=== PATIENT | female | born 1950 | race Caucasian/White ===

== ENCOUNTER 2016-03-22 19:32 | Emergency (ER) | payer OTHER ==
[~2016-03-22] VITALS: Ht 160 cm; Wt 66.0 kg
[~2016-03-22 19:32] MED LIST: ALBUAER INH; MORP15TA PO; PRAV20TA PO; PRLSR20 PO
[2016-03-22 19:43] VITALS: TEMP 36.5; Ht 160 cm; Wt 66.0 kg
[2016-03-22] MEDS ORDERED: PROAIR INH (19:57)
--- NOTE | 2016-03-22 20:05 | EMERGENCY ROOM VISIT NOTE ---
History Report prepared by Yuvalibalec: Jean-Pierre Moreno Under the Supervision of: Dr. Kaushik Angeles M.D. First contact with patient: 19:54 Chief Complaint: ABDOMINAL PAIN Stated Complaint: AB PAIN, CONSTIPATION Nursing Triage Summary: Pt brought in via ambulance BLS. Pt called 911 because she has been unable to urinate or have a bowel movement for two days. Pt states that she had abdominal pain a 9 out of 10. Pt states it feels like she may explode. Pt denies N/V. Pt also states that she has been eating and drinking regularly. Pt took miralax and pepto. History of Present Illness The patient is a 65 year old female who presents to the Emergency Room with complaints of persistent constipation for the past few days. The patient notes that she also cannot pass urine. She complains of abdominal pain that she rates as a 9 out of 10 in severity. The patient had red blood cell transfusions 2 days ago and is currently on chemotherapy treatment. She denies nausea or vomiting. Source of History: patient Onset: the past few days Position: other (GI/) Timing: other (persistent) Associated Symptoms: + abdominal pain (9/10), No nausea, No vomiting Review of Systems See HPI for pertinent positives & negatives. A total of 10 systems reviewed and were otherwise negative. Past Medical & Surgical Medical Problems: (1) Asthma (2) Bipolar disorder (3) Chronic back pain (4) Chronic obstructive lung disease (5) Dehydration (6) Depression (7) Diabetes mellitus (8) Hyperlipidemia (9) Migraine (10) Pneumonia Family History No significant family history Social History Smoking Status: Former Smoker Alcohol Use: none Drug Use: none Marital Status: single Housing Status: lives with roommate Occupation Status: disabled Current/Historical Medications Scheduled Morphine Sulfate (Morphine Sulfate Ir), 15 MG PO DIRECTED [Proair], 2 PUFFS INH QID Scheduled PRN Pravastatin (Pravachol ), 20 MG PO DAILY PRN for Allergies Coded Allergies: Cat Dander (Verified Allergy, Mild, 01/15/16) Codeine (Verified Allergy, Unknown, 01/15/16) Simvastatin (Verified Adverse Reaction, Intermediate, ELEVATED HEPATIC ENZYMES, 01/15/16) Physical Exam Vital Signs Date Time Temp Pulse Resp B/P Pulse Ox O2 Delivery O2 Flow Rate FiO2 03/22/16 21:56 75 20 121/71 98 03/22/16 19:43 36.5 83 20 126/55 100 Nasal Cannula Physical Exam GENERAL: Patient is a healthy-appearing well-nourished HEAD: Normocephalic atraumatic EYES: Ocular movements intact pupils equal and react to light OROPHARYNX mucous membranes are moist no exudates present no erythema or edema present NECK: Supple no nuchal rigidity CHEST: Good equal expansion LUNGS: Clear and equal to auscultation CARDIAC: Normal S1 and S2 ABDOMEN: Soft nontender no guarding BACK: No CVA tenderness EXTREMITIES: No pain upon palpation normal muscle strength in all groups no clubbing cyanosis or edema NEURO: Patient is following commands is answering questions appropriately. Alert and oriented x3 Cranial Nerves 2-12 grossly intact Medical Decision & Procedures ER Provider Diagnostic Interpretation: X-ray results as stated below per interpretation by me and the radiologist: PA CHEST RADIOGRAPH AND LEFT LATERAL DECUBITUS AND SUPINE AP RADIOGRAPHS OF THE ABDOMEN CLINICAL HISTORY: No recent bowel movement. Abdominal pain. COMPARISON STUDY: CT of the abdomen and pelvis October 12, 2015 and chest radiograph October 20, 2015. FINDINGS: A right shoulder arthroplasty is incidentally noted. Lung volumes are normal. Lungs are clear. There is no pneumothorax or pleural effusion. Cardiac size is normal. Mediastinal contours are normal. No free air is identified on the left lateral decubitus image. There is no evidence for a bowel obstruction. Note is made of a large amount stool within the rectum and moderate amount of stool within the colon. There is avascular necrosis of both femoral heads. IMPRESSION: 1. No free air or evidence of bowel obstruction. 2. Large amount of stool within the rectum and moderate amount of stool within the colon. 3. No acute cardiopulmonary findings. 4. Avascular necrosis of the bilateral femoral heads. Electronically signed by: Mo Silvestre M.D. 03/22/2016 9:52 PM Dictated Date/Time: 03/22/2016 9:50 PM Laboratory Results Test 03/22/16 20:20 Urine Color YELLOW Urine Appearance CLEAR (CLEAR) Urine pH 6.5 (4.5-7.5) Urine Specific [place] 1.017 (1.000-1.030) Urine Protein NEG (NEG) Urine Glucose (UA) NEG (NEG) Urine Ketones NEG (NEG) Urine Occult Blood NEG (NEG) Urine Nitrite NEG (NEG) Urine Bilirubin NEG (NEG) Urine Urobilinogen NEG (NEG) Urine Leukocyte Esterase NEG (NEG) Labs reviewed by ED physician. Medications Administered Medications (Trade) Dose Ordered Sig/Jose Route Start Time Stop Time Status Last Admin Dose Admin Magnesium Citrate (Citrate Of Светлана Tucker) 296 ml NOW STAT PO 03/22/16 21:30 03/22/16 21:33 DC 03/22/16 21:52 296 ML ED Course 1955: Past medical records reviewed. The patient was evaluated in room C8. A complete history and physical examination was performed. 2129: Ordered Magnesium Citrate 296 ml PO, Trimethoprim/ Sulfamethoxazole 1 homepack PO, Trimethoprim/ Sulfamethoxazole 1 tab PO. 2199: Upon reexamination the patient is resting comfortably. I discussed results and treatment plan with the patient. She verbalizes agreement and understanding. The patient is ready for discharge. Medical Decision Differential diagnosis: Etiologies such as appendicitis, diverticulitis, PUD, biliary pathology, UTI, pancreatitis, obstruction, mesenteric ischemia, aortic pathology, infections, inflammatory bowel disease, renal colic, as well as others were entertained. This is a 65-year-old female who presents emergency department complaining about constipation as well as urinary retention. The patient is neurologically intact and has good range of motion of her legs has no evidence of saddle anesthesia. A Porter was placed with much agreement of her pain. Serial abdominal examinations were performed on the patient while she was in the emergency department and at no time did she exhibit abdominal tenderness. Based on these findings the patient was sent for x-ray. This showed a moderate amount of stool the colon but no evidence of bowel obstruction. Based on these findings I recommended the patient keep the Porter catheter in place and I was going placed patient on Bactrim however the patient refused the Porter and wishes to go home without. I strongly recommended that she keep the Porter in place however she is refusing. She is going to try magnesium citrate for her constipation. I recommended that the patient follow-up with her primary care physician and a clear liquid diet for the next 48 hours. Patient was in agreement with the treatment plan. The patient has demonstrated no significant defect in the decision-making capacity to make choices. The encounter had a good level of communication with language the patient can easily understand. I feel trust was present and conveyed that our action/intentions were the best interest of the patient. The patient was given all relevant information and reiterated the explained risks and benefits. The patient explained the reasoning for refusing treatment clearly. The patient possesses and expresses a set of values and goals, the ability to communicate and understand, and an ability to reason and deliberate. Despite acting emphatically, attentively and with the utmost patient's the patient declined further treatment. I offered options, negotiated, and explored every reasonable choice. I must respect the patient's autonomy and that they feel that their choices are best for them despite the associated risks of leaving without completing the evaluation. The patient was informed about the findings as listed above. All questions were answered and he was pleased with the treatment. Return instructions were outlined and the patient was discharged in stable condition. Impression Primary Impression: Constipation Additional Impressions: Urinary retention, Abdominal pain Scribe Attestation The scribe's documentation has been prepared under my direction and personally reviewed by me in its entirety. I confirm that the note above accurately reflects all work, treatment, procedures, and medical decision making performed by me. Departure Information Dispostion Home / Self-Care Referrals Ankit Herr M.D. (PCP) Forms HOME CARE DOCUMENTATION FORM, IMPORTANT VISIT INFORMATION, My [facility] Patient Instructions A Signature Page Additional Instructions Take 1/2 bottle of Mag Citrate Repeat second half in six hours You have been examined and treated today on an emergency basis only. This is not a substitute for, or an effort to provide, complete comprehensive medical care. It is impossible to recognize and treat all injuries or illnesses in a single emergency department visit. It is therefore important that you follow up closely with Dr Herr. Call as soon as possible for an appointment. Thank you for your time and consideration. I look forward to speaking with you again soon. Please don't hesitate to call us if you have any questions.
[2016-03-22 20:41] LABS: URINE APPEARANCE CLEAR (CLEAR); URINE BILIRUBIN NEG (NEG); URINE COLOR YELLOW; URINE NITRITE NEG (NEG); URINE PH 6.5 (4.5-7.5); URINE SPECIFIC GRAVITY 1.017 (1.000-1.030); UROBILINOGEN NEG (NEG); ZZURINE CULT IF INDIC CATH NO
[2016-03-22 20:44] LABS: MANUAL MICROSCOPIC REQUIRED? NO; REVIEW REQ? NO
[2016-03-22] MEDS ORDERED: SULFAMETHOXAZOLE/TRIMETHOPRIM DS 800/160MG TAB PO STA (21:30)
[2016-03-22] MEDS ORDERED: MAGNESIUM CITRATE 296 ML/BTL PO STA (21:30)
[2016-03-22] MEDS ORDERED: SEPTRA DS HOME PACK 1 EA VIAL PO ONE (21:30)
--- NOTE | 2016-03-22 21:54 | DIAGNOSTIC IMAGING REPORT ---
PA CHEST RADIOGRAPH AND LEFT LATERAL DECUBITUS AND SUPINE AP RADIOGRAPHS OF THE ABDOMEN CLINICAL HISTORY: No recent bowel movement. Abdominal pain. COMPARISON STUDY: CT of the abdomen and pelvis October 12, 2015 and chest radiograph October 20, 2015. FINDINGS: A right shoulder arthroplasty is incidentally noted. Lung volumes are normal. Lungs are clear. There is no pneumothorax or pleural effusion. Cardiac size is normal. Mediastinal contours are normal. No free air is identified on the left lateral decubitus image. There is no evidence for a bowel obstruction. Note is made of a large amount stool within the rectum and moderate amount of stool within the colon. There is avascular necrosis of both femoral heads. IMPRESSION: 1. No free air or evidence of bowel obstruction. 2. Large amount of stool within the rectum and moderate amount of stool within the colon. 3. No acute cardiopulmonary findings. 4. Avascular necrosis of the bilateral femoral heads. Electronically signed by: Mo Silvestre M.D. 03/22/2016 9:52 PM Dictated Date/Time: 03/22/2016 9:50 PM
[2016-03-22 21:56] VITALS: BP 121/71; PULSE 75; O2SAT 98
[2016-04-11] MEDS ORDERED: SRQ100 PO (15:01)
[2016-04-11] MEDS ORDERED: MORP15TA PO (15:01)
[2016-04-11] MEDS ORDERED: AMB10 PO (15:01)
[2016-04-11] MEDS ORDERED: NVLGIPEN SC (15:01)
[2016-04-11] MEDS ORDERED: [UNRECOGNIZED DRUG - CODE] PO (15:01)
[2016-04-11] MEDS ORDERED: SENN8.6T7 PO (15:01)
[2016-04-11] MEDS ORDERED: DLC5 PO (15:01)
[2016-04-11] MEDS ORDERED: MOMLX PO (15:01)
[2016-04-11] MEDS ORDERED: ZLF50 PO (15:01)
[2016-04-18] MEDS ORDERED: SODI1ENE RE (09:44)
[2016-04-18] MEDS ORDERED: ACET-1311 PO (09:44)
[2016-04-18] MEDS ORDERED: DULCOLAX RE (09:44)
[2016-04-18] MEDS ORDERED: BARRIER CREAM TOP (09:44)
[2016-04-18] MEDS ORDERED: GLGKIT IM (09:44)
[2016-04-18] MEDS ORDERED: DEXT40GE PO (09:44)
[2016-07-18] MEDS ORDERED: SERT-234 PO (12:15)
[2016-07-18] MEDS ORDERED: BISA1TAB15 PO (12:18)
[2016-07-18] MEDS ORDERED: ALBU18002 INH (12:18)
[2016-07-18] MEDS ORDERED: PRLSR20 PO (12:18)
== END 2016-03-22 21:57 | disposition home or self-care (01) ==
LOC: EDBD 19:32 → C.EDC 19:33
DX: K59.00 Constipation, unspecified (principal); R33.9 Retention of urine, unspecified; R10.9 Unspecified abdominal pain; F31.9 Bipolar disorder, unspecified; E11.9 Type 2 diabetes mellitus without complications; E78.5 Hyperlipidemia, unspecified; J44.9 Chronic obstructive pulmonary disease, unspecified; Z88.5 Allergy status to narcotic agent; Z88.8 Allergy status to other drugs, medicaments and biological substances; Z87.891 Personal history of nicotine dependence

== ENCOUNTER 2016-03-28 21:42 | Emergency (ER) | payer OTHER ==
[~2016-03-28] VITALS: Ht 160 cm; Wt 64.7 kg
[~2016-03-28 21:42] MED LIST changes: -ALBUAER INH; -PRLSR20 PO; +PROAIR INH
[2016-03-28 21:51] VITALS: TEMP 37.7; Ht 160 cm; Wt 64.7 kg
[2016-03-28] MEDS ORDERED: ALBUT/IPRATROP 3MG/0.5MG NEB 3 ML VIAL INH STA (22:24)
[2016-03-28 22:45] VITALS: O2SAT 97
[2016-03-28 23:04] LABS: URINE APPEARANCE CLEAR (CLEAR); URINE BILIRUBIN NEG (NEG); URINE COLOR YELLOW; URINE NITRITE NEG (NEG); URINE PH 6.5 (4.5-7.5); URINE SPECIFIC GRAVITY 1.018 (1.000-1.030); UROBILINOGEN NEG (NEG); ZZUR CULT IF INDIC CLEAN CATCH YES
[2016-03-28 23:05] LABS: MANUAL MICROSCOPIC REQUIRED? NO; REVIEW REQ? NO
[2016-03-28 23:43] LABS: BASO % 0.4 %; BASO ABS # 0.02 K/uL (0-0.2); COMPLETE YES; EOS % 7.4 %; HEMATOCRIT 31.3 % (37-47); IG% 0.5 %; LYMPH % 13.7 %; LYMPH ABS # 0.76 K/uL (1.2-3.4); MEAN CELL VOLUME 95.4 fL (80-100); MEAN CORPUSCULAR HEMOGLOBIN 30.8 pg (25-34); MEAN CORPUSCULAR HGB CONC 32.3 g/dl (32-36); MEAN PLATELET VOLUME 10.4 fL (7.4-10.4); MONO % 6.1 %; NEUT % 71.9 %; PLATELET COUNT 315 K/uL (130-400); RED BLOOD COUNT 3.28 M/uL (4.2-5.4); WHITE BLOOD COUNT 5.55 K/uL (4.8-10.8)
[2016-03-28 23:46] LABS: VEN BLD GAS O2 SATURATION < 60.0 %; VEN BLOOD GAS BASE EXCESS 4.8 mmol/L; VENOUS BLOOD GAS PCO2 58 mmHg (38.0-50.0); VENOUS BLOOD GAS PO2 24 mmHg
[2016-03-28] MEDS ORDERED: SULFAMETHOXAZOLE/TRIMETHOPRIM DS 800/160MG TAB PO STA (23:53)
[2016-03-29 00:02] LABS: ALT/SGPT 44 U/L (12-78); AST/SGOT 42 U/L (15-37); BLOOD UREA NITROGEN 16 mg/dl (7-18); BUN/CREATININE RATIO 10.5 (10-20); CALCIUM 8.7 mg/dl (8.5-10.1); CARBON DIOXIDE 30 mmol/L (21-32); CHLORIDE 106 mmol/L (98-107); GLUCOSE 107 mg/dl (70-99); MAGNESIUM 2.4 mg/dl (1.8-2.4); POTASSIUM 4.3 mmol/L (3.5-5.1); SODIUM 144 mmol/L (136-145)
[2016-03-29 00:07] LABS: ALKALINE PHOSPHATASE 140 U/L (45-117); CKMB/CK RATIO 2.3 (0-3.0)
--- NOTE | 2016-03-29 00:16 | EMERGENCY ROOM VISIT NOTE ---
ED Visit Note First contact with patient: 22:03 Staff note: I have reviewed the Patients chart and have discussed this case with my PA. I generally agree with the ED note and findings.
[2016-03-29] MEDS ORDERED: SULF800T23 PO (00:39)
[2016-03-29] MEDS ORDERED: MAGNESIUM CITRATE 296 ML/BTL PO ONE (00:45)
[2016-03-29] MEDS ORDERED: SEPTRA DS HOME PACK 1 EA VIAL PO ONE (00:45)
[2016-03-29 01:04] VITALS: BP 144/75; PULSE 83; O2SAT 91
--- NOTE | 2016-03-29 04:23 | EMERGENCY ROOM VISIT NOTE ---
History First contact with patient: 22:03 Chief Complaint: RESPIRATORY PROBLEMS Stated Complaint: SOB/COUGH Nursing Triage Summary: Pt arrived by EMS. Pt had increasing SOB at home. EMS stated that pt had her home O2 tubing tangled and in a knot. Pt brought to ER. Duoneb given in route. Pt is 97% on 3L. History of Present Illness The patient is a 65 year old female who presents to the Emergency Room with complaints of shortness of breath that is now resolved. Patient also complains of constipation. Patient states she normally wears 3 L of oxygen. She noticed she could not breathe and called 911. EMS realized that her oxygen tubing was knotted up and not working properly. Patient states when she is placed on oxygen she felt much better. Patient denies chest pain, fever, chills, cough, congestion, abdominal pain, vomiting, diarrhea. Patient states she feels much better. Patient is requesting magnesium citrate for her constipation. No bowel movement in last 3 days. No abdominal surgeries. Review of Systems See HPI for pertinent positives & negatives. A total of 10 systems reviewed and were otherwise negative. Past Medical/Surgical History Medical Problems: (1) Asthma (2) Bipolar disorder (3) Chronic back pain (4) Chronic obstructive lung disease (5) Dehydration (6) Depression (7) Diabetes mellitus (8) Hyperlipidemia (9) Migraine (10) Pneumonia Family History No significant family history Social History Smoking Status: Former Smoker Alcohol Use: none Drug Use: none Marital Status: single Housing Status: lives with roommate Occupation Status: disabled Current/Historical Medications Scheduled Morphine Sulfate (Morphine Sulfate Ir), 15 MG PO DIRECTED Sulfa/Trimethoprim (Bactrim Ds 800MG/160MG), 1 TAB PO BID [Proair], 2 PUFFS INH QID Scheduled PRN Pravastatin (Pravachol ), 20 MG PO DAILY PRN for Allergies Coded Allergies: Cat Dander (Verified Allergy, Mild, 03/28/16) Codeine (Verified Allergy, Unknown, 03/28/16) Simvastatin (Verified Adverse Reaction, Intermediate, ELEVATED HEPATIC ENZYMES, 03/28/16) Physical Exam Vital Signs Date Time Temp Pulse Resp B/P Pulse Ox O2 Delivery O2 Flow Rate FiO2 03/29/16 01:04 83 20 144/75 91 03/28/16 23:44 81 18 149/84 95 Nasal Cannula 3.0 03/28/16 23:03 90 03/28/16 22:46 Nasal Cannula 3.0 03/28/16 22:45 97 Nasal Cannula 3.0 03/28/16 21:58 Nasal Cannula 3.0 03/28/16 21:51 37.7 96 126/89 97 Nasal Cannula 3.0 Pain Rating (0-10): 2.0 Physical Exam VITALS: Vitals are noted on the nurse's note and reviewed by myself. Vital signs stable. GENERAL: Pleasant female speaking in full sentences, in no acute distress, nondiaphoretic, well-developed well-nourished. SKIN: The skin was without rashes, erythema, edema, or bruising. There is no tenting of the skin. Capillary reflex less than 2 seconds. HEAD: Normocephalic atraumatic. EARS: External auditory canals clear, tympanic membranes pearly waters without erythema or effusion bilaterally. EYES: Pupils equal round and reactive to light and accommodation. Conjunctivae without injection, sclerae without icterus. Extraocular movements intact. NOSE: Patent, turbinates without inflammation or discharge. MOUTH: Mucous membranes moist. Pharynx without erythema or exudate. Uvula midline. Airway patent. Tongue does not deviate. NECK: Supple without nuchal rigidity. No lymphadenopathy. No thyromegaly. Cervical spine is nontender. No JVD. HEART: Regular rate and rhythm LUNGS: Mild diffuse adnexal and oriented wheezes, without rales or rhonchi. No dullness to percussion. No retractions or accessory muscle use. ABDOMEN: Positive bowel sounds x 4. Normal tympanic percussion. Soft, nontender, without masses or organomegaly. Singh sign negative. No guarding or rebound tenderness. MUSCULOSKELETAL: No muscle atrophy, erythema, or edema noted. NEURO: Patient was alert and oriented to person place and time. Normal sensation to light and sharp touch. No focal neurological deficits. Medical Decision & Procedures Laboratory Results 03/28/16 23:34 Red Blood Count 3.28, Mean Corpuscular Volume 95.4, Mean Corpuscular Hemoglobin 30.8, Mean Corpuscular Hemoglobin Concent 32.3, Mean Platelet Volume 10.4, Neutrophils (%) (Auto) 71.9, Lymphocytes (%) (Auto) 13.7, Monocytes (%) (Auto) 6.1, Eosinophils (%) (Auto) 7.4, Basophils (%) (Auto) 0.4, Neutrophils # (Auto) 3.99, Lymphocytes # (Auto) 0.76, Monocytes # (Auto) 0.34, Eosinophils # (Auto) 0.41, Basophils # (Auto) 0.02 03/28/16 23:34 Test 03/28/16 00:00 03/28/16 23:34 Urine Color YELLOW Urine Appearance CLEAR (CLEAR) Urine pH 6.5 (4.5-7.5) Urine Specific [place] 1.018 (1.000-1.030) Urine Protein NEG (NEG) Urine Glucose (UA) NEG (NEG) Urine Ketones NEG (NEG) Urine Occult Blood NEG (NEG) Urine Nitrite NEG (NEG) Urine Bilirubin NEG (NEG) Urine Urobilinogen NEG (NEG) Urine Leukocyte Esterase SMALL (NEG) Urine WBC (Auto) 10-30 /hpf (0-5) Urine RBC (Auto) 0-4 /hpf (0-4) Urine Hyaline Casts (Auto) 1-5 /lpf (0-5) Urine Epithelial Cells (Auto) 5-10 /lpf (0-5) Urine Bacteria (Auto) 1+ (NEG) White Blood Count 5.55 K/uL (4.8-10.8) Red Blood Count 3.28 M/uL (4.2-5.4) Hemoglobin 10.1 g/dL (12.0-16.0) Hematocrit 31.3 % (37-47) Mean Corpuscular Volume 95.4 fL (80-100) Mean Corpuscular Hemoglobin 30.8 pg (25-34) Mean Corpuscular Hemoglobin Concent 32.3 g/dl (32-36) Platelet Count 315 K/uL (130-400) Mean Platelet Volume 10.4 fL (7.4-10.4) Neutrophils (%) (Auto) 71.9 % Lymphocytes (%) (Auto) 13.7 % Monocytes (%) (Auto) 6.1 % Eosinophils (%) (Auto) 7.4 % Basophils (%) (Auto) 0.4 % Neutrophils # (Auto) 3.99 K/uL (1.4-6.5) Lymphocytes # (Auto) 0.76 K/uL (1.2-3.4) Monocytes # (Auto) 0.34 K/uL (0.11-0.59) Eosinophils # (Auto) 0.41 K/uL (0-0.5) Basophils # (Auto) 0.02 K/uL (0-0.2) RDW Standard Deviation 60.8 fL (36.4-46.3) RDW Coefficient of Variation 17.4 % (11.5-14.5) Immature Granulocyte % (Auto) 0.5 % Immature Granulocyte # (Auto) 0.03 K/uL (0.00-0.02) Nucleated RBC Absolute Count (auto) 0.02 K/uL (0-0) Nucleated Red Blood Cells % 0.3 % Venous Blood pH 7.35 (7.36-7.41) Venous Blood Partial Pressure CO2 58 mmHg (38.0-50.0) Venous Blood Partial Pressure O2 24 mmHg Venous Blood HCO3 31 mmol/L Venous Blood Oxygen Saturation < 60.0 % Venous Blood Base Excess 4.8 mmol/L Anion Gap 8.0 mmol/L (3-11) Est Creatinine Clear Calc Drug Dose 34.7 ml/min Estimated GFR () 42.5 Estimated GFR (Non- 36.7 BUN/Creatinine Ratio 10.5 (10-20) Calcium Level 8.7 mg/dl (8.5-10.1) Magnesium Level 2.4 mg/dl (1.8-2.4) Total Bilirubin 0.4 mg/dl (0.2-1) Direct Bilirubin 0.1 mg/dl (0-0.2) Aspartate Amino Transf (AST/SGOT) 42 U/L (15-37) Alanine Aminotransferase (ALT/SGPT) 44 U/L (12-78) Alkaline Phosphatase 140 U/L (45-117) Total Creatine Kinase 53 U/L (26-192) Creatine Kinase MB 1.2 ng/ml (0.5-3.6) Creatine Kinase MB Ratio 2.3 (0-3.0) Troponin I < 0.015 ng/ml (0-0.045) Total Protein 6.4 gm/dl (6.4-8.2) Albumin 3.6 gm/dl (3.4-5.0) Medications Administered Medications (Trade) Dose Ordered Sig/Jose Route Start Time Stop Time Status Last Admin Dose Admin Albuterol/ Ipratropium (Duoneb) 3 ml NOW STAT INH 03/28/16 22:24 03/28/16 22:25 DC 03/28/16 22:45 3 ML Trimethoprim/ Sulfamethoxazole (Septra Ds 800/ 160MG Tab) 1 tab NOW STAT PO 03/28/16 23:53 03/28/16 23:54 DC 03/29/16 00:57 1 TAB Trimethoprim/ Sulfamethoxazole (Sulfameth/ Trimeth Ds 800/ 160MG Home Pack) 1 homepack UD ONCE PO 03/29/16 00:45 03/29/16 00:46 DC 03/29/16 00:58 1 HOMEPACK Magnesium Citrate (Citrate Of Magnesia Soln) 296 ml NOW ONCE PO 03/29/16 00:45 03/29/16 00:46 DC 03/29/16 00:58 296 ML ED Course Prior records/ancillary studies reviewed. Triage Nursing notes reviewed. Additional history obtained from the EMS The patient's history was concerning for respiratory difficulties. Differential diagnosis: Etiologies such as infections, reactive airway disease, pneumonia, pneumothorax , COPD, CHF, cardiac ischemia, pulmonary embolism, musculoskeletal, gastrointestinal, as well as others were entertained. Physical examination: As above. ER treatment provided: Nebulizer, Bactrim On reassessment the patient felt better. Diagnostic interpretation by me: The electrocardiogram was negative for acute ischemic or pathologic change. The labs revealed moderate anemia. Negative troponin. Urinalysis consistent with infection sent for culture Imaging studies: Acute abdominal series with no obstruction, free air or pneumothorax per my interpretation This appears to be consistent with shortness of breath related to oxygen tube malfunction with UTI and constipation. Patient felt much better and requested to leave. She was started on Bactrim for UTI. She is given magnesium citrate. She is advised to follow-up with family care in a day or 2 or here in the ER sooner for chest pain, difficulty breathing, fevers, worsening signs or symptoms or as needed. By the evaluation outlined above emergent etiologies such as CHF, cardiac ischemia, pulmonary embolism, reactive airway disease, pneumonia, pneumothorax, musculoskeletal, serious bacterial infections, as well as others were deemed relatively unlikely. The pt informed about the findings as listed above. All questions were answered and pleased with the treatment. Return instructions were outlined and the patient was discharged in stable condition. Outpatient prescription management: Bactrim Referral: The patient was referred back to their primary care physician for follow-up in 2 to 3 days for a recheck of the current condition. Case reviewed with my attending Medical Decision As above Impression Primary Impression: Constipation Additional Impression: UTI (urinary tract infection) Departure Information Dispostion Home / Self-Care Condition GOOD Prescriptions Sulfa/Trimethoprim (Bactrim Ds 800MG/160MG) Tab 1 TAB PO BID for 3 Days, #6 TAB Prov: [email or web address] .[email or web address] 03/29/16 Forms WORK / SCHOOL INSTRUCTIONS, HOME CARE DOCUMENTATION FORM, IMPORTANT VISIT INFORMATION Patient Instructions Constipation, UTI, My [facility] Additional Instructions Magnesium citrate: Drink half the bottle wheyouhe get up. If you do not have a bowel movement within 6 hours then drink the rest. Stay near a toilet. Trimethoprim-Sulfamethoxazole(Bactrim DS): Take one pill twice daily for 3 days. Any medication can cause an allergic reaction, stop the pills immediately and return to the ER for rash, hives, breathing difficulties, or swelling. Acetaminophen(Tylenol) may be used for fever or pain. Use 1000mg every six hours as needed. Avoid using more than 3000mg in a 24 hour period. Rest and drink plenty of fluids as tolerated. Slow sips of water or sports drinks are recommended instead of large amounts all at once. Continue current medications. Once your stomach is settled start with a clear liquid diet (jello, soup broth, etc.) and then advance as tolerated. You should avoid full, heavy meals for about 24 hrs from the time your symptoms resolved. Return to the ER immediately for worsening or persistent abdominal/back pain, vomiting, fevers, worsening of your condition, or as needed. Follow up with your primary physician within 2-3 days for a recheck of the current condition. Problem Qualifiers Primary Impression: Constipation Constipation type: unspecified constipation type Qualified Codes: K59.00 - Constipation, unspecified Additional Impression: UTI (urinary tract infection) Urinary tract infection type: acute cystitis Hematuria presence: without hematuria Qualified Codes: N30.00 - Acute cystitis without hematuria
--- NOTE | 2016-03-29 06:53 | DIAGNOSTIC IMAGING REPORT ---
PA CHEST RADIOGRAPH AND UPRIGHT AND SUPINE AP RADIOGRAPHS OF THE ABDOMEN CLINICAL HISTORY: The patient. Shortness of breath. Cough. COMPARISON STUDY: CT of the abdomen and pelvis October 04, 2015 and chest radiograph March 22, 2016 with abdominal series. FINDINGS: Lung volumes are normal. A 1.4 cm nodular density projects over the left mid upper lung and the anterior left third rib. Otherwise, lungs are clear. Cardiac size is stable. A right shoulder arthroplasty is incidentally noted. There is no free air. The bowel gas pattern is normal. There is a [id number] amount of stool within the colon and rectum. Avascular necrosis of both femoral heads is again noted. IMPRESSION: 1. 1.4 cm nodular density which projects of the left upper lung. This could reflect a pulmonary nodule, minimal airspace disease, healing rib fracture or artifact. Follow-up PA and shallow oblique radiographs of the chest in one to 2 weeks are recommended. 2. No free air or evidence of bowel obstruction. 3. Mild to moderate amount stool within the colon and rectum. Electronically signed by: Mo Silvestre M.D. 03/29/2016 6:52 AM Dictated Date/Time: 03/29/2016 6:47 AM
[2016-03-29] MEDS ORDERED: VNTHFA/IN INH (09:42)
[2016-04-11] MEDS ORDERED: AMB10 PO (15:01)
[2016-04-11] MEDS ORDERED: [UNRECOGNIZED DRUG - CODE] PO (15:01)
[2016-04-11] MEDS ORDERED: MOMLX PO (15:01)
[2016-04-11] MEDS ORDERED: DLC5 PO (15:01)
[2016-04-11] MEDS ORDERED: MORP15TA PO (15:01)
[2016-04-11] MEDS ORDERED: SRQ100 PO (15:01)
[2016-04-11] MEDS ORDERED: SENN8.6T7 PO (15:01)
[2016-04-11] MEDS ORDERED: ZLF50 PO (15:01)
[2016-04-11] MEDS ORDERED: NVLGIPEN SC (15:01)
[2016-04-18] MEDS ORDERED: GLGKIT IM (09:44)
[2016-04-18] MEDS ORDERED: ACET-1311 PO (09:44)
[2016-04-18] MEDS ORDERED: SODI1ENE RE (09:44)
[2016-04-18] MEDS ORDERED: DEXT40GE PO (09:44)
[2016-04-18] MEDS ORDERED: BARRIER CREAM TOP (09:44)
[2016-04-18] MEDS ORDERED: DULCOLAX RE (09:44)
[2016-07-18] MEDS ORDERED: SERT-234 PO (12:15)
[2016-07-18] MEDS ORDERED: PRLSR20 PO (12:18)
[2016-07-18] MEDS ORDERED: BISA1TAB15 PO (12:18)
[2016-07-18] MEDS ORDERED: ALBU18002 INH (12:18)
== END 2016-03-29 01:06 | disposition home or self-care (01) ==
LOC: EDBD 21:42 → C.EDC 21:45
DX: K59.00 Constipation, unspecified (principal); N30.00 Acute cystitis without hematuria; D64.9 Anemia, unspecified; E11.9 Type 2 diabetes mellitus without complications; F31.9 Bipolar disorder, unspecified; F32.9 Major depressive disorder, single episode, unspecified; J44.9 Chronic obstructive pulmonary disease, unspecified; E78.5 Hyperlipidemia, unspecified; I50.9 Heart failure, unspecified; Z87.891 Personal history of nicotine dependence

== ENCOUNTER 2016-03-29 09:23 | Inpatient (IN) | payer OTHER ==
[~2016-03-29] VITALS: Ht 167.6 cm; Wt 64.3 kg
[~2016-03-29 09:23] MED LIST changes: +SULF800T23 PO
[2016-03-29] MEDS ORDERED: VNTHFA/IN INH (09:42)
[2016-03-29] MEDS ORDERED: ONDANSETRON INJ 2 MG/ML 2 ML VIAL IV STA (09:49)
[2016-03-29] MEDS ORDERED: CEFTRIAXONE SOD INJ 1 GM ADDVIAL IV STA (09:49)
[2016-03-29] MEDS ORDERED: ALBUT/IPRATROP 3MG/0.5MG NEB 3 ML VIAL INH STA (09:49)
[2016-03-29] MEDS ORDERED: METHYLPREDNISOLONE 125 MG VIAL IV STA (09:49)
--- NOTE | 2016-03-29 10:29 | DIAGNOSTIC IMAGING REPORT ---
CHEST ONE VIEW PORTABLE CLINICAL HISTORY: Shortness of breath. Respiratory distress. COMPARISON STUDY: 03/28/2016 FINDINGS: The heart is borderline enlarged. There is no failure. There is no focal pulmonary consolidation. There are no pleural effusions. There are postsurgical changes involving the right shoulder. The previously queried left upper lung zone nodule is not visualized with certainty. As was previously requested, a follow-up PA and lateral chest x-ray is still recommended[ IMPRESSION: AP portable study. No acute findings. Electronically signed by: Hans Beltrán M.D. 03/29/2016 10:27 AM Dictated Date/Time: 03/29/2016 10:25 AM
[2016-03-29] MEDS ORDERED: ONDANSETRON INJ 2 MG/ML 2 ML VIAL IV PRN (11:15)
[2016-03-29] MEDS ORDERED: ACETAMINOPHEN 325 MG TAB PO PRN (11:15)
[2016-03-29] MEDS ORDERED: DEXTROSE 50% 50 ML SYR IV PRN (11:30)
[2016-03-29] MEDS ORDERED: GLUCOSE 10 TABS/TUBE PO PRN (11:30)
[2016-03-29 12:08] LABS: BLOOD UREA NITROGEN 16 mg/dl (7-18); BUN/CREATININE RATIO 10.5 (10-20); CARBON DIOXIDE 29 mmol/L (21-32); CHLORIDE 108 mmol/L (98-107); GLUCOSE 94 mg/dl (70-99); POTASSIUM 4.9 mmol/L (3.5-5.1); SODIUM 144 mmol/L (136-145)
[2016-03-29 12:20] LABS: BASO % 0.4 %; BASO ABS # 0.02 K/uL (0-0.2); EOS % 4.7 %; HEMATOCRIT 31.2 % (37-47); IG% 0.5 %; LYMPH % 13.8 %; LYMPH ABS # 0.77 K/uL (1.2-3.4); MEAN CELL VOLUME 96.9 fL (80-100); MEAN CORPUSCULAR HEMOGLOBIN 30.7 pg (25-34); MEAN CORPUSCULAR HGB CONC 31.7 g/dl (32-36); MEAN PLATELET VOLUME 11.2 fL (7.4-10.4); MONO % 4.7 %; NEUT % 75.9 %; PLATELET COUNT 248 K/uL (130-400); RED BLOOD COUNT 3.22 M/uL (4.2-5.4); WHITE BLOOD COUNT 5.57 K/uL (4.8-10.8)
[2016-03-29 12:42] VITALS: BP 128/75; PULSE 80; TEMP 36.9; O2SAT 92
[2016-03-29 12:44] LABS: ANISOCYTOSIS PRESENT; COMPLETE YES; GIANT PLATELETS 2+; HYPOCHROMIA PRESENT; POLYCHROMASIA 1+
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
[2016-03-29] MEDS ORDERED: GLUCOSE 40% GEL 15 GM TUBE PO PRN (13:00)
[2016-03-29] MEDS ORDERED: GLUCAGON FOR INJ 1 MG VIAL SQ PRN (13:00)
[2016-03-29 13:06] LABS: INFLUENZA A PCR Neg for Influ A (NEG); INFLUENZA B PCR Neg for Influ B (NEG)
[2016-03-29] MEDS ORDERED: BISACODYL 10 MG SUPP PR SCH (13:30)
[2016-03-29] MEDS: MoRPHine SULFATE IR 15 MG TAB (IMMEDIATE RELEASE) PO SCH ×2 (13:43→20:54)
[2016-03-29 13:54] VITALS: BMI 24.6
[2016-03-29] MEDS ORDERED: IV FLUIDS COMPLETED PRN (14:00)
--- NOTE | 2016-03-29 14:17 | EMERGENCY ROOM VISIT NOTE ---
History Report prepared by [place]: Lisa Mcdonald Under the Supervision of: Dr. Nicola Maciel M.D. First contact with patient: 09:45 Chief Complaint: SHORTNESS OF BREATH Stated Complaint: SHORTNESS OF BREATH Nursing Triage Summary: Triage Note: pt presents to room a03 via als. pt has called 911 3 times in the past 24 hours. pt was seen at [facility] ed last night and sent home. medic reports that pt called her home oxygen company because her oxygen was not working - oxygen company workers found oxygen to be working but pt was acutely short of breath so they called 911. pt wears 3 liters oxygen at home at all times. pt was found to be in the 80's on her 3 liters at home. pt recieved 1 duo neb en route to hospital. pt has productive cough and when asked what color sputum is pt reports "i don't know i swallow it." History of Present Illness The patient is a 65 year old female who presents to the Emergency Room with complaints of intermittent, worsened shortness of breath starting 2 days ago. She has been coughing a lot more than normal in the past few days. She reports mucous production with the cough. She also started having diaphoresis this morning. The patient also complains of nausea. She wears 3 L oxygen at home. The patient does not think her oxygen at home was working. The paper sales representative from the oxygen company came to her house this morning to fix any issues with the oxygen and recommended she come to the Emergency Room. She received 1 DuoNeb en route to the Emergency Room with relief. The patient was evaluated at the Emergency Room last night for similar symptoms. She was discharged home with Bactrim for a UTI. The patient denies any chills, urinary symptoms, or any other complaints. She thinks she may have received a flu shot at her PCP's office. The patient has been receiving chemotherapy for leukemia. Her last chemotherapy session was on March 22. The next time she will receive it will be on April 15. Source of History: patient Onset: 2 days ago Position: other (global) Quality: other (shortness of breath) Timing: intermittent Modifying Factors (Relieving): other (1 DuoNeb with relief) Associated Symptoms: + cough, + diaphoresis, + nausea, No chills, No urinary symptoms Review of Systems See HPI for pertinent positives & negatives. A total of 10 systems reviewed and were otherwise negative. Past Medical & Surgical Medical Problems: (1) Asthma (2) Bipolar disorder (3) Chronic back pain (4) Chronic obstructive lung disease (5) Dehydration (6) Depression (7) Diabetes mellitus (8) Hyperlipidemia (9) Migraine (10) Pneumonia Family History No significant family history Social History Smoking Status: Former Smoker Alcohol Use: none Drug Use: none Marital Status: single Housing Status: lives with roommate Occupation Status: disabled Current/Historical Medications Scheduled Albuterol Hfa (Ventolin Hfa), 2 PUFFS INH QID Morphine Sulfate (Morphine Sulfate Ir), 15 MG PO DIRECTED Scheduled PRN Pravastatin (Pravachol ), 20 MG PO DAILY PRN for Allergies Coded Allergies: Cat Dander (Verified Allergy, Mild, 03/29/16) Codeine (Verified Allergy, Unknown, 03/29/16) Simvastatin (Verified Adverse Reaction, Intermediate, ELEVATED HEPATIC ENZYMES, 03/29/16) Physical Exam Vital Signs Date Time Temp Pulse Resp B/P Pulse Ox O2 Delivery O2 Flow Rate FiO2 03/29/16 10:00 96 Nasal Cannula 3.0 03/29/16 09:30 95 Nasal Cannula 3.0 03/29/16 09:30 95 Nasal Cannula 3.0 03/29/16 09:30 37.2 89 20 132/79 95 Nasal Cannula 3.0 03/29/16 09:29 85 Physical Exam GENERAL: Patient is in no acute distress. HEENT: No acute trauma, normocephalic atraumatic, mucous membranes moist, no nasal congestion, no scleral icterus. NECK: No stridor, no adenopathy, no meningismus, trachea is midline. LUNGS: Diminished breath sounds bilaterally with wheezing and rhonchi bilaterally. Breath sounds are equal. HEART: Without murmurs gallops or rubs, regular rate and rhythm. ABDOMEN: Soft, nontender, bowel sounds positive, no hernias, no peritonitis. EXTREMITIES: No cyanosis or edema, full range of motion of all the joints without pain or difficulty, no signs for acute trauma. NEUROLOGIC: Oriented x 3, no acute motor or sensory deficits, no focal weakness. SKIN: No rash, no jaundice, no diaphoresis. Medical Decision & Procedures ER Provider Diagnostic Interpretation: X-ray results as stated below per interpretation by me and the radiologist: CHEST ONE VIEW PORTABLE CLINICAL HISTORY: Shortness of breath. Respiratory distress. COMPARISON STUDY: 03/28/2016 FINDINGS: The heart is borderline enlarged. There is no failure. There is no focal pulmonary consolidation. There are no pleural effusions. There are postsurgical changes involving the right shoulder. The previously queried left upper lung zone nodule is not visualized with certainty. As was previously requested, a follow-up PA and lateral chest x-ray is still recommended[ IMPRESSION: AP portable study. No acute findings. Electronically signed by: Hans Beltrán M.D. 03/29/2016 10:27 AM Dictated Date/Time: 03/29/2016 10:25 AM Laboratory Results Test 03/29/16 10:00 Influenza Type A (RT-PCR) Neg for Influ A (NEG) Influenza Type B (RT-PCR) Neg for Influ B (NEG) Laboratory results reviewed by me. Medications Administered Medications (Trade) Dose Ordered Sig/Jose Route Start Time Stop Time Status Last Admin Dose Admin Methylprednisolone Sodium Succinate (Solu-Medrol IV) 60 mg NOW STAT IV 03/29/16 09:49 03/29/16 09:55 DC 03/29/16 11:34 60 MG Albuterol/ Ipratropium (Duoneb) 3 ml NOW STAT INH 03/29/16 09:49 03/29/16 09:55 DC 03/29/16 11:02 3 ML Ceftriaxone Sodium (Rocephin Inj) 1 gm NOW STAT IV 03/29/16 09:49 03/29/16 09:55 DC 03/29/16 11:35 1 GM Ondansetron HCl (Zofran Inj) 4 mg NOW STAT IV 03/29/16 09:49 03/29/16 09:55 DC 03/29/16 11:34 4 MG ECG Indication: SOB/dyspnea Rate (beats per minute): 66 Rhythm: normal sinus Findings: no acute ischemic change, no ectopy ED Course 0945: The patient was evaluated in room A03. A complete history and physical exam was performed. 0949: Zofran Inj 4 mg IV, Rocephin Inj 1 gm IV, DuoNeb 3 ml IV, Solu-Medrol IV 60 mg IV 1021: I [facility] the patient's [facility] Upon reexamination the patient is resting comfortably. I discussed results and treatment plan with the patient. She verbalizes agreement and understanding. The patient will be evaluated for further management. Medical Decision Differential diagnosis includes but is not limited to acute bronchitis, pneumonia, exacerbation of COPD, cardiac ischemia, anemia, influenza, electrolyte imbalance. There is no leukocytosis. The patient is anemic but this is baseline looking back at previous testing. No significant electrolyte abnormality, kidney failure. EKG shows a normal sinus rhythm, no acute ischemia. Cardiac enzyme testing does not show evidence for acute cardiac injury. Influenza testing is negative. Chest film shows no pneumonia, pneumothorax or CHF. The patient presents with hypoxia despite her normal O2 amounts at home. She has had a cough and increased congestion. Her lung sounds are diminished with wheezing bilaterally. She appears to have an acute bronchitis with an exacerbation of COPD. At this point, admission/observation is warranted. The patient received IV saline, IV Solu-Medrol, IV ceftriaxone and IV Zofran. I spoke with case management. The on-call hospitalist was consulted. Consults Time Called: 1001 Consulting Physician: Dr. Hunter, from [facility] Hospitalist Service Returned Call: [phone] I discussed the patient's case with [facility] Impression Primary Impression: Hypoxia Additional Impressions: Acute bronchitis COPD exacerbation Scribe Attestation The scribe's documentation has been prepared under my direction and personally reviewed by me in its entirety. I confirm that the note above accurately reflects all work, treatment, procedures, and medical decision making performed by me. Departure Information Dispostion Being Evaluated By Hospitalist Referrals Ankit Herr M.D. (PCP) Patient Instructions My [facility] Problem Qualifiers
--- NOTE | 2016-03-29 14:54 | DIAGNOSTIC IMAGING REPORT ---
CHEST 2 VIEWS ROUTINE CLINICAL HISTORY: Shortness of breath. COMPARISON STUDY: Chest radiograph March 29, 2016 at 10:00 AM and chest radiograph March 28, 2016. FINDINGS: Right shoulder arthroplasty is noted. There is no pneumothorax or pleural effusion. There is no evidence of pulmonary edema. No consolidation is identified. The nodular density within the left upper lung on exam of March 28, 2016 is less conspicuous on this exam and likely represents summation artifact. IMPRESSION: 1. No acute cardiopulmonary findings. 2. The nodular density within the left upper lung on exam of March 28, 2016 is less conspicuous on this exam and likely reflects summation artifact with overlying rib. Electronically signed by: Mo Silvestre M.D. 03/29/2016 2:53 PM Dictated Date/Time: 03/29/2016 2:51 PM
[2016-03-29 14:55] VITALS: BP 120/74; PULSE 82; TEMP 37.1; O2SAT 93
[2016-03-29] MEDS: ALBUT/IPRATROP 3MG/0.5MG NEB 3 ML VIAL INH SCH ×2 (16:00→19:49)
[2016-03-29] MEDS: INSULIN ASPART 100 UNITS/ML 3 ML PEN SC SCH ×2 (16:30→20:54)
[2016-03-29 19:25] VITALS: PULSE 94; O2SAT 97
[2016-03-29 19:40] VITALS: BP 119/73; PULSE 58; TEMP 36.7; O2SAT 97
[2016-03-29] MEDS: METHYLPREDNISOLONE IV 40 MG in SYRINGE 0 ML IV SCH (20:53)
[2016-03-29 23:32] VITALS: BP 132/81; PULSE 63; TEMP 36.6; O2SAT 96
[2016-03-30] VITALS (10 sets, daily range): BP systolic 107–152; BP diastolic 68–86; PULSE 55–109; TEMP 36.6–36.8; O2SAT 94–99; BMI 24.2
[2016-03-30] MEDS: METHYLPREDNISOLONE IV 40 MG in SYRINGE 0 ML IV SCH ×3 (03:51→20:17)
[2016-03-30] MEDS: MoRPHine SULFATE IR 15 MG TAB (IMMEDIATE RELEASE) PO SCH ×3 (06:34→21:48)
[2016-03-30] MEDS: ALBUT/IPRATROP 3MG/0.5MG NEB 3 ML VIAL INH SCH ×4 (07:42→19:33)
[2016-03-30 07:50] LABS: COMPLETE YES; HEMATOCRIT 31.5 % (37-47); IG% 0.5 %; LYMPH ABS # 0.35 K/uL (1.2-3.4); MEAN CELL VOLUME 97.2 fL (80-100); MEAN CORPUSCULAR HEMOGLOBIN 30.9 pg (25-34); MEAN CORPUSCULAR HGB CONC 31.7 g/dl (32-36); MEAN PLATELET VOLUME 10.8 fL (7.4-10.4); MONO % 2.8 %; NEUT % 88.7 %; PLATELET COUNT 291 K/uL (130-400); RED BLOOD COUNT 3.24 M/uL (4.2-5.4); WHITE BLOOD COUNT 4.35 K/uL (4.8-10.8)
[2016-03-30 08:15] LABS: BUN/CREATININE RATIO 14.4 (10-20); CALCIUM 9.1 mg/dl (8.5-10.1); CREATININE 1.7 mg/dl (0.60-1.20); POTASSIUM 5.3 mmol/L (3.5-5.1)
[2016-03-30] MEDS: PRAVASTATIN SOD 20 MG TAB PO SCH (08:39)
[2016-03-30] MEDS: POLYETHYLENE (MIRALAX) 17 GM PACK PO SCH (08:39)
[2016-03-30] MEDS: SENNA 8.6 MG TAB PO SCH (08:39)
[2016-03-30] MEDS: BISACODYL 5 MG TABEC PO SCH (08:43)
[2016-03-30] MEDS: INSULIN ASPART 100 UNITS/ML 3 ML PEN SC SCH ×4 (08:45→20:19)
[2016-03-30 09:17] LABS: ESTIMATED AVERAGE GLUCOSE 103 mg/dl; HA1C FLAG Normal (Normal)
[2016-03-30] MEDS ORDERED: SODIUM POLYST. SULF SUSP 15G/60ML PO STA (09:57)
[2016-03-30] MEDS: SODIUM CHLORIDE 0.9% 1000ML 1,000 ML IV SCH ×2 (10:16→21:49)
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
[2016-03-30 15:56] LABS: BUN/CREATININE RATIO 16.3 (10-20); CALCIUM 8.4 mg/dl (8.5-10.1); POTASSIUM 5.2 mmol/L (3.5-5.1)
[2016-03-31] VITALS (10 sets, daily range): BP systolic 135–165; BP diastolic 67–82; PULSE 52–83; TEMP 36.6–36.9; O2SAT 92–100; BMI 24.9
[2016-03-31] MEDS: METHYLPREDNISOLONE IV 40 MG in SYRINGE 0 ML IV SCH ×3 (04:13→22:17)
[2016-03-31] MEDS: MoRPHine SULFATE IR 15 MG TAB (IMMEDIATE RELEASE) PO SCH ×3 (06:14→22:17)
[2016-03-31] MEDS: ALBUT/IPRATROP 3MG/0.5MG NEB 3 ML VIAL INH SCH ×4 (07:58→20:48)
[2016-03-31] MEDS: PRAVASTATIN SOD 20 MG TAB PO SCH (09:15)
[2016-03-31] MEDS: SENNA 8.6 MG TAB PO SCH (09:15)
[2016-03-31] MEDS: INSULIN ASPART 100 UNITS/ML 3 ML PEN SC SCH ×4 (09:16→20:33)
[2016-03-31] MEDS: POLYETHYLENE (MIRALAX) 17 GM PACK PO SCH (09:16)
[2016-03-31] MEDS: BISACODYL 5 MG TABEC PO SCH (09:19)
[2016-03-31 09:59] LABS: BUN/CREATININE RATIO 20.9 (10-20); CALCIUM 7.9 mg/dl (8.5-10.1); CREATININE 1.6 mg/dl (0.60-1.20); MAGNESIUM 2.4 mg/dl (1.8-2.4); PHOSPHORUS 3.5 mg/dl (2.5-4.9); POTASSIUM 4.8 mmol/L (3.5-5.1)
[2016-03-31] MEDS: SODIUM CHLORIDE 0.9% 1000ML 1,000 ML IV SCH (11:34)
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
[2016-04-01] VITALS (9 sets, daily range): BP systolic 131–181; BP diastolic 67–90; PULSE 53–64; TEMP 36.6–36.8; O2SAT 94–100; BMI 25.7
[2016-04-01] MEDS: SODIUM CHLORIDE 0.9% 1000ML 1,000 ML IV SCH ×2 (00:54→15:20)
[2016-04-01] MEDS: METHYLPREDNISOLONE IV 40 MG in SYRINGE 0 ML IV SCH ×3 (04:24→22:29)
[2016-04-01] MEDS: MoRPHine SULFATE IR 15 MG TAB (IMMEDIATE RELEASE) PO SCH ×3 (06:07→22:30)
[2016-04-01] MEDS: ALBUT/IPRATROP 3MG/0.5MG NEB 3 ML VIAL INH SCH ×4 (07:37→19:22)
[2016-04-01] MEDS: POLYETHYLENE (MIRALAX) 17 GM PACK PO SCH (07:49)
[2016-04-01] MEDS: PRAVASTATIN SOD 20 MG TAB PO SCH (07:49)
[2016-04-01] MEDS: SENNA 8.6 MG TAB PO SCH (07:50)
[2016-04-01] MEDS: INSULIN ASPART 100 UNITS/ML 3 ML PEN SC SCH ×4 (07:51→21:00)
[2016-04-01] MEDS: MAGNESIUM HYDROXIDE SUSP 30 ML UDC PO PRN ×3 (07:51→22:31)
[2016-04-01] MEDS: BISACODYL 5 MG TABEC PO SCH (07:51)
[2016-04-01 08:43] LABS: BUN/CREATININE RATIO 23.6 (10-20); CALCIUM 8.1 mg/dl (8.5-10.1); CREATININE 1.4 mg/dl (0.60-1.20)
--- NOTE | 2016-04-01 09:10 | Clinical Documentation Query ---
Dr. MARLON JEROME, [facility]. : CLINICAL DOCUMENTATION QUERY Patient is a 65 year old female admitted for acute COPD exacerbation. ER provider notes that patient utilizes 3 L/min of oxygen at home at all times. As appropriate, consider documentation as suggested below as this directly affects DRG assignment. Thank you. In your clinical opinion is this patient being managed for: ( x ) Chronic hypoxic respiratory failure ( ) Other explanation of clinical findings (Please Explain) ( ) Unable to determine (Please Define) ( ) Need to Discuss ( ) Not Agree The medical record reflects the following clinical findings, treatment, and risk factors. Clinical Indicators: Continuous supplemental use of O2. Treatment: Supplementation of oxygen Risk Factors: Smoking history, severe COPD Please clarify and document your clinical opinion in the progress notes and discharge summary. Terms such as "probable", "suspected", "likely", "questionable", "possible", or "still to be ruled out" are acceptable. IF IN AGREEMENT, YOU MUST DOCUMENT ABOVE DIAGNOSTIC STATEMENT IN DAILY PROGRESS NOTES AND DISCHARGE SUMMARY. This document is not part of the patient's record. Thank You, George Viveros, RN [phone]
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
[2016-04-01] MEDS ORDERED: NURSING VERBAL MED ORDER ONE (18:00)
[2016-04-02] VITALS (12 sets, daily range): BP systolic 133–157; BP diastolic 79–89; PULSE 55–75; TEMP 36.5–36.7; O2SAT 95–100; BMI 26.8
[2016-04-02] MEDS: MoRPHine SULFATE IR 15 MG TAB (IMMEDIATE RELEASE) PO SCH ×3 (06:15→22:18)
[2016-04-02] MEDS: METHYLPREDNISOLONE IV 40 MG in SYRINGE 0 ML IV SCH ×2 (06:15→12:44)
[2016-04-02 06:25] LABS: HEMATOCRIT 26.8 % (37-47); IG% 0.2 %; LYMPH % 7.4 %; LYMPH ABS # 0.34 K/uL (1.2-3.4); MEAN CELL VOLUME 96.1 fL (80-100); MEAN CORPUSCULAR HEMOGLOBIN 30.8 pg (25-34); MEAN CORPUSCULAR HGB CONC 32.1 g/dl (32-36); MEAN PLATELET VOLUME 10.4 fL (7.4-10.4); MONO % 8.3 %; NEUT % 84.1 %; PLATELET COUNT 194 K/uL (130-400); RED BLOOD COUNT 2.79 M/uL (4.2-5.4); WHITE BLOOD COUNT 4.58 K/uL (4.8-10.8)
[2016-04-02 06:47] LABS: ANISOCYTOSIS PRESENT; COMPLETE YES
[2016-04-02 07:05] LABS: ALB/GLOB RATIO 1.3 (0.9-2); BUN/CREATININE RATIO 26.4 (10-20); CALCIUM 8.5 mg/dl (8.5-10.1); CREATININE 1.4 mg/dl (0.60-1.20); MAGNESIUM 2.7 mg/dl (1.8-2.4); PHOSPHORUS 2.4 mg/dl (2.5-4.9); POTASSIUM 5.8 mmol/L (3.5-5.1)
[2016-04-02] MEDS: ALBUT/IPRATROP 3MG/0.5MG NEB 3 ML VIAL INH SCH ×4 (07:47→20:00)
[2016-04-02] MEDS: SENNA 8.6 MG TAB PO SCH (07:53)
[2016-04-02] MEDS: PRAVASTATIN SOD 20 MG TAB PO SCH (07:53)
[2016-04-02] MEDS: POLYETHYLENE (MIRALAX) 17 GM PACK PO SCH (07:54)
[2016-04-02] MEDS: BISACODYL 5 MG TABEC PO SCH (07:59)
[2016-04-02] MEDS: MAGNESIUM HYDROXIDE SUSP 30 ML UDC PO PRN (07:59)
[2016-04-02] MEDS: INSULIN ASPART 100 UNITS/ML 3 ML PEN SC SCH ×4 (08:00→21:00)
[2016-04-02] MEDS ORDERED: BISACODYL 10 MG SUPP PR STA (11:00)
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
[2016-04-02] MEDS ORDERED: NURSING VERBAL MED ORDER ONE (17:45)
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
[2016-04-02 20:34] LABS: BUN/CREATININE RATIO 23.5 (10-20); CALCIUM 8.4 mg/dl (8.5-10.1); CREATININE 1.7 mg/dl (0.60-1.20); POTASSIUM 5.5 mmol/L (3.5-5.1)
[2016-04-02] MEDS ORDERED: SODIUM POLYST. SULF SUSP 15G/60ML PO ONE (21:30)
[2016-04-02] MEDS: ZOLPIDEM TARTRATE 10 MG TAB PO PRN (22:18)
[2016-04-02] MEDS: METHYLPREDNISOLONE IV 20 MG in SYRINGE 0 ML IV SCH (22:21)
[2016-04-03] VITALS (12 sets, daily range): BP systolic 106–153; BP diastolic 59–83; PULSE 50–72; TEMP 36.3–37; O2SAT 95–99; BMI 23.5
[2016-04-03] MEDS: MoRPHine SULFATE IR 15 MG TAB (IMMEDIATE RELEASE) PO SCH ×3 (05:51→21:23)
[2016-04-03 06:59] LABS: HEMATOCRIT 27.2 % (37-47); IG% 0.5 %; LYMPH % 12.3 %; MEAN CELL VOLUME 95.8 fL (80-100); MEAN CORPUSCULAR HGB CONC 32.4 g/dl (32-36); MEAN PLATELET VOLUME 11.2 fL (7.4-10.4); MONO % 7.4 %; NEUT % 79.8 %; PLATELET COUNT 198 K/uL (130-400); RED BLOOD COUNT 2.84 M/uL (4.2-5.4); WHITE BLOOD COUNT 5.68 K/uL (4.8-10.8)
[2016-04-03] MEDS: ALBUT/IPRATROP 3MG/0.5MG NEB 3 ML VIAL INH SCH ×4 (07:07→19:35)
[2016-04-03 07:27] LABS: BUN/CREATININE RATIO 27.6 (10-20); CALCIUM 8.3 mg/dl (8.5-10.1); CREATININE 1.5 mg/dl (0.60-1.20); MAGNESIUM 2.8 mg/dl (1.8-2.4); POTASSIUM 5.2 mmol/L (3.5-5.1)
[2016-04-03 07:28] LABS: ANISOCYTOSIS PRESENT; COMPLETE YES; PHOSPHORUS 2.4 mg/dl (2.5-4.9)
[2016-04-03] MEDS: METHYLPREDNISOLONE IV 20 MG in SYRINGE 0 ML IV SCH (08:47)
[2016-04-03] MEDS: PRAVASTATIN SOD 20 MG TAB PO SCH (08:48)
[2016-04-03] MEDS: SENNA 8.6 MG TAB PO SCH (08:48)
[2016-04-03] MEDS: SODIUM POLYST. SULF SUSP 15G/60ML PO SCH (08:48)
[2016-04-03] MEDS: INSULIN ASPART 100 UNITS/ML 3 ML PEN SC SCH ×4 (08:49→21:00)
[2016-04-03] MEDS: POLYETHYLENE (MIRALAX) 17 GM PACK PO SCH (08:57)
[2016-04-03] MEDS: BISACODYL 5 MG TABEC PO SCH (08:57)
[2016-04-03] MEDS: MAGNESIUM HYDROXIDE SUSP 30 ML UDC PO PRN (08:57)
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
[2016-04-03] MEDS: ZOLPIDEM TARTRATE 10 MG TAB PO PRN (21:23)
[2016-04-04] VITALS (10 sets, daily range): BP systolic 97–146; BP diastolic 63–82; PULSE 59–79; TEMP 36.5–36.7; O2SAT 97–100; BMI 23.7
[2016-04-04 05:36] LABS: EOS % 1.3 %; HEMATOCRIT 26.4 % (37-47); IG% 0.5 %; LYMPH % 25.7 %; LYMPH ABS # 1.63 K/uL (1.2-3.4); MEAN CELL VOLUME 95.3 fL (80-100); MEAN CORPUSCULAR HGB CONC 32.6 g/dl (32-36); MEAN PLATELET VOLUME 10.4 fL (7.4-10.4); NEUT % 63.5 %; PLATELET COUNT 184 K/uL (130-400); RED BLOOD COUNT 2.77 M/uL (4.2-5.4); WHITE BLOOD COUNT 6.35 K/uL (4.8-10.8)
[2016-04-04 05:57] LABS: COMPLETE YES; OVALOCYTES 1+; TEAR DROP CELLS OCCASIONAL
[2016-04-04 06:12] LABS: CALCIUM 7.7 mg/dl (8.5-10.1); CREATININE 1.4 mg/dl (0.60-1.20); MAGNESIUM 2.7 mg/dl (1.8-2.4); POTASSIUM 4.8 mmol/L (3.5-5.1)
[2016-04-04 06:15] LABS: ALB/GLOB RATIO 1.4 (0.9-2); PHOSPHORUS 2.5 mg/dl (2.5-4.9)
[2016-04-04] MEDS: MoRPHine SULFATE IR 15 MG TAB (IMMEDIATE RELEASE) PO SCH ×3 (06:17→22:12)
[2016-04-04] MEDS: ALBUT/IPRATROP 3MG/0.5MG NEB 3 ML VIAL INH SCH ×4 (07:22→19:21)
[2016-04-04] MEDS: SODIUM POLYST. SULF SUSP 15G/60ML PO SCH (08:48)
[2016-04-04] MEDS: SENNA 8.6 MG TAB PO SCH (08:48)
[2016-04-04] MEDS: PRAVASTATIN SOD 20 MG TAB PO SCH (08:48)
[2016-04-04] MEDS: INSULIN ASPART 100 UNITS/ML 3 ML PEN SC SCH ×4 (08:53→20:34)
[2016-04-04] MEDS: BISACODYL 5 MG TABEC PO SCH (08:58)
[2016-04-04 13:19] LABS: INR 1.1 (0.9-1.1); PROTHROMBIN TIME (PATIENT) 11.5 SECONDS (9.0-12.0)
[2016-04-04] MEDS: ENOXAPARIN 30 MG/0.3 ML SYR SQ SCH (14:35)
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
[2016-04-04] MEDS: DOCUSATE SODIUM/SENNA 50/8.6MG TAB PO SCH (22:12)
[2016-04-04] MEDS: ZOLPIDEM TARTRATE 10 MG TAB PO PRN (22:12)
[2016-04-05] VITALS (9 sets, daily range): BP systolic 105–125; BP diastolic 62–74; PULSE 58–73; TEMP 36.5–36.6; O2SAT 96–99; BMI 23.8
[2016-04-05] MEDS: MoRPHine SULFATE IR 15 MG TAB (IMMEDIATE RELEASE) PO SCH ×3 (06:28→21:17)
[2016-04-05] MEDS: INSULIN ASPART 100 UNITS/ML 3 ML PEN SC SCH ×4 (06:30→21:00)
[2016-04-05] MEDS: ALBUT/IPRATROP 3MG/0.5MG NEB 3 ML VIAL INH SCH ×4 (07:27→19:02)
[2016-04-05] MEDS: PRAVASTATIN SOD 20 MG TAB PO SCH (07:33)
[2016-04-05] MEDS: DOCUSATE SODIUM/SENNA 50/8.6MG TAB PO SCH ×2 (07:34→18:52)
[2016-04-05] MEDS: ENOXAPARIN 30 MG/0.3 ML SYR SQ SCH (07:34)
[2016-04-05] MEDS: SODIUM POLYST. SULF SUSP 15G/60ML PO SCH (07:53)
[2016-04-05 08:00] LABS: EOS % 5.8 %; HEMATOCRIT 26.5 % (37-47); IG% 0.2 %; LYMPH % 31.4 %; MEAN CELL VOLUME 95.7 fL (80-100); MEAN CORPUSCULAR HEMOGLOBIN 30.7 pg (25-34); MEAN CORPUSCULAR HGB CONC 32.1 g/dl (32-36); MONO % 6.3 %; NEUT % 56.3 %; PLATELET COUNT 175 K/uL (130-400); RED BLOOD COUNT 2.77 M/uL (4.2-5.4); WHITE BLOOD COUNT 4.46 K/uL (4.8-10.8)
[2016-04-05 08:39] LABS: BUN/CREATININE RATIO 22.5 (10-20); CALCIUM 8.1 mg/dl (8.5-10.1); CREATININE 1.5 mg/dl (0.60-1.20); POTASSIUM 5.1 mmol/L (3.5-5.1)
[2016-04-05 08:45] LABS: COMPLETE YES; GIANT PLATELETS 1+; TEAR DROP CELLS 1+
[2016-04-05] MEDS: BISACODYL 5 MG TABEC PO SCH (09:01)
--- NOTE | 2016-04-05 12:35 | Psychiatric Progress Notes ---
Psychiatric Progress Note Date of Service Apr 05, 2016. Notes ID: Patient reviewed with liaison nurse and Georgette BRAR who completed initial consult on 04/02/15. Patient with a history of major depressive disorder , anxiety and substance dependence. was started on trazodone to assist sleep pending availability of records from [facility]. CC: "stopping my meds was not a great idea" HPI: patient states that she has been depressed and anxious at home related to her medical condition, particularly fearful about her O2 tubing getting stuck and not being able to breathe. She is awaiting SNF placement and would like to resume her previously helpful mood medications as believes will help her maintain during chemo, etc. She also notes sleep difficulties. ROS: "just want to know what's happening", denies SI/HI/snell MSE: alert, cooperative, speech normal, mood and affect euthymic, thoughts organized, no psychosis Imp: as per initial consult, agree psychiatrically stable for discharge to appropriate level of medical care Plan: previously prescribed 200 mg Zoloft, Seroquel 100 mg BID and doxepin, meds tapered in summer, last appt Nov and d/c from [facility] patient desires resume Zoloft and lower dose of Seroquel for recurrent depressive symptoms and insomnia restart Zoloft 50 mg starting today Seroquel 50 mg po qhs and monitor sugars additional titration depending on need/tolerability by accepting facility
[2016-04-05] MEDS: SERTRALINE HCL 50 MG TAB PO SCH (13:15)
[2016-04-05] MEDS ORDERED: NURSING VERBAL MED ORDER ONE (17:15)
[2016-04-05] MEDS ORDERED: ALPRAZOLAM 0.5 MG TAB PO STA (17:20)
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
[2016-04-05] MEDS: QUETIAPINE FUMARATE 25 MG TAB PO SCH (21:17)
[2016-04-06] VITALS (11 sets, daily range): BP systolic 95–139; BP diastolic 58–81; PULSE 56–95; TEMP 36.4–37; O2SAT 95–99; BMI 23.4
[2016-04-06] MEDS: MoRPHine SULFATE IR 15 MG TAB (IMMEDIATE RELEASE) PO SCH ×3 (06:10→21:40)
[2016-04-06 06:24] LABS: BUN/CREATININE RATIO 20.5 (10-20); CALCIUM 8.1 mg/dl (8.5-10.1); CREATININE 1.3 mg/dl (0.60-1.20); POTASSIUM 4.8 mmol/L (3.5-5.1)
[2016-04-06] MEDS: INSULIN ASPART 100 UNITS/ML 3 ML PEN SC SCH ×4 (06:30→21:00)
[2016-04-06] MEDS: DOCUSATE SODIUM/SENNA 50/8.6MG TAB PO SCH ×2 (07:42→21:38)
[2016-04-06] MEDS: PRAVASTATIN SOD 20 MG TAB PO SCH (07:42)
[2016-04-06] MEDS: SODIUM POLYST. SULF SUSP 15G/60ML PO SCH (07:42)
[2016-04-06] MEDS: SERTRALINE HCL 50 MG TAB PO SCH (07:42)
[2016-04-06] MEDS: ENOXAPARIN 30 MG/0.3 ML SYR SQ SCH (07:43)
[2016-04-06] MEDS: ALBUT/IPRATROP 3MG/0.5MG NEB 3 ML VIAL INH SCH ×4 (08:00→20:19)
[2016-04-06] MEDS: BISACODYL 5 MG TABEC PO SCH (08:35)
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
[2016-04-06] MEDS: QUETIAPINE FUMARATE 25 MG TAB PO SCH (21:39)
[2016-04-07] VITALS (9 sets, daily range): BP systolic 95–105; BP diastolic 49–68; PULSE 57–68; TEMP 36.6–36.8; O2SAT 92–98; BMI 23.4
[2016-04-07] MEDS: INSULIN ASPART 100 UNITS/ML 3 ML PEN SC SCH ×4 (06:30→21:00)
[2016-04-07] MEDS: MoRPHine SULFATE IR 15 MG TAB (IMMEDIATE RELEASE) PO SCH ×3 (06:42→22:12)
[2016-04-07] MEDS: ALBUT/IPRATROP 3MG/0.5MG NEB 3 ML VIAL INH SCH ×4 (07:10→19:33)
[2016-04-07] MEDS: BISACODYL 5 MG TABEC PO SCH (07:34)
[2016-04-07] MEDS: SODIUM POLYST. SULF SUSP 15G/60ML PO SCH (07:34)
[2016-04-07] MEDS: ENOXAPARIN 30 MG/0.3 ML SYR SQ SCH (07:35)
[2016-04-07] MEDS: PRAVASTATIN SOD 20 MG TAB PO SCH (07:35)
[2016-04-07] MEDS: SERTRALINE HCL 50 MG TAB PO SCH (07:35)
[2016-04-07] MEDS: DOCUSATE SODIUM/SENNA 50/8.6MG TAB PO SCH ×2 (07:35→19:50)
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
[2016-04-07] MEDS: QUETIAPINE FUMARATE 25 MG TAB PO SCH (19:50)
[2016-04-08 06:09] VITALS: BP 112/65; PULSE 65; TEMP 36.5; O2SAT 98
[2016-04-08] MEDS: MoRPHine SULFATE IR 15 MG TAB (IMMEDIATE RELEASE) PO SCH ×3 (06:09→22:00)
[2016-04-08 06:43] VITALS: BMI 22.8
[2016-04-08 06:45] LABS: BUN/CREATININE RATIO 16.8 (10-20); CALCIUM 8.2 mg/dl (8.5-10.1); CREATININE 1.4 mg/dl (0.60-1.20); POTASSIUM 5.2 mmol/L (3.5-5.1)
[2016-04-08 07:36] VITALS: PULSE 70; O2SAT 98
[2016-04-08] MEDS: ALBUT/IPRATROP 3MG/0.5MG NEB 3 ML VIAL INH SCH ×2 (07:36→12:00)
[2016-04-08] MEDS: PRAVASTATIN SOD 20 MG TAB PO SCH (07:46)
[2016-04-08] MEDS: DOCUSATE SODIUM/SENNA 50/8.6MG TAB PO SCH (07:46)
[2016-04-08] MEDS: SERTRALINE HCL 50 MG TAB PO SCH (07:46)
[2016-04-08] MEDS: ENOXAPARIN 30 MG/0.3 ML SYR SQ SCH (07:47)
[2016-04-08] MEDS: INSULIN ASPART 100 UNITS/ML 3 ML PEN SC SCH ×4 (07:49→20:22)
[2016-04-08] MEDS: BISACODYL 5 MG TABEC PO SCH (07:49)
[2016-04-08] MEDS: SODIUM POLYST. SULF SUSP 15G/60ML PO SCH (08:20)
--- NOTE | 2016-04-08 10:35 | Psychiatric Progress Notes ---
Psychiatric Progress Note Date of Service Apr 08, 2016. Notes ID: Patient reviewed with liaison nurse. Georgette BRAR who completed initial consult on 04/02/15. Patient with a history of major depressive disorder , anxiety and substance dependence. CC: "I'm at the same place" HPI: patient feels fine restarting meds, no improvement as mainly focussed on next step, anxious about her CBC. ROS: denies SOB, ongoing sleep difficulties. denies SI/HI/snell MSE: alert, cooperative, speech normal, mood and affect euthymic, thoughts organized, no psychosis Imp: as per initial consult, agree psychiatrically stable for discharge to appropriate level of medical care Plan: previously prescribed 200 mg Zoloft, Seroquel 100 mg BID and doxepin, meds tapered in summer, last appt Nov and d/c from [facility] titrate Zoloft and Seroquel 100 mg daily
[2016-04-08 11:21] VITALS: PULSE 88; O2SAT 98
[2016-04-08 12:04] VITALS: BP 101/67; PULSE 64; TEMP 36.7; O2SAT 97
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
[2016-04-08 15:18] VITALS: BP 132/75; PULSE 58; TEMP 36.8; O2SAT 96
[2016-04-08] MEDS: IPRATROPIUM BROMIDE/ALBUTEROL respimat INH INH SCH ×2 (18:12→20:00)
[2016-04-08] MEDS ORDERED: DOCUSATE SODIUM/SENNA 50/8.6MG TAB PO PRN (20:00)
[2016-04-08] MEDS: QUETIAPINE FUMARATE 100 MG TAB PO SCH (20:21)
[2016-04-08 20:43] VITALS: BP 106/64; PULSE 58; TEMP 36.8; O2SAT 99
[2016-04-09 05:37] VITALS: BMI 22.7
[2016-04-09 06:12] VITALS: BP 107/68; PULSE 61; TEMP 36.5; O2SAT 97
[2016-04-09] MEDS: MoRPHine SULFATE IR 15 MG TAB (IMMEDIATE RELEASE) PO SCH ×3 (06:15→21:59)
[2016-04-09 07:50] LABS: BUN/CREATININE RATIO 15.8 (10-20); CALCIUM 8.1 mg/dl (8.5-10.1); CREATININE 1.4 mg/dl (0.60-1.20); POTASSIUM 4.8 mmol/L (3.5-5.1)
[2016-04-09] MEDS ORDERED: SODIUM POLYST. SULF SUSP 15G/60ML PO PRN (08:00)
[2016-04-09] MEDS ORDERED: BISACODYL 5 MG TABEC PO PRN (08:00)
[2016-04-09] MEDS: IPRATROPIUM BROMIDE/ALBUTEROL respimat INH INH SCH ×4 (08:23→20:18)
[2016-04-09] MEDS: PRAVASTATIN SOD 20 MG TAB PO SCH (08:24)
[2016-04-09] MEDS: SERTRALINE HCL 50 MG TAB PO SCH (08:25)
[2016-04-09] MEDS: ENOXAPARIN 30 MG/0.3 ML SYR SQ SCH (08:26)
[2016-04-09] MEDS: INSULIN ASPART 100 UNITS/ML 3 ML PEN SC SCH ×4 (10:23→20:21)
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
[2016-04-09 15:37] VITALS: BP 113/76; PULSE 56; TEMP 36.6; O2SAT 96
[2016-04-09] MEDS: QUETIAPINE FUMARATE 100 MG TAB PO SCH (20:17)
[2016-04-09 23:14] VITALS: BP 104/65; PULSE 51; TEMP 36.6; O2SAT 98
[2016-04-10] MEDS: MoRPHine SULFATE IR 15 MG TAB (IMMEDIATE RELEASE) PO SCH ×3 (06:06→20:06)
[2016-04-10 06:31] VITALS: Ht 167.6 cm; Wt 64.3 kg
[2016-04-10 07:38] VITALS: BP 115/70; PULSE 55; TEMP 36.5; O2SAT 100
[2016-04-10] MEDS: INSULIN ASPART 100 UNITS/ML 3 ML PEN SC SCH ×4 (07:38→20:03)
[2016-04-10] MEDS: IPRATROPIUM BROMIDE/ALBUTEROL respimat INH INH SCH ×4 (07:39→20:06)
[2016-04-10] MEDS: SERTRALINE HCL 50 MG TAB PO SCH (07:40)
[2016-04-10] MEDS: PRAVASTATIN SOD 20 MG TAB PO SCH (07:40)
[2016-04-10] MEDS: ENOXAPARIN 30 MG/0.3 ML SYR SQ SCH (07:41)
[2016-04-10] MEDS: MAGNESIUM HYDROXIDE SUSP 30 ML UDC PO PRN ×2 (07:43→17:19)
[2016-04-10 11:27] VITALS: BP 96/59; PULSE 57; TEMP 37.2; O2SAT 96
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
[2016-04-10 16:04] VITALS: BP 96/57; PULSE 57; TEMP 36.6; O2SAT 99
[2016-04-10] MEDS: QUETIAPINE FUMARATE 100 MG TAB PO SCH (20:04)
[2016-04-10 20:14] VITALS: BP 98/65; PULSE 54; TEMP 36.6; O2SAT 97
[2016-04-10 23:25] VITALS: BP 113/68; PULSE 58; TEMP 36.8; O2SAT 99
[2016-04-11] VITALS: O2SAT 99
[2016-04-11] MEDS: MoRPHine SULFATE IR 15 MG TAB (IMMEDIATE RELEASE) PO SCH ×2 (06:15→13:56)
[2016-04-11 07:31] VITALS: BP 98/61; PULSE 63; TEMP 36.7; O2SAT 96
[2016-04-11] MEDS: ENOXAPARIN 30 MG/0.3 ML SYR SQ SCH (08:12)
[2016-04-11] MEDS: SERTRALINE HCL 50 MG TAB PO SCH (08:12)
[2016-04-11] MEDS: IPRATROPIUM BROMIDE/ALBUTEROL respimat INH INH SCH ×2 (08:12→11:34)
[2016-04-11] MEDS: PRAVASTATIN SOD 20 MG TAB PO SCH (08:12)
[2016-04-11] MEDS: INSULIN ASPART 100 UNITS/ML 3 ML PEN SC SCH ×2 (08:13→11:34)
[2016-04-11 11:29] VITALS: BP 102/61; PULSE 58; TEMP 36.9; O2SAT 97
[2016-04-11] MEDS: MAGNESIUM HYDROXIDE SUSP 30 ML UDC PO PRN (11:37)
[2016-04-11] MEDS ORDERED: MOMLX PO (15:01)
[2016-04-11] MEDS ORDERED: [UNRECOGNIZED DRUG - CODE] PO (15:01)
[2016-04-11] MEDS ORDERED: SENN8.6T7 PO (15:01)
[2016-04-11] MEDS ORDERED: NVLGIPEN SC (15:01)
[2016-04-11] MEDS ORDERED: ZLF50 PO (15:01)
[2016-04-11] MEDS ORDERED: AMB10 PO (15:01)
[2016-04-11] MEDS ORDERED: SRQ100 PO (15:01)
[2016-04-11] MEDS ORDERED: MORP15TA PO (15:01)
[2016-04-11] MEDS ORDERED: DLC5 PO (15:01)
--- NOTE | 2016-04-11 15:06 | Discharge Instructions ---
Discharge Instructions Admission Reason for Admission: Copd Exacerbation Discharge Discharge Diagnosis / Problem: COPD exacerbation Discharge Goals Goal(s): Decrease discomfort, Improve function, Increase independence Activity Recommendations Activity Level: Up Ad Missy Therapies: Physical Therapy, Occupational Therapy . Additional Information Patient informed of condition: Yes Advance Directives: Yes DNR: No Level of Care: Skilled Communicable Disease: No Prognosis: Improving Porter Catheter: No Instructions / Follow-Up Instructions / Follow-Up PCP in 3-5 days Current Hospital Diet Patient's current hospital diet: Regular Diet Discharge Diet Recommended Diet: AHA Diet (Heart Healthy), Diabetes Type 2 Diet Pending Studies Studies pending at discharge: no Laboratory Results Hemoglobin A1c Test 03/30/16 06:58 Range/Units Estimated Average Glucose 103 mg/dl Hemoglobin A1c 5.2 4.5-5.6 % Medical Emergencies . Who to Call and When: Medical Emergencies: If at any time you feel your situation is an emergency, please call 911 immediately. . Non-Emergent Contact Non-Emergency issues call your: Primary Care Provider . . "Provider Documentation" section prepared by Marlys Case. Core Measure Problem Core Measures: None
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
[2016-04-11 15:15] VITALS: BP 102/61; PULSE 58; TEMP 36.9; O2SAT 97
[2016-04-18] MEDS ORDERED: ACET-1311 PO (09:44)
[2016-04-18] MEDS ORDERED: GLGKIT IM (09:44)
[2016-04-18] MEDS ORDERED: SODI1ENE RE (09:44)
[2016-04-18] MEDS ORDERED: DULCOLAX RE (09:44)
[2016-04-18] MEDS ORDERED: DEXT40GE PO (09:44)
[2016-04-18] MEDS ORDERED: BARRIER CREAM TOP (09:44)
[2016-07-18] MEDS ORDERED: SERT-234 PO (12:15)
[2016-07-18] MEDS ORDERED: PRLSR20 PO (12:18)
[2016-07-18] MEDS ORDERED: ALBU18002 INH (12:18)
[2016-07-18] MEDS ORDERED: BISA1TAB15 PO (12:18)
== END 2016-04-11 15:30 | DRG 191 ==
LOC: ENRESERVTM → CANRESERV → ENRESERVDT → EDBD 09:23 → C.EDA 09:26 → C.4E 11:09 → OBSVTOIN 03-30 12:14
PROVIDERS: ADMIT Hospitalist; ATTEND Family Medicine
DX: J44.1 Chronic obstructive pulmonary disease with (acute) exacerbation (principal); J96.10 Chronic respiratory failure, unspecified whether with hypoxia or hypercapnia; N17.9 Acute kidney failure, unspecified; D46.9 Myelodysplastic syndrome, unspecified; F41.0 Panic disorder [episodic paroxysmal anxiety]; F31.9 Bipolar disorder, unspecified; F41.1 Generalized anxiety disorder; K59.00 Constipation, unspecified; R91.1 Solitary pulmonary nodule; E87.5 Hyperkalemia; E86.0 Dehydration; J45.909 Unspecified asthma, uncomplicated; E78.5 Hyperlipidemia, unspecified; E09.9 Drug or chemical induced diabetes mellitus without complications; T38.0X5A Adverse effect of glucocorticoids and synthetic analogues, initial encounter; D64.3 Other sideroblastic anemias; N18.3 Chronic kidney disease, stage 3 (moderate); K21.9 Gastro-esophageal reflux disease without esophagitis; M54.9 Dorsalgia, unspecified; G89.29 Other chronic pain; F11.21 Opioid dependence, in remission; F13.21 Sedative, hypnotic or anxiolytic dependence, in remission; Z51.81 Encounter for therapeutic drug level monitoring; Z79.899 Other long term (current) drug therapy; Z99.81 Dependence on supplemental oxygen; Z86.73 Personal history of transient ischemic attack (TIA), and cerebral infarction without residual deficits; Z87.891 Personal history of nicotine dependence; Z80.1 Family history of malignant neoplasm of trachea, bronchus and lung; Z80.8 Family history of malignant neoplasm of other organs or systems; N30.00 Acute cystitis without hematuria; D64.9 Anemia, unspecified; F32.9 Major depressive disorder, single episode, unspecified; I50.9 Heart failure, unspecified

== ENCOUNTER → 2016-06-14 | Outpatient (CLI) | payer OTHER ==
[~2016-06-14] MED LIST changes: +ACET-1311 PO; +ALBU18002 INH; +AMB10 PO; +BARRIER CREAM TOP; +BISA1TAB15 PO; +DEXT40GE PO; +DULCOLAX RE; +GLGKIT IM; +MOMLX PO; +NVLGIPEN SC; +PRLSR20 PO; -PROAIR INH; +QUET-115 PO; +SENN8.6T7 PO; +SERT-234 PO; +SODI1ENE RE; -SULF800T23 PO; +VNTHFA/IN INH; +ZLF50 PO; +[UNRECOGNIZED DRUG - CODE] PO
[2016-06-14 09:41] LABS: HEMATOCRIT 26.1 % (37-47); MEAN CELL VOLUME 93.5 fL (80-100); MEAN CORPUSCULAR HEMOGLOBIN 29.7 pg (25-34); MEAN CORPUSCULAR HGB CONC 31.8 g/dl (32-36); MEAN PLATELET VOLUME 11.2 fL (7.4-10.4); PLATELET COUNT 163 K/uL (130-400); RED BLOOD COUNT 2.79 M/uL (4.2-5.4); WHITE BLOOD COUNT 3.45 K/uL (4.8-10.8)
== END | disposition home or self-care (01) ==
LOC: C.LABUPNIT 09:17 → EDSTATUS 06-20 11:35
PROVIDERS: ATTEND Family Medicine
DX: J44.9 Chronic obstructive pulmonary disease, unspecified (principal)

== ENCOUNTER → 2016-06-21 | Outpatient (CLI) | payer OTHER ==
[2016-06-21 08:22] LABS: BASO % 0.4 %; BASO ABS # 0.02 K/uL (0-0.2); EOS % 20.2 %; HEMATOCRIT 24.3 % (37-47); LYMPH ABS # 0.96 K/uL (1.2-3.4); MEAN CELL VOLUME 94.2 fL (80-100); MEAN CORPUSCULAR HEMOGLOBIN 29.8 pg (25-34); MEAN CORPUSCULAR HGB CONC 31.7 g/dl (32-36); MEAN PLATELET VOLUME 10.2 fL (7.4-10.4); MONO % 8.3 %; NEUT % 50.1 %; PLATELET COUNT 350 K/uL (130-400); RED BLOOD COUNT 2.58 M/uL (4.2-5.4); WHITE BLOOD COUNT 4.81 K/uL (4.8-10.8)
[2016-06-21 08:49] LABS: COMPLETE YES; LARGE PLATELETS 1+; POIKILOCYTOSIS PRESENT
== END ==
LOC: C.LABUPNIT 07:53
PROVIDERS: ATTEND Family Medicine
DX: J44.9 Chronic obstructive pulmonary disease, unspecified (principal)

== ENCOUNTER → 2016-06-24 | Outpatient (CLI) | payer OTHER | LOC: EDSTATUS 12:50 → C.LABUPNIT 20:14 | PROVIDERS: ATTEND Family Medicine | DX: J10.1 Influenza due to other identified influenza virus with other respiratory manifestations (principal) ==

== ENCOUNTER → 2016-06-28 | Outpatient (CLI) | payer OTHER ==
[2016-06-28 09:49] LABS: MEAN CORPUSCULAR HGB CONC 32.3 g/dl (32-36)
[2016-06-28 10:03] LABS: HEMATOCRIT 32.5 % (37-47); MEAN CELL VOLUME 94.8 fL (80-100); MEAN CORPUSCULAR HEMOGLOBIN 30.6 pg (25-34); RED BLOOD COUNT 3.43 M/uL (4.2-5.4); WHITE BLOOD COUNT 2.84 K/uL (4.8-10.8)
[2016-06-28 10:26] LABS: PLATELET COUNT 78 K/uL (130-400)
[2016-06-28 10:29] LABS: PLT ESTIMATE DECREASED
[2016-06-28 13:02] LABS: ALT/SGPT 51 U/L (12-78); BLOOD UREA NITROGEN 23 mg/dl (7-18); BUN/CREATININE RATIO 16.4 (10-20); CARBON DIOXIDE 25 mmol/L (21-32); CHLORIDE 107 mmol/L (98-107); GLUCOSE 87 mg/dl (70-99); POTASSIUM 5.2 mmol/L (3.5-5.1); SODIUM 139 mmol/L (136-145)
[2016-06-28 13:36] LABS: ALB/GLOB RATIO 1.1 (0.9-2); ALKALINE PHOSPHATASE 102 U/L (45-117); AST/SGOT 63 U/L (15-37)
[2016-06-28 13:54] LABS: CALCIUM 7.9 mg/dl (8.5-10.1)
--- NOTE | 2016-07-05 11:40 | CODING QUERY MEDICAL NECESSITY ---
CQSUPPORTING DIAGNOSIS NEEDED A supporting diagnosis is required for the test/procedure performed on this patient in order for us to be reimbursed by the patient's insurance. Please provide a supporting diagnosis for the following test/procedure listed below next to the test name along with your signature. *If there is no additional diagnosis for this patient that would support the following test/procedure please document that below next to the test/procedure. Test(s)/Procedure(s) that require a supporting diagnosis: DOS 06/28/16 VITAMIN D TEST Provider Signature: Date: Thank you Felicia Greenberg Health Information Management Once completed, please kindly fax back to [phone] For questions please call [phone]
== END ==
LOC: C.LABUPNIT 09:18
PROVIDERS: ATTEND Family Medicine
DX: E13.9 Other specified diabetes mellitus without complications (principal); E55.9 Vitamin D deficiency, unspecified

== ENCOUNTER → 2016-07-05 | Outpatient (CLI) | payer OTHER ==
[2016-07-05 08:59] LABS: BASO % 0.2 %; BASO ABS # 0.01 K/uL (0-0.2); COMPLETE YES; EOS % 5.1 %; HEMATOCRIT 31.8 % (37-47); IG% 0.5 %; LYMPH % 16.3 %; LYMPH ABS # 0.71 K/uL (1.2-3.4); MEAN CELL VOLUME 94.9 fL (80-100); MEAN CORPUSCULAR HEMOGLOBIN 29.9 pg (25-34); MEAN CORPUSCULAR HGB CONC 31.4 g/dl (32-36); MONO % 6.4 %; NEUT % 71.5 %; PLATELET COUNT 134 K/uL (130-400); RED BLOOD COUNT 3.35 M/uL (4.2-5.4); WHITE BLOOD COUNT 4.35 K/uL (4.8-10.8)
== END ==
LOC: C.LABUPNIT 08:42
PROVIDERS: ATTEND Family Medicine
DX: J44.9 Chronic obstructive pulmonary disease, unspecified (principal)

== ENCOUNTER → 2016-07-12 | Outpatient (CLI) | payer OTHER ==
[2016-07-12 09:12] LABS: HEMATOCRIT 27.1 % (37-47); MEAN CELL VOLUME 96.4 fL (80-100); MEAN CORPUSCULAR HEMOGLOBIN 30.6 pg (25-34); MEAN CORPUSCULAR HGB CONC 31.7 g/dl (32-36); MEAN PLATELET VOLUME 10.9 fL (7.4-10.4); PLATELET COUNT 248 K/uL (130-400); RED BLOOD COUNT 2.81 M/uL (4.2-5.4); WHITE BLOOD COUNT 2.76 K/uL (4.8-10.8)
== END ==
LOC: C.LABUPNIT 08:57
PROVIDERS: ATTEND Family Medicine
DX: N18.3 Chronic kidney disease, stage 3 (moderate) (principal)

== ENCOUNTER → 2016-07-15 | Outpatient (CLI) | payer OTHER ==
[2016-07-15 09:59] LABS: BASO % 3.9 %; BASO ABS # 0.13 K/uL (0-0.2); EOS % 7.8 %; HEMATOCRIT 26.5 % (37-47); LYMPH % 33.3 %; LYMPH ABS # 1.11 K/uL (1.2-3.4); MEAN CELL VOLUME 98.1 fL (80-100); MEAN CORPUSCULAR HEMOGLOBIN 30.7 pg (25-34); MEAN CORPUSCULAR HGB CONC 31.3 g/dl (32-36); MEAN PLATELET VOLUME 10.9 fL (7.4-10.4); MONO % 10.5 %; NEUT % 44.5 %; PLATELET COUNT 291 K/uL (130-400); WHITE BLOOD COUNT 3.33 K/uL (4.8-10.8)
[2016-07-15 10:09] LABS: CALCIUM 8.8 mg/dl (8.5-10.1)
[2016-07-15 10:15] LABS: ALT/SGPT 21 U/L (12-78); BLOOD UREA NITROGEN 37 mg/dl (7-18); BUN/CREATININE RATIO 23.1 (10-20); CARBON DIOXIDE 32 mmol/L (21-32); CHLORIDE 104 mmol/L (98-107); GLUCOSE 83 mg/dl (70-99); POTASSIUM 4.8 mmol/L (3.5-5.1); SODIUM 140 mmol/L (136-145)
[2016-07-15 10:18] LABS: ALB/GLOB RATIO 1.1 (0.9-2); ALKALINE PHOSPHATASE 100 U/L (45-117); AST/SGOT 21 U/L (15-37)
[2016-07-15 10:20] LABS: ESTIMATED AVERAGE GLUCOSE 137 mg/dl; HA1C FLAG Normal (Normal)
[2016-07-15 10:37] LABS: COMPLETE YES; LARGE PLATELETS 2+
--- NOTE | 2016-07-17 17:46 | CODING QUERY NO DIAGNOSIS ---
TREATMENT RENDERED WITHOUT A DIAGNOSIS To promote full compliance with coding requirements relating to patient care, physician participation is requested in all cases of embossing press operator uncertainty. Please assist us with providing a diagnosis/symptom for the test(s) below: A diagnosis/symptom was not documented on your Order. A valid diagnosis/symptom is required to bill all insurances. Please remember that we are unable to code a diagnosis of rule out, probable, possible, questionable, or suspected. Tests that require a diagnosis: * CBC W/ AUTO DIFF DIAGNOSIS: * CMP DIAGNOSIS: * LDH DIAGNOSIS: * HEMOGLOBIN A1C DIAGNOSIS: Provider Signature: Date: Thank you Marlys Mayberry [employer] Information Management Once completed, please kindly fax back to [phone] For questions please call [phone]
== END ==
LOC: C.LABUPNIT 09:36
PROVIDERS: ATTEND Nurse Practitioner Family
DX: D64.9 Anemia, unspecified (principal); E11.9 Type 2 diabetes mellitus without complications

== ENCOUNTER → 2016-07-24 | Outpatient (CLI) | payer OTHER ==
[~2016-07-24] MED LIST changes: -ACET-1311 PO; -BARRIER CREAM TOP; -DEXT40GE PO; -DULCOLAX RE; -GLGKIT IM; -NVLGIPEN SC; -SODI1ENE RE; -ZLF50 PO
[2016-07-24 09:30] LABS: BASO % 0.2 %; BASO ABS # 0.01 K/uL (0-0.2); COMPLETE YES; EOS % 22.3 %; HEMATOCRIT 29.8 % (37-47); IG% 0.8 %; LYMPH % 20.6 %; LYMPH ABS # 1.24 K/uL (1.2-3.4); MEAN CELL VOLUME 96.1 fL (80-100); MEAN CORPUSCULAR HEMOGLOBIN 30.3 pg (25-34); MEAN CORPUSCULAR HGB CONC 31.5 g/dl (32-36); MEAN PLATELET VOLUME 11.6 fL (7.4-10.4); MONO % 3.5 %; NEUT % 52.6 %; PLATELET COUNT 203 K/uL (130-400); WHITE BLOOD COUNT 6.01 K/uL (4.8-10.8)
== END ==
LOC: C.LABUPNIT 09:23
PROVIDERS: ATTEND Family Medicine
DX: D64.3 Other sideroblastic anemias (principal)

== ENCOUNTER 2016-07-25 08:05 | Day surgery (SDC) | payer OTHER ==
[2016-07-18 12:01] VITALS: BMI 24.0
--- NOTE | 2016-07-18 16:39 | PAT Medication Instructions ---
Service Date July 18, 2016. Current Home Medication List Albuterol Hfa (Ventolin Hfa), 2 PUFFS INH QID Albuterol Sulfate (Proair Respiclick), 2 PUFF INH QID PRN for Shortness of Breath Bisacodyl (Bisacodyl), 1 TAB PO DAILY PRN for Constipation Magnesium Hydroxide (Milk of Magnesia), 30 ML PO Q6H PRN for Constipation Morphine Sulfate (Morphine Sulfate Ir), 15 MG PO DIRECTED Omeprazole (Prilosec), 20 MG PO QAM Quetiapine Fumarate (Quetiapine Fumarate), 100 MG PO HS Sennosides-Docusate Sodium (Senokot S), 1 TAB PO BID PRN for constipation Sertraline (Zoloft), 100 MG PO QAM Sodium Polystyrene Sulfonate (Sps), 15 GM PO DAILY PRN for constipation Zolpidem Tartrate (Zolpidem Tartrate), 10 MG PO HSZ PRN for Sleep Medication Instructions For Your Scheduled Surgery - Hold the following medications the morning of surgery: Bisacodyl (Bisacodyl), 1 TAB PO DAILY PRN for Constipation Magnesium Hydroxide (Milk of Magnesia), 30 ML PO Q6H PRN for Constipation Sennosides-Docusate Sodium (Senokot S), 1 TAB PO BID PRN for constipation Sodium Polystyrene Sulfonate (Sps), 15 GM PO DAILY PRN for constipation - Take the following medications the morning of surgery with a sip of water: Albuterol Hfa (Ventolin Hfa), 2 PUFFS INH QID Albuterol Sulfate (Proair Respiclick), 2 PUFF INH QID PRN for Shortness of Breath (if needed) Morphine Sulfate (Morphine Sulfate Ir), 15 MG PO DIRECTED Omeprazole (Prilosec), 20 MG PO QAM Sertraline (Zoloft), 100 MG PO QAM - Take the following medications as scheduled the night before surgery: Albuterol Hfa (Ventolin Hfa), 2 PUFFS INH QID Albuterol Sulfate (Proair Respiclick), 2 PUFF INH QID PRN for Shortness of Breath (if needed) Bisacodyl (Bisacodyl), 1 TAB PO DAILY PRN for Constipation (if needed) Magnesium Hydroxide (Milk of Magnesia), 30 ML PO Q6H PRN for Constipation (if needed) Morphine Sulfate (Morphine Sulfate Ir), 15 MG PO DIRECTED (if needed) Quetiapine Fumarate (Quetiapine Fumarate), 100 MG PO HS Sennosides-Docusate Sodium (Senokot S), 1 TAB PO BID PRN for constipation (if needed) Sodium Polystyrene Sulfonate (Sps), 15 GM PO DAILY PRN for constipation (if needed) Zolpidem Tartrate (Zolpidem Tartrate), 10 MG PO HSZ PRN for Sleep (if needed) If you have any questions please call us at [phone] or [phone] or [phone]
[~2016-07-25] VITALS: Ht 160 cm; Wt 62.7 kg
[~2016-07-25 08:05] MED LIST changes: +LACTATED RINGER'S 1000ML 1,000 ML IV SCH; -PRAV20TA PO
[2016-07-25 08:55] VITALS: BP 93/58; PULSE 60; TEMP 37.1; O2SAT 94; Ht 160 cm; Wt 62.7 kg
[2016-07-25] MEDS ORDERED: PRAV20TA PO (09:07)
[2016-07-25] MEDS ORDERED: EpHEDrine SULFATE INJ 50 MG/ML AMP IV PRN (10:00)
[2016-07-25] MEDS ORDERED: ONDANSETRON INJ 2 MG/ML 2 ML VIAL IV PRN ×2 (10:00→11:45)
[2016-07-25] MEDS ORDERED: ATROPINE SULFATE 0.1 MG/ML 5ML SYR IV PRN (10:00)
[2016-07-25] MEDS ORDERED: FENTANYL CITRATE INJ 50 MCG/1 ML 2 ML VIAL IV PRN (10:00)
--- NOTE | 2016-07-25 10:18 | History & Physical Bridge Note ---
H&P Re-Evaluation Bridge Note: I have examined the patient, reviewed the History & Physical and in the interval since the performance of the History & Physical I have noted the following changes of clinical significance: No changes noted so at bedside
[2016-07-25] MEDS ORDERED: MIDAZOLAM HCL 1 MG/ML 2ML VIAL ONE ×3 (10:28→11:08)
[2016-07-25] MEDS ORDERED: FENTANYL CITRATE INJ 50 MCG/1 ML 2 ML VIAL ONE (10:28)
--- NOTE | 2016-07-25 10:31 | Discharge Instructions ---
Discharge Instructions Date of Service July 25, 2016. Visit Reason for Visit: Lack Of Intravenous Access, Anemia Discharge Discharge Diagnosis / Problem: A-port Discharge Goals Goal(s): Improve disease control Activity Recommendations Activity Limitations: as noted below Shower/Bathe: tomorrow Anesthesia . Post Anesthesia Instructions: If you have had General Anesthesia or IV Sedation: * Do not drive today. * Resume driving when surgeon permits. * Do not make important decisions or sign legal documents today. * Call surgeon for: 1. Temperature elevations greater than 101 degrees F. 2. Uncontrollable pain. 3. Excessive bleeding. 4. Persistent nausea and vomiting. 5. Medication intolerance (nausea, vomiting or rash). * For nausea and vomiting use only clear liquids such as: tea, soda, bouillon until nausea subsides, then gradually increase diet as tolerated. * If you have any concerns or questions, call your surgeon's office. If physician is unavailable and it is an emergency, call 911 or go to the nearest emergency room. . Instructions / Follow-Up Instructions / Follow-Up Dr. Crowder's office as needed for any questions or concerns Ok to take Tylenol or morphine for pain Diet Recommendations Recommended Home Diet: no limitations Pending Studies Studies pending at discharge: no Medical Emergencies . Who to Call and When: Medical Emergencies: If at any time you feel your situation is an emergency, please call 911 immediately. . Non-Emergent Contact Non-Emergency issues call your: Surgeon Call Non-Emergent contact if: you have a fever, temperature is above 101.5, your pain is not controlled, wound has increased redness . . "Provider Documentation" section prepared by Jagdish Ramesh. .
[2016-07-25] MEDS ORDERED: LIDOCAINE HCL 1% 20 ML VIAL ONE (10:35)
[2016-07-25] MEDS ORDERED: BACITRACIN 50000 UNIT VIAL ONE (10:36)
[2016-07-25] MEDS ORDERED: CEFAZOLIN IV 2,000 MG/60 ML D5W IV ONE (10:42)
[2016-07-25] MEDS ORDERED: ONDANSETRON INJ 2 MG/ML 2 ML VIAL ONE (11:05)
[2016-07-25] MEDS ORDERED: PROPOFOL IV EMULSION 10 MG/ML 20 ML VIAL IV ONE (11:05)
[2016-07-25] MEDS ORDERED: LIDOCAINE HCL 2% 2 ML VIAL (20MG/ML) ONE (11:05)
[2016-07-25] MEDS ORDERED: DEXAMETHASONE SOD INJ 4 MG/ML VIAL ONE (11:05)
[2016-07-25] MEDS ORDERED: LACTATED RINGER'S 1000ML 1,000 ML IV SCH (11:32)
[2016-07-25] MEDS ORDERED: MoRPHine SULFATE 2 MG/ML CARP IV PRN (11:45)
[2016-07-25] MEDS ORDERED: HYDROCODONE/ACETAMOPHEN 5/325MG TAB PO PRN (11:45)
--- NOTE | 2016-07-25 11:46 | [facility] Post Operative Brief Note ---
Immediate Operative Summary Operative Date July 25, 2016. Pre-Operative Diagnosis Need for Intravenous Access Post-Operative Diagnosis Need for Intravenous Access Procedure(s) Performed Insertion Of A-Port (MRI compatible) Cephalic Vein Surgeon Dr. Crowder Pet House Sitter Surgeon(s) none Estimated Blood Loss 3 ml Findings as preop Specimens none Anesthesia >5 % marcaine katja 4 ccc and iv sedation
--- NOTE | 2016-07-25 12:42 | DIAGNOSTIC IMAGING REPORT ---
CHEST ONE VIEW PORTABLE CLINICAL HISTORY: Checks x-ray status post A-Port catheter placement COMPARISON STUDY: 03/29/2016 FINDINGS: There has been interval placement of a left-sided A-Port catheter. The tip projects over the right atrium. There is no pneumothorax. Minimal left basal airspace opacities are likely atelectatic. The right lung is clear. There are postsurgical changes right humeral arthroplasty[ there is no failure. IMPRESSION: No evidence of pneumothorax status post placement of a left subclavian A-Port catheter. Electronically signed by: Hans Beltrán M.D. 07/25/2016 12:41 PM Dictated Date/Time: 07/25/2016 12:40 PM
--- NOTE | 2016-07-25 12:46 | Anesthesiology Progress Note ---
Anesthesia Post Op Note Date & Time July 25, 2016 at 12:46 Vital Signs Pain Intensity: 3 Vital Signs Past 12 Hours Date Time Temp Pulse Resp B/P Pulse Ox O2 Delivery O2 Flow Rate FiO2 07/25/16 12:30 36.9 56 14 108/62 98 Nasal Cannula 4 07/25/16 12:20 56 11 109/50 98 Nasal Cannula 4 07/25/16 12:10 48 14 111/59 99 Mask 10 07/25/16 12:00 47 12 94/56 99 Mask 10 07/25/16 11:50 47 11 97/65 99 Mask 10 07/25/16 11:40 36.3 52 16 117/71 100 Mask 10 07/25/16 08:55 37.1 60 18 93/58 94 Nasal Cannula 4 Notes Mental Status: alert / awake / arousable, participated in evaluation Pt Amnestic to Procedure: Yes Nausea / Vomiting: adequately controlled Pain: adequately controlled Airway Patency, RR, SpO2: stable & adequate BP & HR: stable & adequate Hydration State: stable & adequate Anesthetic Complications: no major complications apparent
[2016-07-25 12:54] VITALS: BP 107/56; PULSE 60; TEMP 37.2; O2SAT 99
[2016-07-25 13:25] VITALS: BP 122/66; PULSE 65; TEMP 37.2; O2SAT 100
--- NOTE | 2016-07-25 14:57 | OPERATIVE REPORT ---
DATE OF OPERATION: 07/25/2016 PREOPERATIVE DIAGNOSIS: Lack of venous access. POSTOPERATIVE DIAGNOSIS: Same. PROCEDURE: MRI compatible port through the left cephalic vein. SURGEON: Dr. Crowder. OPERATION AND FINDINGS: SUMMARY: The patient was brought into the operating room theater. She could hardly lay flat, she actually sat up a little bit during the procedure. We could not put a roll underneath her shoulders, placed a donut to rotate her head as much as we could to the right and the neck and chest was prepped with Betadine solution and properly draped. He was a very frail lady with significant COPD, therefore I wanted to avoid any aggressive attempts a subclavian. We basically used local anesthetic to infiltrate at the end of the clavicle. I used a 19 needle just to see if I could access the subclavian vein, it was not really feasible. At this point, I decided to make an opening in the deltopectoral groove by first using 0.5% Marcaine along that area. We made about an inch and a half incision at most, deepened through subcutaneous tissue into the deltopectoral groove, identified the vein which I controlled proximally with a 2-0 silk and distally Carrie tied with 2-0 silk. We at this point placed the patient in Trendelenburg, just as much as we could. A small opening in the vein was made . The vein appeared to be about 3 mm at most. We then placed the guidewire, fluoroscopically went in the right atrium area without any difficulty. We at this point had brought the catheter in. I beveled just the tip of it so it would be easier to access the vein which we did and placed the guidewire and cut the catheter about 30 cm. We then fluoroscopically positioned into the superior vena cava right atrial area. We had controlled some of the very little bleeding with the Carrie tie on the cephalic vein. Once this has been performed, we then connected it to black bolster and the reservoir, secured it in place, aspirated and flushed easily. I then created a pocket just inferior to the incision where we thought we had enough subcutaneous tissue to cover it and then sutured the reservoir in the apical 3 openings with 2-0 nylon suture. Prior to completing this, I flushed it through the skin and aspirated without any difficulty. The cephalic vein that we had entered the Carrie tie I loosely tied it down onto the vein on the catheter and the proximal tie I tied it completely the vein became very mobile, did not kink. The wound was then closed 2-0 Vicryl interrupted suture, 4-0 Monocryl subcuticular. Steri-Strips applied. We aspirated and flushed percutaneously and there was no difficulty. We reimaged the system and appeared satisfactory in the right atrial area. Estimated blood loss approximately 3 mL. The patient was taken to recovery room in good condition. I attest to the content of the Intraoperative Record and any orders documented therein. Any exceptio ns are noted below.
== END 2016-07-25 13:40 | disposition home health service (06) ==
LOC: C.ACU 08:05
PROVIDERS: ATTEND Surgery
DX: I99.8 Other disorder of circulatory system (principal); D64.9 Anemia, unspecified; E11.22 Type 2 diabetes mellitus with diabetic chronic kidney disease; N18.3 Chronic kidney disease, stage 3 (moderate); J44.9 Chronic obstructive pulmonary disease, unspecified; D46.9 Myelodysplastic syndrome, unspecified; F30.9 Manic episode, unspecified; E78.5 Hyperlipidemia, unspecified; K21.9 Gastro-esophageal reflux disease without esophagitis; E55.9 Vitamin D deficiency, unspecified; M85.80 Other specified disorders of bone density and structure, unspecified site; Z87.891 Personal history of nicotine dependence; Z79.4 Long term (current) use of insulin; Z79.899 Other long term (current) drug therapy

== ENCOUNTER → 2017-06-27 | Outpatient (CLI) | payer OTHER ==
[~2017-06-27] MED LIST changes: -LACTATED RINGER'S 1000ML 1,000 ML IV SCH; +PRAV20TA PO
[2017-07-01 09:01] LABS: ANA SCREEN TC 249X NEGATIVE (NEGATIVE)
== END ==
LOC: C.LABUPNIT 14:19
PROVIDERS: ATTEND Nurse Practitioner Family
DX: D46.9 Myelodysplastic syndrome, unspecified (principal)

== ENCOUNTER → 2017-08-05 | Outpatient (CLI) | payer OTHER ==
[2017-08-05 11:15] LABS: BASO % 0.2 %; BASO ABS # 0.01 K/uL (0-0.2); EOS % 7.7 %; EOS ABS # 0.31 K/uL (0-0.5); HEMATOCRIT 31.7 % (37-47); HEMOGLOBIN 9.8 g/dL (12.0-16.0); IG# 0.02 K/uL (0.00-0.02); LYMPH % 21.2 %; LYMPH ABS # 0.85 K/uL (1.2-3.4); MEAN CORPUSCULAR HEMOGLOBIN 32.5 pg (25-34); MEAN PLATELET VOLUME 12.4 fL (7.4-10.4); MONO % 5.5 %; MONO ABS # 0.22 K/uL (0.11-0.59); NEUT % 64.9 %; NUCLEATED RED BLOOD CELL ABS 0.02 K/uL (0-0); PLATELET COUNT 163 K/uL (130-400); RED CELL DISTRIBUTION WIDTH CV 18.9 % (11.5-14.5); RED CELL DISTRIBUTION WIDTH SD 72.1 fL (36.4-46.3); WHITE BLOOD COUNT 4.01 K/uL (4.8-10.8)
[2017-08-05 11:25] LABS: MEAN CORPUSCULAR HGB CONC 30.9 g/dl (32-36)
== END | disposition home or self-care (01) ==
LOC: C.LABSPEC 10:57
PROVIDERS: ATTEND Nurse Practitioner Family
DX: D46.1 Refractory anemia with ring sideroblasts (principal)

== ENCOUNTER → 2017-10-01 | Outpatient (CLI) | payer OTHER ==
[~2017-10-01] MED LIST changes: +ACET-1311 PO; +ALBU0.633 NEB; +ALBU18002; +BISA10SU3 PR; +CLR10 PO; +FLEET MINERAL OIL RE; +FLUT1INH; +IBUP-1050 PO; +LORA-741 PO; +ONDA4TAB46 PO; +POLY335019 PO; +QUET150T PO
[2017-10-01 11:43] LABS: BASO % 0.3 %; BASO ABS # 0.02 K/uL (0-0.2); EOS % 9.6 %; EOS ABS # 0.75 K/uL (0-0.5); HEMATOCRIT 24.4 % (37-47); HEMOGLOBIN 7.7 g/dL (12.0-16.0); IG# 0.03 K/uL (0.00-0.02); LYMPH % 14.3 %; LYMPH ABS # 1.11 K/uL (1.2-3.4); MEAN CELL VOLUME 104.7 fL (80-100); MEAN CORPUSCULAR HGB CONC 31.6 g/dl (32-36); MEAN PLATELET VOLUME 11.2 fL (7.4-10.4); MONO ABS # 0.23 K/uL (0.11-0.59); NEUT % 72.4 %; NEUT ABS # 5.64 K/uL (1.4-6.5); NUCLEATED RED BLOOD CELL ABS 0.02 K/uL (0-0); PLATELET COUNT 244 K/uL (130-400); RED CELL DISTRIBUTION WIDTH CV 20.4 % (11.5-14.5); RED CELL DISTRIBUTION WIDTH SD 76.6 fL (36.4-46.3); WHITE BLOOD COUNT 7.78 K/uL (4.8-10.8)
== END | disposition home or self-care (01) ==
LOC: C.LABSPEC 11:30
PROVIDERS: ATTEND Internal Medicine Hematology & Oncology
DX: D46.1 Refractory anemia with ring sideroblasts (principal)

== ENCOUNTER → 2017-10-08 | Outpatient (CLI) | payer OTHER ==
[~2017-10-08] MED LIST changes: -ALBU18002 INH; -AMB10 PO; -BISA1TAB15 PO; -PRLSR20 PO; -QUET-115 PO; -SENN8.6T7 PO; -VNTHFA/IN INH; -[UNRECOGNIZED DRUG - CODE] PO
[2017-10-08 14:24] LABS: BASO % 0.2 %; BASO ABS # 0.01 K/uL (0-0.2); EOS % 8.7 %; EOS ABS # 0.52 K/uL (0-0.5); HEMATOCRIT 33.7 % (37-47); HEMOGLOBIN 10.4 g/dL (12.0-16.0); IG# 0.01 K/uL (0.00-0.02); LYMPH % 19.1 %; LYMPH ABS # 1.14 K/uL (1.2-3.4); MEAN CELL VOLUME 99.7 fL (80-100); MEAN CORPUSCULAR HEMOGLOBIN 30.8 pg (25-34); MEAN CORPUSCULAR HGB CONC 30.9 g/dl (32-36); MEAN PLATELET VOLUME 12.4 fL (7.4-10.4); MONO % 5.2 %; MONO ABS # 0.31 K/uL (0.11-0.59); NEUT % 66.6 %; NEUT ABS # 3.98 K/uL (1.4-6.5); PLATELET COUNT 142 K/uL (130-400); RED CELL DISTRIBUTION WIDTH CV 21.5 % (11.5-14.5); RED CELL DISTRIBUTION WIDTH SD 76.5 fL (36.4-46.3); WHITE BLOOD COUNT 5.97 K/uL (4.8-10.8)
== END | disposition home or self-care (01) ==
LOC: C.LABSPEC 13:56
PROVIDERS: ATTEND Internal Medicine Hematology & Oncology
DX: D46.1 Refractory anemia with ring sideroblasts (principal)

== ENCOUNTER → 2017-10-15 | Outpatient (CLI) | payer OTHER ==
[2017-10-15 13:14] LABS: BASO % 1.1 %; BASO ABS # 0.04 K/uL (0-0.2); EOS % 5.8 %; EOS ABS # 0.21 K/uL (0-0.5); HEMATOCRIT 32.2 % (37-47); IG# 0.02 K/uL (0.00-0.02); LYMPH % 23.3 %; LYMPH ABS # 0.84 K/uL (1.2-3.4); MEAN CELL VOLUME 100.3 fL (80-100); MEAN CORPUSCULAR HEMOGLOBIN 31.2 pg (25-34); MEAN CORPUSCULAR HGB CONC 31.1 g/dl (32-36); MONO % 6.9 %; MONO ABS # 0.25 K/uL (0.11-0.59); NEUT % 62.3 %; NEUT ABS # 2.24 K/uL (1.4-6.5); PLATELET COUNT 235 K/uL (130-400); RED CELL DISTRIBUTION WIDTH CV 20.9 % (11.5-14.5); RED CELL DISTRIBUTION WIDTH SD 76.6 fL (36.4-46.3)
== END ==
LOC: C.LABSPEC 13:01
PROVIDERS: ATTEND Internal Medicine Hematology & Oncology
DX: D46.9 Myelodysplastic syndrome, unspecified (principal)

== ENCOUNTER → 2017-10-20 | Outpatient (CLI) | payer OTHER ==
[2017-10-20 14:23] LABS: BASO % 1.9 %; EOS % 3.7 %; EOS ABS # 0.19 K/uL (0-0.5); HEMATOCRIT 29.4 % (37-47); IG# 0.01 K/uL (0.00-0.02); LYMPH ABS # 0.78 K/uL (1.2-3.4); MEAN CELL VOLUME 100.3 fL (80-100); MEAN CORPUSCULAR HEMOGLOBIN 30.7 pg (25-34); MEAN CORPUSCULAR HGB CONC 30.6 g/dl (32-36); MEAN PLATELET VOLUME 10.5 fL (7.4-10.4); MONO ABS # 0.31 K/uL (0.11-0.59); NEUT % 73.2 %; NEUT ABS # 3.81 K/uL (1.4-6.5); PLATELET COUNT 256 K/uL (130-400); RED CELL DISTRIBUTION WIDTH CV 20.4 % (11.5-14.5); RED CELL DISTRIBUTION WIDTH SD 75.4 fL (36.4-46.3)
[2017-10-20 14:46] LABS: ALBUMIN 3.6 gm/dl (3.4-5.0); ALT/SGPT 33 U/L (12-78); AST/SGOT 29 U/L (15-37); BLOOD UREA NITROGEN 30 mg/dl (7-18); CALCIUM 8.6 mg/dl (8.5-10.1); CARBON DIOXIDE 30 mmol/L (21-32); CREATININE 1.41 mg/dl (0.60-1.20); GLUCOSE 112 mg/dl (70-99); SODIUM 138 mmol/L (136-145)
[2017-10-20 14:49] LABS: ALKALINE PHOSPHATASE 104 U/L (45-117); TOTAL PROTEIN 6.6 gm/dl (6.4-8.2)
== END | disposition home or self-care (01) ==
LOC: C.LABSPEC 14:15
PROVIDERS: ATTEND Internal Medicine Hematology & Oncology
DX: D46.1 Refractory anemia with ring sideroblasts (principal)

== ENCOUNTER → 2017-10-29 | Outpatient (CLI) | payer OTHER ==
[2017-10-29 11:19] LABS: BASO % 0.6 %; BASO ABS # 0.04 K/uL (0-0.2); EOS % 15.3 %; EOS ABS # 1.09 K/uL (0-0.5); HEMATOCRIT 27.2 % (37-47); HEMOGLOBIN 8.4 g/dL (12.0-16.0); IG# 0.07 K/uL (0.00-0.02); LYMPH % 15.6 %; LYMPH ABS # 1.11 K/uL (1.2-3.4); MEAN CELL VOLUME 101.1 fL (80-100); MEAN CORPUSCULAR HEMOGLOBIN 31.2 pg (25-34); MEAN CORPUSCULAR HGB CONC 30.9 g/dl (32-36); MEAN PLATELET VOLUME 11.7 fL (7.4-10.4); MONO % 4.4 %; MONO ABS # 0.31 K/uL (0.11-0.59); NEUT % 63.1 %; NEUT ABS # 4.49 K/uL (1.4-6.5); PLATELET COUNT 243 K/uL (130-400); RED CELL DISTRIBUTION WIDTH CV 20.4 % (11.5-14.5); RED CELL DISTRIBUTION WIDTH SD 75.2 fL (36.4-46.3); WHITE BLOOD COUNT 7.11 K/uL (4.8-10.8)
== END | disposition home or self-care (01) ==
LOC: C.LABSPEC 10:58
PROVIDERS: ATTEND Internal Medicine Hematology & Oncology
DX: D46.1 Refractory anemia with ring sideroblasts (principal)

== ENCOUNTER → 2017-11-05 | Outpatient (CLI) | payer OTHER ==
[2017-11-05 10:59] LABS: BASO % 0.4 %; BASO ABS # 0.02 K/uL (0-0.2); EOS % 6.7 %; EOS ABS # 0.34 K/uL (0-0.5); HEMATOCRIT 27.2 % (37-47); HEMOGLOBIN 8.6 g/dL (12.0-16.0); IG# 0.02 K/uL (0.00-0.02); LYMPH % 14.3 %; LYMPH ABS # 0.73 K/uL (1.2-3.4); MEAN CELL VOLUME 98.9 fL (80-100); MEAN CORPUSCULAR HEMOGLOBIN 31.3 pg (25-34); MEAN CORPUSCULAR HGB CONC 31.6 g/dl (32-36); MEAN PLATELET VOLUME 12.6 fL (7.4-10.4); MONO % 6.5 %; MONO ABS # 0.33 K/uL (0.11-0.59); NEUT % 71.7 %; NEUT ABS # 3.65 K/uL (1.4-6.5); PLATELET COUNT 141 K/uL (130-400); RED CELL DISTRIBUTION WIDTH CV 20.7 % (11.5-14.5); RED CELL DISTRIBUTION WIDTH SD 74.9 fL (36.4-46.3); WHITE BLOOD COUNT 5.09 K/uL (4.8-10.8)
== END | disposition home or self-care (01) ==
LOC: C.LABSPEC 10:46
PROVIDERS: ATTEND Internal Medicine Hematology & Oncology
DX: D46.1 Refractory anemia with ring sideroblasts (principal)

== ENCOUNTER 2018-05-07 07:53 | Inpatient (IN) ==
[2018-05-07] MEDS ORDERED: ACETAMINOPHEN 500 MG TAB PO STA (08:13)
[2018-05-07] MEDS ORDERED: MoRPHine SULFATE CR 15 MG TABCR PO STA (08:13)
[2018-05-07] MEDS ORDERED: SODIUM CHLORIDE 0.9% 1000ML 1,000 ML IV ONE (08:22)
[2018-05-07 08:25] LABS: Basophils # (auto) 0.03 K/uL (0-0.2); Basophils % (auto) 0.6 %; Hematocrit (blood only) 29.8 % (37-47); Hemoglobin 9.2 g/dL (12.0-16.0); Immature Granulocytes # (auto) 0.05 K/uL (0.00-0.02); Lymphocytes # (auto) 1.09 K/uL (1.2-3.4); Lymphocytes % (auto) 21.7 %; Mean Corpuscular Hgb Conc 30.9 g/dL (32-36); Mean Corpuscular Volume 105.7 fL (80-100); Mean Platelet Volume 11.2 fL (7.4-10.4); Monocytes # (auto) 0.27 K/uL (0.11-0.59); Monocytes % (auto) 5.4 %; Neutrophils # (auto) 3.19 K/uL (1.4-6.5); Neutrophils % (auto) 63.3 %; Nucleated RBC # (auto) 0.06 K/uL (0-0); Nucleated RBC % (auto) 1.2 %; Platelet Count 305 K/uL (130-400); RDW Coefficient of Variation 25.2 % (11.5-14.5); RDW Standard Deviation 95.3 fL (36.4-46.3); Red Blood Count 2.82 M/uL (4.2-5.4); White Blood Count 5.03 K/uL (4.8-10.8)
[2018-05-07 08:37] LABS: INR 1.1 (0.9-1.1); Partial Thromboplastin Ratio 1.1; Prothrombin Time 11.1 Seconds (9.0-12.0)
[2018-05-07 08:47] LABS: Alanine Aminotransferase 16 U/L (12-78); Albumin Level 3.1 gm/dl (3.4-5.0); Aspartate Aminotransferase 16 U/L (15-37); BUN Creatinine Ratio 19.5 (10-20); Blood Urea Nitrogen 35 mg/dl (7-18); Carbon Dioxide 22 mmol/L (21-32); Chloride 111 mmol/L (98-107); Creatinine Clr Calc Pharmacy 30.6 ml/min; Est GFR (African American) 33.9; Est GFR (Non-African American) 29.2; Glucose 89 mg/dl (70-99); Potassium 5.1 mmol/L (3.5-5.1); Sodium 139 mmol/L (136-145)
[2018-05-07 08:52] LABS: Alkaline Phosphatase 72 U/L (45-117); Bilirubin,Total 0.4 mg/dl (0.2-1); Creatine Kinase 28 U/L (26-192); Creatine Kinase MB < 1.0 ng/ml (0.5-3.6); Globulin 3.1 gm/dl (2.5-4.0); Total Protein 6.2 gm/dl (6.4-8.2); Troponin I < 0.015 ng/ml (0-0.045)
--- NOTE | 2018-05-07 08:53 | XRay Report ---
XR chest 1V portable CLINICAL HISTORY: 67 years-old Female presenting with Sepsis. TECHNIQUE: Portable upright AP view of the chest was obtained. COMPARISON: 07/25/2016. FINDINGS: Left subclavian Mediport terminates at the superior cavoatrial junction. Cardiac silhouette moderatel y enlarged. Heterogeneity of lung parenchyma with pulmonary vascular prominence. Moderate left pleura l effusion new from prior. Mid to basilar left opacity with poor aeration of the left lung base. No p neumothorax. Right lung and pleural space clear. Right shoulder arthroplasty. IMPRESSION: 1. Interval development of a moderate left pleural effusion with underlying left mid to basilar infi ltrates and poor aeration of the left lower lung. Pneumonia and parapneumonic effusion or empyema not excluded. Consider chest CT for further evaluation. Electronically signed by: Garo Aldrich M.D. 05/07/2018 8:52 AM
[2018-05-07 08:54] LABS: Macrocytosis Present; Poikilocytosis Present
[2018-05-07] MEDS ORDERED: OPTIRAY 320 125ml IV PRN (09:02)
[2018-05-07] MEDS ORDERED: VANCOMYCIN CONSULT ACTIVE PRN (09:10)
[2018-05-07] MEDS ORDERED: VANCOMYCIN HCL 1,500 MG in SODIUM CHLORIDE 0.9% 500 ML IV ONE (09:10)
[2018-05-07] MEDS ORDERED: PIPERACILL/TAZOBAC CONSULT ACTIVE PRN (09:10)
[2018-05-07] MEDS ORDERED: LEVOFLOXACIN/D5W 750 MG/150 ML BAG IV STA (09:10)
[2018-05-07] MEDS ORDERED: PIPERACILLIN/TAZOBACTAM 4.5 GM/120 ML BAG IV ONE (09:10)
[2018-05-07 09:17] LABS: Influenza A virus by PCR Neg for Influ A (Neg); Influenza B virus by PCR Neg for Influ B (Neg)
--- NOTE | 2018-05-07 09:22 | CT Scan Report ---
CT ANGIOGRAM OF THE CHEST CLINICAL HISTORY: Sepsis. COMPARISON STUDY: Chest x-ray dated 05/07/2018. Chest CT dated 03/22/2010. TECHNIQUE: Following the IV administration of 120 cc of Optiray 320, CT angiogram of the chest was pe rformed from the upper abdomen to the thoracic inlet utilizing the pulmonary embolus protocol. Images are reviewed in the axial, sagittal, and coronal planes. 3-D MIPS images are created and assessed. I V contrast was administered without complication. A dose lowering technique was utilized adhering to the principles of ALARA. The examination is significantly degraded by motion artifact, as well as by streak artifact from the arms which could not be related above the chest. CT DOSE: 665.80 mGy.cm FINDINGS: Thyroid: Imaged portions of the thyroid gland are normal in size and attenuation. Thoracic aorta: There is mild atherosclerotic calcification of the thoracic aorta, which is normal in caliber and demonstrates standard 3-vessel arch anatomy. No dissection is seen. Pulmonary vasculature: The pulmonary trunk is dilated, measuring 3.4 cm diameter. This suggests pulmo nary artery hypertension. There are no filling defects identified in main or lobar pulmonary branches to suggest pulmonary embolus. Evaluation of the peripheral branches is significantly degraded by mot ion artifact. Heart: The heart is enlarged and without pericardial effusion. A left subclavian central venous infus ion port is in place. Lungs and pleural spaces: Evaluation of the lung parenchyma is significantly degraded by streak and m otion artifact. The trachea and central airways are clear. There is a small to moderate and at least partially loculated pleural effusion at the left lung base. There is associated pleural thickening an d left lower lobe consolidation. There is also peripheral consolidation identified within the lingula and left upper lobe. Minimal patchy consolidation is seen at the right apex on image #201. Mediastinum: There is no mediastinal lymphadenopathy. Nubia: Clear. Axillae: There is no axillary lymphadenopathy. Upper abdomen: There is a small hiatal hernia. A 3 cm cyst is noted in the upper pole of the left kid anna. Skeletal structures: The skeletal structures are osteopenic. Degenerative change and hyperkyphosis ar e noted in the thoracic spine. No lytic or blastic bony lesions are seen. A right shoulder arthroplas ty is in place. IMPRESSION: 1. Streak and motion compromised examination. 2. There is no evidence of central pulmonary embolus in the main or lobar pulmonary arteries. Evaluat ion of the peripheral branches is significantly compromised by streak and motion artifact. 3. There is a small to moderate and at least partially loculated pleural effusion at the left lung ba se. 4. There is associated pleural thickening and dense airspace consolidation in the left lower lobe. Th is could represent atelectasis versus pneumonia and clinical correlation will be required. 5. Peripheral consolidation is also seen in the left upper lobe and lingula, and there is minimal pat cande consolidation in the right upper lobe. Again, correlate clinically for evidence of an infectious/ inflammatory pneumonitis. 6. Cardiomegaly. 7. Additional findings as above. Electronically signed by: Nicola Koehler M.D. 05/07/2018 9:21 AM
[2018-05-07 09:46] LABS: Appearance Urine Clear (Clear); Bilirubin Urine Negative (Negative); Blood Urine Negative (Negative); Color Urine Yellow; Glucose Urine UA Negative (Negative); Ketones Urine Negative (Negative); Leukocyte Esterase Urine Negative (Negative); Nitrite Urine Negative (Negative); Protein Urine Negative (Negative); Specific Gravity Urine 1.024 (1.000-1.030); Urobilinogen Urine Negative (Negative); pH Urine 5.5 (4.5-7.5)
--- NOTE | 2018-05-07 13:55 | Emergency Department Note ---
Entered by Rima Gurrola acting as a scribe for Kaushik Angeles MD History of Present Illness General Chief complaint: Chest Pain Stated complaint: chest pain/ [place] Time Seen by Provider: 05/07/18 08:08 Source: patient History of Present Illness Provider complaint: chest pain Onset (ago): day(s) (this morning) Location: chest Quality: + other (chest pain) Exacerbated By: + other (deep breaths) Associated symptoms: + other (left arm numbness) Treatments prior to arrival: aspirin The patient is a 67 year old female who presents to the Emergency Room with complaints of intermittent chest pain beginning this morning. She states she noted this chest pain upon waking up. The patient reports deep breaths exacerbate her symptoms. She notes the pain radiates into her left arm, and she has left arm numbness. The patient denies abdominal pain. She states she receives chemo treatments 5 days a month. The patient denies any cardiac history or history of stress test. EMS gave the patient 4 baby aspirin en route to the ED. Home Medications Home Medications Medication Instructions Recorded Confirmed Type Magnesium Hydroxide (Milk of 30 ml PO Q6H PRN 30 Days #0 04/11/16 05/07/18 Rx Magnesia) sertraline [Zoloft] 75 mg PO QAM #0 tab 07/18/16 05/07/18 History pravastatin [Pravachol] 20 mg PO HS #0 tab 07/25/16 05/07/18 History acetaminophen [Tylenol] 650 mg PO Q6 PRN #0 tab 10/02/17 05/07/18 History albuterol sulfate 1 vial NEB Q6 PRN 12 Days #150 ml 10/02/17 05/07/18 History bisacodyl [Dulcolax (bisacodyl)] 1 supp VT UD PRN #0 sup 10/02/17 05/07/18 History ibuprofen [Advil] 400 mg PO Q6 PRN #0 tab 10/02/17 05/07/18 History mineral oil [Fleet Mineral Oil] 1 unit RE UD PRN #0 10/02/17 05/07/18 History ondansetron HCl [Zofran] 4 mg PO Q8 PRN #0 tab 10/02/17 05/07/18 History polyethylene glycol 3350 [Miralax] 17 g PO QAM #527 g 10/02/17 05/07/18 History quetiapine [Seroquel] 150 mg PO HS #0 tab 10/02/17 05/07/18 History calcium carbonate [Tums] 2 tabs PO Q8 PRN #0 11/13/17 05/07/18 History fluticasone-vilanterol [Breo 1 puff INHALATION QAM 05/07/18 05/07/18 History Ellipta] megestrol 400 mg PO QAM 05/07/18 05/07/18 History morphine 15 mg PO Q8H 05/07/18 05/07/18 History ranitidine HCl 75 mg PO QAM 05/07/18 05/07/18 History Allergies Allergy/AdvReac Type Severity Reaction Status Date / Time cat dander Allergy Mild Verified 05/07/18 08:22 codeine Allergy Unknown Verified 05/07/18 08:22 simvastatin AdvReac Intermediate ELEVATED Verified 05/07/18 08:22 HEPATIC ENZYMES Past Med/Surg History Medical History Anemia (Chronic) COPD exacerbation (Resolved) UTI (urinary tract infection) (Resolved) Urinary retention (Resolved) Social History Feels Safe at Home: Yes Smoking Status: Former smoker Review of Systems See HPI for pertinent positives & negatives. and A total of 10 systems reviewed and were otherwise negative Physical Exam Vital Signs Vital Signs - 24 hr 05/07/18 08:13 05/07/18 08:17 05/07/18 08:53 Temperature 38.6 C H Temperature Source Oral Sepsis Recent Fever Within 48 Hours Yes Sepsis New/Unexplained Change in Mental Status No Sepsis Action Taken by Nursing No Action Required Pulse Rate [Left Finger] 75 69 Respiratory Rate 18 18 Respiratory Effort / Characteristics Non-Labored Spontaneous Non-Labored Spontaneous Respiratory Depth Normal Normal Respiratory Pattern Regular Regular Blood Pressure [Left Arm] 117/58 L 133/64 Blood Pressure Mean [Left Arm] 77 87 Blood Pressure Position [Left Arm] Lying Lying Pulse Oximetry 100 100 Oxygen Delivery Method Nasal Cannula Nasal Cannula Oxygen Flow Rate 3 3 05/07/18 09:40 05/07/18 11:00 05/07/18 12:19 Temperature Temperature Source Sepsis Recent Fever Within 48 Hours Sepsis New/Unexplained Change in Mental Status Sepsis Action Taken by Nursing Pulse Rate [Left Finger] 67 58 L 84 Respiratory Rate 18 17 19 Respiratory Effort / Characteristics Non-Labored Spontaneous Respiratory Depth Normal Respiratory Pattern Regular Blood Pressure [Left Arm] 126/66 116/63 125/74 Blood Pressure Mean [Left Arm] 86 80 91 Blood Pressure Position [Left Arm] Lying Pulse Oximetry 100 100 97 Oxygen Delivery Method Nasal Cannula Nasal Cannula Nasal Cannula Oxygen Flow Rate 3 3 3 05/07/18 13:30 Temperature Temperature Source Sepsis Recent Fever Within 48 Hours Sepsis New/Unexplained Change in Mental Status Sepsis Action Taken by Nursing Pulse Rate [Left Finger] 65 Respiratory Rate 20 Respiratory Effort / Characteristics Respiratory Depth Respiratory Pattern Blood Pressure [Left Arm] 118/73 Blood Pressure Mean [Left Arm] 88 Blood Pressure Position [Left Arm] Pulse Oximetry 95 Oxygen Delivery Method Nasal Cannula Oxygen Flow Rate 2 GENERAL: Awake, alert, well-appearing, in no distress HENT: Normocephalic, atraumatic. Oropharynx unremarkable. EYES: Normal conjunctiva. Sclera non-icteric. NECK: Supple. No nuchal rigidity. FROM. No masses. RESPIRATORY: Clear to auscultation. No wheezes. No rales. Normal respiratory effort. CARDIAC: Normal rate. Normal rhythm. No murmurs. No rubs. Extremities warm and well perfused. Pulses equal. No JVD. GI: Soft, non-distended. No tenderness to palpation. No rebound or guarding. No masses. RECTAL: Deferred. MUSCULOSKELETAL: Atraumatic. Port in place. Chest examination reveals no tenderness. The back is symmetrical on inspection without obvious abnormality. There is no CVA tenderness to palpation. No joint edema. LOWER EXTREMITIES: Calves are equal size bilaterally and non-tender. No edema. No discoloration. NEURO: Normal sensorium. No sensory or motor deficits noted. Course 0814: Past medical records reviewed. The patient was evaluated in room A2, and a complete history and physical examination were performed. 0925: Upon reevaluation, the patient is resting. I discussed test results. They verbalized agreement with the treatment plan. 0932: I reviewed the patient's case with Dr. Kelly, [facility] hospitalist. He will evaluate the patient for further management. Consultations Consultation #1: Dr. Kelly [facility] hospitalist Time: 09:32 Administered Medications Ioversol (Optiray 320 125ml) 120 ml IV ONCE PRN PRN Reason: Interaction Checking Stop: 05/11/18 09:01 Last Admin: 05/07/18 09:02 Dose: 120 ml Discontinued Medications Acetaminophen (Tylenol) 1,000 mg PO NOW STA Stop: 05/07/18 08:14 Last Admin: 05/07/18 08:51 Dose: 1,000 mg Sodium Chloride (Nss 1000ml) 1,000 mls @ 999 mls/hr IV .Q1H1M ONE Stop: 05/07/18 09:22 Last Infusion: 05/07/18 09:46 Dose: 0 mls/hr Admin: 05/07/18 08:52 Dose: 999 mls/hr Piperacillin Sod/Tazobactam Sod (Zosyn) 4.5 gm in 120 mls @ 240 mls/hr IV NOW ONE Stop: 05/07/18 09:39 Last Infusion: 05/07/18 10:10 Dose: 0 mls/hr Admin: 05/07/18 09:40 Dose: 240 mls/hr Levofloxacin/Dextrose (Levaquin/D5w) 750 mg in 150 mls @ 100 mls/hr IV NOW STA Stop: 05/07/18 10:39 Last Infusion: 05/07/18 11:46 Dose: 0 mls/hr Admin: 05/07/18 10:16 Dose: 100 mls/hr Vancomycin HCl 1,500 mg/ (Sodium Chloride) 530 mls @ 200 mls/hr IV NOW ONE Stop: 05/07/18 11:48 Last Infusion: 05/07/18 13:18 Dose: 0 mls/hr Admin: 05/07/18 10:16 Dose: 200 mls/hr Morphine Sulfate (Ms Contin) 15 mg PO NOW STA Stop: 05/07/18 08:14 Last Admin: 05/07/18 08:52 Dose: 15 mg Medical Decision Making Differential Diagnosis Etiologies such as shingles, musculoskeletal pain, pericarditis, myocarditis, cardiac ischemia, pericardial tamponade, pneumonia, pneumothorax, pleural effusion, hemothorax, pleurisy, aortic pathology, pulmonary embolism, intra- abdominal process, as well as others were considered. Medical Records Attestation: I reviewed the patient's medical records. Home Medications Current Medication List: was personally reviewed by me Laboratory Data Attestation: I reviewed the patient's lab results. Result diagrams: 05/07/18 08:10 05/07/18 08:10 Lab Results 05/07/18 05/07/18 05/07/18 Range/Units 08:10 08:10 08:10 WBC 5.03 (4.8-10.8) K/uL RBC 2.82 L (4.2-5.4) M/uL Hgb 9.2 L (12.0-16.0) g/dL Hct 29.8 L (37-47) % MCV 105.7 H (80-100) fL MCH 32.6 (25-34) pg MCHC 30.9 L (32-36) g/dL RDW Std Deviation 95.3 H (36.4-46.3) fL RDW Coeff of Rochelle 25.2 H (11.5-14.5) % Plt Count 305 (130-400) K/uL MPV 11.2 H (7.4-10.4) fL Immature Gran % (Auto) 1.0 % Neut % (Auto) 63.3 % Lymph % (Auto) 21.7 % Mason % (Auto) 5.4 % Eos % (Auto) 8.0 % Baso % (Auto) 0.6 % Immature Gran # (Auto) 0.05 H (0.00-0.02) K/uL Neut # (Auto) 3.19 (1.4-6.5) K/uL Lymph # (Auto) 1.09 L (1.2-3.4) K/uL Mason # (Auto) 0.27 (0.11-0.59) K/uL Eos # (Auto) 0.40 (0-0.5) K/uL Baso # (Auto) 0.03 (0-0.2) K/uL Absolute Nucleated RBC 0.06 H (0-0) K/uL Nucleated RBC % (auto) 1.2 % Poikilocytosis Present Macrocytosis Present PT 11.1 (9.0-12.0) Seconds INR 1.1 (0.9-1.1) APTT 30.0 (21.0-31.0) Seconds PTT Ratio 1.1 Sodium (136-145) mmol/L Potassium (3.5-5.1) mmol/L Chloride (98-107) mmol/L Carbon Dioxide (21-32) mmol/L Anion Gap (3-11) BUN (7-18) mg/dl Creatinine (0.6-1.2) mg/dl Est Cr Clr Drug Dosing ml/min Est GFR ( Amer) Est GFR (Non-Af Amer) BUN/Creatinine Ratio (10-20) Glucose (70-99) mg/dl Lactate (0.4-2.0) mmol/L Calcium (8.5-10.1) mg/dl Total Bilirubin (0.2-1) mg/dl AST (15-37) U/L ALT (12-78) U/L Alkaline Phosphatase (45-117) U/L Total Creatine Kinase Cancelled CK-MB (CK-2) Cancelled CK/CKMB % Calc Cancelled Troponin I Cancelled Total Protein (6.4-8.2) gm/dl Albumin (3.4-5.0) gm/dl Globulin (2.5-4.0) gm/dl Albumin/Globulin Ratio (0.9-2) Urine Color Urine Appearance (Clear) Urine pH (4.5-7.5) Ur Specific [place] (1.000-1.030) Urine Protein (Negative) Urine Glucose (UA) (Negative) Urine Ketones (Negative) Urine Blood (Negative) Urine Nitrite (Negative) Urine Bilirubin (Negative) Urine Urobilinogen (Negative) Ur Leukocyte Esterase (Negative) Influenza Type A (PCR) (Neg) Influenza Type B (PCR) (Neg) 05/07/18 05/07/18 05/07/18 Range/Units 08:10 08:10 08:35 WBC (4.8-10.8) K/uL RBC (4.2-5.4) M/uL Hgb (12.0-16.0) g/dL Hct (37-47) % MCV (80-100) fL MCH (25-34) pg MCHC (32-36) g/dL RDW Std Deviation (36.4-46.3) fL RDW Coeff of Rochelle (11.5-14.5) % Plt Count (130-400) K/uL MPV (7.4-10.4) fL Immature Gran % (Auto) % Neut % (Auto) % Lymph % (Auto) % Mason % (Auto) % Eos % (Auto) % Baso % (Auto) % Immature Gran # (Auto) (0.00-0.02) K/uL Neut # (Auto) (1.4-6.5) K/uL Lymph # (Auto) (1.2-3.4) K/uL Mason # (Auto) (0.11-0.59) K/uL Eos # (Auto) (0-0.5) K/uL Baso # (Auto) (0-0.2) K/uL Absolute Nucleated RBC (0-0) K/uL Nucleated RBC % (auto) % Poikilocytosis Macrocytosis PT (9.0-12.0) Seconds INR (0.9-1.1) APTT (21.0-31.0) Seconds PTT Ratio Sodium 139 (136-145) mmol/L Potassium 5.1 (3.5-5.1) mmol/L Chloride 111 H (98-107) mmol/L Carbon Dioxide 22 (21-32) mmol/L Anion Gap 6.0 (3-11) BUN 35 H (7-18) mg/dl Creatinine 1.79 H (0.6-1.2) mg/dl Est Cr Clr Drug Dosing 30.6 ml/min Est GFR ( Amer) 33.9 Est GFR (Non-Af Amer) 29.2 BUN/Creatinine Ratio 19.5 (10-20) Glucose 89 (70-99) mg/dl Lactate 1.0 (0.4-2.0) mmol/L Calcium 8.0 L (8.5-10.1) mg/dl Total Bilirubin 0.4 (0.2-1) mg/dl AST 16 (15-37) U/L ALT 16 (12-78) U/L Alkaline Phosphatase 72 (45-117) U/L Total Creatine Kinase 28 CK-MB (CK-2) < 1.0 CK/CKMB % Calc TNP Troponin I < 0.015 Total Protein 6.2 L (6.4-8.2) gm/dl Albumin 3.1 L (3.4-5.0) gm/dl Globulin 3.1 (2.5-4.0) gm/dl Albumin/Globulin Ratio 1.0 (0.9-2) Urine Color Urine Appearance (Clear) Urine pH (4.5-7.5) Ur Specific [place] (1.000-1.030) Urine Protein (Negative) Urine Glucose (UA) (Negative) Urine Ketones (Negative) Urine Blood (Negative) Urine Nitrite (Negative) Urine Bilirubin (Negative) Urine Urobilinogen (Negative) Ur Leukocyte Esterase (Negative) Influenza Type A (PCR) Neg for Influ A (Neg) Influenza Type B (PCR) Neg for Influ B (Neg) 05/07/18 Range/Units 09:30 WBC (4.8-10.8) K/uL RBC (4.2-5.4) M/uL Hgb (12.0-16.0) g/dL Hct (37-47) % MCV (80-100) fL MCH (25-34) pg MCHC (32-36) g/dL RDW Std Deviation (36.4-46.3) fL RDW Coeff of Rochelle (11.5-14.5) % Plt Count (130-400) K/uL MPV (7.4-10.4) fL Immature Gran % (Auto) % Neut % (Auto) % Lymph % (Auto) % Mason % (Auto) % Eos % (Auto) % Baso % (Auto) % Immature Gran # (Auto) (0.00-0.02) K/uL Neut # (Auto) (1.4-6.5) K/uL Lymph # (Auto) (1.2-3.4) K/uL Mason # (Auto) (0.11-0.59) K/uL Eos # (Auto) (0-0.5) K/uL Baso # (Auto) (0-0.2) K/uL Absolute Nucleated RBC (0-0) K/uL Nucleated RBC % (auto) % Poikilocytosis Macrocytosis PT (9.0-12.0) Seconds INR (0.9-1.1) APTT (21.0-31.0) Seconds PTT Ratio Sodium (136-145) mmol/L Potassium (3.5-5.1) mmol/L Chloride (98-107) mmol/L Carbon Dioxide (21-32) mmol/L Anion Gap (3-11) BUN (7-18) mg/dl Creatinine (0.6-1.2) mg/dl Est Cr Clr Drug Dosing ml/min Est GFR ( Amer) Est GFR (Non-Af Amer) BUN/Creatinine Ratio (10-20) Glucose (70-99) mg/dl Lactate (0.4-2.0) mmol/L Calcium (8.5-10.1) mg/dl Total Bilirubin (0.2-1) mg/dl AST (15-37) U/L ALT (12-78) U/L Alkaline Phosphatase (45-117) U/L Total Creatine Kinase CK-MB (CK-2) CK/CKMB % Calc Troponin I Total Protein (6.4-8.2) gm/dl Albumin (3.4-5.0) gm/dl Globulin (2.5-4.0) gm/dl Albumin/Globulin Ratio (0.9-2) Urine Color Yellow Urine Appearance Clear (Clear) Urine pH 5.5 (4.5-7.5) Ur Specific [place] 1.024 (1.000-1.030) Urine Protein Negative (Negative) Urine Glucose (UA) Negative (Negative) Urine Ketones Negative (Negative) Urine Blood Negative (Negative) Urine Nitrite Negative (Negative) Urine Bilirubin Negative (Negative) Urine Urobilinogen Negative (Negative) Ur Leukocyte Esterase Negative (Negative) Influenza Type A (PCR) (Neg) Influenza Type B (PCR) (Neg) Imaging Data Radiologist's Impression: Radiology results as stated below per my review and the radiologist's interpretation: CT ANGIOGRAM OF THE CHEST CLINICAL HISTORY: Sepsis. COMPARISON STUDY: Chest x-ray dated 05/07/2018. Chest CT dated 03/22/2010. TECHNIQUE: Following the IV administration of 120 cc of Optiray 320, CT angiogram of the chest was performed from the upper abdomen to the thoracic inlet utilizing the pulmonary embolus protocol. Images are reviewed in the axial , sagittal, and coronal planes. 3-D MIPS images are created and assessed. IV contrast was administered without complication. A dose lowering technique was utilized adhering to the principles of ALARA. The examination is significantly degraded by motion artifact, as well as by streak artifact from the arms which could not be related above the chest. CT DOSE: 665.80 mGy.cm FINDINGS: Thyroid: Imaged portions of the thyroid gland are normal in size and attenuation. Thoracic aorta: There is mild atherosclerotic calcification of the thoracic aorta, which is normal in caliber and demonstrates standard 3-vessel arch anatomy. No dissection is seen. Pulmonary vasculature: The pulmonary trunk is dilated, measuring 3.4 cm diameter. This suggests pulmonary artery hypertension. There are no filling defects identified in main or lobar pulmonary branches to suggest pulmonary embolus. Evaluation of the peripheral branches is significantly degraded by motion artifact. Heart: The heart is enlarged and without pericardial effusion. A left subclavian central venous infusion port is in place. Lungs and pleural spaces: Evaluation of the lung parenchyma is significantly degraded by streak and motion artifact. The trachea and central airways are clear. There is a small to moderate and at least partially loculated pleural effusion at the left lung base. There is associated pleural thickening and left lower lobe consolidation. There is also peripheral consolidation identified within the lingula and left upper lobe. Minimal patchy consolidation is seen at the right apex on image #201. Mediastinum: There is no mediastinal lymphadenopathy. Nubia: Clear. Axillae: There is no axillary lymphadenopathy. Upper abdomen: There is a small hiatal hernia. A 3 cm cyst is noted in the upper pole of the left kidney. Skeletal structures: The skeletal structures are osteopenic. Degenerative change and hyperkyphosis are noted in the thoracic spine. No lytic or blastic bony lesions are seen. A right shoulder arthroplasty is in place. IMPRESSION: 1. Streak and motion compromised examination. 2. There is no evidence of central pulmonary embolus in the main or lobar pulmonary arteries. Evaluation of the peripheral branches is significantly compromised by streak and motion artifact. 3. There is a small to moderate and at least partially loculated pleural effusion at the left lung base. 4. There is associated pleural thickening and dense airspace consolidation in the left lower lobe. This could represent atelectasis versus pneumonia and clinical correlation will be required. 5. Peripheral consolidation is also seen in the left upper lobe and lingula, and there is minimal patchy consolidation in the right upper lobe. Again, correlate clinically for evidence of an infectious/inflammatory pneumonitis. 6. Cardiomegaly. 7. Additional findings as above. Electronically signed by: Nicola Koehler M.D. 05/07/2018 9:21 AM XR chest 1V portable CLINICAL HISTORY: 67 years-old Female presenting with Sepsis. TECHNIQUE: Portable upright AP view of the chest was obtained. COMPARISON: 07/25/2016. FINDINGS: Left subclavian Mediport terminates at the superior cavoatrial junction. Cardiac silhouette moderately enlarged. Heterogeneity of lung parenchyma with pulmonary vascular prominence. Moderate left pleural effusion new from prior. Mid to basilar left opacity with poor aeration of the left lung base. No pneumothorax. Right lung and pleural space clear. Right shoulder arthroplasty. IMPRESSION: 1. Interval development of a moderate left pleural effusion with underlying left mid to basilar infiltrates and poor aeration of the left lower lung. Pneumonia and parapneumonic effusion or empyema not excluded. Consider chest CT for further evaluation. Electronically signed by: Garo Aldrich M.D. 05/07/2018 8:52 AM ECG Data Attestation: I personally reviewed and interpreted this ECG as follows: Indication: chest pain Rate (beats per minute): 73 Rhythm: normal sinus Findings: no ST depression and no ST elevation Blood Pressure Blood Pressure Findings: Normal blood pressure Blood Pressure Disposition: did not require urgent referral MDM Narrative This is a 67-year-old female who presents emergency department complaining of left-sided chest pain. Patient's chest x-ray is concerning for new onset pleural effusion. The radiologist did request a CAT scan of the chest. The patient was given 15 mg of her morphine here in the emergency department. CAT scan of the chest shows a pleural effusion in addition to what appears to be pneumonia multiple places. Blood cultures were obtained and the patient was started on broad-spectrum antibiotics including Zosyn Levaquin and vancomycin. I did discuss the case with the hospitalist service who agreed to admit the patient. Patient was in agreement with the treatment plan. Impression & Plan Fever, Pleural effusion Discharge Plan Visit Data Chief Complaint: Chest Pain Stated Complaint: chest pain/ [place] ED Provider: Kaushik Angeles Discharge Problem: Fever, Pleural effusion Patient Disposition: Being Evaluated by Hospitalist Forms Stand Alone Forms: Call Back Authorization, [facility] Prescriptions Prescriptions: No Action Magnesium Hydroxide (Milk of Magnesia) 30 ML suspension 30 ml PO Q6H PRN (Reason: Constipation) 30 Days Qty: 0 RF: 0 sertraline [Zoloft] 100 mg Tablet 75 mg PO QAM Qty: 0 RF: 0 pravastatin [Pravachol] 20 mg Tablet 20 mg PO HS Qty: 0 RF: 0 polyethylene glycol 3350 [Miralax] 17 gram Powder In Packet 17 g PO QAM Qty: 527 RF: 0 albuterol sulfate 0.63 mg/3 mL Solution For Nebulization 1 vial NEB Q6 PRN (Reason: Adequate Ventilation) 12 Days Qty: 150 RF: 1 ondansetron HCl [Zofran] 4 mg Tablet 4 mg PO Q8 PRN (Reason: Nausea) Qty: 0 RF: 0 quetiapine [Seroquel] 100 mg Tablet 150 mg PO HS Qty: 0 RF: 0 mineral oil [Fleet Mineral Oil] Enema 1 unit RE UD PRN (Reason: Constipation) Qty: 0 RF: 0 bisacodyl [Dulcolax (bisacodyl)] 10 mg Suppository 1 supp VT UD PRN (Reason: Constipation) Qty: 0 RF: 0 ibuprofen [Advil] 200 mg Tablet 400 mg PO Q6 PRN (Reason: Pain) Qty: 0 RF: 0 acetaminophen [Tylenol] 325 mg Capsule 650 mg PO Q6 PRN (Reason: PAIN) Qty: 0 RF: 0 calcium carbonate [Tums] 200 mg calcium (500 mg) Tablet,Chewable 2 tabs PO Q8 PRN (Reason: Acid Reflux) Qty: 0 RF: 0 megestrol 400 mg/10 mL (40 mg/mL) suspension 400 mg PO QAM RF: 0 ranitidine HCl 75 mg Tablet 75 mg PO QAM RF: 0 morphine 15 mg tablet 15 mg PO Q8H RF: 0 fluticasone-vilanterol [Breo Ellipta] 100-25 mcg/dose blister with device 1 puff Inhalation QAM RF: 0 Referrals Referrals: Finn Jacobs [Primary Care Provider] - The scribe's documentation has been prepared under my direction and personally reviewed by me in its entirety. I confirm that the note above accurately reflects all work, treatment, procedures, and medical decision making performed by me.
[2018-05-07] MEDS ORDERED: IBUPROFEN 200 MG TAB PO PRN (15:09)
[2018-05-07] MEDS ORDERED: ONDANSETRON INJ 2 MG/ML 2 ML VIAL IV PRN (15:09)
[2018-05-07] MEDS ORDERED: ALBUTEROL HFA 8 GM INHALER INH PRN (15:09)
[2018-05-07] MEDS ORDERED: ACETAMINOPHEN 325 MG TAB PO PRN (15:09)
[2018-05-07] MEDS: PIPERACILLIN/TAZOBACTAM 3.375 GM in DEXTROSE 5% 100 ML IV SCH (16:09)
--- NOTE | 2018-05-07 16:21 | Pharmacy Report ---
Pharmacy Abx Initial Consult - Date of Service May 07, 2018 - Pharmacy Dosing Scope Date of Consult: 05/07 Consultation requested by: Dr. Kelly Pharmacy is consulted to initiate vancomycin and Zosyn IV dosing therapy, order appropriate labs and adjust drug dose/frequency. - Subjective The patient is a 67 year old F admitted on 05/07/18 10:44. - Objective Height: 5 ft 3 in Weight: 74.75 kg Vital Signs (Past 12hrs): Vital Signs Temp Pulse Pulse Resp BP BP Pulse Ox 05/07/18 15:00 36.8 C 65 18 134/82 100 05/07/18 14:38 65 19 110/61 100 05/07/18 13:30 65 20 118/73 95 05/07/18 12:19 84 19 125/74 97 05/07/18 11:00 58 L 17 116/63 100 05/07/18 09:40 67 18 126/66 100 05/07/18 08:53 69 18 133/64 100 05/07/18 08:17 38.6 C H 75 18 117/58 L 100 Lab Results (24hrs): Laboratory Tests (24 Hours) 05/07/18 05/07/18 05/07/18 08:10 08:10 08:10 WBC 5.03 Neut # (Auto) 3.19 Creatinine 1.79 H Est Cr Clr Drug Dosing 30.6 Total Creatine Kinase 28 Cancelled Micro Results: 05/07/18 08:49 Blood Culture - Pending Blood 05/07/18 08:10 Blood Culture - Pending Blood - Risk Factors for Resistance unknown as H&P not yet available - she does receive chemo - Assessment & Plan Assessment 67 year old F admitted today for chest pain. CT of chest indicating possible pneumonia so broad-spectrum antibiotics in the form of vancomycin, Zosyn and Zithromax have been initiated. SCr increased from baseline of ~1.5 Initial weight in computer was increased quite a bit from last admission so I had the nurse recheck weight. Confirmed 74.9 kg. Plan Vancomycin IV * Estimated PK Parameters: Vd 0.7 L/kg, Woody 0.033 hr-1, t1/2 21 hr (based on baseline SCr of ~1.5) * Loading dose: 1500 mg (20 mg/kg) was given in the ER * Maintenance dose: 1000 mg IV (13.4 mg/kg) every 24 hours * Goal trough level : 15 to 20 mcg/mL * No trough level ordered until MRSA swab resulted, in case vancomycin is able to be d/c'd Piperacillin/tazobactam * 3.375 g IV extended infusion every 8 hours for CrCl greater than 20 mL/min Pharmacy will continue to follow and will adjust dose/frequency as necessary. Thank you.
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
[2018-05-07] MEDS: MoRPHine SULFATE 4 MG/ML 1 ML CARP\\VIAL IV PRN (19:46)
--- NOTE | 2018-05-07 20:12 | XRay Report ---
XR chest 1V portable HISTORY: 67 years-old Female left thoracentesis status post left thoracentesis with left pleural eff usion COMPARISON: CTA chest and chest radiograph of same day TECHNIQUE: Portable AP view of the chest FINDINGS: Cardiomediastinal and hilar silhouettes are unchanged. Stable positioning of left subclavian Infuse-a -Port catheter. Decreased size of the left pleural effusion status post thoracentesis. No postprocedu ral pneumothorax. The lateral left midlung and left basilar opacities redemonstrated. Right shoulder arthroplasty. Degenerative changes of the spine and left shoulder. IMPRESSION: 1. Decreased size of left pleural effusion status post thoracentesis. No postprocedural pneumothorax. 2. Persistent lateral left midlung and left basilar opacities. 3. Cardiomegaly. The above report was generated using voice recognition software. It may contain grammatical, syntax o r spelling errors. Electronically signed by: Fortunato Hernández M.D. 05/07/2018 8:10 PM
[2018-05-07] MEDS: QUETIAPINE FUMARATE 100 MG TABLET PO SCH (21:08)
[2018-05-07 21:09] LABS: Albumin Pleural Fluid 1.9 g/dl
[2018-05-07] MEDS: PRAVASTATIN SOD 20 MG TAB PO SCH (21:09)
[2018-05-07 21:17] LABS: Total Protein Pleural Fluid 3.1 g/dl
[2018-05-07 21:18] LABS: Appearance Pleural Fluid CLOUDY; Color Pleural Fluid RED; Mononuclear WBC Pleural 9.4 %; Polynuclear WBC Pleural 90.6 %; RBC Pleural Fluid (A) 10000 /uL; Source Pleural Fluid LEFT LUNG; WBC Pleural Fluid (A) 1113 /uL
--- NOTE | 2018-05-07 21:38 | Pulmonary Consultation ---
Date of Consultation May 07, 2018 Assessment & Plan (1) Pleural effusion: Impression: 1. Exudative pleural effusion. Although it can be a remnant from previous pneumonia and complex parapneumonic effusion, the fluid does not represent empyema. I am concerned about underlying malignancy. 2. Left lower lobe round atelectasis, is concerning also for possible superimposed malignancy. 3. Small atelectasis in the lingula. 4. Right upper lobe nodule measuring 6 mm. 5. COPD changes. Plan: 1. Discontinue broad-spectrum antibiotics and start Augmentin only for a total of 7 days. 2. Follow cytology of pleural fluid. 3. May need bronchoscopy if the pleural fluid are not revealing. 4. If no malignancy is noted, this fluid could represent chronic parapneumonic effusion. Thank you, will follow. History of Present Illness Reason for Consultation: Pleural effusion Requesting Physician: Dr. Kelly Attending Physician: Nael Kelly MD History of Present Illness Dear Dr. Kelly: Thank you for the kind referral Mrs. Mirza to pulmonary service. Mrs. Mirza is a 67-year-old female who is active smoker, history of COPD, on home O2, chronic kidney disease due to single kidney, presented to the hospital with increasing shortness of breath accompanied with left-sided pleuritic chest pain. She thought she might have had a cardiac event however the patient was admitted to the hospital after the workup revealing left lower lobe consolidation with pleural effusion and adjacent to it. The patient denies any nausea or vomiting , no recent choking sensation, she does have occasional cough but unable to produce any sputum. She denies any abdominal pain and no epigastric pain. No back pain. No increased swelling in her lower extremities. Her level of ambulation with assistance is less than 100 feet. She does have extreme shortness of breath with movement. Although she continued to smoke. Her body weight has been the same and she denies any rash no increased swelling in her joints. She is in good mood. Her family history does not contribute to her current illness. She is active smoker more than [id number] history of smoking. She did not have any history of industrial exposure in the past. Allergies Allergy/AdvReac Type Severity Reaction Status Date / Time cat dander Allergy Mild Verified 05/07/18 08:22 codeine Allergy Unknown Verified 05/07/18 08:22 simvastatin AdvReac Intermediate ELEVATED Verified 05/07/18 08:22 HEPATIC ENZYMES Home Medications Home Medications Medication Instructions Recorded Confirmed Type Magnesium Hydroxide (Milk of 30 ml PO Q6H PRN 30 Days #0 04/11/16 05/07/18 Rx Magnesia) sertraline [Zoloft] 75 mg PO QAM #0 tab 07/18/16 05/07/18 History pravastatin [Pravachol] 20 mg PO HS #0 tab 07/25/16 05/07/18 History acetaminophen [Tylenol] 650 mg PO Q6 PRN #0 tab 10/02/17 05/07/18 History albuterol sulfate 1 vial NEB Q6 PRN 12 Days #150 ml 10/02/17 05/07/18 History bisacodyl [Dulcolax (bisacodyl)] 1 supp OR UD PRN #0 sup 10/02/17 05/07/18 History ibuprofen [Advil] 400 mg PO Q6 PRN #0 tab 10/02/17 05/07/18 History mineral oil [Fleet Mineral Oil] 1 unit RE UD PRN #0 10/02/17 05/07/18 History ondansetron HCl [Zofran] 4 mg PO Q8 PRN #0 tab 10/02/17 05/07/18 History polyethylene glycol 3350 [Miralax] 17 g PO QAM #527 g 10/02/17 05/07/18 History quetiapine [Seroquel] 150 mg PO HS #0 tab 10/02/17 05/07/18 History calcium carbonate [Tums] 2 tabs PO Q8 PRN #0 11/13/17 05/07/18 History fluticasone-vilanterol [Breo 1 puff INHALATION QAM 05/07/18 05/07/18 History Ellipta] megestrol 400 mg PO QAM 05/07/18 05/07/18 History morphine 15 mg PO Q8H 05/07/18 05/07/18 History ranitidine HCl 75 mg PO QAM 05/07/18 05/07/18 History Patient History Medical History Anemia (Chronic) COPD exacerbation (Resolved) UTI (urinary tract infection) (Resolved) Urinary retention (Resolved) Bipolar 2 disorder CKD (chronic kidney disease) stage 3, GFR 30-59 ml/min COPD (chronic obstructive pulmonary disease) GERD (gastroesophageal reflux disease) Hyperlipidemia Myelodysplasia (myelodysplastic syndrome) Surgical History H/O shoulder surgery Family History Mother Lung cancer Social History Current Living Situation: [facility] Current Living Situation Comment: [facility] Other Information That Helps Us Care for You: No Feels Safe at Home: Yes Smoking Status: Former smoker Tobacco Type: cigarettes Do You Dip or Chew Tobacco: No Second Hand Exposure: No Tobacco Cessation Education Requested by Patient: No Hx Alcohol Use: No Hx Substance Use: No Beliefs That Will Affect Care: None Communication Ability: Effective Brine Tank Operator Required: Yes Review of Systems Review of system including 14 systems has been unremarkable except for the above. Physical Exam 2 Vital Signs (Past 24 Hours): Last Vital Signs Temp 36.8 C 05/07/18 15:00 Pulse 65 05/07/18 15:00 Resp 18 05/07/18 15:00 BP 134/82 05/07/18 15:00 Pulse Ox 100 05/07/18 15:00 Physical Exam: Vital signs remained stable, she has no fever, O2 saturations 100% on 3 L, she has significant kyphosis, diminished breath sounds at left base , wheezing at the bases as well S1-S2 regular rate and rhythm, abdomen is benign , no edema, she does have digit deformity, neurologically she is intact, no oral lesions. No rash. Results & Data Laboratory Results Her labs showed no leukocytosis, hematocrit is stable, and her BMP is acceptable. She does have chronic kidney disease. Her pleural fluid are strongly exudative. Diagnostic Findings CAT scan of the chest which I reviewed personally revealed pleural effusion that appeared to be loculated on the left side and transecting to the major fissure. There is a consolidation next to it.
--- NOTE | 2018-05-07 21:48 | Procedure Note ---
Procedure Note Date of Service May 07, 2018 Note Thoracentesis was done at the bedside, consent obtained verbally from the patient, risk and benefit explained details, with the presence of my colleague Luis Resendez, agreed to the procedure. The patient was placed in upright position, under ultrasound guidance, noted the pleural fluid on the left side, under strict sterile field, the skin was prepped with chlorhexidine, at the level of the ninth intercostal space posteriorly, the skin was injected with 10 mL of 1% lidocaine, the pleura also was injected during applying the anesthetic , using Seldinger technique, a scalpel, a catheter was introduced into the left pleural space, total amount 450 mL of dark yellow fluid was removed, the catheter was removed and pressure was applied at the insertion site, chest x- ray showed reduction in the pleural fluid, patient tolerated the procedure very well, no immediate complication, fluid are exudative.
[2018-05-08] MEDS: PIPERACILLIN/TAZOBACTAM 3.375 GM in DEXTROSE 5% 100 ML IV SCH ×2 (00:01→10:32)
[2018-05-08 07:52] LABS: Hematocrit (blood only) 24.5 % (37-47); Hemoglobin 7.6 g/dL (12.0-16.0); Mean Corpuscular Volume 105.2 fL (80-100); Mean Platelet Volume 10.1 fL (7.4-10.4); Nucleated RBC # (auto) 0.05 K/uL (0-0); Platelet Count 276 K/uL (130-400); RDW Coefficient of Variation 25.2 % (11.5-14.5); RDW Standard Deviation 93.6 fL (36.4-46.3); Red Blood Count 2.33 M/uL (4.2-5.4); White Blood Count 4.59 K/uL (4.8-10.8)
[2018-05-08] MEDS ORDERED: ENOXAPARIN INJ 40 MG/0.4 ML SYR SQ SCH (08:00)
[2018-05-08] MEDS ORDERED: VANCOMYCIN HCL 1,000 MG in SODIUM CHLORIDE 0.9% 250 ML IV SCH (08:00)
[2018-05-08] MEDS: SERTRALINE HCL 50 MG TABLET PO SCH (08:16)
[2018-05-08] MEDS: MoRPHine SULFATE 4 MG/ML 1 ML CARP\\VIAL IV PRN ×2 (08:26→18:13)
[2018-05-08 08:30] LABS: BUN Creatinine Ratio 17.5 (10-20); Calcium 7.9 mg/dl (8.5-10.1); Creatinine Clr Calc Pharmacy 28.1 ml/min; Est GFR (African American) 30.9; Est GFR (Non-African American) 26.7; Magnesium 2.3 mg/dl (1.8-2.4); Potassium 5.1 mmol/L (3.5-5.1)
[2018-05-08] MEDS ORDERED: HEPARIN 100 UNIT/ML 5ML FLUSH FLUSH SCH (08:45)
[2018-05-08] MEDS ORDERED: HEPARIN 100 UNIT/ML 5ML FLUSH ONE (08:45)
[2018-05-08] MEDS ORDERED: AZITHROMYCIN 250 MG in DEXTROSE 5% 250 ML IV SCH (09:00)
[2018-05-08] MEDS ORDERED: HEPARIN 100 UNIT/ML 5ML FLUSH FLUSH PRN (09:15)
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
[2018-05-08] MEDS ORDERED: LACTATED RINGER'S 500 ML IV ONE (16:32)
--- NOTE | 2018-05-08 16:49 | Oncology Consultation ---
Date of Consultation May 08, 2018 Assessment & Plan (1) Pleural effusion: Her pleural fluid was negative for malignant cells. That does not necessarily exclude a malignancy, but we would need to do more investigating to document one. The fluid did reveal abundant inflammatory cells, which would support more of an infectious etiology. She does not have a lot of typical pneumonia symptoms, like cough, purulent sputum, or fevers. However, her MDS makes her immunosuppressed and so she may not be mounting the same kind of inflammatory response we might see otherwise. The next step in clarifying this issue may be a bronchoscopy. I will defer to pulmonology regarding the urgency of this evaluation. We can also await the results of pleural fluid cultures. Present on Admission?: Yes (2) Anemia: Ms. Mirza has MDS and is on therapy with Vidaza. Her counts are slightly lower than her baseline range, which may reflect the fact that she is mid- cycle. I would try to avoid transfusion if possible, but would consider it for a hemoglobin below 7.5 or for symptoms. History of Present Illness Reason for Consultation: MDS Pleural effusion Attending Physician: Nael Kelly MD History of Present Illness Ms. Mirza is a 67 year old woman who is well known to our clinic. She is managed by Dr. Bro for myelodysplasia and is currently receiving Vidaza. Her counts are largely in the range that they've been in for most of the last year. She has been receiving her most recent cycle, starting Friday. She came to the ER yesterday with worsening pleuritic chest pain. She denies any fevers, cough, purulent sputum, shortness of breath, weight loss, fatigue, or bone pain. A CTA in the ER revealed a small to moderate, partially loculated pleural effusion at the left lung base. Also seen were associated pleural thickening and dense airspace consolidation in the left lower lobe, peripheral consolidation in the left upper lobe and lingula, and minimal patchy consolidation in the right upper lobe. These findings were thought to represent atelectasis versus pneumonia. Dr. Joseph saw the patient yesterday and performed a thoracentesis, which yielded an exudative fluid with some blood. It was sent for cytology, which was reported later in the day as showing abundant acute inflammatory cells but no malignant-appearing cells. She is a former heavy smoker but denies any other symptoms suggestive of a lung cancer. Allergies Allergy/AdvReac Type Severity Reaction Status Date / Time cat dander Allergy Mild Verified 05/07/18 08:22 codeine Allergy Unknown Verified 05/07/18 08:22 simvastatin AdvReac Intermediate ELEVATED Verified 05/07/18 08:22 HEPATIC ENZYMES Home Medications Home Medications Medication Instructions Recorded Confirmed Type Magnesium Hydroxide (Milk of 30 ml PO Q6H PRN 30 Days #0 04/11/16 05/07/18 Rx Magnesia) sertraline [Zoloft] 75 mg PO QAM #0 tab 07/18/16 05/07/18 History pravastatin [Pravachol] 20 mg PO HS #0 tab 07/25/16 05/07/18 History acetaminophen [Tylenol] 650 mg PO Q6 PRN #0 tab 10/02/17 05/07/18 History albuterol sulfate 1 vial NEB Q6 PRN 12 Days #150 ml 10/02/17 05/07/18 History bisacodyl [Dulcolax (bisacodyl)] 1 supp IL UD PRN #0 sup 10/02/17 05/07/18 History ibuprofen [Advil] 400 mg PO Q6 PRN #0 tab 10/02/17 05/07/18 History mineral oil [Fleet Mineral Oil] 1 unit RE UD PRN #0 10/02/17 05/07/18 History ondansetron HCl [Zofran] 4 mg PO Q8 PRN #0 tab 10/02/17 05/07/18 History polyethylene glycol 3350 [Miralax] 17 g PO QAM #527 g 10/02/17 05/07/18 History quetiapine [Seroquel] 150 mg PO HS #0 tab 10/02/17 05/07/18 History calcium carbonate [Tums] 2 tabs PO Q8 PRN #0 11/13/17 05/07/18 History fluticasone-vilanterol [Breo 1 puff INHALATION QAM 05/07/18 05/07/18 History Ellipta] megestrol 400 mg PO QAM 05/07/18 05/07/18 History morphine 15 mg PO Q8H 05/07/18 05/07/18 History ranitidine HCl 75 mg PO QAM 05/07/18 05/07/18 History Patient History Medical History Anemia (Chronic) COPD exacerbation (Resolved) UTI (urinary tract infection) (Resolved) Urinary retention (Resolved) Bipolar 2 disorder CKD (chronic kidney disease) stage 3, GFR 30-59 ml/min COPD (chronic obstructive pulmonary disease) GERD (gastroesophageal reflux disease) Hyperlipidemia Myelodysplasia (myelodysplastic syndrome) Surgical History H/O shoulder surgery Family History Mother Lung cancer Social History Current Living Situation: [facility] Current Living Situation Comment: [facility] Other Information That Helps Us Care for You: No Feels Safe at Home: Yes Smoking Status: Former smoker Tobacco Type: cigarettes Do You Dip or Chew Tobacco: No Second Hand Exposure: No Tobacco Cessation Education Requested by Patient: No Hx Alcohol Use: No Hx Substance Use: No Beliefs That Will Affect Care: None Communication Ability: Effective Review of Systems Constitutional: + fatigue; no fever, no chills, no anorexia and no weight loss Eyes: no worsening vision Ear, Nose, Mouth, Throat: no nasal congestion and no epistaxis Respiratory: as per Subjective / HPI Cardiovascular: as per Subjective / HPI Gastrointestinal: no abdominal pain, no nausea and no vomiting Genitourinary (Female): no dysuria, no urinary frequency and no hematuria Musculoskeletal: no back pain and no joint pain Integumentary: no rash and no new lesions Neurologic: no dizziness and no headache(s) Hematologic / Lymphatic: no easy bleeding and no lymphadenopathy Physical Exam 2 Vital Signs (Past 24 Hours): Last Vital Signs Temp 36.9 C 05/08/18 14:32 Pulse 65 05/08/18 14:32 Resp 18 05/08/18 14:32 BP 115/65 05/08/18 14:32 Pulse Ox 100 05/08/18 14:32 Constitutional: comfortable; no acute distress and not ill appearing Eyes: + anicteric sclerae and EOM intact bilaterally ENMT: external ear and nose normal, oropharynx normal Respiratory: normal respiratory effort Auscultation: lungs clear to auscultation bilaterally (outside of the left base) and + diminished lung sounds (At the left base) Cardiovascular: RRR, no murmur, no edema Gastrointestinal (Abdomen): normal bowel sounds, soft, nontender, no hepatosplenomegaly Musculoskeletal: Extremities: extremities normal to inspection; no cyanosis and no clubbing Skin: no rashes, warm and dry Results & Data Laboratory Results Laboratory Results - last 24 hr 05/07/18 05/07/18 05/07/18 19:35 19:35 20:20 WBC RBC Hgb Hct MCV MCH MCHC RDW Std Deviation RDW Coeff of Rochelle Plt Count MPV Absolute Nucleated RBC Nucleated RBC % (auto) Sodium Potassium Chloride Carbon Dioxide Anion Gap BUN Creatinine Est Cr Clr Drug Dosing Est GFR ( Amer) Est GFR (Non-Af Amer) BUN/Creatinine Ratio Glucose Calcium Magnesium Pleural Fluid Source LEFT LUNG Pleural Color RED Pleural Appearance CLOUDY Pleural WBC 1113 Pleural RBC 74565 Pleural Polynuclear % 90.6 Pleural Mononuclear % 9.4 Pleural Total Protein 3.1 Pleural Albumin 1.9 Pleural LDH 310 Pleural Glucose 100 Nasal Screen MRSA (PCR) Negative 05/08/18 05/08/18 07:40 07:40 WBC 4.59 L RBC 2.33 L Hgb 7.6 L Hct 24.5 L MCV 105.2 H MCH 32.6 MCHC 31.0 L RDW Std Deviation 93.6 H RDW Coeff of Rochelle 25.2 H Plt Count 276 MPV 10.1 Absolute Nucleated RBC 0.05 H Nucleated RBC % (auto) 1.0 Sodium 138 Potassium 5.1 Chloride 110 H Carbon Dioxide 21 Anion Gap 7.0 BUN 34 H Creatinine 1.93 H Est Cr Clr Drug Dosing 28.1 Est GFR ( Amer) 30.9 Est GFR (Non-Af Amer) 26.7 BUN/Creatinine Ratio 17.5 Glucose 80 Calcium 7.9 L Magnesium 2.3 Pleural Fluid Source Pleural Color Pleural Appearance Pleural WBC Pleural RBC Pleural Polynuclear % Pleural Mononuclear % Pleural Total Protein Pleural Albumin Pleural LDH Pleural Glucose Nasal Screen MRSA (PCR) Diagnostic Findings CTA, 05/07/18: IMPRESSION: 1. Streak and motion compromised examination. 2. There is no evidence of central pulmonary embolus in the main or lobar pulmonary arteries. Evaluation of the peripheral branches is significantly compromised by streak and motion artifact. 3. There is a small to moderate and at least partially loculated pleural effusion at the left lung base. 4. There is associated pleural thickening and dense airspace consolidation in the left lower lobe. This could represent atelectasis versus pneumonia and clinical correlation will be required. 5. Peripheral consolidation is also seen in the left upper lobe and lingula, and there is minimal patchy consolidation in the right upper lobe. Again, correlate clinically for evidence of an infectious/inflammatory pneumonitis. 6. Cardiomegaly. 7. Additional findings as above. _ (1) Anemia 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
--- NOTE | 2018-05-08 17:37 | Pulmonology Progress Note ---
Date of Service May 08, 2018 Assessment & Plan (1) Pleural effusion: Impression: 1. Exudative pleural effusion. Although it can be a remnant from previous pneumonia and complex parapneumonic effusion, the fluid does not represent empyema. I am concerned about underlying malignancy. 2. Left lower lobe round atelectasis, is concerning also for possible superimposed malignancy. 3. Small atelectasis in the lingula. 4. Right upper lobe nodule measuring 6 mm. 5. COPD changes. Plan: 1. Discontinue broad-spectrum antibiotics and start Augmentin only for a total of 7 days. 2. Follow cytology of pleural fluid. 3. Keep the patient n.p.o. after midnight. 4. Bronchoscopy in a.m. 5. IV fluids starting after midnight. 6. We will perform the procedure in the ICU. 7. After the procedure, if none complicated, she can be discharged home. Thank you, will follow. Subjective The patient has no events overnight, no chest pain at the thoracentesis site, denies any cough or nausea, no vomiting, less short of breath, continue to use oxygen, agreed to bronchoscopy. Physical Exam 2 Vital Signs (Past 24 Hours): Last Vital Signs Temp 36.9 C 05/08/18 14:32 Pulse 65 05/08/18 14:32 Resp 18 05/08/18 14:32 BP 115/65 05/08/18 14:32 Pulse Ox 100 05/08/18 14:32 Physical Exam: Vital signs are stable, S1-S2 regular rate and rhythm, distant breath sounds bilaterally, abdomen is benign, no edema. Neurologically she is intact. Competent to make a decision. No rash and no oral thrush. Results & Data Laboratory Results Pleural fluid were exudative, cultures are pending, cytology did not show malignant cells. Diagnostic Findings Chest x-ray postthoracentesis showed left lower lobe atelectasis. CAT scan of the chest showed round atelectasis in the left lower lobe.
[2018-05-08] MEDS: AMOXICILLIN/CLAVULANATE 500 MG TAB PO SCH (18:02)
[2018-05-08] MEDS: QUETIAPINE FUMARATE 100 MG TABLET PO SCH (20:35)
[2018-05-08] MEDS: PRAVASTATIN SOD 20 MG TAB PO SCH (20:36)
[2018-05-08] MEDS: HEPARIN SOD 5,000 UNIT/0.5 ML VIAL SQ SCH (20:36)
[2018-05-09] MEDS: D5W AND NSS 1,000 ML IV SCH ×2 (00:26→13:09)
[2018-05-09 06:13] LABS: Hematocrit (blood only) 23.1 % (37-47); Hemoglobin 7.2 g/dL (12.0-16.0); Mean Corpuscular Hgb Conc 31.2 g/dL (32-36); Mean Corpuscular Volume 104.1 fL (80-100); Nucleated RBC # (auto) 0.04 K/uL (0-0); Platelet Count 284 K/uL (130-400); RDW Coefficient of Variation 25.3 % (11.5-14.5); RDW Standard Deviation 92.3 fL (36.4-46.3); Red Blood Count 2.22 M/uL (4.2-5.4); White Blood Count 3.86 K/uL (4.8-10.8)
[2018-05-09 06:51] LABS: BUN Creatinine Ratio 18.1 (10-20); Calcium 7.9 mg/dl (8.5-10.1); Creatinine Clr Calc Pharmacy 30.7 ml/min; Est GFR (African American) 34.3; Est GFR (Non-African American) 29.6; Potassium 4.9 mmol/L (3.5-5.1)
[2018-05-09] MEDS: HEPARIN SOD 5,000 UNIT/0.5 ML VIAL SQ SCH ×2 (07:17→20:24)
[2018-05-09] MEDS ORDERED: ENOXAPARIN INJ 30 MG/0.3 ML SYR SQ SCH (08:00)
[2018-05-09] MEDS ORDERED: MIDAZOLAM HCL 5 MG/ML 1 ML VIAL ONE (08:55)
[2018-05-09] MEDS ORDERED: fentaNYL citrate 100 MCG/2 ML VIAL ONE (08:55)
[2018-05-09] MEDS ORDERED: fentaNYL citrate 100 MCG/2 ML VIAL IV STA ×2 (10:08→10:26)
[2018-05-09] MEDS ORDERED: MIDAZOLAM HCL 1 MG/ML 2ML VIAL IV ONE (10:09)
--- NOTE | 2018-05-09 10:14 | Pre Anesthesia Assessment ---
Date of Service May 09, 2018 Pre Sedation Assessment Vital Signs Temp Pulse Pulse Resp BP BP Pulse Ox 05/09/18 10:10 85 16 104/45 L 94 05/09/18 10:05 81 16 95/45 L 94 05/09/18 10:00 85 16 87/46 L 97 05/09/18 09:57 105 H 20 113/64 99 05/09/18 09:54 97 H 12 123/74 100 05/09/18 09:52 75 20 92/57 L 100 05/09/18 09:47 68 16 113/60 100 05/09/18 09:42 64 20 122/66 100 05/09/18 09:40 73 20 116/64 100 05/09/18 09:37 69 20 111/71 05/09/18 09:33 70 63 20 129/78 100 05/09/18 07:08 36.9 C 54 L 18 143/75 H 92 05/08/18 23:25 36.7 C 59 L 20 123/74 100 05/08/18 14:32 36.9 C 65 18 115/65 100 Cardiovascular RRR, no murmur, no edema + regular rhythm Respiratory normal respiratory effort, lungs clear to auscultation + rhonchi Pre-Sedation Airway Assessment Smoking Status: Former smoker Hx Sleep Apnea: No Hx Difficult Intubation: No Mallampati Class: II ASA: ASA2 NPO Status Date of Last Intake of Fluids: 05/08/18 Time of Last Intake of Fluids: 23:00 Date of Last Intake of Solid Food: 05/08/18 Time of Last Intake of Solid Foods: 17:00 Notes The planned sedation has been discussed with the patient. Informed Consent was obtained. I have identified the patient, determined the appropriateness of sedation and have assessed the patient immediately prior to the procedure. All medicine(s) and interventions are by my order.
--- NOTE | 2018-05-09 10:15 | Post Anesthesia Assessment ---
Date of Service May 09, 2018 Post Sedation Assessment Vital Signs Temp Pulse Pulse Resp BP BP Pulse Ox 05/09/18 10:10 85 16 104/45 L 94 05/09/18 10:05 81 16 95/45 L 94 05/09/18 10:00 85 16 87/46 L 97 05/09/18 09:57 105 H 20 113/64 99 05/09/18 09:54 97 H 12 123/74 100 05/09/18 09:52 75 20 92/57 L 100 05/09/18 09:47 68 16 113/60 100 05/09/18 09:42 64 20 122/66 100 05/09/18 09:40 73 20 116/64 100 05/09/18 09:37 69 20 111/71 05/09/18 09:33 70 63 20 129/78 100 05/09/18 07:08 36.9 C 54 L 18 143/75 H 92 05/08/18 23:25 36.7 C 59 L 20 123/74 100 05/08/18 14:32 36.9 C 65 18 115/65 100 Recovery Score Activity: Moves 4 extremities Respiration: Deep Breath/Cough Circulation: +/-20% PreAnes Value Consciousness: Arouseable (by name) Oxygen Saturation: O2 needed for >90% Post Anesthesia Score: 8 Post Sedation Plan On clinical assessment, the patient appears to have tolerated the sedation without complications. Patient is recovering as anticipated. Patient will continue to be monitored by nursing and may be discharged when sedation discharge criteria are met per below protocol. Upon Completions of procedure and additional 15 minutes continue every 5 minute vital signs and the P.A.R. score; then discharge to a Phase I or Fast Track to Phase II per the following guidelines: * Discharge Patient to appropriate Phase II area if PAR is 8 or greater or return to pre- procedure baseline. The post - procedure orders will be as directed. * If PAR score is less than 8 or not return to pre-procedure baseline then patient will follow Phase I monitoring till PAR is reached for Phase II. The Phase I may be done in procedure room or may call to secure a Phase I area. * �If naloxone or flumazenil are used for reversal, hold in Phase I for continued monitoring from when last reversal dose was given for a minimum of 60 minutes or longer pending the nurse and/or physician discretion of patient condition before discharge to Phase II.� Please call the Sedation Physician to re-evaluate and complete post-note for discharge to Phase II area. Do NOT discharge from procedure sedation or Phase 1 until post- sedation evaluation note is complete by procedure /sedation MD Sedation Discharge Instructions to be given to the patient at discharge to home.
[2018-05-09] MEDS ORDERED: MIDAZOLAM HCL 1 MG/ML 2ML VIAL IV STA (10:27)
--- NOTE | 2018-05-09 10:30 | XRay Report ---
XR chest 1V portable HISTORY: 67 years-old Female post bronch left lower lobe sampling status post bronchoscopy of the le ft lung COMPARISON: CTA chest and chest radiograph 05/07/2018 TECHNIQUE: Portable AP view of the chest FINDINGS: Cardiac silhouette is enlarged, unchanged. Stable positioning of the left subclavian [id number] ca theter. No postprocedural pneumothorax identified. Unchanged left pleural effusion with left basilar consolidation. Right lung is clear. Right shoulder arthroplasty. Degenerative changes of the left carlos ulder and spine. IMPRESSION: 1. No postprocedural pneumothorax. 2. Left pleural effusion with left basilar consolidation appears unchanged. 3. Cardiomegaly. The above report was generated using voice recognition software. It may contain grammatical, syntax o r spelling errors. Electronically signed by: Fortunato Hernández M.D. 05/09/2018 10:29 AM
[2018-05-09] MEDS: SERTRALINE HCL 50 MG TABLET PO SCH (11:08)
[2018-05-09] MEDS: AMOXICILLIN/CLAVULANATE 500 MG TAB PO SCH ×2 (11:09→16:30)
--- NOTE | 2018-05-09 13:44 | Pulmonology Progress Note ---
Date of Service May 09, 2018 Assessment & Plan (1) Pleural effusion: Impression: 1. Exudative pleural effusion. Although it can be a remnant from previous pneumonia and complex parapneumonic effusion, the fluid does not represent empyema. I am concerned about underlying malignancy. 2. Left lower lobe round atelectasis, is concerning also for possible superimposed malignancy. 3. Small atelectasis in the lingula. 4. Right upper lobe nodule measuring 6 mm. 5. COPD changes. Plan: 1. Discontinue broad-spectrum antibiotics and start Augmentin only for a total of 7 days. 2. Bronchoscopy was done today, dictated separately, showing atelectasis of the left lower lobe and its subsegmental branches, minimal thickening of the mucosa, brushing and cytology was obtained. 3. Follow the results of the bronchoscopy in the pulmonary clinic once discharged. 4. The patient is planned for blood transfusion as she does periodically by her data architect manager Dr. Echeverria. 5. After blood transfusion, the patient can be discharged home. 6. Arrange for pulmonary appointment upon discharge. 7. Restart oral intake. 8. If the results of the bronchoscopy are not revealing, the findings in the left lower lobe representing chronic atelectasis due to lack of surfactant from previous pneumonia, the parapneumonic effusion is not infectious but complex, surgical intervention can be done if it become recurrent. Otherwise watchful waiting can be adequate. 9. Discharge the patient home from pulmonary standpoint. Thank you, will follow as needed. Subjective The patient clinically is stable, she continued to have shortness of breath and occasional cough, no events overnight, she has been n.p.o. for bronchoscopy today. Denies any new symptoms. Physical Exam 2 Vital Signs (Past 24 Hours): Last Vital Signs Temp 36.9 C 05/09/18 07:08 Pulse 85 05/09/18 10:15 Resp 20 05/09/18 10:15 BP 94/59 L 05/09/18 10:15 Pulse Ox 94 05/09/18 10:15 Physical Exam: Her vital signs are stable, 94% on 4 L which is her baseline, decreased breath sounds at the left base, S1-S2 regular rate and rhythm, abdomen is benign, no edema. Neurologically she is intact. No oral thrush. Mild pallor. Results & Data Laboratory Results Labs were reviewed which showed neutropenia but ANC above than thousand, hematocrit of 23, platelets of 284. BUN and creatinine has been stable at 32 and 1.7. Diagnostic Findings Chest x-ray was reviewed personally which showed small pleural effusion and atelectasis of the left lower lobe which has been chronic.
--- NOTE | 2018-05-09 13:47 | Procedure Note ---
Procedure Note Date of Service May 09, 2018 Note Bronchoscopy was done due to persistent atelectasis of the left lower lobe. Risk and benefit explained to the patient in details, agreed to the procedure. The patient was n.p.o. since midnight 9 hours ago. The patient had the procedure done in room 2 in the ICU, monitored with an OR style of monitoring, the patient received a total of 150 mics of fentanyl and 25 mics increments, 6 mg of Versed and 1 mg increments, 20 mL of 1% lidocaine throughout the entire procedure. Timeout was performed by the nursing staff. After the patient was sedated, a bite block was placed, the bronchoscope passed through the oral cavity, and the findings as follows: 1. The vocal cords are mobile. No supraglottic lesion. 2. The trachea, bronchial tree examined to the sub-�subsegmental level. 3. Findings with mucosal thickening and atelectasis noted in the branches of the left lower lobe. 4. Cytology brush x3 passes was obtained from the lateral segment of the left lower lobe. Sent for cytology in cell preserved. 5. Microbiology brush was obtained also from the medial segment of the left lower lobe. Sent for quantitative culture. 6. BAL was obtained up to 80 mL and retrieved 35 mL from the left lower lobe and sent for microbiology and cytology. 7. 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 The patient tolerated the procedure very well, no immediate complication. Patient may start oral intake once she is awake and appropriate for swallowing, and she may return to her bed on the regular floor.
--- NOTE | 2018-05-09 13:50 | Hematology/Oncology Prog Note ---
Date of Service May 09, 2018 Assessment & Plan (1) Pleural effusion: The official report of her bronchoscopy is not available, but based on Dr. Joseph's note, he did not see any intraluminal evidence of malignancy. Cytology from brushings and washings is pending. She will follow up with pulmonology as an outpatient to discuss the results. (2) Anemia: Ms. Mirza has MDS and is on therapy with Vidaza. Her counts are slightly lower than her baseline range, which may reflect the fact that she is mid- cycle. Her hemoglobin is 7.2 and she is symptomatic, so I would transfuse her 1 unit of PRBCs today. She is scheduled to return to our office on Friday for another dose of Procrit. She has an office visit scheduled in May as well. Subjective Ms. Mirza feels well today. She had a bronchoscopy earlier, but has not yet heard the results. She has no pain and is breathing comfortably. She would very much like to go home. Constitutional: + fatigue; no fever and no chills Respiratory: no cough and no dyspnea Cardiovascular: no chest pain and no palpitations Gastrointestinal: no abdominal pain and no nausea Musculoskeletal: no back pain and no joint pain Neurologic: no dizziness and no headache(s) Hematologic / Lymphatic: no easy bleeding Physical Exam 2 Vital Signs (Past 24 Hours): Last Vital Signs Temp 36.9 C 05/09/18 07:08 Pulse 85 05/09/18 10:15 Resp 20 05/09/18 10:15 BP 94/59 L 05/09/18 10:15 Pulse Ox 94 05/09/18 10:15 Constitutional: comfortable; no acute distress and not ill appearing Eyes: + anicteric sclerae and EOM intact bilaterally ENMT: external ear and nose normal, oropharynx normal Respiratory: normal respiratory effort Auscultation: lungs clear to auscultation bilaterally (outside of the left base) and + diminished lung sounds (At the left base) Cardiovascular: RRR, no murmur, no edema Gastrointestinal (Abdomen): normal bowel sounds, soft, nontender, no hepatosplenomegaly Musculoskeletal: Extremities: extremities normal to inspection; no cyanosis and no clubbing Skin: no rashes, warm and dry Results & Data Laboratory Results Short CBC 05/09/18 Range/Units 05:21 WBC 3.86 L (4.8-10.8) K/uL Hgb 7.2 L (12.0-16.0) g/dL Hct 23.1 L (37-47) % Plt Count 284 (130-400) K/uL [facility] 05/09/18 05:21 Sodium 140 Potassium 4.9 Chloride 112 H Carbon Dioxide 23 BUN 32 H Creatinine 1.77 H Glucose 97 Calcium 7.9 L _ (1) Anemia Anemia type: Iron deficiency anemia type: Vitamin B12 deficiency anemia type: Folate deficiency anemia type: 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 Hemolytic anemia type: Other causes of anemia: Chronic kidney disease stage:
[2018-05-09] MEDS ORDERED: SODIUM CHLORIDE 0.9% 250 ML IV PRN ×2 (14:09→15:44)
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
[2018-05-09] MEDS: MoRPHine SULFATE 4 MG/ML 1 ML CARP\\VIAL IV PRN ×2 (16:30→20:22)
[2018-05-09] MEDS: QUETIAPINE FUMARATE 100 MG TABLET PO SCH (20:24)
[2018-05-09] MEDS: PRAVASTATIN SOD 20 MG TAB PO SCH (20:25)
[2018-05-10] MEDS: D5W AND NSS 1,000 ML IV SCH (00:07)
--- NOTE | 2018-05-10 00:13 | Progress Note ---
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 This is a rare antibody. I was unfamiliar with this antibody and then called Dr. Vanegas, infertility medical assistant of the [facility]. It was his opinion that if the patient was stable that we should not transfuse at this time and wait until the [facility] had performed a complete work-up. I spoke with Dr. Willard who agreed with this plan.
[2018-05-10] MEDS: MoRPHine SULFATE 4 MG/ML 1 ML CARP\\VIAL IV PRN ×2 (05:53→10:02)
[2018-05-10 05:56] LABS: Hematocrit (blood only) 22.6 % (37-47); Hemoglobin 7.1 g/dL (12.0-16.0); Mean Corpuscular Hgb Conc 31.4 g/dL (32-36); Mean Corpuscular Volume 106.1 fL (80-100); Mean Platelet Volume 10.7 fL (7.4-10.4); Nucleated RBC # (auto) 0.02 K/uL (0-0); Nucleated RBC % (auto) 0.7 %; Platelet Count 252 K/uL (130-400); RDW Coefficient of Variation 24.9 % (11.5-14.5); RDW Standard Deviation 93.3 fL (36.4-46.3); Red Blood Count 2.13 M/uL (4.2-5.4); White Blood Count 3.48 K/uL (4.8-10.8)
[2018-05-10 06:32] LABS: BUN Creatinine Ratio 16.6 (10-20); Calcium 7.9 mg/dl (8.5-10.1); Creatinine Clr Calc Pharmacy 33.9 ml/min; Est GFR (African American) 38.8; Est GFR (Non-African American) 33.5; Potassium 5.1 mmol/L (3.5-5.1)
[2018-05-10] MEDS: AMOXICILLIN/CLAVULANATE 500 MG TAB PO SCH (08:18)
[2018-05-10] MEDS: SERTRALINE HCL 50 MG TABLET PO SCH (08:21)
[2018-05-10] MEDS: HEPARIN SOD 5,000 UNIT/0.5 ML VIAL SQ SCH (08:21)
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
== END 2018-05-10 12:51 | DRG 194 ==
LOC: ED 07:53 → 4E 10:44

== ENCOUNTER 2018-07-03 07:55 | Inpatient (IN) ==
--- NOTE | 2018-06-22 15:48 | PAT Medication Instructions ---
Medication Instructions Date of Service June 22, 2018 Home Medications Medication Instructions Recorded Magnesium Hydroxide (Milk of 30 ml PO Q6H PRN 30 Days #0 04/11/16 Magnesia) Magnesium Hydroxide (Milk of 30 ml PO Q6H PRN sertraline [Zoloft] 75 mg PO QAM pravastatin [Pravachol] 20 mg PO HS acetaminophen [Tylenol] 650 mg PO Q8 PRN albuterol sulfate 1 vial NEB Q6 PRN bisacodyl [Dulcolax (bisacodyl)] 1 supp ID UD PRN ibuprofen [Advil] 400 mg PO Q6 PRN mineral oil [Fleet Mineral Oil] 1 unit RE UD PRN ondansetron HCl [Zofran] 4 mg PO Q8 PRN polyethylene glycol 3350 [Miralax] 17 g PO QAM quetiapine [Seroquel] 150 mg PO HS calcium carbonate [Tums] 2 tabs PO Q8 PRN morphine 15 mg PO Q8H ranitidine HCl 75 mg PO QAM fluticasone furoate-vilanterol 1 inh INHALATION DAILY lorazepam 0.5 mg PO BID PRN ASK your surgeon for instructions ibuprofen [Advil] 400 mg PO Q6 PRN DO NOT take the morning of surgery Magnesium Hydroxide (Milk of 30 ml PO Q6H PRN bisacodyl [Dulcolax (bisacodyl)] 1 supp ID UD PRN mineral oil [Fleet Mineral Oil] 1 unit RE UD PRN polyethylene glycol 3350 [Miralax] 17 g PO QAM calcium carbonate [Tums] 2 tabs PO Q8 PRN ranitidine HCl 75 mg PO QAM Take morning of surgery With a small sip of water, OTHERWISE NOTHING TO EAT OR DRINK AFTER MIDNIGHT: sertraline [Zoloft] 75 mg PO QAM acetaminophen [Tylenol] 650 mg PO Q8 PRN (okay to take up to 4 hours prior to surgery if needed) albuterol sulfate 1 vial NEB Q6 PRN (use if needed; please bring with you to hospital day of surgery if possible) ondansetron HCl [Zofran] 4 mg PO Q8 PRN (if needed) morphine 15 mg PO Q8H (okay to take up to 4 hours prior to surgery if needed) fluticasone furoate-vilanterol 1 inh INHALATION DAILY lorazepam 0.5 mg PO BID PRN (if needed) Take evening before surgery Magnesium Hydroxide (Milk of 30 ml PO Q6H PRN (if needed) pravastatin [Pravachol] 20 mg PO HS acetaminophen [Tylenol] 650 mg PO Q8 PRN (if needed) albuterol sulfate 1 vial NEB Q6 PRN (if needed) bisacodyl [Dulcolax (bisacodyl)] 1 supp ID UD PRN (if needed) mineral oil [Fleet Mineral Oil] 1 unit RE UD PRN (if needed) ondansetron HCl [Zofran] 4 mg PO Q8 PRN (if needed) quetiapine [Seroquel] 150 mg PO HS calcium carbonate [Tums] 2 tabs PO Q8 PRN (if needed) morphine 15 mg PO Q8H lorazepam 0.5 mg PO BID PRN (if needed) Other Notes If you have any questions please call us at [phone] or [phone] or [phone] or [phone]
--- NOTE | 2018-06-29 09:15 | Anesthesiology Consultation ---
Date of Service June 29, 2018 Assessment & Plan (1) Encounter for pre-operative examination: Chart Review Chart Review: Acceptable Risk for Surgery and Patient NOT seen in Pre Admission Testing Consults Requested none Additional Notes Most recent labs notable for HgB of 8.1 and Potassium of 5.0. Type and cross of 2 units on hold to OR ordered STAT for DOS. In addition, PRP stat for DOS ordered to assess for hyperkalemia (history of stage 3 CKD). History Surgery Operation Date: 07/03/18 09:15 Proposed Procedures p Left Video Assisted Thoracoscopy with Decortication, - Zander Rich MD, FACS s Flexible Bronchoscopy - Zander Rich MD, FACS Height/Weight Height: 5 ft 2 in Weight: 68.402 kg Allergies Allergy/AdvReac Type Severity Reaction Status Date / Time cat dander Allergy Mild Unknown Verified 06/22/18 11:25 codeine Allergy Unknown Unknown Verified 06/22/18 11:25 simvastatin AdvReac Intermediate ELEVATED Verified 06/22/18 11:25 HEPATIC ENZYMES Medications Home Medications Medication Instructions Recorded Confirmed Last Taken Magnesium Hydroxide (Milk of 30 ml PO Q6H PRN 30 Days #0 04/11/16 06/22/18 04/25/18 Magnesia) sertraline [Zoloft] 75 mg PO QAM #0 tab 07/18/16 06/22/18 05/06/18 09:00 pravastatin [Pravachol] 20 mg PO HS #0 tab 07/25/16 06/22/18 05/06/18 21:00 acetaminophen [Tylenol] 650 mg PO Q8 PRN #0 tab 10/02/17 06/22/18 Unknown albuterol sulfate 1 vial NEB Q6 PRN 12 Days #150 ml 10/02/17 06/22/18 Unknown bisacodyl [Dulcolax (bisacodyl)] 1 supp MD UD PRN #0 sup 10/02/17 06/22/18 Unknown ibuprofen [Advil] 400 mg PO Q6 PRN #0 tab 10/02/17 06/22/18 Unknown mineral oil [Fleet Mineral Oil] 1 unit RE UD PRN #0 10/02/17 06/22/18 05/03/18 ondansetron HCl [Zofran] 4 mg PO Q8 PRN #0 tab 10/02/17 06/22/18 Unknown polyethylene glycol 3350 [Miralax] 17 g PO QAM #527 g 10/02/17 06/22/18 05/06/18 09:00 quetiapine [Seroquel] 150 mg PO HS #0 tab 10/02/17 06/22/18 05/06/18 21:00 calcium carbonate [Tums] 2 tabs PO Q8 PRN #0 11/13/17 06/22/18 Unknown morphine 15 mg PO Q8H 05/07/18 06/22/18 05/07/18 00:00 ranitidine HCl 75 mg PO QAM 05/07/18 06/22/18 05/06/18 09:00 fluticasone furoate-vilanterol 1 inh INHALATION DAILY 05/13/18 06/22/18 Unknown [Breo Ellipta] lorazepam 0.5 mg PO BID PRN 06/22/18 06/22/18 Unknown Past Medical History Medical History Anemia (Chronic) Asthma Bipolar 2 disorder CKD (chronic kidney disease) stage 3, GFR 30-59 ml/min COPD (chronic obstructive pulmonary disease) Depression Diabetes mellitus GERD (gastroesophageal reflux disease) History of cerebral infarction Hyperlipidemia Insomnia Migraine Myelodysplasia (myelodysplastic syndrome) Panic disorder Peripheral vascular disease Pleural effusion Port-A-Cath in place Past Family History Family History Mother Lung cancer Past Surgical History Surgical History H/O shoulder surgery Social History Smoking Status: Unknown if ever smoked tobacco type: cigarettes Testing Electrocardiogram Date: 05/09/18 Findings: + NSR @ (80) Sinus rhythm with Premature atrial complexes Otherwise normal ECG When compared with ECG of 08-MAY-2018 07:10, Premature atrial complexes are now Present Confirmed by Ankit Turner ([id number]) on 05/09/2018 4:50:34 PM Other Testing Chest CT 06/04/18 IMPRESSION: 1. Cardiomegaly and emphysema. 2. A loculated pleural fusion/collection at the left lung base with associated left lower lobe consolidation/atelectasis is similar in appearance to the 04/18 examination. 3. Additional foci of subpleural scarring/fibrosis are noted in the left lower lung. 4. Only trace pleural effusion is seen at the right lung base. 5. There is a 1.3 cm subpleural nodule in the posterior right lower lung at the level of T9. This has not significant change from 05/07/2018 but appears new from 2010. 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 6. There is asymmetric dermal thickening of the left breast as compared the right. This is not well assessed by CT and clinical correlation will be required. If not recently performed consider mammographic follow-up.
[~2018-07-03 07:55] MED LIST changes: -ACET-1311 PO; -ALBU0.633 NEB; -ALBU18002; -BISA10SU3 PR; -CLR10 PO; -FLEET MINERAL OIL RE; -FLUT1INH; -IBUP-1050 PO; -LORA-741 PO; -MOMLX PO; -MORP15TA PO; -ONDA4TAB46 PO; -POLY335019 PO; -PRAV20TA PO; -QUET150T PO; -SERT-234 PO; +SODIUM CHLORIDE 0.9% 1000ML IV SCH; +SODIUM CHLORIDE 0.9% 250 ML IV PRN
[2018-07-03 08:41] LABS: Hematocrit (blood only) 36.1 % (37-47); Hemoglobin 11.8 g/dL (12.0-16.0); Mean Corpuscular Hgb Conc 32.7 g/dL (32-36); Mean Corpuscular Volume 93.5 fL (80-100); Mean Platelet Volume 10.9 fL (7.4-10.4); Nucleated RBC # (auto) 0.04 K/uL (0-0); Platelet Count 326 K/uL (130-400); RDW Coefficient of Variation 21.5 % (11.5-14.5); RDW Standard Deviation 72.4 fL (36.4-46.3); Red Blood Count 3.86 M/uL (4.2-5.4); White Blood Count 4.31 K/uL (4.8-10.8)
[2018-07-03 08:58] LABS: BUN Creatinine Ratio 19.9 (10-20); Calcium 9.2 mg/dl (8.5-10.1); Creatinine Clr Calc Pharmacy 33.3 ml/min; Est GFR (African American) 39.7; Est GFR (Non-African American) 34.2; Potassium 4.6 mmol/L (3.5-5.1)
[2018-07-03] MEDS ORDERED: ALBUT/IPRATROP 3MG/0.5MG NEB 3 ML VIAL NEB STA (09:10)
--- NOTE | 2018-07-03 09:12 | History & Physical Bridge Note ---
Date of Service July 03, 2018 History & Physical Bridge Note I have examined the patient, reviewed the History & Physical and in the interval since the performance of the History & Physical I have noted the following changes of clinical significance: no changes noted
[2018-07-03] MEDS ORDERED: BUPIVACAINE 0.5 % 5 MG/1 ML MPF 30ML VIAL ONE (09:14)
[2018-07-03] MEDS ORDERED: BUPIVACAINE LIPOSOME 1.3% 266 MG/20 ML VIAL ONE (09:15)
[2018-07-03] MEDS ORDERED: SODIUM CHLORIDE 0.9% PF 50 ML VIAL ONE (09:15)
[2018-07-03] MEDS ORDERED: DEXAMETHASONE SOD INJ 4 MG/ML VIAL ONE (09:22)
[2018-07-03] MEDS ORDERED: ONDANSETRON INJ 2 MG/ML 2 ML VIAL ONE (09:22)
[2018-07-03] MEDS ORDERED: LIDOCAINE HCL 2% 2 ML VIAL/AMP(20MG/ML) INFIL ONE (09:22)
[2018-07-03] MEDS ORDERED: PROPOFOL IV EMULSION 10 MG/ML 20 ML VIAL IV ONE (09:22)
[2018-07-03] MEDS ORDERED: ROCURONIUM BROMIDE 10 MG/ML 5 ML VIAL ONE (09:22)
[2018-07-03] MEDS ORDERED: fentaNYL citrate 100 MCG/2 ML VIAL ONE (09:23)
[2018-07-03] MEDS ORDERED: CLINDAMYCIN 600 MG in DEXTROSE 5% 50 ML IV SCH (11:30)
[2018-07-03 13:04] LABS: Hematocrit (blood only) 33.4 % (37-47); Hemoglobin 10.7 g/dL (12.0-16.0)
[2018-07-03] MEDS ORDERED: CISATRACURIUM BESYLATE IV SOLN 2 MG/ML 10 ML VIAL IV ONE (13:05)
[2018-07-03] MEDS ORDERED: PANTOprazole 40 MG in DEXTROSE 5% 100 ML IV SCH (13:15)
[2018-07-03] MEDS ORDERED: MoRPHine SULFATE 2 MG/ML CARP IV PRN (13:37)
[2018-07-03] MEDS ORDERED: OXYCODONE/ACETAMINOPHEN 5mg/325mg TAB PO PRN (13:37)
--- NOTE | 2018-07-03 13:37 | Post Operative Brief Note ---
Immediate Post Op Note v1 Date of Surgery July 03, 2018 Pre & Post Diagnosis Operation Date: 07/03/18 09:15 Pre-Op Diagnosis: Left Pleural Effusion Post-Op Diagnosis: Left Pleural Effusion Procedure Operation Date: 07/03/18 09:15 Actual Procedures p Left Video Assisted Thoracoscopy with Decortication(Left) - Zander sanabria MD, FACS s Flexible Bronchoscopy(Not Applicable) - Zander Rich MD, FACS Surgeon Zander Rich MD, FACS Community Arts Officer Garo Cantrell Estimated Blood Loss 100 Findings Consistent with Post-Op Diagnosis Drains Chest Tube and Porter Catheter
--- NOTE | 2018-07-03 14:30 | XRay Report ---
XR chest 1V not portable CLINICAL HISTORY: decortication postoperative COMPARISON STUDY: 05/09/2017 FINDINGS: Postoperative changes left hemithorax. Left-sided chest tube is in position. Very small lef t apical pneumothorax with a maximum pleural separation of 3 mm. Unchanging increased density left base. Right lung remains clear. IMPRESSION: 1. Postoperative changes left hemithorax with good position of a left sided chest tube. 2. Very small left apical pneumothorax with a maximum pleural separation of 3 mm. The above report was generated using voice recognition software. It may contain grammatical, syntax or spelling errors. Electronically signed by: Augie Mares M.D. 07/03/2018 2:29 PM
[2018-07-03] MEDS ORDERED: ONDANSETRON INJ 2 MG/ML 2 ML VIAL IV PRN (14:45)
[2018-07-03] MEDS ORDERED: ePHEDrine sulfate 50 MG/ML AMP IV PRN (14:45)
[2018-07-03] MEDS ORDERED: fentaNYL citrate 100 MCG/2 ML VIAL IV PRN (14:45)
[2018-07-03] MEDS ORDERED: ATROPINE SULFATE 0.1 MG/ML 10ML SYR IV PRN (14:45)
--- NOTE | 2018-07-03 15:05 | Anesthesiology Progress Note ---
Date of Service July 03, 2018 Anesthesia Post Procedure Vital Signs Vital Signs: Temp Pulse Resp BP Pulse Ox 07/03/18 15:01 36.6 C 68 19 103/64 100 07/03/18 14:52 36.6 C 82 16 89/55 L 100 07/03/18 14:40 68 20 95/64 L 100 07/03/18 14:30 64 15 98/56 L 100 07/03/18 14:20 71 22 118/67 100 07/03/18 14:10 64 23 104/57 L 100 07/03/18 14:03 36.2 C L 68 20 74/33 L 100 07/03/18 09:17 60 16 99 07/03/18 08:19 37 C 64 17 109/78 99 Notes Mental Status: alert / awake / arousable and participated in evaluation Patient Amnestic to Procedure: Yes Nausea / Vomiting: adequately controlled Pain: adequately controlled Airway Patency, RR, SpO2: stable & adequate BP & HR: stable & adequate Hydration State: stable & adequate Anesthetic Complications: no major complications apparent and Pt Satisfied with anesthetic care
[2018-07-03] MEDS ORDERED: NEOSTIGMINE METHYLSULFATE 5 MG/5 ML SYR ONE (15:18)
[2018-07-03] MEDS ORDERED: CLINDAMYCIN PHOS 300 MG/2 ML VIAL ONE (15:19)
[2018-07-03] MEDS ORDERED: ONDANSETRON 4 MG TAB PO PRN (15:59)
[2018-07-03] MEDS ORDERED: ACETAMINOPHEN 325 MG TAB PO PRN (15:59)
[2018-07-03] MEDS ORDERED: CALCIUM CARBONATE 500 MG CHEWABLE TAB PO PRN (15:59)
[2018-07-03] MEDS ORDERED: BISACODYL 10 MG SUPP PR PRN (15:59)
[2018-07-03] MEDS ORDERED: ALBUTEROL 0.083% NEBU SOLN 3 ML VIAL NEB PRN (15:59)
[2018-07-03] MEDS ORDERED: MAGNESIUM HYDROXIDE SUSP 30 ML UDC PO PRN (15:59)
[2018-07-03] MEDS ORDERED: KETOROLAC TROMETHAMINE 15 MG/ML VIAL IV SCH (16:00)
[2018-07-03] MEDS: POLYETHYLENE (MIRALAX) 17 GM PACK PO SCH (17:49)
[2018-07-03] MEDS: LORazepam 0.5 MG TAB PO PRN (18:08)
[2018-07-03] MEDS: SERTRALINE HCL 50 MG TABLET PO SCH (18:09)
[2018-07-03] MEDS: MoRPHine SULFATE IR 15 MG TAB (IMMEDIATE RELEASE) PO SCH (18:49)
[2018-07-03] MEDS: PRAVASTATIN SOD 20 MG TAB PO SCH (18:56)
[2018-07-03] MEDS: DOCUSATE SODIUM 100 MG CAP PO SCH (18:56)
[2018-07-03] MEDS ORDERED: IBUPROFEN 200 MG TAB PO PRN (21:11)
[2018-07-03] MEDS: HYDROmorphone INJ 0.5 MG/0.5 ML SYR IV PRN (21:29)
[2018-07-04] MEDS: MoRPHine SULFATE IR 15 MG TAB (IMMEDIATE RELEASE) PO SCH ×3 (00:10→15:57)
[2018-07-04] MEDS: BREO ~ ORDER AWAITING ACTION SCH ×3 (00:42→15:47)
--- NOTE | 2018-07-04 01:49 | Operative Report ---
DATE OF OPERATION: 07/03/2018 PREOPERATIVE DIAGNOSIS: Complicated left pleural effusion. POSTOPERATIVE DIAGNOSIS: Complicated left pleural effusion. PROCEDURE: 1. Left thoracoscopy with evacuation of complicated pleural effusion. 2. Extensive decortication of left upper lobe and left lower lobe. 3. Flexible bronchoscopy preoperatively to assess left lower lobe bronchus. SURGEON: Zander Rich MD HOSPITALITY SERVICES MANAGER: Garo Cantrell MD ANESTHESIA: General anesthesia with endotracheal intubation with a double lumen tube. INDICATIONS FOR PROCEDURE AND FINDINGS: A 67-year-old who was in an extended care facility and has a long history of apparent myeloproliferative disorder and was found to have complicated left pleural effusion. She is also on oxygen. I was asked to evaluate her as an outpatient and I felt that a decortication would be helpful. After much discussion and multiple consultants, we elected to proceed. On 07/03/2018, the patient underwent a left thoracoscopy. I was a bit surprised at how thick the pleural peel was on the lower lobe and we performed an extensive decortication of the lower lobe and the upper lobe; however, I was quite pleased at the end. The patient had thickened pleura tube. It did a very limited pleurectomy. We drained this very complicated effusion and I believe this is either the result of an old hemothorax or probably a parapneumonic effusion. She tolerated the procedure quite well. We had negligible blood loss and she was extubated in the room. DESCRIPTION OF PROCEDURE: The patient was brought to the operating room and laid in supine position. General anesthesia induced and endotracheal intubation was performed. A single lumen tube was placed and quit. I performed a bronchoscopy with a fiberoptic bronchoscope through an adapter. I saw very little in the way of mucus in either lung tree. My particular concern was the left lower lobe. She had collapse of the left lower lobe. I did not know if this was from fluid around it or if this was due to an endobronchial lesion. She had been scoped a couple months ago, but I was still concerned, so I performed a fiberoptic bronchoscope. I did not see any endoluminal lesions. We then removed this and got her ready for her decortication. After double lumen tube, an arterial line had been placed. The patient was placed in right lateral decubitus position. The left chest prepped and draped in usual sterile fashion. A 5 mm scope was placed posterior to the scapula. Upon entering, it could be seen there were marked adhesions; however, they were fairly flimsy. I was able to break these up with the camera until I could put a 5 mm port anteriorly and then this helped by using a long Kitner cotton-tipped applicator to essentially take down the adhesions between the chest wall and the lung. We then got enough results, we can put a 12 mm port, a bit posterior to the mid axillary line above the diaphragm. We were then able to put a larger instruments in this and able to get this complicated material out. After taking down all adhesions completely freeing up the lung, it could be seen that the upper lobe and the lower lobe were both trapped. I was a bit surprised the lobes were completely encased. This was a meticulous operation and we performed this carefully to avoid injury to the lung and got a very thick peel off of the lingula and the lower lobe. We freed this all the way up to the apex. I did have to put another 5 mm port in between our 12 mm port and our anterior 5 mm port in order for me to grasp the peel and to get proper orientation to decorticate it. This worked quite nicely and is able to get the peel all the way off we had this off the field. Also removed a portion of the thickened parietal pleura, but I did not feel she needed a pleurectomy. A total of 266 mg of Exparel were mixed with 30 mL of 0.5% bupivacaine and 250 mL normal saline used to inject each of the port sites. We also performed an intercostal nerve block the 2nd-11th rib with Exparel. At conclusion of the case, I was happy with how well the lung expanded, 24-Lithuanian chest tube was placed in the anterior thoracoscopy port and directed towards the apex. It was sutured in place with heavy silk suture. It should be noted that we did use insufflation with carbon dioxide. The 12 mm port was closed with a 0 Polysorb to close the muscle layers and 4-0 Monocryl was used in running subcuticular fashion to approximate the wound edges of all the wounds including the chest tube site. This was a bit larger than the tube. A heavy silk was used to anchor the tube into place. We had negligible air leak and blood loss. She tolerated it well, was extubated in the room. She was transferred to the postanesthesia care unit in stable condition. I attest to the content of the Intraoperative Record and any orders documented therein. Any exceptions are noted below. MONICA
[2018-07-04] MEDS: HYDROmorphone INJ 0.5 MG/0.5 ML SYR IV PRN ×3 (04:12→14:02)
--- NOTE | 2018-07-04 07:11 | XRay Report ---
XR chest 1V portable CLINICAL HISTORY: DECORTICATION COMPARISON STUDY: 07/03/2018 FINDINGS: The left-sided chest tube remains unchanged in position. No pneumothorax is visualized. The re is further left-sided volume loss. There is a left-sided A-Port catheter unchanged in position. Un usual air locules projected through the left heart border, likely representing locules portal gas or residual aerated left lower lobe. Radiographic follow-up is recommended. The right lung is clear.[ IMPRESSION: 1. Postsurgical changes in the left 2. No change the position of left-sided chest tube 3. Developing moderate left lung volume loss 4. Unusual air locules projected through the left heart border, likely representing locules of pleura l gas or residual aerated left lower lobe. Radiographic follow-up is recommended. Electronically signed by: Hans Beltrán M.D. 07/04/2018 7:09 AM
[2018-07-04] MEDS: DOCUSATE SODIUM 100 MG CAP PO SCH ×2 (08:28→21:29)
[2018-07-04] MEDS: POLYETHYLENE (MIRALAX) 17 GM PACK PO SCH (08:29)
[2018-07-04] MEDS: SERTRALINE HCL 50 MG TABLET PO SCH (08:30)
[2018-07-04 08:55] LABS: Basophils # (auto) 0.04 K/uL (0-0.2); Basophils % (auto) 0.7 %; Eosinophils # (auto) 0.01 K/uL (0-0.5); Eosinophils % (auto) 0.2 %; Hematocrit (blood only) 35.5 % (37-47); Hemoglobin 11.2 g/dL (12.0-16.0); Immature Granulocytes # (auto) 0.02 K/uL (0.00-0.02); Immature Granulocytes % (auto) 0.3 %; Lymphocytes # (auto) 0.57 K/uL (1.2-3.4); Lymphocytes % (auto) 9.3 %; Mean Corpuscular Hgb Conc 31.5 g/dL (32-36); Mean Corpuscular Volume 96.2 fL (80-100); Mean Platelet Volume 11.4 fL (7.4-10.4); Monocytes # (auto) 0.38 K/uL (0.11-0.59); Monocytes % (auto) 6.2 %; Neutrophils # (auto) 5.12 K/uL (1.4-6.5); Neutrophils % (auto) 83.3 %; Nucleated RBC # (auto) 0.06 K/uL (0-0); Platelet Count 350 K/uL (130-400); RDW Standard Deviation 73.8 fL (36.4-46.3); Red Blood Count 3.69 M/uL (4.2-5.4); White Blood Count 6.14 K/uL (4.8-10.8)
[2018-07-04 09:15] LABS: BUN Creatinine Ratio 18.7 (10-20); Calcium 8.6 mg/dl (8.5-10.1); Creatinine Clr Calc Pharmacy 33.3 ml/min; Est GFR (African American) 39.7; Est GFR (Non-African American) 34.2; Potassium 4.8 mmol/L (3.5-5.1)
[2018-07-04 09:24] LABS: Anisocytosis Present; Echinocytes 1+; Schistocytes Occasional; Tear Drop Cells Occasional
[2018-07-04] MEDS: guaiFENesin 600 MG TABCR PO SCH ×2 (09:28→21:29)
[2018-07-04] MEDS: ACETAMINOPHEN 1,000 MG/100 ML VIAL IV SCH ×2 (09:29→15:47)
--- NOTE | 2018-07-04 10:13 | Anesthesiology Progress Note ---
Date of Service July 04, 2018 Anesthesia Post Procedure Vital Signs Vital Signs: Temp Pulse Pulse Resp BP BP Pulse Ox 07/04/18 07:50 37.0 C 71 16 126/82 95 07/04/18 03:51 36.8 C 62 17 103/67 96 07/03/18 23:15 36.4 C L 80 17 90/57 L 95 07/03/18 21:13 37.0 C 80 18 107/75 95 07/03/18 19:53 36.7 C 75 20 92/58 L 93 07/03/18 16:53 65 16 124/80 98 07/03/18 16:00 36.5 C 71 18 108/70 96 07/03/18 15:10 36.6 C 65 19 106/67 100 07/03/18 15:00 36.6 C 68 19 103/64 100 07/03/18 14:50 36.6 C 82 16 89/55 L 100 07/03/18 14:40 68 20 95/64 L 92 07/03/18 14:30 64 15 98/56 L 100 07/03/18 14:20 71 22 118/67 100 07/03/18 14:10 64 23 104/57 L 100 07/03/18 14:03 36.2 C L 68 20 74/33 L 100 Pain Intensity Left Chest: Pain Intensity: 10 Notes Mental Status: alert / awake / arousable and participated in evaluation Nausea / Vomiting: adequately controlled Pain: adequately controlled Airway Patency, RR, SpO2: stable & adequate BP & HR: stable & adequate Hydration State: stable & adequate
--- NOTE | 2018-07-04 10:14 | Surgery Progress Note ---
Date of Service July 04, 2018 Assessment & Plan (1) Pleural effusion: POD #1 LVATS with decortication -CT has drained about 50 cc last shift; if drainage remains low and CXR tomorrow looks acceptable will consider removing tube -cultures of pleural fluid noted: -no organisms on gram stain, culture is pending -AFB pending -fungal is pending but thus far (-) -I discussed with the patient the importance of mobilization, coughing, dep breathing in her recovery -will add mucinex to help clear secretions -change tylenol to IV in hopes to achieve better pain control -add lovenox for DVT prevention Subjective Pt. notes she has pain on left side from her surgery. She does not complain of SOB, but states the pain makes it difficult to take deep breaths and cough. She notes she has been OOB in hallway. Discussed with RN--no other issue noted other than what the patient has already verbalized. Physical Exam Constitutional: well developed and well nourished; no acute distress Respiratory: no labored breathing BS are decreased at bases with occasional rhonchi Chest tube examined and no air leak noted CXR noted--basilar atelectasis noted L>R; no pneumothorax Cardiovascular: Rate/Rhythm: regular rate and regular rhythm Musculoskeletal: no calf tenderness Results & Data Vital Signs (Past 12 Hours) Vital Signs Temp Pulse Pulse Resp BP BP Pulse Ox 07/04/18 07:50 37.0 C 71 16 126/82 95 07/04/18 03:51 36.8 C 62 17 103/67 96 07/03/18 23:15 36.4 C L 80 17 90/57 L 95
[2018-07-04] MEDS: LORazepam 0.5 MG TAB PO PRN ×2 (11:50→21:33)
[2018-07-04] MEDS: ENOXAPARIN INJ 40 MG/0.4 ML SYR SQ SCH (12:11)
[2018-07-04] MEDS ORDERED: PNEUMOCOCCAL ADMINISTRATION CHARGE ONE (14:30)
[2018-07-04] MEDS ORDERED: PNEUMOCOCCAL POLYSACCHARIDES 25 MCG/0.5 ML VIAL/SYR IM ONE (14:30)
[2018-07-04] MEDS: ONDANSETRON INJ 2 MG/ML 2 ML VIAL IV PRN (15:42)
[2018-07-04] MEDS: QUETIAPINE FUMARATE 100 MG TABLET PO SCH (21:29)
[2018-07-04] MEDS: PRAVASTATIN SOD 20 MG TAB PO SCH (21:29)
[2018-07-05] MEDS: ACETAMINOPHEN 1,000 MG/100 ML VIAL IV SCH ×4 (00:06→23:37)
[2018-07-05] MEDS: MoRPHine SULFATE IR 15 MG TAB (IMMEDIATE RELEASE) PO SCH ×4 (00:06→23:36)
[2018-07-05] MEDS: BREO ~ ORDER AWAITING ACTION SCH ×4 (00:12→23:42)
[2018-07-05] MEDS: HYDROmorphone INJ 0.5 MG/0.5 ML SYR IV PRN (04:53)
--- NOTE | 2018-07-05 07:45 | XRay Report ---
XR chest 1V portable HISTORY: s/p decortication COMPARISON: Chest 07/04/2018. FINDINGS: Progressive complete opacification of the left hemithorax. Left-sided chest tube remains un changed in position. The right lung is clear. There is left mediastinal shift, unchanged. Left subcla vian Port-A-Cath terminates at the distal SVC. There is a right shoulder prosthesis. IMPRESSION: Complete opacification left hemithorax which has progressed. The left-sided chest tube is unchanged i n position. Electronically signed by: Richard Anderson M.D. 07/05/2018 7:44 AM
[2018-07-05] MEDS: ENOXAPARIN INJ 40 MG/0.4 ML SYR SQ SCH (08:02)
[2018-07-05] MEDS: guaiFENesin 600 MG TABCR PO SCH ×2 (08:05→20:53)
[2018-07-05] MEDS: SERTRALINE HCL 50 MG TABLET PO SCH (08:06)
--- NOTE | 2018-07-05 08:07 | Surgery Progress Note ---
Date of Service July 05, 2018 Assessment & Plan (1) Pleural effusion: POD #2 LVATS with decortication -operative cultures of pleural fluid and bronchial washing noted: -no organisms on gram stains, culture are (-) to date -AFB pending -fungal is pending but thus far (-) -I again discussed with the patient the importance of mobilization, coughing, dep breathing in her recovery -mucinex added yeserday to help clear secretions -tylenol is being given in IV form to achieve better pain control (pt. notes pain but her exam and appearance are not consistent with her subjective reports) -due to CXR findings I have discussed case with respiratory therapy and asked them to instruct pt. on flutter valve use as well as add some type of chest physiotherapy (chest percussion, vibration vest) -I have informed the pt. we will attempt to improve her CXR with the measures noted above, but if her CXR in the am is not improved she will require a FOB: -she is npo after midnight and FOB ordered -lovenox for DVT prevention Subjective Pt. again notes she has pain on left side from her surgery. She state she has been trying to cough and breath deeply. No SOB reported SOB. SHe state she tried to eat dinner last night but had N/V. She notes generlaized abdominal pain. Discussed with RN--she notes that pt. has not been very cooperative, arguing about getting OOB and refusing blood work to be drawn. Physical Exam Constitutional: well developed and well nourished; no acute distress Respiratory: no labored breathing BS are markedly decreased on left side chest tube examined and noted to have no air leak CXR today shows complete opacification of left (operative side) Cardiovascular: Rate/Rhythm: regular rate and regular rhythm Gastrointestinal (Abdomen): abdomen is soft and not-distended; BS are present; pt. notes pain with palpation in generalized fashion and no point tenderness Results & Data Vital Signs (Past 12 Hours) Vital Signs Temp Pulse Resp BP Pulse Ox 07/05/18 06:58 36.7 C 61 18 109/69 96 07/04/18 23:52 36.4 C L 70 17 109/67 96
[2018-07-05] MEDS: POLYETHYLENE (MIRALAX) 17 GM PACK PO SCH (08:56)
[2018-07-05] MEDS: DOCUSATE SODIUM 100 MG CAP PO SCH ×2 (08:56→20:53)
[2018-07-05 11:38] LABS: Basophils # (auto) 0.01 K/uL (0-0.2); Basophils % (auto) 0.2 %; Eosinophils # (auto) 0.32 K/uL (0-0.5); Eosinophils % (auto) 6.9 %; Hematocrit (blood only) 31.5 % (37-47); Immature Granulocytes # (auto) 0.01 K/uL (0.00-0.02); Immature Granulocytes % (auto) 0.2 %; Mean Corpuscular Hgb Conc 31.7 g/dL (32-36); Mean Corpuscular Volume 95.2 fL (80-100); Monocytes # (auto) 0.47 K/uL (0.11-0.59); Monocytes % (auto) 10.2 %; Neutrophils # (auto) 3.22 K/uL (1.4-6.5); Neutrophils % (auto) 69.5 %; Nucleated RBC # (auto) 0.03 K/uL (0-0); Nucleated RBC % (auto) 0.7 %; Platelet Count 284 K/uL (130-400); RDW Coefficient of Variation 20.8 % (11.5-14.5); RDW Standard Deviation 72.3 fL (36.4-46.3); Red Blood Count 3.31 M/uL (4.2-5.4); White Blood Count 4.63 K/uL (4.8-10.8)
[2018-07-05] MEDS: LORazepam 0.5 MG TAB PO PRN ×2 (11:59→23:36)
[2018-07-05 12:02] LABS: Anisocytosis Present; Poikilocytosis Present
[2018-07-05 12:03] LABS: BUN Creatinine Ratio 17.9 (10-20); Calcium 8.4 mg/dl (8.5-10.1); Creatinine Clr Calc Pharmacy 29.2 ml/min; Est GFR (African American) 33.9; Est GFR (Non-African American) 29.2; Potassium 4.5 mmol/L (3.5-5.1)
[2018-07-05] MEDS: QUETIAPINE FUMARATE 100 MG TABLET PO SCH (20:53)
[2018-07-05] MEDS: PRAVASTATIN SOD 20 MG TAB PO SCH (20:53)
[2018-07-06] MEDS: HYDROmorphone INJ 0.5 MG/0.5 ML SYR IV PRN ×2 (05:16→08:23)
[2018-07-06 07:17] LABS: Basophils # (auto) 0.03 K/uL (0-0.2); Basophils % (auto) 0.8 %; Eosinophils # (auto) 0.49 K/uL (0-0.5); Eosinophils % (auto) 12.5 %; Hematocrit (blood only) 28.6 % (37-47); Hemoglobin 8.8 g/dL (12.0-16.0); Immature Granulocytes # (auto) 0.01 K/uL (0.00-0.02); Immature Granulocytes % (auto) 0.3 %; Lymphocytes # (auto) 0.73 K/uL (1.2-3.4); Lymphocytes % (auto) 18.7 %; Mean Corpuscular Hgb Conc 30.8 g/dL (32-36); Mean Corpuscular Volume 97.6 fL (80-100); Mean Platelet Volume 10.7 fL (7.4-10.4); Monocytes # (auto) 0.36 K/uL (0.11-0.59); Monocytes % (auto) 9.2 %; Neutrophils # (auto) 2.29 K/uL (1.4-6.5); Neutrophils % (auto) 58.5 %; Platelet Count 266 K/uL (130-400); RDW Coefficient of Variation 20.5 % (11.5-14.5); RDW Standard Deviation 72.8 fL (36.4-46.3); Red Blood Count 2.93 M/uL (4.2-5.4); White Blood Count 3.91 K/uL (4.8-10.8)
[2018-07-06] MEDS: MoRPHine SULFATE IR 15 MG TAB (IMMEDIATE RELEASE) PO SCH ×3 (07:30→23:56)
[2018-07-06] MEDS: ACETAMINOPHEN 1,000 MG/100 ML VIAL IV SCH ×3 (07:30→23:56)
[2018-07-06] MEDS: BREO ~ ORDER AWAITING ACTION SCH ×3 (07:30→23:57)
[2018-07-06 07:40] LABS: Anisocytosis Present; Ovalocytes 1+; Tear Drop Cells 1+
[2018-07-06 07:45] LABS: BUN Creatinine Ratio 16.5 (10-20); Calcium 8.5 mg/dl (8.5-10.1); Est GFR (Non-African American) 30.2; Potassium 4.3 mmol/L (3.5-5.1)
--- NOTE | 2018-07-06 07:46 | XRay Report ---
XR chest 1V portable CLINICAL HISTORY: atelectasis dyspnea COMPARISON STUDY: 07/05/2018 FINDINGS: Unchanged complete opacification left hemithorax. Left-sided chest tube unchanged in locati on. Right lung is clear. Compensatory cardiomediastinal silhouette shift to the left. PermCath remains in the right atrium. IMPRESSION: 1. Unchanged complete opacification left hemithorax. 2. No change from the prior study. The above report was generated using voice recognition software. It may contain grammatical, syntax or spelling errors. Electronically signed by: Augie Mares M.D. 07/06/2018 7:45 AM
[2018-07-06] MEDS: guaiFENesin 600 MG TABCR PO SCH ×2 (08:24→21:03)
[2018-07-06] MEDS: DOCUSATE SODIUM 100 MG CAP PO SCH ×2 (08:24→21:03)
[2018-07-06] MEDS: ENOXAPARIN INJ 30 MG/0.3 ML SYR SQ SCH (08:25)
[2018-07-06] MEDS: POLYETHYLENE (MIRALAX) 17 GM PACK PO SCH (08:25)
[2018-07-06] MEDS: SERTRALINE HCL 50 MG TABLET PO SCH (08:25)
--- NOTE | 2018-07-06 14:13 | History & Physical Bridge Note ---
Date of Service July 06, 2018 History & Physical Bridge Note I have examined the patient, reviewed the History & Physical and in the interval since the performance of the History & Physical I have noted the following changes of clinical significance: no changes noted
--- NOTE | 2018-07-06 14:13 | Pre Anesthesia Assessment ---
Date of Service July 06, 2018 Pre Sedation Assessment Vital Signs Temp Pulse Pulse Pulse Resp BP BP 07/06/18 14:07 62 20 146/65 H 07/06/18 11:49 36.7 C 56 L 20 106/80 07/06/18 08:16 36.7 C 72 22 108/60 07/06/18 08:08 07/05/18 23:40 37.1 C 78 22 128/76 07/05/18 15:34 36.6 C 62 18 114/73 Pulse Ox Pulse Ox 07/06/18 14:07 100 07/06/18 11:49 99 07/06/18 08:16 93 07/06/18 08:08 96 07/05/18 23:40 96 07/05/18 15:34 92 Pre-Sedation Airway Assessment Smoking Status: Former smoker Hx Sleep Apnea: No Hx Difficult Intubation: No Short, Thick Neck: No Thyromental Distance: < 3.5 Finger Breadths Oral Cavity: + Dentures Mallampati Class: II ASA: ASA2 NPO Status Date of Last Intake of Fluids: 07/05/18 Time of Last Intake of Fluids: 17:30 Date of Last Intake of Solid Food: 07/05/18 Time of Last Intake of Solid Foods: 17:30 Notes The planned sedation has been discussed with the patient. Informed Consent was obtained. I have identified the patient, determined the appropriateness of sedation and have assessed the patient immediately prior to the procedure. All medicine(s) and interventions are by my order.
[2018-07-06] MEDS ORDERED: MIDAZOLAM HCL 1 MG/ML 2ML VIAL IV STA (14:40)
[2018-07-06] MEDS ORDERED: fentaNYL citrate 100 MCG/2 ML VIAL IV ONE (14:40)
[2018-07-06] MEDS ORDERED: LIDOCAINE HCL VISCOUS SOLN 2% 15 ML UDC MT ONE (14:40)
[2018-07-06] MEDS ORDERED: LIDOCAINE 4% INH SOLN 4 ML BTL INH STA (14:40)
[2018-07-06] MEDS ORDERED: LIDOCAINE HCL 2% (LOCAL) INJ 50 ML VIAL INFIL STA (14:40)
--- NOTE | 2018-07-06 14:47 | Post Anesthesia Assessment ---
Date of Service July 06, 2018 Post Sedation Assessment Vital Signs Temp Pulse Pulse Pulse Resp BP BP 07/06/18 14:35 97 H 22 146/80 H 07/06/18 14:30 94 H 20 138/73 07/06/18 14:25 81 20 121/95 07/06/18 14:20 83 20 147/97 H 07/06/18 14:15 71 18 119/66 07/06/18 14:10 70 18 150/82 H 07/06/18 14:07 62 20 146/65 H 07/06/18 11:49 36.7 C 56 L 20 106/80 07/06/18 08:16 36.7 C 72 22 108/60 07/06/18 08:08 07/05/18 23:40 37.1 C 78 22 128/76 07/05/18 15:34 36.6 C 62 18 114/73 Pulse Ox Pulse Ox 07/06/18 14:35 91 07/06/18 14:30 95 07/06/18 14:25 97 07/06/18 14:20 96 07/06/18 14:15 100 07/06/18 14:10 100 07/06/18 14:07 100 07/06/18 11:49 99 07/06/18 08:16 93 07/06/18 08:08 96 07/05/18 23:40 96 07/05/18 15:34 92 Recovery Score Activity: Moves 4 extremities Respiration: Deep Breath/Cough Circulation: +/-20-49% PreAnes Value Consciousness: Arouseable (by name) Oxygen Saturation: O2 needed for >90% Post Anesthesia Score: 7 Post Sedation Plan On clinical assessment, the patient appears to have tolerated the sedation without complications. Patient is recovering as anticipated. Patient will continue to be monitored by nursing and may be discharged when sedation discharge criteria are met per below protocol. Upon Completions of procedure and additional 15 minutes continue every 5 minute vital signs and the P.A.R. score; then discharge to a Phase I or Fast Track to Phase II per the following guidelines: * Discharge Patient to appropriate Phase II area if PAR is 8 or greater or return to pre- procedure baseline. The post - procedure orders will be as directed. * If PAR score is less than 8 or not return to pre-procedure baseline then patient will follow Phase I monitoring till PAR is reached for Phase II. The Phase I may be done in procedure room or may call to secure a Phase I area. * If naloxone or flumazenil are used for reversal, hold in Phase I for continued monitoring from when last reversal dose was given for a minimum of 60 minutes or longer pending the nurse and/or physician discretion of patient condition before discharge to Phase II. Please call the Sedation Physician to re-evaluate and complete post-note for discharge to Phase II area. Do NOT discharge from procedure sedation or Phase 1 until post- sedation evaluat ion note is complete by procedure /sedation MD Sedation Discharge Instructions to be given to the patient at discharge to home.
--- NOTE | 2018-07-06 14:55 | XRay Report ---
XR chest 1V not portable CLINICAL HISTORY: s/p FOB postoperative COMPARISON STUDY: 07/06/2018 7:38 AM FINDINGS: Improved aeration left hemithorax. Persistent consolidative/fusion-type change left base. Right lung remains clear. Central catheter remains in superior vena cava. No evidence for pneumothorax. IMPRESSION: Improved aeration left hemithorax with persistent consolidative/effusion-type change lef t base. No evidence for pneumothorax. The above report was generated using voice recognition software. It may contain grammatical, syntax or spelling errors. Electronically signed by: Augie Mares M.D. 07/06/2018 2:53 PM
[2018-07-06] MEDS ORDERED: ACETYLCYSTEINE 20% INHAL SOLN ***DISPENSED BY RESP. INH SCH (15:00)
--- NOTE | 2018-07-06 15:00 | Post Operative Brief Note ---
Immediate Post Op Note v1 Date of Surgery July 06, 2018 Pre & Post Diagnosis post-op atelectesis Procedure therapeutic fiber optic bronchoscopy Surgeon Zander Rich MD, FACS [employer] Sallie Estimated Blood Loss 0 Findings Consistent with Post-Op Diagnosis Drains Chest Tube and Porter Catheter
--- NOTE | 2018-07-06 15:30 | XRay Report ---
XR chest 1V portable CLINICAL HISTORY: tube removal POSTOPERATIVE STUDY COMPARISON STUDY: 07/06/2018 FINDINGS: The left-sided chest tube has been removed. There is no pneumothorax. The left-sided A-Port catheter remains unchanged in position. There is left lung volume loss. Moderately extensive left etelvina ng air space opacities persist.[ IMPRESSION: 1. Interval removal of the left-sided chest tube 2. No evidence of pneumothorax Electronically signed by: Hans Beltrán M.D. 07/06/2018 3:29 PM
[2018-07-06] MEDS: HEPARIN 100 UNIT/ML 5ML FLUSH FLUSH PRN ×2 (16:41→19:05)
--- NOTE | 2018-07-06 17:53 | Progress Note ---
DATE: 07/06/2018 Maki Mirza was seen today on 07/06/2018. The patient is now postop day #3 status post a decortication for a probable parapneumonic effusion. I have to say I am quite disappointed that she has not coughed as we have asked. She is not done her pulmonary toilet as we have asked. She is on 4 liters of O2 with excellent saturations; however, I am very concerned about her. I had a long talk with her and she did not respond to increasing pulmonary toilet with percussion and ambulation and incentive spirometry and coughing. We are going to proceed with a bronchoscopy therapeutically, later this afternoon.
[2018-07-06] MEDS: ONDANSETRON INJ 2 MG/ML 2 ML VIAL IV PRN (19:05)
[2018-07-06] MEDS: PRAVASTATIN SOD 20 MG TAB PO SCH (21:04)
[2018-07-06] MEDS: QUETIAPINE FUMARATE 100 MG TABLET PO SCH (21:04)
[2018-07-06] MEDS: LORazepam 0.5 MG TAB PO PRN (23:56)
--- NOTE | 2018-07-07 01:36 | Operative Report ---
DATE OF OPERATION: 07/06/2018 PREOPERATIVE DIAGNOSIS: Left lower lobe atelectasis secondary to mucus plugging. POSTOPERATIVE DIAGNOSIS: Left lower lobe atelectasis secondary to mucus plugging. PROCEDURE: Therapeutic bronchoscopy. ANESTHESIA: Sedation with local. SPECIFICS OF PROCEDURE AND FINDINGS: This is a 67-year-old underwent a decortication for probable parapneumonic effusion 3 days ago. The patient simply has not coughed as we hoped. She has been ambulating some. She states that she is working on her incentive spirometer, but complains of pain. I am quite concerned about Ms. Mirza and so I scheduled her for a bronchoscopy. She came down to the bronchoscopy suite and after anesthetizing her nasal passages with not only a lidocaine nebulizer with then some lidocaine jelly, we performed a bronchoscopy through the left nares. She actually tolerated this quite well. Her vocal cords were symmetrical and moved well. She really did not have much in the proximal trachea, but she had a very tenacious mucus in her distal trachea and especially her left mainstem bronchus. This was so thick, I could not suction it through the scope and I had to keep the scope on suction and simply pull it out and then irrigate the scope to remove it. I did this about 3 times. Finally got her cleaned out completely. We irrigated out both bronchial trees and this cleared quite nicely. We saw no further mucus. She tolerated it well. DESCRIPTION OF PROCEDURE: The patient was brought to the bronchoscopy suite. After appropriate timeout had been called and a lidocaine nebulizer given, the fiberoptic bronchoscope was placed through the left nares without difficulty. We then sprayed lidocaine over the cords which were easily seen and were symmetrical. Going down through the cords, the trachea appeared fairly clean. She had some mucous at the very distal aspect, but really did not have much in the way of irritation or inflammation. We saw very little in the right; however, going into the left was very thick mucus. Attempting to suction this out for a specimen it simply filled the suction catheter and suctioned a large amount into the scope and I simply removed it out. I removed a long thick specimen of mucus by keeping it on suction and pulling it out of her nares. We would irrigate the bronchoscope out and go down again. I did this about 3 times before we finally cleared this very thick mucus. I was then able to get down to the left mainstem bronchus. I went all the way out to the tertiary bronchi and saw no evidence of any obstruction or lesion. I irrigated out both until clear which was rather simple after the main portions have been suctioned out. We sedated her with fentanyl and Versed. The sedation started at 4:14 and she left the room at 4:35. She tolerated it well. She did get 5 mg of Versed and 150 of fentanyl. However, it is not surprising given the fact that she is on Dilaudid for pain. She is chronically on opioids. Her x-ray was improved. We will send her back up to the floor. I attest to the content of the Intraoperative Record and any orders documented therein. Any exceptions are noted below. MONICA
[2018-07-07] MEDS: HYDROmorphone INJ 0.5 MG/0.5 ML SYR IV PRN ×2 (04:59→08:13)
[2018-07-07] MEDS: HEPARIN 100 UNIT/ML 5ML FLUSH FLUSH PRN ×2 (05:00→06:26)
[2018-07-07 06:44] LABS: Hematocrit (blood only) 26.5 % (37-47); Hemoglobin 8.1 g/dL (12.0-16.0); Mean Corpuscular Hgb Conc 30.6 g/dL (32-36); Mean Corpuscular Volume 97.8 fL (80-100); Mean Platelet Volume 11.2 fL (7.4-10.4); Platelet Count 282 K/uL (130-400); RDW Standard Deviation 71.3 fL (36.4-46.3); Red Blood Count 2.71 M/uL (4.2-5.4); White Blood Count 3.62 K/uL (4.8-10.8)
--- NOTE | 2018-07-07 07:09 | XRay Report ---
XR chest 1V portable HISTORY: 67 years-old Female atlectasis COMPARISON: Chest radiograph 07/06/2018 TECHNIQUE: Portable AP view of the chest FINDINGS: Cardiomediastinal and hilar silhouettes are stable. Left-sided Aagxuw-s-Lfds catheter is unchanged. L eft lung volume loss with diffuse left lung opacities redemonstrated. Right lung is clear with hyperi nflation. No pneumothorax, large pleural effusion or overt pulmonary edema. Right shoulder total join t arthroplasty. IMPRESSION: 1. Stable exam with left lung volume loss and left lung opacities. 2. Compensatory hyperinflation of the right lung. 3. Cardiomegaly. The above report was generated using voice recognition software. It may contain grammatical, syntax o r spelling errors. Electronically signed by: Fortunato Hernández M.D. 07/07/2018 7:07 AM
[2018-07-07 07:19] LABS: Creatinine Clr Calc Pharmacy 32.5 ml/min; Est GFR (African American) 38.5; Est GFR (Non-African American) 33.2
[2018-07-07] MEDS: MoRPHine SULFATE IR 15 MG TAB (IMMEDIATE RELEASE) PO SCH (07:31)
[2018-07-07] MEDS: ACETAMINOPHEN 1,000 MG/100 ML VIAL IV SCH (07:31)
[2018-07-07] MEDS: BREO ~ ORDER AWAITING ACTION SCH (07:36)
[2018-07-07] MEDS: SERTRALINE HCL 50 MG TABLET PO SCH (08:11)
[2018-07-07] MEDS: POLYETHYLENE (MIRALAX) 17 GM PACK PO SCH (08:13)
[2018-07-07] MEDS: ENOXAPARIN INJ 30 MG/0.3 ML SYR SQ SCH (08:13)
[2018-07-07] MEDS: DOCUSATE SODIUM 100 MG CAP PO SCH (08:13)
[2018-07-07] MEDS: guaiFENesin 600 MG TABCR PO SCH (08:13)
--- NOTE | 2018-07-07 11:19 | Discharge Summary ---
DISCHARGE DIAGNOSES: 1. Parapneumonic effusion with trapped left lung. 2. Chronic obstructive pulmonary disease. 3. History of cigarette smoking. 4. Atelectasis postoperatively. HOSPITAL COURSE: Maki Mirza is a 67-year-old female who is a resident of [facility]. She is on chronic oxygen. She developed pneumonia a couple months ago and had a left pleural effusion. She did not have signs and symptoms of an acute infection, but had a complicated left pleural effusion. I saw her in the office and we arranged for a left thoracoscopy. This was done on 07/03/2018 and the patient had a trapped left lower lobe and a left upper lobe. I was quite pleased with our thoracoscopy; however, she really did not cough or breathe well postoperatively. I ended up having to do a fiberoptic bronchoscopy on 07/06/2018 and she had a large amount of sputum. After suctioning this out her left lung expanded. It expanded the following morning and she was down to 2 liters of O2. We are going to send her back to [facility] today and I will see her back in the office next week with an x-ray. I was quite pleased with her incisions, quite pleased with how she sounded this morning. She still has pain but is on chronic narcotics at [facility]. We will see her in the office next week with a chest x-ray. Discharge instructions have been given. ADDENDUM: Ms. Mirza still has cultures pending from her bronchoscopy; however, we are going to put her on 1 week worth of Augmentin. In addition, the pathology showed no evidence of cancer and we saw no evidence of active infection.
== END 2018-07-07 11:25 | DRG 164 ==
LOC: ASU 07:55 → 2S 13:37 → 3W 19:53

== ENCOUNTER 2021-02-07 15:56 | Inpatient (IN) ==
[2021-02-07] MEDS ORDERED: ONDANSETRON INJ 2 MG/ML 2 ML VIAL IV STA (16:24)
--- NOTE | 2021-02-07 16:29 | Emergency Department Note ---
History of Present Illness General Chief complaint: Hypotension Stated complaint: Hypotension Time Seen by Provider: 02/07/21 16:16 Source: patient History of Present Illness Provider complaint: Abdominal pain Onset (ago): day(s) 5 Location: abdomen and left Pain Consistency: + intermittent Quality: + other (Cramping) Relieved By: + none Associated symptoms: + fever/chills ([place] warm no fever), + nausea/vomiting and + weakness; no chest pain, no cough or no shortness of breath This is a 70-year-old female who was at the cancer center getting [place]rit when she was found to have a systolic blood pressure in the 80s and was sent here for further evaluation. She complains of fatigue and weakness. She states that she has also had vomiting for the past 5 days. She complains of abdominal pain as well. She describes as a cramping pain in the lower abdomen. No modifying factors. She did try to eat a cheeseburger today but later vomited that up. She denies diarrhea. She states she does not remember when the last bowel movement she had was. She has been urinating but less than usual. She denies any recorded fever but states that she felt warm today and feels cold right now. She has had no cough, chest pain, shortness of breath or cold symptoms. Home Medications Medication Instructions Recorded Confirmed Type polyethylene glycol 3350 17 gram 17 g PO Q OTHER DAY #527 g 10/02/17 02/07/21 History oral powder packet (Miralax) morphine 15 mg immediate release 15 mg PO Q8H #30 tab 07/07/18 02/07/21 Rx tablet lorazepam 0.5 mg tablet See Rx Instructions .ROUTE .COMPLEX 10/04/19 02/07/21 History magnesium hydroxide 400 mg/5 mL 30 ml PO DAILY PRN 10/04/19 02/07/21 History oral suspension (Milk of Magnesia) acetaminophen 325 mg capsule 650 mg PO Q6H PRN cap 11/15/19 02/07/21 History bisacodyl 10 mg rectal suppository 10 mg WI DAILY PRN 11/15/19 02/07/21 History famotidine 20 mg tablet 20 mg PO HS 11/15/19 02/07/21 History Saccharomyces boulardii 250 mg 250 mg PO QAM 02/07/21 02/07/21 History capsule albuterol sulfate 0.63 mg/3 mL 0.63 mg INHALATION Q4H PRN 02/07/21 02/07/21 History solution for nebulization hydroxyzine pamoate 50 mg capsule 50 mg PO HS 02/07/21 02/07/21 History ipratropium 20 mcg-albuterol 100 1 puff INHALATION Q6H PRN 02/07/21 02/07/21 History mcg/actuation mist for inhalation (Combivent Respimat) melatonin 3 mg tablet 6 mg PO HS 02/07/21 02/07/21 History pravastatin 20 mg tablet 20 mg PO HS 02/07/21 02/07/21 History sertraline 100 mg tablet 100 mg PO DAILY 02/07/21 02/07/21 History Allergies Allergy/AdvReac Type Severity Reaction Status Date / Time cat dander Allergy Mild ON EMBASSY Verified 02/07/21 17:20 [facility] MED LIST codeine Allergy Unknown SEE COMMENT Verified 02/07/21 17:20 simvastatin AdvReac Intermediate ELEVATED Verified 02/07/21 17:20 HEPATIC ENZYMES Past Med/Surg History Medical History Anemia Anxiety disorder Asthma Atelectasis Bipolar 2 disorder Bipolar disorder 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 CKD (chronic kidney disease) stage 3, GFR 30-59 ml/min Constipation COPD (chronic obstructive pulmonary disease) Depression Diabetes Diabetes mellitus GERD (gastroesophageal reflux disease) History of cerebral infarction Hx: recurrent pneumonia not specified as recurrent Hyperlipidemia Hyperlipidemia Insomnia Migraine Myelodysplasia (myelodysplastic syndrome) Panic disorder Panic disorder Peripheral vascular disease Pleural effusion Pleural effusion Port-A-Cath in place Recurrent depressive disorder Sideroblastic anemia Vitamin D deficiency Surgical History H/O shoulder surgery History of vascular access device Family History Mother Lung cancer Breast cancer Father Skin cancer Social History Smoking Status: Unknown if ever smoked Second Hand Exposure: No; Hx Alcohol Use: No Hx Substance Use: No Preferred Language: Albanian Communication Ability: Effective 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 and A total of 10 systems reviewed and were otherwise negative Physical Exam Vital Signs Vital Signs - 24 hr 02/07/21 16:07 02/07/21 16:08 02/07/21 16:15 Temperature 36.8 C Temperature Source Oral Pulse Rate 57 L 56 L Pulse Rate from SpO2 Sensor 58 L Respiratory Rate 12 16 Respiratory Effort / Characteristics Non-Labored Spontaneous Respiratory Depth Normal Blood Pressure 94/40 L Blood Pressure Mean 58 Blood Pressure Position Sitting Pulse Oximetry 92 94 Oxygen Delivery Method Room Air Room Air Oxygen Flow Rate Sepsis Recent Fever Within 48 Hours No Sepsis New/Unexplained Change in Mental Status No Sepsis Action Taken by Nursing No Action Required 02/07/21 16:30 02/07/21 16:55 02/07/21 17:11 Temperature Temperature Source Pulse Rate 56 L 56 L Pulse Rate from SpO2 Sensor Respiratory Rate 20 18 Respiratory Effort / Characteristics Respiratory Depth Blood Pressure Blood Pressure Mean Blood Pressure Position Pulse Oximetry 93 Oxygen Delivery Method Nasal Cannula Oxygen Flow Rate 3 Sepsis Recent Fever Within 48 Hours Sepsis New/Unexplained Change in Mental Status Sepsis Action Taken by Nursing 02/07/21 17:30 02/07/21 18:00 Temperature Temperature Source Pulse Rate 55 L 58 L Pulse Rate from SpO2 Sensor 56 L 58 L Respiratory Rate 14 16 Respiratory Effort / Characteristics Respiratory Depth Blood Pressure 92/56 L 111/54 L Blood Pressure Mean 68 73 Blood Pressure Position Pulse Oximetry 100 100 Oxygen Delivery Method Nasal Cannula Nasal Cannula Oxygen Flow Rate 3 3 Sepsis Recent Fever Within 48 Hours Sepsis New/Unexplained Change in Mental Status Sepsis Action Taken by Nursing Constitutional: Vital signs reviewed. Eyes: Pupils are equal round reactive to light. Conjunctiva are noninjected. ENT: Pharynx is clear without erythema or exudate. Mucous membranes are slightly dry. Neck supple without meningeal signs. Respiratory: Clear to auscultation bilaterally. Breath sounds are equal bilaterally. Cardiovascular: Regular rate and rhythm. No rubs or gallops. GI: Soft, nondistended with tenderness in the left lower quadrant and right abdomen. No Singh sign. No guarding. Bowel sounds are present. Musculoskeletal: No peripheral edema. No lower extremity tenderness. Port in the left upper chest. Integumentary: No cyanosis. or jaundice. Neurological: The patient is awake and alert. No focal deficits. Psychiatric: Normal affect. Not anxious appearing. Course Administered Medications Sodium Chloride (Nss) 500 mls @ 125 mls/hr IV .Q4H MERON Stop: 03/09/21 16:29 Last Admin: 02/07/21 21:41 Dose: 125 mls/hr Documented by: [id number] Infusion: 02/07/21 21:37 Dose: 0 mls/hr Documented by: [id number] Admin: 02/07/21 17:27 Dose: 125 mls/hr Documented by: [id number] Discontinued Medications Piperacillin Sod/Tazobactam Sod (Zosyn) 4.5 gm in 120 mls @ 240 mls/hr IV NOW ONE Stop: 02/07/21 18:28 Last Infusion: 02/07/21 21:37 Dose: 0 mls/hr Documented by: [id number] Admin: 02/07/21 18:14 Dose: 240 mls/hr Documented by: [id number] Ondansetron HCl (Ondansetron Inj 2 Mg/Ml 2 Ml Vial) 4 mg IV NOW STA Stop: 02/07/21 16:25 Last Admin: 02/07/21 17:27 Dose: 4 mg Documented by: [id number] Critical Care Time Critical Care Time: Yes Total Critical Care Time: 35 I have personally spent approximately 35 minutes of critical care time in the direct management of this patient. This includes bedside care, interpretation of diagnostic studies, and testing, discussion with consultants, patient, and family members, and other required patient management activities. These minutes are in excess of all separately billable procedures. Medical Decision Making Differential Diagnosis Diverticulitis, abscess, perforation, bowel obstruction, constipation, fecal retention, dehydration, anemia Medical Records Attestation: I reviewed the patient's medical records. I did perform a limited focused review of portions of the patient's old chart on the electronic medical record. The patient was last admitted in January 2020 for transfusion dependent anemia. Home Medications Current Medication List: was personally reviewed by me Laboratory Data Attestation: I reviewed the patient's lab results. Result diagrams: 02/07/21 16:50 02/07/21 16:50 Lab Results 02/07/21 02/07/21 02/07/21 Range/Units 16:50 16:50 16:50 WBC 6.99 (4.8-10.8) K/uL RBC 2.35 L (4.2-5.4) M/uL Hgb 7.2 L (12.0-16.0) g/dL Hct 22.5 L (37-47) % MCV 95.7 (80-100) fL MCH 30.6 (25-34) pg MCHC 32.0 (32-36) g/dL RDW Std Deviation 58.0 H (36.4-46.3) fL RDW Coeff of Rochelle 17.0 H (11.5-14.5) % Plt Count 214 (130-400) K/uL MPV 10.2 (7.4-10.4) fL Immature Gran % (Auto) 0.3 % Neut % (Auto) 88.9 % Lymph % (Auto) 4.6 % [place] % (Auto) 4.4 % Eos % (Auto) 1.7 % Baso % (Auto) 0.1 % Neut # (Auto) 6.21 (1.4-6.5) K/uL Lymph # (Auto) 0.32 L (1.2-3.4) K/uL [place] # (Auto) 0.31 (0.11-0.59) K/uL Eos # (Auto) 0.12 (0-0.5) K/uL Baso # (Auto) 0.01 (0-0.2) K/uL Immature Gran # (Auto) 0.02 (0.00-0.02) K/uL Basophilic Stippling 1+ Anisocytosis Present Tear Drop Cells 1+ Sodium 139 (136-145) mmol/L Potassium 4.6 (3.5-5.1) mmol/L Chloride 106 (98-107) mmol/L Carbon Dioxide 27 (21-32) mmol/L Anion Gap 6.0 (3-11) BUN 23 H (7-18) mg/dl Creatinine 1.48 H (0.6-1.2) mg/dl Est Cr Clr Drug Dosing 26.2 ml/min Est GFR ( Amer) 41.7 ml/min Est GFR (Non-Af Amer) 36.0 ml/min BUN/Creatinine Ratio 15.7 (10-20) Glucose 125 H (70-99) mg/dl Calcium 8.3 L (8.5-10.1) mg/dl Total Bilirubin 1.8 H (0.2-1) mg/dl AST 44 H (15-37) U/L ALT 38 (12-78) U/L Alkaline Phosphatase 126 H (45-117) U/L Troponin I < 0.015 (0-0.045) ng/ml Total Protein 7.3 (6.4-8.2) gm/dl Albumin 3.0 L (3.4-5.0) gm/dl Globulin 4.3 H (2.5-4.0) gm/dl Albumin/Globulin Ratio 0.7 L (0.9-2) Lipase 66 L (73-393) U/L SARS-CoV-2, RNA, NAAT (NEGATIVE) Blood Type Antibody Screen 02/07/21 02/07/21 Range/Units 17:25 18:08 WBC (4.8-10.8) K/uL RBC (4.2-5.4) M/uL Hgb (12.0-16.0) g/dL Hct (37-47) % MCV (80-100) fL MCH (25-34) pg MCHC (32-36) g/dL RDW Std Deviation (36.4-46.3) fL RDW Coeff of Rochelle (11.5-14.5) % Plt Count (130-400) K/uL MPV (7.4-10.4) fL Immature Gran % (Auto) % Neut % (Auto) % Lymph % (Auto) % [place] % (Auto) % Eos % (Auto) % Baso % (Auto) % Neut # (Auto) (1.4-6.5) K/uL Lymph # (Auto) (1.2-3.4) K/uL [place] # (Auto) (0.11-0.59) K/uL Eos # (Auto) (0-0.5) K/uL Baso # (Auto) (0-0.2) K/uL Immature Gran # (Auto) (0.00-0.02) K/uL Basophilic Stippling Anisocytosis Tear Drop Cells Sodium (136-145) mmol/L Potassium (3.5-5.1) mmol/L Chloride (98-107) mmol/L Carbon Dioxide (21-32) mmol/L Anion Gap (3-11) BUN (7-18) mg/dl Creatinine (0.6-1.2) mg/dl Est Cr Clr Drug Dosing ml/min Est GFR ( Amer) ml/min Est GFR (Non-Af Amer) ml/min BUN/Creatinine Ratio (10-20) Glucose (70-99) mg/dl Calcium (8.5-10.1) mg/dl Total Bilirubin (0.2-1) mg/dl AST (15-37) U/L ALT (12-78) U/L Alkaline Phosphatase (45-117) U/L Troponin I (0-0.045) ng/ml Total Protein (6.4-8.2) gm/dl Albumin (3.4-5.0) gm/dl Globulin (2.5-4.0) gm/dl Albumin/Globulin Ratio (0.9-2) Lipase (73-393) U/L SARS-CoV-2, RNA, NAAT NEGATIVE (NEGATIVE) Blood Type O Negative Antibody Screen NEGATIVE Imaging Data Radiologist's Impression: Abdomen/Pelvis CT 02/07/21 16:[address] WITHOUT CONTRAST CT DOSE: 630.76 mGycm HISTORY: LLQ andrew eval for obstruction TECHNIQUE: Multiaxial CT images of the abdomen and pelvis were performed without contrast. A dose lowering technique was utilized adhering to the principles of ALARA. COMPARISON STUDY: Abdomen and pelvis CT 10/04/2019. FINDINGS: Scarlike densities again noted at the left lung base. No p neumoperitoneum. No pneumatosis. 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 The tip of a central venous catheter terminates in the right atrium. Spleen is top normal in size. The unenhanced adrenal glands and pancreas appear unremarkable. No renal or ureteral stones. No hydronephrosis. Stable 3.6 cm left renal hypodense lesions likely representing a cyst. Moderate to severe intra and extra hepatic bile duct dilatation to the level of the ampulla which has progressed. There is also significantly distended gallbladder with mild gallbladder wall thickening and adjacent inflammatory change. No CT evidence for choledocholithiasis. The bladder, uterus, bilateral adnexa are within normal limits. Large amount well-formed stool within the rectum. The rectum is distended up to 7.8 cm. Suboptimal evaluation for bowel pathology due to the lack of intravenous and oral contrast. However, there is no definite bowel wall thickening or obstruction. Normal appendix. Moderate well- formed stool seen throughout the majority of the colon. IMPRESSION: 1. Moderate to severe intra and extrahepatic bile duct dilatation to the level of the ampulla which has progressed. There is also significant distention of the gallbladder with mild gallbladder wall thickening and adjacent inflammatory change. This is concerning for acute cholecystitis. Surgical consultation recommended. There appears to be an obstruction at the level of the ampulla without definite stone or mass. Therefore, consider ERCP for further evaluation. 2. No definite bowel wall thickening or obstruction. 3. Moderate to large amount of stool seen within the colon and rectum.. 4. Additional findings as described above. ACT 112: Negative or not required by law. Electronically signed by: Richard Anderson M.D. 02/07/2021 5:50 PM ECG Data Attestation: I personally reviewed and interpreted this ECG as follows: Indication: + abdominal pain and + weakness Rate (beats per minute): 61 Rhythm: + normal sinus ECG [place]: + Normal ECG ST segments: no ST elevation ECG Findings: no PVCs MDM Narrative I did evaluate the patient as noted above. The patient has a history of chronic anemia and frequent transfusions. She was found to be hypotensive at the cancer center and so was sent here for evaluation. She complains of abdominal pain with vomiting for the past 5 days. IV access was established. I did treat her with normal saline IV as well as Zofran IV.I did place an order for continuous cardiac monitoring. The monitor showed normal sinus rhythm at a rate of 60 bpm.I did order and personally review the patient's 12-lead EKG as described ab anthony. She has no evidence of acute ischemia. I did order and personally reviewed the images of the patient's chest x-ray as described above. Chest x-ray shows no acute process. I did order a urine analysis. I did order and review the patient's blood work as noted in the electronic medical record. CBC demonstrates a hemoglobin of 7.2. White blood cell count of 6.99 and platelet count is 214. I did order a transfusion of 1 unit packed RBCs with one to hold. I did obtain of for consent. Unfortunately the patient has specific antibodies requiring blood to be obtained from the [facility] in [place]. I did talked to the blood bank and they will get that blood here emergently within a few hours to transfuse her. Her electrolytes are unremarkable. BUN and creatinine are 23 and 1.48. Total bilirubin is 1.8 with a AST of 44 and an ALT of 38. Alk phos is 126. Troponin is negative. Lipase is 66. I did order a CT of the abdomen and pelvis. I did review the images myself as well as the radiology report as described above. She has what appears to be acute cholecystitis with biliary obstruction. I did discuss the test results with the patient. Her blood pressure did improve to 111/54. I did discuss case with Dr. Audie RODRIGUEZ of surgery who assessed the patient in the emergency department. He recommended hospitalization by the medical service and antibiotics. I did treat the patient with Zosyn IV. I did discuss the case with the hospitalist and case finishing machine adjuster. She will have MRCP or ERCP during her hospitalization. Her blood pressure remained stable in the ED. Last reading was 119/64. Impression & Plan Acute hypotension, Anemia, Cholecystitis without calculus, Biliary obstruction Discharge Plan Visit Data Chief Complaint: Hypotension Stated Complaint: Hypotension ED Provider: Kun Allen Discharge Problem: Acute hypotension, Anemia, Cholecystitis without calculus, Biliary obstruction Patient Disposition: Being Evaluated by Hospitalist
[2021-02-07 16:58] LABS: Basophils # (auto) 0.01 K/uL (0-0.2); Basophils % (auto) 0.1 %; Eosinophils # (auto) 0.12 K/uL (0-0.5); Eosinophils % (auto) 1.7 %; Hematocrit (blood only) 22.5 % (37-47); Hemoglobin 7.2 g/dL (12.0-16.0); Immature Granulocytes # (auto) 0.02 K/uL (0.00-0.02); Immature Granulocytes % (auto) 0.3 %; Lymphocytes # (auto) 0.32 K/uL (1.2-3.4); Lymphocytes % (auto) 4.6 %; Mean Corpuscular Hemoglobin 30.6 pg (25-34); Mean Corpuscular Volume 95.7 fL (80-100); Mean Platelet Volume 10.2 fL (7.4-10.4); Monocytes # (auto) 0.31 K/uL (0.11-0.59); Monocytes % (auto) 4.4 %; Neutrophils # (auto) 6.21 K/uL (1.4-6.5); Neutrophils % (auto) 88.9 %; Platelet Count 214 K/uL (130-400); Red Blood Count 2.35 M/uL (4.2-5.4); White Blood Count 6.99 K/uL (4.8-10.8)
[2021-02-07 17:15] LABS: BUN Creatinine Ratio 15.7 (10-20); Calcium 8.3 mg/dl (8.5-10.1); Creatinine Clr Calc Pharmacy 26.2 ml/min; Est GFR (African American) 41.7 ml/min; Potassium 4.6 mmol/L (3.5-5.1)
[2021-02-07 17:18] LABS: Albumin Globulin Ratio 0.7 (0.9-2); Bilirubin,Total 1.8 mg/dl (0.2-1); Globulin 4.3 gm/dl (2.5-4.0); Total Protein 7.3 gm/dl (6.4-8.2)
[2021-02-07 17:20] LABS: Lipase 66 U/L (73-393); Troponin I < 0.015 ng/ml (0-0.045)
[2021-02-07] MEDS: SODIUM CHLORIDE 0.9% 500 ML IV SCH ×2 (17:27→21:41)
[2021-02-07 17:44] LABS: Anisocytosis Present; Basophilic Stippling 1+; Tear Drop Cells 1+
--- NOTE | 2021-02-07 17:51 | CT Scan Report ---
ABDOMEN AND PELVIS CT WITHOUT CONTRAST CT DOSE: 630.76 mGycm HISTORY: LLQ andrew eval for obstruction TECHNIQUE: Multiaxial CT images of the abdomen and pelvis were performed without contrast. A dose lo wering technique was utilized adhering to the principles of ALARA. COMPARISON STUDY: Abdomen and pelvis CT 10/04/2019. FINDINGS: Scarlike densities again noted at the left lung base. No pneumoperitoneum. No pneumatosis. 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 The tip of a central venous c atheter terminates in the right atrium. Spleen is top normal in size. The unenhanced adrenal glands a nd pancreas appear unremarkable. No renal or ureteral stones. No hydronephrosis. Stable 3.6 cm left r enal hypodense lesions likely representing a cyst. Moderate to severe intra and extra hepatic bile du ct dilatation to the level of the ampulla which has progressed. There is also significantly distended gallbladder with mild gallbladder wall thickening and adjacent inflammatory change. No CT evidence f or choledocholithiasis. The bladder, uterus, bilateral adnexa are within normal limits. Large amount well-formed stool within the rectum. The rectum is distended up to 7.8 cm. Suboptimal evaluation for bowel pathology due to the lack of intravenous and oral contrast. However, there is no definite bowel wall thickening or obstruction. Normal appendix. Moderate well-formed stool seen throughout the ashly rity of the colon. IMPRESSION: 1. Moderate to severe intra and extrahepatic bile duct dilatation to the level of the ampulla which h as progressed. There is also significant distention of the gallbladder with mild gallbladder wall thi ckening and adjacent inflammatory change. This is concerning for acute cholecystitis. Surgical consul tation recommended. There appears to be an obstruction at the level of the ampulla without definite s tone or mass. Therefore, consider ERCP for further evaluation. 2. No definite bowel wall thickening or obstruction. 3. Moderate to large amount of stool seen within the colon and rectum.. 4. Additional findings as described above. ACT 112: Negative or not required by law. Electronically signed by: Richard Anderson M.D. 02/07/2021 5:50 PM
[2021-02-07] MEDS ORDERED: PIPERACILL/TAZOBAC CONSULT ACTIVE PRN (17:59)
[2021-02-07] MEDS ORDERED: PIPERACILLIN/TAZOBACTAM 4.5 GM/120 ML BAG IV ONE (17:59)
--- NOTE | 2021-02-07 19:08 | History & Physical Report ---
Date of Service February 07, 2021 Assessment & Plan (1) Right upper quadrant pain: Plan: Associated nausea and vomiting concerning for cholecystitis with choledocholithiasis on CT imaging with common bile duct dilatation however this is dilation is somewhat chronic and her pain she tells me is going on for 2 months although history is unreliable. Discussed with Dr Garcia - recommending MRCP, discussed with Dr Arriola for possible ERCP in AM Discussed with Dr Crowder Continue IV Zosyn Given lack of fever and WBC cholangitis and cholecystitis not confirmed and possible pain with vomiting secondary to constipation with large stool burden seen on CT - start MiraLAX 17g BID (2) Constipation: Plan: MiraLAX as above. (3) CKD (chronic kidney disease) stage 3, GFR 30-59 ml/min: Plan: At baseline (4) COPD (chronic obstructive pulmonary disease): Plan: On no maintenance inhalers for this. No acute exacerbation suspected. (5) Anemia: Plan: Not far off her baseline. Transfuse 1 units as ordered by the ER and repeat CBC. FOB pending (6) Myelodysplasia (myelodysplastic syndrome): Plan: Cause of anemia as above. Plan: VTE Prophylaxis - deferred pending surgery and ERCP decisions Diet - NPO except meds and ice chips given vomiting Disposition - admit to med/tele Admission and Anticipated Discharge Date Admission Date: February 07, 2021 History of Present Illness Chief Complaint: Abdominal pain, nausea, vomiting Primary Care Provider: [facility] Maki Mirza is a 70 year old female from [facility] and vomiting. She was at the [facility] earlier today for recurrent transfusion related myelodysplastic syndrome. She was found to have a systolic blood pressure in the 80s therefore was sent to the ER for evaluation. In the ER systolic BP 92/45. She also reports ongoing vomiting for the last 5 days with associated RUQ abdominal pain for the last 2 months. She reports it is both intermittent but also she has not been pain free for the last 2 months. However her history appears to be somewhat unreliable and changes multiple times on how I rephrase my questioning. She tells me both she wants medications to help with the pain and also she wants nothing done. She is unable to give me a severity of the pain. She denies any melena, diarrhea, constipation or bright red blood in stool. In the ER CT was concerning for moderate to severe intra and extrahepatic bile duct dilatation to the level of the ampulla which has progressed since prior scans with concern for cholecystitis. She was started on IV Zosyn and referred to medicine for admission and ongoing management of cholecystis, anemia and hypotension. Allergies Allergy/AdvReac Type Severity Reaction Status Date / Time cat dander Allergy Mild ON EMBASSY Verified 02/07/21 17:[address] [facility] MED LIST codeine Allergy Unknown SEE COMMENT Verified 02/07/21 17:20 simvastatin AdvReac Intermediate ELEVATED Verified 02/07/21 17:20 HEPATIC ENZYMES Home Medications Medication Instructions Recorded Confirmed Type polyethylene glycol 3350 17 gram 17 g PO Q OTHER DAY #527 g 10/02/17 02/07/21 History oral powder packet (Miralax) morphine 15 mg immediate release 15 mg PO Q8H #30 tab 07/07/18 02/07/21 Rx tablet lorazepam 0.5 mg tablet See Rx Instructions .ROUTE .COMPLEX 10/04/19 02/07/21 History magnesium hydroxide 400 mg/5 mL 30 ml PO DAILY PRN 10/04/19 02/07/21 History oral suspension (Milk of Magnesia) acetaminophen 325 mg capsule 650 mg PO Q6H PRN cap 11/15/19 02/07/21 History bisacodyl 10 mg rectal suppository 10 mg [place] DAILY PRN 11/15/19 02/07/21 History famotidine 20 mg tablet 20 mg PO HS 11/15/19 02/07/21 History Saccharomyces boulardii 250 mg 250 mg PO QAM 02/07/21 02/07/21 History capsule albuterol sulfate 0.63 mg/3 mL 0.63 mg INHALATION Q4H PRN 02/07/21 02/07/21 History solution for nebulization hydroxyzine pamoate 50 mg capsule 50 mg PO HS 02/07/21 02/07/21 History ipratropium 20 mcg-albuterol 100 1 puff INHALATION Q6H PRN 02/07/21 02/07/21 History mcg/actuation mist for inhalation (Combivent Respimat) melatonin 3 mg tablet 6 mg PO HS 02/07/21 02/07/21 History pravastatin 20 mg tablet 20 mg PO HS 02/07/21 02/07/21 History sertraline 100 mg tablet 100 mg PO DAILY 02/07/21 02/07/21 History Past Med/Surg History Medical History (Updated 02/08/21 @ 06:59 by Sebastien Medina MD) Anemia Anxiety disorder Asthma Atelectasis Bipolar 2 disorder Bipolar disorder 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 CKD (chronic kidney disease) stage 3, GFR 30-59 ml/min Constipation COPD (chronic obstructive pulmonary disease) Depression Diabetes Diabetes mellitus GERD (gastroesophageal reflux disease) History of cerebral infarction Hx: recurrent pneumonia not specified as recurrent Hyperlipidemia Hyperlipidemia Insomnia Migraine Myelodysplasia (myelodysplastic syndrome) Panic disorder Panic disorder Peripheral vascular disease Pleural effusion Pleural effusion Port-A-Cath in place Recurrent depressive disorder Sideroblastic anemia Vitamin D deficiency Surgical History H/O shoulder surgery History of vascular access device Family History Mother Lung cancer Breast cancer Father Skin cancer Social History Smoking Status: Unknown if ever smoked Second Hand Exposure: No; Hx Alcohol Use: No Hx Substance Use: No Preferred Language: Israeli Communication Ability: Impaired Crabber Required: No Beliefs That Will Affect Care: None marital status: Single Current Living Situation: Group Home Current Living Situation Comment: [place] Feels Safe at Home: Declines to Answer Assistive Devices: None Review of Systems Review of Systems: All systems reviewed & are unremarkable except as noted in HPI & below Physical Exam Constitutional: + thin and + frail appearing; + not well nourished and no acute distress Eyes: + anicteric sclerae; normal pupil size ENMT: Mouth: + dry oral mucous membranes Neck: trachea midline, no thyromegaly Respiratory: normal respiratory effort, lungs clear to auscultation Cardiovascular: RRR, no murmur, no edema Gastrointestinal (Abdomen): Inspection/Auscultation: normal bowel sounds Percussion/Palpation: + abdomen tender (RUQ) and abdomen soft; no guarding and abdomen not rigid Musculoskeletal: no cyanosis or clubbing, extremities motor strength 5/5 Skin: no rashes, warm and dry + pallor (generalized) Neurologic: moves all extremities, awake and + confused Psychiatric: Orientation: alert, oriented to person and oriented to place (aware she is in hospital); + not oriented to time Genitourinary: no CVA tenderness Results & Data Results & Data ([facility]) Vital Signs (Past 12 Hours) Vital Signs Temp Pulse Resp BP Pulse Ox 02/07/21 18:00 58 L 16 111/54 L 100 02/07/21 17:30 55 L 14 92/56 L 100 02/07/21 17:11 56 L 18 02/07/21 16:55 93 02/07/21 16:30 56 L 20 02/07/21 16:08 36.8 C 56 L 16 94/40 L 94 02/07/21 16:07 57 L 12 92 Laboratory Results Abnormal lab results 02/07/21 02/07/21 02/07/21 Range/Units 16:50 16:50 16:50 RBC 2.35 L (4.2-5.4) M/uL Hgb 7.2 L (12.0-16.0) g/dL Hct 22.5 L (37-47) % RDW Std Deviation 58.0 H (36.4-46.3) fL RDW Coeff of Rochelle 17.0 H (11.5-14.5) % Lymph # (Auto) 0.32 L (1.2-3.4) K/uL BUN 23 H (7-18) mg/dl Creatinine 1.48 H (0.6-1.2) mg/dl Glucose 125 H (70-99) mg/dl Calcium 8.3 L (8.5-10.1) mg/dl Total Bilirubin 1.8 H (0.2-1) mg/dl AST 44 H (15-37) U/L Alkaline Phosphatase 126 H (45-117) U/L Albumin 3.0 L (3.4-5.0) gm/dl Globulin 4.3 H (2.5-4.0) gm/dl Albumin/Globulin Ratio 0.7 L (0.9-2) Lipase 66 L (73-393) U/L Diagnostic Findings ABDOMEN AND PELVIS CT WITHOUT CONTRAST CT DOSE: 630.76 mGycm HISTORY: LLQ andrew eval for obstruction TECHNIQUE: Multiaxial CT images of the abdomen and pelvis were performed without contrast. A dose lowering technique was utilized adhering to the principles of ALARA. COMPARISON STUDY: Abdomen and pelvis CT 10/04/2019. FINDINGS: Scarlike densities again noted at the left lung base. No pneumo peritoneum. No pneumatosis. 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 The tip of a central venous catheter terminates in the right atrium. Spleen is top normal in size. The unenhanced adrenal glands and pancreas appear unremarkable. No renal or ureteral stones. No hydronephrosis. Stable 3.6 cm left renal hypodense lesions likely representing a cyst. Moderate to severe intra and extra hepatic bile duct dilatation to the level of the ampulla which has progressed. There is also significantly distended gallbladder with mild gallbladder wall thickening and adjacent inflammatory change. No CT evidence for choledocholithiasis. The bladder, uterus, bilateral adnexa are within normal limits. Large amount well-formed stool within the rectum. The rectum is distended up to 7.8 cm. Suboptimal evaluation for bowel pathology due to the lack of intravenous and oral contrast. However, there is no definite bowel wall thickening or obstruction. Normal appendix. Moderate well-formed stool seen throughout the majority of the colon. IMPRESSION: 1. Moderate to severe intra and extrahepatic bile duct dilatation to the level of the ampulla which has progressed. There is also significant distention of the gallbladder with mild gallbladder wall thickening and adjacent inflammatory change. This is concerning for acute cholecystitis. Surgical consultation recommended. There appears to be an obstruction at the level of the ampulla without definite stone or mass. Therefore, consider ERCP for further evaluation. 2. No definite bowel wall thickening or obstruction. 3. Moderate to large amount of stool seen within the colon and rectum.. 4. Additional findings as described above. Medications Administered ER Medications Given: Zosyn 4.5g IV Ondansetron 4mg IV ECG Rate (beats per minute): 61 Rhythm: normal sinus Findings: no acute ischemic change Comparison ECG Date: from (October 04, 2019) Code Status & VTE Plan Code Status DNR/DNI per [facility] documentation, patient does not have capacity to make this decision at present time. Discussed with her NOK sister Chelsea. 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
--- NOTE | 2021-02-07 19:39 | Surgery Consultation ---
Date of Consultation February 07, 2021 Assessment & Plan (1) Right upper quadrant pain: Acute cholecystitis Patient has been admitted by the hospitalist There is concern for biliary ductal dilatation or GI consultation has been requested MRCP has been requested with results pending We will await GI recommendations and decision of ERCP is needed with further discussion about the possibility of cholecystectomy to follow thereafter Continue to provide analgesics and antiemetics Patient has received Zosyn in the emergency department Additional recommendations will be forthcoming Supervising Physician Co-Signing Physician Notes Suspect primary problem is: Bile duct obstruction distally with secondary distention of the gallbladder. [employer] to see the patient and possibly do an ERCP History of Present Illness Reason for Consultation: Cholecystitis History of Present Illness This is is a 62-year-old female with a history of myeloproliferative disorder. Patient was at the cancer treatment center today getting a Procrit infusion when she was found to be hypotensive with a systolic blood pressure in the 80s. Because of this she was sent to the emergency department for further evaluation. Patient says that she has had intermittent nausea vomiting for approximately 4 to 5 days. She also complains of generalized abdominal pain described as a cramping pain mostly in her lower abdomen. She denies any palliative or provocative factors and she says that the pain does not radiate. In addition the patient complains of generalized fatigue and weakness. She denies any fevers, shakes, chills. She said that she did try to eat lunch earlier today but shortly after eating nausea vomiting ensued. She does not have any diarrhea. Patient is unsure when her most recent bowel movement was. She denies any chest pain or shortness of breath. Because of her symptomatology she was evaluated in the emergency department where she had labs and imaging which I independently reviewed. CBC revealed white blood cell count was within normal range. Her hemoglobin was noted to be 7.2. Review of her labs reveal her baseline hemoglobin runs anywhere from approximately 7.8-9.4. Her platelet count was noted to be within the normal range. A chemistry profile showed sodium and potassium were both within normal range. BUN and creatinine were both slightly elevated at 23 and 1.48 respectively. This level of creatinine was near her baseline. Patient was noted to have elevated bilirubin at a level of 1.8 total bilirubin. Review of records show that this is higher than what her baseline bilirubin is. Patient had a slight elevation of her AST at 44 however the ALT was within normal range. Her alkaline phosphatase was only slightly elevated at 126. There is no elevation of her lipase. She did have a Covid test that was performed and was noted to be negative. Imaging included a CT scan of her abdomen and pelvis. This showed intra and extrahepatic biliary ductal dilatation to the level of the ampulla. Patient was also noted to have a distended gallbladder with mild gallbladder wall thickening and some inflammatory changes concerning for acute cholecystitis. It is noteworthy mention the patient has had previous abdominal imaging. She had an abdominal ultrasound in October of this year that did show some edema of her gallbladder wall with thickening of the gallbladder wall and trace gallbladder sludge. No pericholecystic fluid was noted on the study and patient was noted to have a dilated common bile duct. At the time of my interview with the patient she was in no distress. Allergies Allergy/AdvReac Type Severity Reaction Status Date / Time cat dander Allergy Mild ON EMBASSY Verified 02/07/21 17:20 OF [facility] MED LIST codeine Allergy Unknown SEE COMMENT Verified 02/07/21 17:20 simvastatin AdvReac Intermediate ELEVATED Verified 02/07/21 17:20 HEPATIC ENZYMES Home Medications Medication Instructions Recorded Confirmed Type polyethylene glycol 3350 17 gram 17 g PO Q OTHER DAY #527 g 10/02/17 02/07/21 History oral powder packet (Miralax) morphine 15 mg immediate release 15 mg PO Q8H #30 tab 07/07/18 02/07/21 Rx tablet lorazepam 0.5 mg tablet See Rx Instructions .ROUTE .COMPLEX 10/04/19 02/07/21 History magnesium hydroxide 400 mg/5 mL 30 ml PO DAILY PRN 10/04/19 02/07/21 History oral suspension (Milk of Magnesia) acetaminophen 325 mg capsule 650 mg PO Q6H PRN cap 11/15/19 02/07/21 History bisacodyl 10 mg rectal suppository 10 mg RI DAILY PRN 11/15/19 02/07/21 History famotidine 20 mg tablet 20 mg PO HS 11/15/19 02/07/21 History Saccharomyces boulardii 250 mg 250 mg PO QAM 02/07/21 02/07/21 History capsule albuterol sulfate 0.63 mg/3 mL 0.63 mg INHALATION Q4H PRN 02/07/21 02/07/21 History solution for nebulization hydroxyzine pamoate 50 mg capsule 50 mg PO HS 02/07/21 02/07/21 History ipratropium 20 mcg-albuterol 100 1 puff INHALATION Q6H PRN 02/07/21 02/07/21 History mcg/actuation mist for inhalation (Combivent Respimat) melatonin 3 mg tablet 6 mg PO HS 02/07/21 02/07/21 History pravastatin 20 mg tablet 20 mg PO HS 02/07/21 02/07/21 History sertraline 100 mg tablet 100 mg PO DAILY 02/07/21 02/07/21 History Patient History Medical History (Updated 02/08/21 @ 06:59 by Sebastien Medina MD) Anemia Anxiety disorder Asthma Atelectasis Bipolar 2 disorder Bipolar disorder 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 CKD (chronic kidney disease) stage 3, GFR 30-59 ml/min Constipation COPD (chronic obstructive pulmonary disease) Depression Diabetes Diabetes mellitus GERD (gastroesophageal reflux disease) History of cerebral infarction Hx: recurrent pneumonia not specified as recurrent Hyperlipidemia Hyperlipidemia Insomnia Migraine Myelodysplasia (myelodysplastic syndrome) Panic disorder Panic disorder Peripheral vascular disease Pleural effusion Pleural effusion Port-A-Cath in place Recurrent depressive disorder Sideroblastic anemia Vitamin D deficiency Surgical History H/O shoulder surgery History of vascular access device Family History Mother Lung cancer Breast cancer Father Skin cancer Social History Smoking Status: Unknown if ever smoked Second Hand Exposure: No; Hx Alcohol Use: No Hx Substance Use: No Preferred Language: Kazakh Communication Ability: Impaired Investor Relations Specialist Required: No Beliefs That Will Affect Care: None marital status: Single Current Living Situation: Alf Current Living Situation Comment: [place] Feels Safe at Home: Declines to Answer Assistive Devices: None Review of Systems Constitutional: + fatigue and + weakness; no fever and no chills Eyes: no diplopia Ear, Nose, Mouth, Throat: no ear pain Respiratory: no cough and no dyspnea Cardiovascular: no chest pain Gastrointestinal: + abdominal pain, + nausea and + vomiting; no diarrhea/loose stools Genitourinary: no dysuria Musculoskeletal: no back pain Integumentary: no rash Neurologic: no localized weakness Physical Exam Constitutional: + thin and + cachectic; no acute distress Eyes: no conjunctival abnormality ENMT: Ears: no hearing impairment Mouth: no oropharynx abnormality Neck: trachea midline Respiratory: normal respiratory effort; no respiratory distress and no labored breathing Cardiovascular: Rate/Rhythm: regular rate and regular rhythm Gastrointestinal (Abdomen): Abdomen is soft and nondistended. The patient did have some minor pain with palpation in a generalized fashion in her abdomen. Musculoskeletal: No calf tenderness Skin: no rashes Neurologic: moves all extremities Results & Data ([facility]) Vital Signs (Past 12 Hours) Vital Signs Temp Pulse Resp BP Pulse Ox 02/07/21 18:00 58 L 16 111/54 L 100 02/07/21 17:30 55 L 14 92/56 L 100 02/07/21 17:11 56 L 18 02/07/21 16:55 93 02/07/21 16:30 56 L 20 02/07/21 16:08 36.8 C 56 L 16 94/40 L 94 02/07/21 16:07 57 L 12 92 PG Care Time/CCT Total # of Minutes Spent Total Time Spent with Patient: Total time spent is greater than 50% in coordination of care (as documented) at patient's floor/unit and/or counseling patient: Coding Level of Care Code 26195 Inpt Consult Level 5 Diagnoses Right upper quadrant pain R10.11
[2021-02-07 19:55] LABS: INR 1.2 (0.9-1.1); Partial Thromboplastin Time 25.1 Seconds (21.0-31.0); Prothrombin Time 12.4 Seconds (9.0-12.0)
[2021-02-07] MEDS ORDERED: POLYETHYLENE (MIRALAX) 17 GM PACK PO PRN (20:18)
--- NOTE | 2021-02-07 20:26 | XRay Report ---
XR chest 1V portable HISTORY: hypoxia COMPARISON: Chest 10/04/2019. FINDINGS: No pneumothorax. No pleural fusions. Chronic scarlike densities the left lung base remain u nchanged. Stable volume loss within the left hemithorax with left mediastinal shift. The heart remain s mildly enlarged. No evidence for pulmonary edema. There is a left subclavian Port-A-Cath which term inates in the right atrium. There is a right humeral prosthesis which demonstrates chronic superior s ubluxation/dislocation. IMPRESSION: 1. No significant change compared to the prior study. No acute process. 2. Chronic left basilar scarlike densities persist. 3. Chronic superior subluxation/dislocation of the right humeral prosthesis in relation to the glenoi d. ACT 112: Negative or not required by law. Electronically signed by: Richard Anderson M.D. 02/07/2021 8:25 PM
[2021-02-07] MEDS ORDERED: SODIUM CHLORIDE 0.9% 250 ML IV PRN (20:56)
[2021-02-07] MEDS ORDERED: LORazepam 0.5 MG TAB PO SCH (21:00)
[2021-02-07] MEDS ORDERED: hydrOXYzine HCl 25 MG TAB PO SCH (21:00)
[2021-02-07] MEDS: FAMOTIDINE 20 MG TAB PO SCH (23:34)
[2021-02-07] MEDS: PRAVASTATIN SOD 20 MG TAB PO SCH (23:35)
[2021-02-07] MEDS: POLYETHYLENE (MIRALAX) 17 GM PACK PO SCH (23:35)
[2021-02-07] MEDS: MELATONIN 3 MG TAB PO SCH (23:35)
[2021-02-07] MEDS ORDERED: ACETAMINOPHEN 1,000 MG/100 ML VIAL IV PRN (23:37)
[2021-02-08] MEDS ORDERED: SODIUM CHLORIDE 0.9% 250 ML IV PRN (01:11)
[2021-02-08] MEDS: NORMOSOL-R 1,000 ML IV SCH ×3 (01:28→13:28)
--- NOTE | 2021-02-08 06:35 | Surgery Progress Note ---
Date of Service February 08, 2021 Assessment & Plan (1) Right upper quadrant pain: Plan: Patient has been admitted by the hospitalists: There is concern for biliary obstruction therefore GI has been consulted. They are tentatively planning on endoscopy later today We will await GI recommendations and findings at time of endoscopy with further surgical recommendations. Admission and Anticipated Discharge Date Admission Date: February 07, 2021 Subjective Patient is resting in bed. She denies any nausea vomiting. She denies any fevers, shakes, chills. She notes at the present time her abdominal pain has improved. Physical Exam Gastrointestinal (Abdomen): Abdomen is soft, nondistended, with minimal pain with palpation. Bowel sounds are present. Results & Data ([facility]) Vital Signs (Past 12 Hours) Vital Signs Temp Pulse Pulse Resp BP BP Pulse Ox 02/08/21 04:43 37.4 C 62 14 126/67 98 02/08/21 04:32 37.6 C H 63 14 131/60 97 02/08/21 04:00 37.4 C 72 14 100/56 L 99 02/08/21 03:30 37.6 C H 61 14 101/47 L 99 02/08/21 03:00 36.7 C 68 14 95/51 L 97 02/08/21 02:26 37.4 C 76 14 87/50 L 100 02/08/21 02:25 37.4 C 74 14 90/45 L 100 02/08/21 02:20 37.4 C 76 14 84/46 L 100 02/08/21 02:15 37.8 C H 77 14 97/45 L 99 02/08/21 02:08 37.2 C 78 14 92/45 L 100 02/08/21 00:08 37.7 C H 02/07/21 23:01 39.6 C H 106 H 20 125/64 93 02/07/21 21:05 119/64 PG Care Time/CCT Total # of Minutes Spent Total Time Spent with Patient: Total time spent is greater than 50% in coordination of care (as documented) at patient's floor/unit and/or counseling patient: Coding Level of Care Code 41008 Subseq Hosp Care Lvl 1 Diagnoses Right upper quadrant pain R10.11
[2021-02-08] MEDS ORDERED: CONSULT PHARMACY STA (06:56)
[2021-02-08] MEDS ORDERED: PIPERACILLIN/TAZOBACTAM 4.5 GM in DEXTROSE 5% 100 ML IV ONE (07:15)
[2021-02-08] MEDS ORDERED: PIPERACILLIN/TAZOBACTAM 3.375 GM in DEXTROSE 5% 100 ML IV ONE (07:15)
[2021-02-08] MEDS: POLYETHYLENE (MIRALAX) 17 GM PACK PO SCH ×2 (08:21→21:22)
[2021-02-08] MEDS: SERTRALINE HCL 100 MG TABLET PO SCH (08:21)
[2021-02-08] MEDS: SACCHAROMYCES BOULARDII 250 MG CAP PO SCH (08:21)
[2021-02-08] MEDS ORDERED: LORazepam 0.5 MG TAB PO SCH (09:00)
--- NOTE | 2021-02-08 10:26 | Gastrointestinal Consultation ---
Date of Consultation February 08, 2021 Assessment & Plan (1) Right upper quadrant pain: (2) Intrahepatic bile duct dilation: (3) Common bile duct dilation: (4) Elevated liver enzymes: Discussed case with Dr. Arriola, and as patient has no evidence clinically of Acute Cholangitis, and bile duct changes though worsening have been noted previously, would recommend outpatient EUS/ERCP Recommend checking her Liver panel again today Continue supportive care Will follow her clinical course and make further recommendations as needed. History of Present Illness Reason for Consultation: Choledocholithiasis Attending Physician: Nael Kelly MD History of Present Illness Maki Mirza is a 70 yo CF with an extensive PMHx who presented to the ER yesterday after an evaluation at [facility], as which time she was noted to be hypotensive and experienced nausea and vomiting. She presented to the ER, and did complain of some RUQ abdominal pain. She was noted to have slight elevations in her Total Bilirubin, AST and Alk Phos, and a CT abd/pelvis showed evidence of intra and extrahepatic biliary ductal dilation. Her WBC count was normal and she was afebrile, however, her H/H was noted to be extremely low. I was contacted by Dr. Medina of the Hospitalist service at that time, regarding the possible need for ERCP. I discussed the case in detail with Dr. Arriola of [facility], as he performs EUS/ERCP, and decision was made to order an MRCP, as biliary ductal dilation was noted on prior imaging earlier this year. The patient subsequently refused the MRCP overnight. At the time I saw the patient, she was resting comfortably in bed. She denies any further nausea, vomiting, or RUQ abdominal pain. She is unsure if she has ever undergone an EGD or colonoscopy in the past. She denies any fevers, chills, hematemesis, melena, or hematochezia. She states that she has not had any BM's since her arrival. She is on chronic narcotic analgesia at home, and note was made of a moderate amount of stool in the rectum on CT imaging. She has no further complaints. Allergies Allergy/AdvReac Type Severity Reaction Status Date / Time cat dander Allergy Mild ON EMBASSY Verified 02/07/21 17:20 [facility] codeine Allergy Unknown SEE COMMENT Verified 02/07/21 17:20 simvastatin AdvReac Intermediate ELEVATED Verified 02/07/21 17:20 HEPATIC ENZYMES Home Medications Medication Instructions Recorded Confirmed Type polyethylene glycol 3350 17 gram 17 g PO Q OTHER DAY #527 g 10/02/17 02/07/21 History oral powder packet (Miralax) morphine 15 mg immediate release 15 mg PO Q8H #30 tab 07/07/18 02/07/21 Rx tablet lorazepam 0.5 mg tablet See Rx Instructions .ROUTE .COMPLEX 10/04/19 02/07/21 History magnesium hydroxide 400 mg/5 mL 30 ml PO DAILY PRN 10/04/19 02/07/21 History oral suspension (Milk of Magnesia) acetaminophen 325 mg capsule 650 mg PO Q6H PRN cap 11/15/19 02/07/21 History bisacodyl 10 mg rectal suppository 10 mg [place] DAILY PRN 11/15/19 02/07/21 History famotidine 20 mg tablet 20 mg PO HS 11/15/19 02/07/21 History Saccharomyces boulardii 250 mg 250 mg PO QAM 02/07/21 02/07/21 History capsule albuterol sulfate 0.63 mg/3 mL 0.63 mg INHALATION Q4H PRN 02/07/21 02/07/21 History solution for nebulization hydroxyzine pamoate 50 mg capsule 50 mg PO HS 02/07/21 02/07/21 History ipratropium 20 mcg-albuterol 100 1 puff INHALATION Q6H PRN 02/07/21 02/07/21 History mcg/actuation mist for inhalation (Combivent Respimat) melatonin 3 mg tablet 6 mg PO HS 02/07/21 02/07/21 History pravastatin 20 mg tablet 20 mg PO HS 02/07/21 02/07/21 History sertraline 100 mg tablet 100 mg PO DAILY 02/07/21 02/07/21 History Patient History Medical History (Updated 02/08/21 @ 10:40 by Indio Garcia, DO) Anemia Anxiety disorder Asthma Atelectasis Bipolar 2 disorder Bipolar disorder 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 CKD (chronic kidney disease) stage 3, GFR 30-59 ml/min Constipation COPD (chronic obstructive pulmonary disease) Depression Diabetes Diabetes mellitus GERD (gastroesophageal reflux disease) History of cerebral infarction Hx: recurrent pneumonia not specified as recurrent Hyperlipidemia Hyperlipidemia Insomnia Migraine Myelodysplasia (myelodysplastic syndrome) Panic disorder Panic disorder Peripheral vascular disease Pleural effusion Pleural effusion Port-A-Cath in place Recurrent depressive disorder Sideroblastic anemia Vitamin D deficiency Surgical History H/O shoulder surgery History of vascular access device Family History Mother Lung cancer Breast cancer Father Skin cancer Social History Smoking Status: Unknown if ever smoked Second Hand Exposure: No; Hx Alcohol Use: No Hx Substance Use: No Preferred Language: Maldivian Communication Ability: Effective 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 Beliefs That Will Affect Care: None marital status: Single Current Living Situation: Alf Current Living Situation Comment: [place] Feels Safe at Home: Declines to Answer Assistive Devices: None Review of Systems Constitutional: as per Subjective / HPI Eyes: as per Subjective / HPI Ear, Nose, Mouth, Throat: as per Subjective / HPI Respiratory: as per Subjective / HPI Cardiovascular: as per Subjective / HPI Gastrointestinal: as per Subjective / HPI Musculoskeletal: as per Subjective / HPI Integumentary: as per Subjective / HPI Neurologic: as per Subjective / HPI Psychiatric: as per Subjective / HPI Endocrine: as per Subjective / HPI Hematologic / Lymphatic: as per Subjective / HPI Allergy / Immunological: as per Subjective / HPI Physical Exam Constitutional: + ill appearing (chronic) and + disheveled; no acute distress Eyes: + anicteric sclerae ENMT: external ear and nose normal, oropharynx normal Neck: normal visual inspection Respiratory: normal respiratory effort, lungs clear to auscultation Cardiovascular: RRR, no murmur, no edema Gastrointestinal (Abdomen): normal bowel sounds, soft, nontender, no hepatosplenomegaly Skin: + pallor Psychiatric: A+Ox3, euthymic affect Results & Data ([facility]) Vital Signs (Past 12 Hours) Vital Signs Temp Pulse Pulse Resp BP BP Pulse Ox 02/08/21 07:00 36.7 C 61 18 117/75 90 02/08/21 04:43 37.4 C 62 14 126/67 98 02/08/21 04:32 37.6 C H 63 14 131/60 97 02/08/21 04:00 37.4 C 72 14 100/56 L 99 02/08/21 03:30 37.6 C H 61 14 101/47 L 99 02/08/21 03:00 36.7 C 68 14 95/51 L 97 02/08/21 02:26 37.4 C 76 14 87/50 L 100 02/08/21 02:25 37.4 C 74 14 90/45 L 100 02/08/21 02:20 37.4 C 76 14 84/46 L 100 02/08/21 02:15 37.8 C H 77 14 97/45 L 99 02/08/21 02:08 37.2 C 78 14 92/45 L 100 02/08/21 00:08 37.7 C H 02/07/21 23:01 39.6 C H 106 H 20 125/64 93 PG Care Time/CCT Total # of Minutes Spent Total Time Spent with Patient: Total time spent is greater than 50% in coordination of care (as documented) at patient's floor/unit and/or counseling patient: Coding Level of Care Code 46362 Initial Inpt Care Lvl 3 Diagnoses Right upper quadrant pain R10.11 Intrahepatic bile duct dilation K83.8 Common bile duct dilation K83.8 Elevated liver enzymes R74.8
[2021-02-08 11:40] LABS: Eosinophils # (auto) 0.01 K/uL (0-0.5); Eosinophils % (auto) 0.1 %; Hematocrit (blood only) 22.7 % (37-47); Hemoglobin 7.3 g/dL (12.0-16.0); Immature Granulocytes # (auto) 0.01 K/uL (0.00-0.02); Immature Granulocytes % (auto) 0.1 %; Lymphocytes # (auto) 0.37 K/uL (1.2-3.4); Lymphocytes % (auto) 4.9 %; Mean Corpuscular Hemoglobin 29.6 pg (25-34); Mean Corpuscular Hgb Conc 32.2 g/dL (32-36); Mean Corpuscular Volume 91.9 fL (80-100); Mean Platelet Volume 10.7 fL (7.4-10.4); Monocytes # (auto) 0.28 K/uL (0.11-0.59); Monocytes % (auto) 3.7 %; Neutrophils % (auto) 91.2 %; Platelet Count 185 K/uL (130-400); RDW Standard Deviation 55.6 fL (36.4-46.3); Red Blood Count 2.47 M/uL (4.2-5.4); White Blood Count 7.57 K/uL (4.8-10.8)
[2021-02-08 12:01] LABS: Albumin Level 2.5 gm/dl (3.4-5.0); BUN Creatinine Ratio 15.6 (10-20); Calcium 7.7 mg/dl (8.5-10.1); Creatinine Clr Calc Pharmacy 22.2 ml/min; Est GFR (African American) 33.8 ml/min; Est GFR (Non-African American) 29.2 ml/min; Potassium 4.6 mmol/L (3.5-5.1)
[2021-02-08 12:04] LABS: Albumin Globulin Ratio 0.6 (0.9-2); Bilirubin,Total 1.3 mg/dl (0.2-1); Globulin 4.1 gm/dl (2.5-4.0); Total Protein 6.6 gm/dl (6.4-8.2)
--- NOTE | 2021-02-08 12:23 | Electrocardiogram Report ---
Test Reason : Blood Pressure : / mmHG Vent. Rate : 061 BPM Atrial Rate : 061 BPM P-R Int : 150 ms QRS Dur : 072 ms QT Int : 450 ms P-R-T Axes : 063 015 016 degrees QTc Int : 453 ms Normal sinus rhythm When compared with ECG of 04-OCT-2019 19:00, Nonspecific T wave abnormality no longer evident in Lateral leads Confirmed by Ankit Turner ([id number]) on 02/08/2021 12:23:03 PM Referred By: [facility] Confirmed By:Chet Turner
[2021-02-08 12:29] LABS: Tear Drop Cells 1+
--- NOTE | 2021-02-08 13:02 | Hospitalist Progress Note ---
Date of Service February 08, 2021 Assessment & Plan (1) Right upper quadrant pain: Plan: Patient had Charcot's triad on admission with fever, elevated bilirubin, and RUQ pain, concerning for ascending cholangitis. CT a/p on 02/07 progressive bile duct dilation and gallbladder wall thickening with obstruction of the ampulla. - Despite this, GI team does not feel this is ascending cholangitis and do not feel inpatient ERCP is warranted. I discussed this with GI team on 02/08. - Patient appears willing to undergo MRCP today, so will see if MRI can accommodate this. - Continue IV Zosyn - GI feels this is due to constipation and recommend good bowel regimen. Will c ontinue Miralax. (2) Constipation: Plan: MiraLAX as above. (3) Anemia: Plan: Baseline hgb appears to be 8 - 9 g/dL. - Transfused 1 unit PRBCs on 02/07; hemoglobin stable today (no bounce). - Monitor for bleeding (4) Bipolar 2 disorder: Plan: Anxiety and bipolar. - Hold sedating meds at this time - Continue sertraline (5) CKD (chronic kidney disease) stage 3, GFR 30-59 ml/min: Plan: Baseline Cr ~1.5. - At baseline, though mildly higher today. Does not meet acute kidney injury definition. (6) COPD (chronic obstructive pulmonary disease): Plan: On no maintenance inhalers for this. No acute exacerbation suspected. - Monitor (7) Diabetes mellitus: Plan: A1c was 5.6% in 10/2020. Not on home meds. - Monitor blood sugars (8) Myelodysplasia (myelodysplastic syndrome): Plan: Cause of anemia as above. (9) DVT prophylaxis: Plan: SCDs - Holding heparin for anemia and possible ERCP/surgery Admission and Anticipated Discharge Date Admission Date: February 07, 2021 Subjective Very sleepy today. Does wake up and respond, but then falls back asleep. Reports no fevers/chills, chest pain, shortness of breath, abdominal pain, nausea, or vomiting. Physical Exam Constitutional: WD/WN, vitals as above Eyes: EOM intact bilaterally; no conjunctival abnormality ENMT: external ear and nose normal, oropharynx normal Neck: trachea midline, no thyromegaly normal visual inspection Respiratory: normal respiratory effort, lungs clear to auscultation no respiratory distress Cardiovascular: RRR, no murmur, no edema Gastrointestinal (Abdomen): Inspection/Auscultation: abdomen normal to inspection; abdomen not distended Percussion/Palpation: abdomen soft; abdomen nontender, no guarding and abdomen not rigid Musculoskeletal: no cyanosis or clubbing, extremities motor strength 5/5 Skin: no rashes, warm and dry Neurologic: moves all extremities and awake Psychiatric: Orientation: alert, oriented to person and cooperative Results & Data Results & Data ([facility]) Vital Signs (Past 12 Hours) Vital Signs Temp Pulse Pulse Resp BP BP BP 02/08/21 12:00 37.5 C 62 18 96/59 L 02/08/21 10:43 66 02/08/21 07:00 36.7 C 61 18 117/75 02/08/21 04:43 37.4 C 62 14 126/67 02/08/21 04:32 37.6 C H 63 14 131/60 02/08/21 04:00 37.4 C 72 14 100/56 L 02/08/21 03:30 37.6 C H 61 14 101/47 L 02/08/21 03:00 36.7 C 68 14 95/51 L 02/08/21 02:26 37.4 C 76 14 87/50 L 02/08/21 02:25 37.4 C 74 14 90/45 L 02/08/21 02:20 37.4 C 76 14 84/46 L 02/08/21 02:15 37.8 C H 77 14 97/45 L 02/08/21 02:08 37.2 C 78 14 92/45 L Pulse Ox 02/08/21 12:00 91 02/08/21 10:43 02/08/21 07:00 90 02/08/21 04:43 98 02/08/21 04:32 97 02/08/21 04:00 99 02/08/21 03:30 99 02/08/21 03:00 97 02/08/21 02:26 100 02/08/21 02:25 100 02/08/21 02:20 100 02/08/21 02:15 99 02/08/21 02:08 100 PG Care Time/CCT Total # of Minutes Spent Total Time Spent with Patient: Total time spent is greater than 50% in coordination of care (as documented) at patient's floor/unit and/or counseling patient: Coding Level of Care Code 93849 Subseq Hosp Care Lvl 3 Diagnoses Right upper quadrant pain R10.11 Constipation K59.00 CKD (chronic kidney disease) stage 3, GFR 30-59 ml/min N18.30 COPD (chronic obstructive pulmonary disease) J44.9 Anemia D64.9 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
[2021-02-08] MEDS ORDERED: hydrOXYzine HCl 25 MG TAB PO PRN (13:04)
[2021-02-08] MEDS ORDERED: LORazepam 0.5 MG TAB PO PRN ×2 (13:04)
[2021-02-08] MEDS: PIPERACILLIN/TAZOBACTAM 3.375 GM in DEXTROSE 5% 100 ML IV SCH ×2 (13:25→21:00)
[2021-02-08] MEDS: SENNA 8.6 MG TAB PO SCH (21:22)
[2021-02-08] MEDS: PRAVASTATIN SOD 20 MG TAB PO SCH (21:23)
[2021-02-08] MEDS: MELATONIN 3 MG TAB PO SCH (21:23)
[2021-02-08] MEDS: FAMOTIDINE 20 MG TAB PO SCH (21:24)
[2021-02-09] MEDS: NORMOSOL-R 1,000 ML IV SCH ×2 (03:04→13:45)
[2021-02-09] MEDS: PIPERACILLIN/TAZOBACTAM 3.375 GM in DEXTROSE 5% 100 ML IV SCH ×3 (05:32→21:03)
[2021-02-09 08:18] LABS: Hematocrit (blood only) 20.1 % (37-47); Hemoglobin 6.5 g/dL (12.0-16.0); Mean Corpuscular Hemoglobin 29.7 pg (25-34); Mean Corpuscular Hgb Conc 32.3 g/dL (32-36); Mean Corpuscular Volume 91.8 fL (80-100); Mean Platelet Volume 10.6 fL (7.4-10.4); Platelet Count 176 K/uL (130-400); RDW Coefficient of Variation 16.9 % (11.5-14.5); RDW Standard Deviation 55.3 fL (36.4-46.3); Red Blood Count 2.19 M/uL (4.2-5.4); White Blood Count 5.93 K/uL (4.8-10.8)
[2021-02-09 08:26] LABS: Albumin Level 2.4 gm/dl (3.4-5.0); BUN Creatinine Ratio 15.3 (10-20); Calcium 7.7 mg/dl (8.5-10.1); Creatinine Clr Calc Pharmacy 25.2 ml/min; Est GFR (African American) 39.2 ml/min; Est GFR (Non-African American) 33.8 ml/min; Magnesium 2.3 mg/dl (1.8-2.4); Potassium 4.1 mmol/L (3.5-5.1)
[2021-02-09 08:29] LABS: Albumin Globulin Ratio 0.6 (0.9-2); Globulin 3.9 gm/dl (2.5-4.0); Total Protein 6.3 gm/dl (6.4-8.2)
[2021-02-09] MEDS ORDERED: SODIUM CHLORIDE 0.9% 250 ML IV PRN (08:38)
[2021-02-09] MEDS: ACETAMINOPHEN 325 MG TAB PO PRN (09:44)
--- NOTE | 2021-02-09 09:48 | Magnetic Resonance Report ---
MR MRCP HISTORY: Vomiting. r/o choledocholithiasis TECHNIQUE: MRCP of the abdomen was performed without contrast according to standard departmental prot ocol. COMPARISON STUDY: Abdomen and pelvis CT 02/07/2021. FINDINGS: Volume loss and scarlike densities again noted within the left lung base. The right lung ba se appears clear. Difficult evaluation of the biliary system due to the significant motion artifact. Moderate intra and extra hepatic bile duct dilatation is again noted. The common bile duct measures u p to 11 mm in diameter. There appear to be a few punctate stones within the distal common bile duct a nd gallbladder. Mild gallbladder wall thickening with trace pericholecystic fluid is noted. No hepati c or splenic masses. There is a 4 cm left renal cyst. There are few small bilateral peripelvic renal cysts. No hydronephrosis. The pancreas is unremarkable. The main pancreatic duct is normal in course and caliber. The adrenal glands are unremarkable. No hepatic or splenic masses. No retroperitoneal ly mphadenopathy. IMPRESSION: 1. Near nondiagnostic evaluation of the biliary system due to the significant motion artifact. Howeve r, there appears to be a few punctate stones within the common bile duct. This likely accounts for th e moderate intra and extrahepatic bile duct dilatation. 2. There are a few punctate stones within the gallbladder with mild gallbladder wall thickening and t race pericholecystic fluid. The gallbladder is distended. These findings likely represent an acute ch olecystitis. Surgical consultation recommended. ACT 112: Negative or not required by law. Electronically signed by: Richard Anderson M.D. 02/09/2021 9:47 AM
[2021-02-09] MEDS: POLYETHYLENE (MIRALAX) 17 GM PACK PO SCH ×2 (09:55→20:52)
[2021-02-09] MEDS: SACCHAROMYCES BOULARDII 250 MG CAP PO SCH (09:55)
[2021-02-09] MEDS: SERTRALINE HCL 100 MG TABLET PO SCH (09:55)
[2021-02-09] MEDS ORDERED: INDOMETHACIN 50 MG SUPP PR ONE (09:57)
--- NOTE | 2021-02-09 10:34 | Surgery Progress Note ---
Date of Service February 09, 2021 Assessment & Plan (1) Elevated liver enzymes: (2) Common bile duct dilation: (3) Myelodysplasia (myelodysplastic syndrome): (4) Acute cholecystitis: Plan: She is clinically doing better. She is scheduled for an ERCP tomorrow because of the results of the MRI. We will wait to see the results of the ERCP. We will need to talk with medicine as well as the patient regarding the risk benefit of performing cholecystectomy versus more conservative approach considering her comorbidities. Admission and Anticipated Discharge Date Admission Date: February 07, 2021 Subjective Patient seen. Feeling better. She is denying abdominal pain currently and states she is hungry. Physical Exam Constitutional: WD/WN, vitals as above no acute distress and not ill appearing Eyes: PERRL, conjunctivae normal, anicteric sclerae EOM intact bilaterally ENMT: external ear and nose normal, oropharynx normal Ears: no hearing impairment Neck: trachea midline, no thyromegaly Respiratory: normal respiratory effort; no respiratory distress and does not use accessory muscles Cardiovascular: Rate/Rhythm: regular rate and regular rhythm Gastrointestinal (Abdomen): Soft. Nontender. No guarding Skin: no rashes, warm and dry Psychiatric: Orientation: alert, oriented x 3 and cooperative Results & Data ([facility]) Vital Signs (Past 12 Hours) Vital Signs Temp Pulse Pulse Resp BP BP Pulse Ox 02/09/21 10:30 37.1 C 70 18 114/58 L 02/09/21 09:58 36.9 C 65 18 115/69 02/09/21 09:38 37.6 C H 59 L 18 120/50 L 97 02/09/21 07:26 63 02/09/21 07:00 36.8 C 65 18 124/51 L 98 02/09/21 03:49 37 C 66 18 152/73 H 95 02/09/21 02:52 56 L 02/08/21 23:13 36.8 C 64 18 103/67 95 PG Care Time/CCT Total # of Minutes Spent Total Time Spent with Patient: Total time spent is greater than 50% in coordination of care (as documented) at patient's floor/unit and/or counseling patient: Coding Level of Care Code 48694 Subseq Hosp Care Lvl 3 Diagnoses Elevated liver enzymes R74.8 Common bile duct dilation K83.8 Myelodysplasia (myelodysplastic syndrome) D46.9 Acute cholecystitis K81.0
--- NOTE | 2021-02-09 11:10 | Anesthesiology Consultation ---
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 History Surgery Operation Date: 02/08/21 09:00 Proposed Procedures p Endoscopic Ultrasonography Lower, ERCP - Sammy Arriola DO Operation Date: 02/09/21 09:55 Proposed Procedures p Endoscopic Retrograde Cholangiopancreatogram - Sammy Arriola DO Operation Date: 02/10/21 07:30 Proposed Procedures p Endoscopic Retrograde Cholangiopancreatogram - Sammy Arriola DO Height/Weight Height: 5 ft 3 in Weight: 46.2 kg Allergies Allergy/AdvReac Type Severity Reaction Status Date / Time cat dander Allergy Mild ON EMBASSY Verified 02/07/21 17:20 OF [facility] MED LIST codeine Allergy Unknown SEE COMMENT Verified 02/07/21 17:20 simvastatin AdvReac Intermediate ELEVATED Verified 02/07/21 17:20 HEPATIC ENZYMES Medications Home Medications Medication Instructions Recorded Confirmed Last Taken polyethylene glycol 3350 17 gram 17 g PO Q OTHER DAY #527 g 10/02/17 02/07/21 02/05/21 oral powder packet (Miralax) morphine 15 mg immediate release 15 mg PO Q8H #30 tab 07/07/18 02/07/21 02/07/21 08:00 tablet lorazepam 0.5 mg tablet See Rx Instructions .ROUTE .COMPLEX 10/04/19 02/07/21 02/06/21 magnesium hydroxide 400 mg/5 mL 30 ml PO DAILY PRN 10/04/19 02/07/21 10/04/19 08:30 oral suspension (Milk of Magnesia) acetaminophen 325 mg capsule 650 mg PO Q6H PRN cap 11/15/19 02/07/21 Unknown bisacodyl 10 mg rectal suppository 10 mg [place] DAILY PRN 11/15/19 02/07/21 Unknown famotidine 20 mg tablet 20 mg PO HS 11/15/19 02/07/21 02/06/21 Saccharomyces boulardii 250 mg 250 mg PO QAM 02/07/21 02/07/21 02/06/21 capsule albuterol sulfate 0.63 mg/3 mL 0.63 mg INHALATION Q4H PRN 02/07/21 02/07/21 Unknown solution for nebulization hydroxyzine pamoate 50 mg capsule 50 mg PO HS 02/07/21 02/07/2121 ipratropium 20 mcg-albuterol 100 1 puff INHALATION Q6H PRN 02/07/21 02/07/21 Unk nown mcg/actuation mist for inhalation (Combivent Respimat) melatonin 3 mg tablet 6 mg PO HS 02/07/21 02/07/21 02/06/21 pravastatin 20 mg tablet 20 mg PO HS 02/07/21 02/07/21 02/06/21 sertraline 100 mg tablet 100 mg PO DAILY 02/07/21 02/07/21 02/06/21 Active Medications Generic Name Dose Route Start Last Admin Trade Name Freq PRN Reason Stop Dose Admin Acetaminophen 650 mg 02/07/21 20:18 02/09/21 09:44 Acetaminophen 325 Mg Tab PO 03/09/21 20:17 650 mg Q4H PRN Administration Pain or Fever Famotidine 20 mg 02/07/21 21:00 02/08/21 21:24 Famotidine 20 Mg Tab PO 03/09/21 20:59 20 mg HS MERON Administration Hydroxyzine HCl 50 mg 02/08/21 13:04 02/09/21 03:09 Hydroxyzine Hcl 25 Mg Tab PO 03/09/21 20:59 50 mg HS PRN Administration Insomnia Parenteral Electrolytes 1,000 mls @ 80 mls/hr 02/07/21 23:45 02/09/21 03:04 Normosol-R IV 03/09/21 23:44 80 mls/hr .[id number] MERON Administration Piperacillin Sod/Tazobactam 115 mls @ 28.75 mls/hr 02/08/21 13:00 02/09/21 09:45 Sod 3.375 gm/ Dextrose IV 02/18/21 12:59 Infused Q8H MERON Infusion Protocol Lorazepam 0.5 mg 02/08/21 13:04 02/09/21 01:39 Lorazepam 0.5 Mg Tab PO 03/09/21 20:59 0.5 mg QPM PRN Administration Anxiety/Agitation Melatonin 6 mg 02/07/21 21:00 02/08/21 21:23 Melatonin 3 Mg Tab PO 03/09/21 20:59 6 mg HS MERON Administration Polyethylene Glycol 17 gm 02/07/21 21:30 02/09/21 09:55 Polyethylene (Miralax) 17 Gm Pack PO 03/09/21 21:29 17 gm BID MERON Administration Pravastatin Sodium 20 mg 02/07/21 21:00 02/08/21 21:23 Pravastatin Sod 20 Mg Tab PO 03/09/21 20:59 20 mg HS MERON Administration Saccharomyces Boulardii 250 mg 02/08/21 09:00 02/09/21 09:55 Saccharomyces Boulardii 250 Mg Cap PO 03/10/21 08:59 250 mg QAM MERON Administration Sennosides 8.6 mg 02/08/21 21:00 02/08/21 21:22 Senna 8.6 Mg Tab PO 03/10/21 20:59 8.6 mg HS MERON Administration Sertraline HCl 100 mg 02/08/21 09:00 02/09/21 09:55 Sertraline Hcl 100 Mg Tablet PO 03/10/21 08:59 100 mg DAILY MERON Administration 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 CKD (chronic kidney disease) stage 3, GFR 30-59 ml/min Constipation COPD (chronic obstructive pulmonary disease) Depression Diabetes Diabetes mellitus GERD (gastroesophageal reflux disease) History of cerebral infarction Hx: recurrent pneumonia not specified as recurrent Hyperlipidemia Hyperlipidemia Insomnia Migraine Myelodysplasia (myelodysplastic syndrome) Panic disorder Panic disorder Peripheral vascular disease Pleural effusion Pleural effusion Port-A-Cath in place Recurrent depressive disorder Sideroblastic anemia Vitamin D deficiency Past Family History Family History Mother Lung cancer Breast cancer Father Skin cancer Past Surgical History Surgical History H/O shoulder surgery History of vascular access device Social History Smoking Status: Unknown if ever smoked tobacco type: cigarettes Hx Alcohol Use: No Hx Substance Use: No substance use type: does not use Physical Exam Vital Signs Last Vital Signs Temp 98.8 F 02/09/21 10:30 Pulse 70 02/09/21 10:30 Resp 18 02/09/21 10:30 BP 114/58 L 02/09/21 10:30 Pulse Ox 97 02/09/21 09:38 Testing Laboratory Results 02/09/21 07:02 02/09/21 07:02 PT 12.4 Seconds (9.0-12.0) H 02/07/21 19: INR 1.2 (0.9-1.1) H 02/07/21 19: APTT 25.1 Seconds (21.0-31.0) 02/07/21 19:28 Blood Type O Negative 02/07/21 17:25 Antibody Screen NEGATIVE 02/07/21 17:25 Electrocardiogram Date: 02/07/21 Normal sinus rhythm, rate 61 bpm When compared with ECG of 04-OCT-2019 19:00, Nonspecific T wave abnormality no longer evident in Lateral leads Confirmed by Ankit Turner ([id number]) on 02/08/2021 12:23:03 PM Chest X-Ray Date: 02/07/21 IMPRESSION: 1. No significant change compared to the prior study. No acute process. 2. Chronic left basilar scarlike densities persist. 3. Chronic superior subluxation/dislocation of the right humeral prosthesis in relation to the glenoid.
--- NOTE | 2021-02-09 11:55 | Gastroenterology Progress Note ---
Date of Service February 09, 2021 Assessment & Plan (1) Choledocholithiasis: (2) Acute cholecystitis: Plan: Pt is a 70 y/o female who presented w RUQ abd pain, n/v, noted to have mild LFT elevation, MRCP indicative of CBD stones, cholelithiasis and possible cholecys titis - We are not able to obtain OR time today for ERCP. Will plan for ERCP on 02/10 (Dr. Sammy Arriola). Please keep pt on CL diet today, NPO after midnight - Continue IV antibx - Surgery consulted - Trend LFTs Admission and Anticipated Discharge Date Admission Date: February 07, 2021 Supervising Physician Co-Signing Physician Notes I have personally seen and examined the patient with ZONIA Fry. Her note reflects my exam and findings. I agree with her impression and plan. No signs of bleeding. Anemia with Hgb in the 6 range has been noted for over a year. Will arrange ERCP. Tom Colon M.D. Subjective Pt denies abd pain, n/v overnight. MRCP obtained this AM which is suboptimal but noted small stones in CBD area, along w cholelithiasis, gallbladder distension suggestive of cholecystitis Review of Systems Review of Systems: All systems reviewed & are unremarkable except as noted in HPI & below Physical Exam Constitutional: WD/WN, vitals as above well groomed, cooperative and comfortable Eyes: PERRL, conjunctivae normal, anicteric sclerae ENMT: external ear and nose normal, oropharynx normal Respiratory: normal respiratory effort, lungs clear to auscultation Cardiovascular: RRR, no murmur, no edema Gastrointestinal (Abdomen): normal bowel sounds, soft, nontender, no hepatosplenomegaly Skin: no rashes, warm and dry no jaundice Psychiatric: A+Ox3, euthymic affect Lymphatic: no lymphedema Results & Data ([facility]) Vital Signs (Past 12 Hours) Vital Signs Temp Pulse Pulse Resp BP BP Pulse Ox 02/09/21 11:29 36.8 C 67 18 127/72 100 02/09/21 11:28 36.8 C 67 18 127/72 02/09/21 11:05 36.8 C 67 16 132/55 L 100 02/09/21 10:30 37.1 C 70 18 114/58 L 02/09/21 09:58 36.9 C 65 18 115/69 02/09/21 09:38 37.6 C H 59 L 18 120/50 L 97 02/09/21 07:26 63 02/09/21 07:00 36.8 C 65 18 124/51 L 98 02/09/21 03:49 37 C 66 18 152/73 H 95 02/09/21 02:52 56 L
--- NOTE | 2021-02-09 14:30 | Hospitalist Progress Note ---
Date of Service February 09, 2021 Assessment & Plan (1) Right upper quadrant pain: Plan: Patient had Charcot's triad on admission with fever, elevated bilirubin, and RUQ pain, concerning for ascending cholangitis. CT a/p on 02/07 progressive bile duct dilation and gallbladder wall thickening with obstruction of the ampulla. - MRCP on 02/09 showed stones in the CBD. - Continue IV Zosyn - GI plan for ERCP on 02/10. NPO @ midnight. (2) Constipation: Plan: - Continue MiraLAX & Senna. (3) Anemia: Plan: Baseline hgb appears to be 8 - 9 g/dL. - Transfused 1 unit PRBCs on 02/07. Tranfuse 2 units PRBCs on 02/09. - Monitor for bleeding; no indication of this. She has long-standing MDS, so I think this is poor bone marrow response rather than acute bleeding. (4) Bipolar 2 disorder: Plan: Anxiety and bipolar. - Hold sedating meds at this time - Continue sertraline (5) CKD (chronic kidney disease) stage 3, GFR 30-59 ml/min: Plan: Baseline Cr ~1.5. - At baseline. (6) COPD (chronic obstructive pulmonary disease): Plan: On no maintenance inhalers for this. No acute exacerbation suspected. - Monitor (7) Diabetes mellitus: Plan: A1c was 5.6% in 10/2020. Not on home meds. - Monitor blood sugars -> AM blood sugars have been acceptable. (8) Myelodysplasia (myelodysplastic syndrome): Plan: Cause of anemia as above. (9) DVT prophylaxis: Plan: SCDs - Holding heparin for anemia and ERCP/surgery Admission and Anticipated Discharge Date Admission Date: February 07, 2021 Subjective Doing well today. No nausea, no vomiting. Reports no fevers/chills, chest pain, shortness of breath, abdominal pain, nausea, or vomiting. Physical Exam Constitutional: WD/WN, vitals as above Eyes: EOM intact bilaterally; no conjunctival abnormality ENMT: external ear and nose normal, oropharynx normal Neck: trachea midline, no thyromegaly normal visual inspection Respiratory: normal respiratory effort, lungs clear to auscultation no respiratory distress Cardiovascular: RRR, no murmur, no edema Gastrointestinal (Abdomen): Inspection/Auscultation: abdomen normal to inspection; abdomen not distended Percussion/Palpation: abdomen soft; abdomen nontender, no guarding and abdomen not rigid Musculoskeletal: no cyanosis or clubbing, extremities motor strength 5/5 Skin: no rashes, warm and dry Neurologic: moves all extremities and awake Psychiatric: Orientation: alert, oriented to person and cooperative Results & Data Results & Data ([facility]) Vital Signs (Past 12 Hours) Vital Signs Temp Pulse Pulse Resp BP BP Pulse Ox 02/09/21 12:40 37.3 C 60 16 129/56 L 95 02/09/21 11:29 36.8 C 67 18 127/72 100 02/09/21 11:28 36.8 C 67 18 127/72 02/09/21 11:05 36.8 C 67 16 132/55 L 100 02/09/21 10:30 37.1 C 70 18 114/58 L 02/09/21 09:58 36.9 C 65 18 115/69 02/09/21 09:38 37.6 C H 59 L 18 120/50 L 97 02/09/21 07:26 63 02/09/21 07:00 36.8 C 65 18 124/51 L 98 02/09/21 03:49 37 C 66 18 152/73 H 95 02/09/21 02:52 56 L PG Care Time/CCT Total # of Minutes Spent Total Time Spent with Patient: Total time spent is greater than 50% in coordination of care (as documented) at patient's floor/unit and/or counseling patient: Coding Level of Care Code 26148 Subseq Hosp Care Lvl 3 Diagnoses Right upper quadrant pain R10.11 Constipation K59.00 Anemia D64.9 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
[2021-02-09] MEDS: SENNA 8.6 MG TAB PO SCH (20:52)
[2021-02-09] MEDS: FAMOTIDINE 20 MG TAB PO SCH (20:53)
[2021-02-09] MEDS: MELATONIN 3 MG TAB PO SCH (20:53)
[2021-02-09] MEDS: PRAVASTATIN SOD 20 MG TAB PO SCH (20:54)
[2021-02-10] MEDS: PIPERACILLIN/TAZOBACTAM 3.375 GM in DEXTROSE 5% 100 ML IV SCH ×3 (05:09→23:59)
[2021-02-10 06:46] LABS: Albumin Level 2.9 gm/dl (3.4-5.0); BUN Creatinine Ratio 13.9 (10-20); Calcium 8.6 mg/dl (8.5-10.1); Creatinine Clr Calc Pharmacy 30.1 ml/min; Est GFR (African American) 41.7 ml/min; Magnesium 2.3 mg/dl (1.8-2.4); Potassium 3.9 mmol/L (3.5-5.1)
[2021-02-10 06:48] LABS: Albumin Globulin Ratio 0.6 (0.9-2); Bilirubin,Total 1.1 mg/dl (0.2-1); Globulin 4.5 gm/dl (2.5-4.0); Total Protein 7.4 gm/dl (6.4-8.2)
[2021-02-10 06:49] LABS: Hematocrit (blood only) 31.1 % (37-47); Hemoglobin 10.3 g/dL (12.0-16.0); Mean Corpuscular Hemoglobin 29.3 pg (25-34); Mean Corpuscular Hgb Conc 33.1 g/dL (32-36); Mean Corpuscular Volume 88.6 fL (80-100); Mean Platelet Volume 10.2 fL (7.4-10.4); Platelet Count 190 K/uL (130-400); RDW Coefficient of Variation 17.4 % (11.5-14.5); RDW Standard Deviation 53.9 fL (36.4-46.3); Red Blood Count 3.51 M/uL (4.2-5.4); White Blood Count 5.26 K/uL (4.8-10.8)
[2021-02-10] MEDS ORDERED: INDOMETHACIN 50 MG SUPP PR ONE (07:27)
[2021-02-10] MEDS ORDERED: PROPOFOL IV EMULSION 10 MG/ML 20 ML VIAL IV ONE ×3 (07:27→07:59)
[2021-02-10] MEDS ORDERED: SUCCINYLCHOLINE CHLORIDE 20 MG/ML 10 ML VIAL IV ONE (07:27)
[2021-02-10] MEDS ORDERED: ONDANSETRON INJ 2 MG/ML 2 ML VIAL ONE (07:27)
[2021-02-10] MEDS ORDERED: fentaNYL citrate 100 MCG/2 ML VIAL ONE (07:27)
[2021-02-10] MEDS ORDERED: LIDOCAINE 2% 2 ML VIAL/AMP(20MG/ML) INFIL ONE (07:27)
[2021-02-10] MEDS ORDERED: ATROPINE SULFATE 0.1 MG/ML 10ML SYR IV PRN (07:34)
[2021-02-10] MEDS ORDERED: ePHEDrine sulfate 50 MG/ML AMP IV PRN (07:34)
[2021-02-10] MEDS ORDERED: ONDANSETRON INJ 2 MG/ML 2 ML VIAL IV PRN (07:34)
[2021-02-10] MEDS ORDERED: fentaNYL citrate 100 MCG/2 ML VIAL IV PRN (07:34)
--- NOTE | 2021-02-10 07:34 | Gastroenterology Progress Note ---
Date of Service February 10, 2021 Assessment & Plan (1) Choledocholithiasis: Plan: Patient presented with abdominal discomfort with MRI that shows evidence of choledocholithiasis. She also has a large hiatal hernia on imaging studies. We will plan to do upper endoscopy followed by ERCP today. We discussed the risks of the procedures to include bleeding, infection, perforation, pain, need for follow-up studies, failed biliary cannulation Recommendations Upper endoscopy with ERCP today Continue antibiotic coverage for total of 10 days General surgery consultation to determine timing of cholecystectomy Avoid use of nonsteroidals for 1 week please Admission and Anticipated Discharge Date Admission Date: February 07, 2021 Subjective Patient presents today for ERCP, she does have intermittent abdominal discomfort and a mild elevation of her liver associated enzymes. The imaging does show evidence of choledocholithiasis. She presented several days ago with abdominal discomfort and a marked dilation of her common bile duct of undetermined etiology. she did finally undergo MRI which shows choledocholithiasis Physical Exam Constitutional: WD/WN, vitals as above Eyes: PERRL, conjunctivae normal, anicteric sclerae ENMT: Ears: no hearing impairment Neck: trachea midline, no thyromegaly Respiratory: Poor airway movement Cardiovascular: Heart Sounds: + murmur Gastrointestinal (Abdomen): Mild right upper quadrant tenderness Results & Data ([facility]) Vital Signs (Past 12 Hours) Vital Signs Temp Pulse Pulse Resp BP BP BP 02/10/21 04:03 36.7 C 47 L 18 171/82 H 02/10/21 02:38 37 C 49 L 18 160/79 H 02/10/21 02:10 36.8 C 48 L 18 164/74 H 02/10/21 01:10 37.0 C 46 L 18 164/104 H 02/10/21 00:40 37.1 C 49 L 18 165/78 H 02/10/21 00:25 37.3 C 47 L 16 152/83 H 02/10/21 00:07 37.1 C 46 L 16 163/74 H 02/09/21 23:40 44 L 02/09/21 23:03 36.8 C 61 18 137/60 02/09/21 19:55 36.9 C 45 L 18 135/70 Pulse Ox 02/10/21 04:03 100 02/10/21 02:38 100 02/10/21 02:10 100 02/10/21 01:10 100 02/10/21 00:40 97 02/10/21 00:25 96 02/10/21 00:07 100 02/09/21 23:40 02/09/21 23:03 97 02/09/21 19:55 100 Diagnostic Findings MR MRCP HISTORY: Vomiting. r/o choledocholithiasis TECHNIQUE: MRCP of the abdomen was performed without contrast according to standard departmental protocol. COMPARISON STUDY: Abdomen and pelvis CT 02/07/2021. FINDINGS: Volume loss and scarlike densities again noted within the left lung base. The right lung base appears clear. Difficult evaluation of the biliary system due to the significant motion artifact. Moderate intra and extra hepatic bile duct dilatation is again noted. The common bile duct measures up to 11 mm in diameter. There appear to be a few punctate stones within the distal common bile duct and gallbladder. Mild gallbladder wall thickening with trace pericholecystic fluid is noted. No hepatic or splenic masses. There is a 4 cm left renal cyst. There are few small bilateral peripelvic renal cysts. No hydronephrosis. The pancreas is unremarkable. The main pancreatic duct is normal in course and caliber. The adrenal glands are unremarkable. No hepatic or splenic masses. No retroperitoneal lymphadenopathy. IMPRESSION: 1. Near nondiagnostic evaluation of the biliary system due to the significant motion artifact. However, there appears to be a few punctate stones within the common bile duct. This likely accounts for the moderate intra and extrahepatic bile duct dilatation. 2. There are a few punctate stones within the gallbladder with mild gallbladder wall thickening and trace pericholecystic fluid. The gallbladder is distended. These findings likely represent an acute cholecystitis. Surgical consultation recommended.
[2021-02-10] MEDS ORDERED: GLYCOPYRROLATE 0.2 MG/ML VIAL ONE (08:00)
[2021-02-10] MEDS: INDOMETHACIN 50 MG SUPP PR ONE ×2 (08:18→09:43)
[2021-02-10] MEDS ORDERED: ePHEDrine sulfate 50 MG/ML SYR ONE (08:20)
--- NOTE | 2021-02-10 08:30 | GI REPORT ---
Patient Name: Maki Mirza Procedure Date: 02/10/2021 7:24 AM Date of : 1950 Admit Type: Inpatient Age: 70 Gender: Female Attending MD: Sammy Arriola DO Procedure: Upper GI endoscopy Providers: Sammy Arriola DO Referring MD: Yesenia Pandey Indications: Epigastric abdominal pain, Abnormal CT of the GI tract, Abnormal MRI of the GI tract Medicines: General Anesthesia Complications: No immediate complications. Estimated blood loss: Minimal. Estimated Blood Loss: Estimated blood loss was minimal. Procedure: Pre-Anesthesia Assessment: - Prior to the procedure, a History and Physical was performed, and patient medications, allergies and sensitivities were reviewed. The patient's tolerance of previous anesthesia was reviewed. - The risks and benefits of the procedure and the sedation options and risks were discussed with the patient. All questions were answered and informed consent was obtained. - Patient identification and proposed procedure were verified prior to the procedure by the physician, the nurse and the water pump installer. The procedure was verified in the procedure room. - Pre-procedure physical examination revealed no contraindications to sedation. - ASA Grade Assessment: III - A patient with severe systemic disease. - After reviewing the risks and benefits, the patient was deemed in satisfactory condition to undergo the procedure. - The anesthesia plan was to use general anesthesia. - Immediately prior to administration of medications, the patient was re-assessed for adequacy to receive sedatives. - The heart rate, respiratory rate, oxygen saturations, blood pressure, adequacy of pulmonary ventilation, and response to care were monitored throughout the procedure. - The heart rate, respiratory rate, oxygen saturations, blood pressure, adequacy of pulmonary ventilation, and response to care were monitored throughout the procedure. - The physical status of the patient was re-assessed after the procedure. After obtaining informed consent, the endoscope was passed under direct vision. Throughout the procedure, the patient's blood pressure, pulse, and oxygen saturations were monitored continuously. The Endoscope was introduced through the mouth, and advanced to the third part of duodenum. The upper GI endoscopy was accomplished without difficulty. The patient tolerated the procedure well. The scope was introduced through the mouth, and advanced to the second part of duodenum. Findings: The examined esophagus was normal. A medium-sized hiatal hernia was found. The proximal extent of the gastric folds (end of tubular esophagus) was 32 cm from the incisors. The hiatal narrowing was 36 cm from the incisors. The Z-line was 32 cm from the incisors. The gastric fundus, gastric body, incisura and gastric antrum were normal. The examined duodenum was normal. Impression: - Normal esophagus. - Medium-sized hiatal hernia. - Normal gastric fundus, gastric body, incisura and antrum. - Normal examined duodenum. - No specimens collected. Recommendation: - [facility] care. Sammy Arriola D.O. Sammy Arriola, 02/10/2021 8:30:20 AM This report has been signed electronically. Note Initiated On: 02/10/2021 7:24 AM Number of Addenda: 0 I attest to the content of the Intraoperative Record and orders documented therein, exceptions below {[id number]}
--- NOTE | 2021-02-10 08:34 | GI REPORT ---
Patient Name: Maki Mirza Procedure Date: 02/10/2021 7:23 AM Date of : 1950 Admit Type: Inpatient Age: 70 Gender: Female Attending MD: Sammy Arriola DO Procedure: ERCP Providers: Sammy Arriola DO Referring MD: Yesenia Pandey Indications: Abdominal pain of suspected biliary origin, Abnormal MRCP Medicines: Monitored Anesthesia Care Complications: No immediate complications. Estimated blood loss: Minimal. Estimated Blood Loss: Estimated blood loss was minimal. Procedure: Pre-Anesthesia Assessment: - Prior to the procedure, a History and Physical was performed, and patient medications, allergies and sensitivities were reviewed. The patient's tolerance of previous anesthesia was reviewed. - The risks and benefits of the procedure and the sedation options and risks were discussed with the patient. All questions were answered and informed consent was obtained. - Patient identification and proposed procedure were verified prior to the procedure by the physician, the nurse and the animation director. The procedure was verified in the procedure room. - Pre-procedure physical examination revealed no contraindications to sedation. - ASA Grade Assessment: III - A patient with severe systemic disease. - After reviewing the risks and benefits, the patient was deemed in satisfactory condition to undergo the procedure. - The anesthesia plan was to use monitored anesthesia care (MAC). - Immediately prior to administration of medications, the patient was re-assessed for adequacy to receive sedatives. - The heart rate, respiratory rate, oxygen saturations, blood pressure, adequacy of pulmonary ventilation, and response to care were monitored throughout the procedure. - The physical status of the patient was re-assessed after the procedure. After obtaining informed consent, the scope was passed under direct vision. Throughout the procedure, the patient's blood pressure, pulse, and oxygen saturations were monitored continuously. The Scope was introduced through the mouth, and advanced to the duodenum and used to cannulate the bile duct. The ERCP was accomplished without difficulty. The patient tolerated the procedure well. Findings: The activities therapist film was normal. The esophagus was successfully intubated under direct vision without detailed examination of the pharynx, larynx, and associated structures, and upper GI tract. The upper GI tract was grossly normal. The major papilla was small. The bile duct was deeply cannulated with the short-nosed traction sphincterotome (Rx 39) and a 0.025 in Dream guidewire (PD not cannulated or injected today). Contrast was injected. I personally interpreted the bile duct images. Contrast extended to the entire biliary tree. The main bile duct was moderately dilated. The largest diameter was 12 mm. Biliary sphincterotomy was made with a monofilament Dreamtome sphincterotome using ERBE electrocautery. There was no post-sphincterotomy bleeding. To discover objects, the biliary tree was swept with a 15 mm balloon starting at the bifurcation. Sludge was swept from the duct. Two stones were removed. No stones remained. Two 7 Fr by 7 cm biliary stents with a full external pigtail and a full internal pigtail were placed 7 cm into the common bile duct. Bile flowed through the stents. The stents were in good position. The total fluoroscopy exposure time was 40 seconds. The endoscope was withdrawn from the patient. Indomethacin 100 mg was given via suppository to decrease the risk of post-ERCP pancreatitis (PEP). Impression: - The major papilla appeared to be small. - The entire main bile duct was moderately dilated. - Choledocholithiasis was found. Complete removal was accomplished by biliary sphincterotomy and balloon extraction. - Two biliary stents were placed into the common bile duct. - Indomethacin given to decrease risk of post-ERCP pancreatitis. Recommendation: - Avoid aspirin and nonsteroidal anti-inflammatory medicines for 1 week. - Use broad spectrum antibiotics for 10 days. - Clear liquid diet. - cholecystectomy per General Surgery Service - Repeat ERCP in 6 weeks to remove stent after cholecystectomy is completed. Sammy Arriola D.O. Sammy Arriola, 02/10/2021 8:34:16 AM This report has been signed electronically. Note Initiated On: 02/10/2021 7:23 AM Number of Addenda: 0 I attest to the content of the Intraoperative Record and orders documented therein, exceptions below {[id number]}
--- NOTE | 2021-02-10 08:36 | Communication Note ---
Date of Service: February 10, 2021 The patient underwent upper endoscopy and ERCP this morning. The upper endoscopy was notable for a 4 cm hiatal hernia but was otherwise unremarkable. The ERCP was notable for several small stones and a small amount of sludge within the common bile duct. 2 biliary stents were placed. Recommendations Continue antibiotic coverage for total of 10 days Avoid nonsteroidal use for 1 week Patient may have clear liquids today Cholecystectomy per general surgery service Repeat ERCP for stent removal in 6 to 8 weeks after cholecystectomy is performed Please call with any questions or concerns
--- NOTE | 2021-02-10 08:37 | Post Operative Brief Note ---
Immediate Post Op Note v1 Date of Surgery February 10, 2021 Pre & Post Diagnosis Operation Date: 02/08/21 09:00 <No data on this case meets the specified criteria> Operation Date: 02/09/21 09:55 <No data on this case meets the specified criteria> Operation Date: 02/10/21 07:30 Pre-Op Diagnosis: Choledocholithiasis, common dile duct obtruction Post-Op Diagnosis: Choledocholithiasis, common bile duct obstruction I identified the patient and participated in the time-out.: Yes Procedure Operation Date: 02/08/21 09:00 <No data on this case meets the specified criteria> Operation Date: 02/09/21 09:55 <No data on this case meets the specified criteria> Operation Date: 02/10/21 07:30 Actual Procedures p Endoscopic retrograde cholangiopancreatography, Esophagogastroduodenoscopy - Sammy Arriola DO Surgeon Sammy Arriola DO Manager Paid none Estimated Blood Loss 0 Findings Consistent with Post-Op Diagnosis
--- NOTE | 2021-02-10 08:48 | Fluoroscopy Report ---
INTRAOPERATIVE RADIOGRAPHS CLINICAL HISTORY: ERCP. Stent placement. Fluoroscopy time: 41 seconds. FINDINGS: 8 spot fluoroscopic views of the right upper quadrant from an ERCP procedure are correlated with MRCP dated 02/09/[address] dated 02/07/2021. The initial image shows a catheter in the common bile duct. The common bile duct appears dilated. The final image shows 2 common bile duct stents in place. IMPRESSION: Intraoperative ERCP images showing common bile duct stent placement. See operative report for detailed findings. Electronically signed by: Nicola Koehler M.D. 02/10/2021 8:46 AM
--- NOTE | 2021-02-10 08:55 | Anesthesiology Progress Note ---
Date of Service February 10, 2021 Anesthesia Post Procedure Vital Signs Vital Signs: Temp Pulse Pulse Pulse Pulse Resp BP 02/10/21 08:50 98.4 F 61 20 02/10/21 08:40 61 19 02/10/21 08:33 97.5 F L 68 18 02/10/21 04:03 98.1 F 47 L 18 02/10/21 02:38 98.6 F 49 L 18 160/79 H 02/10/21 02:10 98.2 F 48 L 18 164/74 H 02/10/21 01:10 98.6 F 46 L 18 164/104 H 02/10/21 00:40 98.8 F 49 L 18 165/78 H 02/10/21 00:25 99.1 F 47 L 16 152/83 H 02/10/21 00:07 98.8 F 46 L 16 163/74 H 02/09/21 23:40 44 L 02/09/21 23:03 98.2 F 61 18 02/09/21 19:55 98.4 F 45 L 18 02/09/21 18:41 58 L 02/09/21 12:40 99.1 F 60 16 129/56 L 02/09/21 11:29 98.2 F 67 18 02/09/21 11:28 98.2 F 67 18 127/72 02/09/21 11:05 98.2 F 67 16 132/55 L 02/09/21 10:30 98.8 F 70 18 114/58 L 02/09/21 09:58 98.4 F 65 18 115/69 02/09/21 09:38 99.7 F H 59 L 18 120/50 L BP BP Pulse Ox 02/10/21 08:50 180/79 H 100 02/10/21 08:40 183/85 H 100 02/10/21 08:33 153/67 H 98 02/10/21 04:03 171/82 H 100 02/10/21 02:38 100 02/10/21 02:10 100 02/10/21 01:10 100 02/10/21 00:40 97 02/10/21 00:25 96 02/10/21 00:07 100 02/09/21 23:40 02/09/21 23:03 137/60 97 02/09/21 19:55 135/70 100 02/09/21 18:41 02/09/21 12:40 95 02/09/21 11:29 127/72 100 02/09/21 11:28 02/09/21 11:05 100 02/09/21 10:30 02/09/21 09:58 02/09/21 09:38 97 Transfer of Care Handoff Completed per policy Notes Mental Status: alert / awake / arousable and participated in evaluation Patient Amnestic to Procedure: Yes Nausea / Vomiting: adequately controlled Pain: adequately controlled Airway Patency, RR, SpO2: stable & adequate BP & HR: stable & adequate Hydration State: stable & adequate Anesthetic Complications: no major complications apparent and Pt Satisfied with anesthetic care
[2021-02-10] MEDS: POLYETHYLENE (MIRALAX) 17 GM PACK PO SCH ×2 (09:39→20:56)
[2021-02-10] MEDS: SACCHAROMYCES BOULARDII 250 MG CAP PO SCH (09:43)
[2021-02-10] MEDS: SERTRALINE HCL 100 MG TABLET PO SCH (09:43)
[2021-02-10] MEDS ORDERED: Nursing to Pharmacy Communication SCH (12:00)
[2021-02-10] MEDS: HEPARIN 100 UNIT/ML 5ML FLUSH FLUSH PRN (12:04)
--- NOTE | 2021-02-10 12:04 | Surgery Progress Note ---
Date of Service February 10, 2021 Assessment & Plan (1) Choledocholithiasis: (2) Acute cholecystitis: Plan: Discussed her MRCP findings as well as her ERCP findings. The recommendation would be to proceed with laparoscopic cholecystectomy. We could plan this for t omorrow. We discussed alternatives as well as associated risks which would include bleeding, infection, injury to another organ such as bile ducts or small bowel, DVT, PE, HI, CVA etc. She is agreeable. We have signed the consent. We will plan for laparoscopic possible open cholecystectomy tomorrow. Admission and Anticipated Discharge Date Admission Date: February 07, 2021 Subjective Patient seen. She is doing well. She has her usual mid abdominal pain. She also admits to frequent bouts of nausea. She is status post ERCP with stent placement earlier today. She is feeling well from that procedure. Physical Exam Constitutional: WD/WN, vitals as above no acute distress and not ill appearing Eyes: PERRL, conjunctivae normal, anicteric sclerae EOM intact bilaterally ENMT: external ear and nose normal, oropharynx normal Ears: no hearing impairment Neck: trachea midline, no thyromegaly Respiratory: normal respiratory effort; no respiratory distress and does not use accessory muscles Cardiovascular: Rate/Rhythm: regular rate and regular rhythm Gastrointestinal (Abdomen): Soft. Mild epigastric and right upper quadrant tenderness. No guarding or rebound. Skin: no rashes, warm and dry Psychiatric: Orientation: alert, oriented x 3 and cooperative Results & Data ([facility]) Vital Signs (Past 12 Hours) Vital Signs Temp Pulse Pulse Pulse Resp BP BP 02/10/21 11:20 36.7 C 62 18 159/72 H 02/10/21 10:00 36.3 C L 57 L 16 155/70 H 02/10/21 09:30 36.4 C L 60 18 113/68 02/10/21 09:00 57 L 17 174/85 H 02/10/21 08:50 36.9 C 61 20 180/79 H 02/10/21 08:40 61 19 183/85 H 02/10/21 08:33 36.4 C L 68 18 153/67 H 02/10/21 04:03 36.7 C 47 L 18 02/10/21 02:38 37 C 49 L 18 160/79 H 02/10/21 02:10 36.8 C 48 L 18 164/74 H 02/10/21 01:10 37.0 C 46 L 18 164/104 H 02/10/21 00:40 37.1 C 49 L 18 165/78 H 02/10/21 00:25 37.3 C 47 L 16 152/83 H 02/10/21 00:07 37.1 C 46 L 16 163/74 H BP Pulse Ox 02/10/21 11:20 99 02/10/21 10:00 100 02/10/21 09:30 100 02/10/21 09:00 100 02/10/21 08:50 100 02/10/21 08:40 100 02/10/21 08:33 98 02/10/21 04:03 171/82 H 100 02/10/21 02:38 100 02/10/21 02:10 100 02/10/21 01:10 100 02/10/21 00:40 97 02/10/21 00:25 96 02/10/21 00:07 100 PG Care Time/CCT Total # of Minutes Spent Total Time Spent with Patient: Total time spent is greater than 50% in coordination of care (as documented) at patient's floor/unit and/or counseling patient: Coding Level of Care Code 53656 Subseq Hosp Care Lvl 3 Diagnoses Choledocholithiasis K80.50 Acute cholecystitis K81.0
--- NOTE | 2021-02-10 13:28 | Hospitalist Progress Note ---
Date of Service February 10, 2021 Assessment & Plan (1) Right upper quadrant pain: Plan: Patient had Charcot's triad on admission with fever, elevated bilirubin, and RUQ pain, concerning for ascending cholangitis. CT a/p on 02/07 progressive bile duct dilation and gallbladder wall thickening with obstruction of the ampulla. - MRCP on 02/09 showed stones in the CBD. - Continue IV Zosyn -> Total of 10 days of abx. -> F/u with GI to remove stents in 6-8 weeks. - ERCP on 02/10. No complications. 2 stents placed. NPO @ midnight for lab abhijit tomorrow. (2) Constipation: Plan: - Continue MiraLAX & Senna. (3) Anemia: Plan: Baseline hgb appears to be 8 - 9 g/dL. - Transfused 1 unit PRBCs on 02/07. Tranfused 2 units PRBCs on 02/09. - Monitor for bleeding; no indication of this. She has long-standing MDS, so I think this is poor bone marrow response rather than acute bleeding. -> Hgb up to 10.3 on 02/10. (4) Bipolar 2 disorder: Plan: Anxiety and bipolar. - Hold sedating meds at this time - Continue sertraline (5) CKD (chronic kidney disease) stage 3, GFR 30-59 ml/min: Plan: Baseline Cr ~1.5. - At baseline. (6) COPD (chronic obstructive pulmonary disease): Plan: On no maintenance inhalers for this. No acute exacerbation suspected. - Monitor (7) Diabetes mellitus: Plan: A1c was 5.6% in 10/2020. Not on home meds. - Monitor blood sugars -> AM blood sugars have been acceptable. (8) Myelodysplasia (myelodysplastic syndrome): Plan: Cause of anemia as above. (9) DVT prophylaxis: Plan: SCDs - Holding heparin for anemia and surgery tomorrow Admission and Anticipated Discharge Date Admission Date: February 07, 2021 Subjective Doing well today. Seen after ERCP. Feels well. Reports no fevers/chills, chest pain, shortness of breath, abdominal pain, nausea, or vomiting. Physical Exam Constitutional: WD/WN, vitals as above Eyes: EOM intact bilaterally; no conjunctival abnormality ENMT: external ear and nose normal, oropharynx normal Neck: trachea midline, no thyromegaly normal visual inspection Respiratory: normal respiratory effort, lungs clear to auscultation no respiratory distress Cardiovascular: RRR, no murmur, no edema Gastrointestinal (Abdomen): Inspection/Auscultation: abdomen normal to inspection; abdomen not distended Percussion/Palpation: abdomen soft; abdomen nontender, no guarding and abdomen not rigid Musculoskeletal: no cyanosis or clubbing, extremities motor strength 5/5 Skin: no rashes, warm and dry Neurologic: moves all extremities and awake Psychiatric: Orientation: alert, oriented to person and cooperative Results & Data Results & Data ([place]) Vital Signs (Past 12 Hours) Vital Signs Temp Pulse Pulse Pulse Resp BP BP 02/10/21 12:08 36.5 C 60 16 159/74 H 02/10/21 11:20 36.7 C 62 18 159/72 H 02/10/21 10:00 36.3 C L 57 L 16 155/70 H 02/10/21 09:30 36.4 C L 60 18 113/68 02/10/21 09:00 57 L 17 174/85 H 02/10/21 08:50 36.9 C 61 20 180/79 H 02/10/21 08:40 61 19 183/85 H 02/10/21 08:33 36.4 C L 68 18 153/67 H 02/10/21 06:30 39 L 02/10/21 04:03 36.7 C 47 L 18 02/10/21 02:38 37 C 49 L 18 160/79 H 02/10/21 02:10 36.8 C 48 L 18 164/74 H BP Pulse Ox 02/10/21 12:08 100 02/10/21 11:20 99 02/10/21 10:00 100 02/10/21 09:30 100 02/10/21 09:00 100 02/10/21 08:50 100 02/10/21 08:40 100 02/10/21 08:33 98 02/10/21 06:30 02/10/21 04:03 171/82 H 100 02/10/21 02:38 100 02/10/21 02:10 100 PG Care Time/CCT Total # of Minutes Spent Total Time Spent with Patient: Total time spent is greater than 50% in coordination of care (as documented) at patient's floor/unit and/or counseling patient: Coding Level of Care Code 08772 Subseq Hosp Care Lvl 2 Diagnoses Right upper quadrant pain R10.11 Constipation K59.00 Anemia D64.9 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
--- NOTE | 2021-02-10 16:31 | Anesthesiology Consultation ---
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 History Surgery Operation Date: 02/08/21 09:00 Proposed Procedures p Endoscopic Ultrasonography Lower, ERCP - Sammy Arriola DO Operation Date: 02/09/21 09:55 Proposed Procedures p Endoscopic Retrograde Cholangiopancreatogram - Sammy Arriola DO Operation Date: 02/10/21 07:30 Proposed Procedures p Endoscopic Retrograde Cholangiopancreatogram - Sammy Arriola DO Operation Date: 02/11/21 07:45 Proposed Procedures p Laparoscopic Cholecystectomy - Swapnil Gautam DO Height/Weight Height: 5 ft 3 in Weight: 55.7 kg Allergies Allergy/AdvReac Type Severity Reaction Status Date / Time cat dander Allergy Mild ON EMBASSY Verified 02/07/21 17:20 OF HEARTHSIDE MED LIST codeine Allergy Unknown SEE COMMENT Verified 02/07/21 17:20 simvastatin AdvReac Intermediate ELEVATED Verified 02/07/21 17:20 HEPATIC ENZYMES Medications Home Medications Medication Instructions Recorded Confirmed Last Taken polyethylene glycol 3350 17 gram 17 g PO Q OTHER DAY #527 g 10/02/17 02/07/21 oral powder packet (Miralax) morphine 15 mg immediate release 15 mg PO Q8H #30 tab 07/07/18 02/07/21 02/07/21 08:00 tablet lorazepam 0.5 mg tablet See Rx Instructions .ROUTE .COMPLEX 10/04/19 02/07/21 02/06/21 magnesium hydroxide 400 mg/5 mL 30 ml PO DAILY PRN 10/04/19 02/07/21 10/04/19 08:30 oral suspension (Milk of Magnesia) acetaminophen 325 mg capsule 650 mg PO Q6H PRN cap 11/15/19 02/07/21 Unknown bisacodyl 10 mg rectal suppository 10 mg MT DAILY PRN 11/15/19 02/07/21 Unknown famotidine 20 mg tablet 20 mg PO HS 11/15/19 02/07/21 02/06/21 Saccharomyces boulardii 250 mg 250 mg PO QAM 02/07/21 02/07/21 02/06/21 capsule albuterol sulfate 0.63 mg/3 mL 0.63 mg INHALATION Q4H PRN 02/07/21 02/07/21 Unknown solution for nebulization hydroxyzine pamoate 50 mg capsule 50 mg PO HS 02/07/21 02/07/21 02/06/21 ipratropium 20 mcg-albuterol 100 1 puff INHALATION Q6H PRN 02/07/21 02/07/21 Unknown mcg/actuation mist for inhalation (Combivent Respimat) melatonin 3 mg tablet 6 mg PO HS 02/07/21 02/07/21 02/06/21 pravastatin 20 mg tablet 20 mg PO HS 02/07/21 02/07/21 02/06/21 sertraline 100 mg tablet 100 mg PO DAILY 02/07/21 02/07/21 02/06/21 Active Medications Generic Name Dose Route Start Last Admin Trade Name Freq PRN Reason Stop Dose Admin Acetaminophen 650 mg 02/07/21 20:18 02/09/21 09:44 Acetaminophen 325 Mg Tab PO 03/09/21 20:17 650 mg Q4H PRN Administration Pain or Fever Famotidine 20 mg 02/07/21 21:00 02/09/21 20:53 Famotidine 20 Mg Tab PO 03/09/21 20:59 20 mg HS MERON Administration Heparin Sodium (Porcine) 5 ml 02/08/21 09:15 02/10/21 12:04 Heparin 100 Unit/Ml 5ml Flush FLUSH 03/10/21 09:14 5 ml PRN PRN Administration Flush Hydroxyzine HCl 50 mg 02/08/21 13:04 02/09/21 03:09 Hydroxyzine Hcl 25 Mg Tab PO 03/09/21 20:59 50 mg HS PRN Administration Insomnia Piperacillin Sod/Tazobactam 115 mls @ 28.75 mls/hr 02/08/21 13:00 02/10/21 15:05 Sod 3.375 gm/ Dextrose IV 02/18/21 12:59 28.8 mls/hr Q8H MERON Administration Protocol Lorazepam 0.5 mg 02/08/21 13:04 02/09/21 01:39 Lorazepam 0.5 Mg Tab PO 03/09/21 20:59 0.5 mg QPM PRN Administration Anxiety/Agitation Lorazepam 0.25 mg 02/08/21 13:04 02/09/21 13:45 Lorazepam 0.5 Mg Tab PO 03/11/21 08:59 0.25 mg DAILY PRN Administration Anxiety/Agitation Melatonin 6 mg 02/07/21 21:00 02/09/21 20:53 Melatonin 3 Mg Tab PO 03/09/21 20:59 6 mg HS MERON Administration Polyethylene Glycol 17 gm 02/07/21 21:30 02/10/21 09:39 Polyethylene (Miralax) 17 Gm Pack PO 03/09/21 21:29 Not Given BID MERON Pravastatin Sodium 20 mg 02/07/21 21:00 02/09/21 20:54 Pravastatin Sod 20 Mg Tab PO 03/09/21 20:59 20 mg HS MERON Administration Saccharomyces Boulardii 250 mg 02/08/21 09:00 02/10/21 09:43 Saccharomyces Boulardii 250 Mg Cap PO 03/10/21 08:59 Not Given QAM MERON Sennosides 8.6 mg 02/08/21 21:00 02/09/21 20:52 Senna 8.6 Mg Tab PO 03/10/21 20:59 Not Given HS MERON Sertraline HCl 100 mg 02/08/21 09:00 02/10/21 09:43 Sertraline Hcl 100 Mg Tablet PO 03/10/21 08:59 Not Given DAILY MERON NPO Date Last Intake of Fluids: 02/09/21 Time Last Intake of Fluids: 08:00 Last Intake of Fluids Comment: Breakfast. Date Last Intake of Solids: 02/09/21 Time Last Intake of Solids: 08:00 Last Intake of Solids Comment: Citizen Of [place] toast at breakfast. 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 CKD (chronic kidney disease) stage 3, GFR 30-59 ml/min Constipation COPD (chronic obstructive pulmonary disease) Depression Diabetes Diabetes mellitus GERD (gastroesophageal reflux disease) History of cerebral infarction Hx: recurrent pneumonia not specified as recurrent Hyperlipidemia Hyperlipidemia Insomnia Migraine Myelodysplasia (myelodysplastic syndrome) Panic disorder Panic disorder Peripheral vascular disease Pleural effusion Pleural effusion Port-A-Cath in place Recurrent depressive disorder Sideroblastic anemia Vitamin D deficiency Past Family History Family History Mother Lung cancer Breast cancer Father Skin cancer Past Surgical History Surgical History H/O shoulder surgery History of vascular access device Social History Smoking Status: Unknown if ever smoked tobacco type: cigarettes Hx Alcohol Use: No Hx Substance Use: No substance use type: does not use Physical Exam Vital Signs Last Vital Signs Temp 97.5 F L 02/10/21 15:19 Pulse 45 L 02/10/21 16:02 Resp 19 02/10/21 15:19 BP 144/70 H 02/10/21 15:19 Pulse Ox 98 02/10/21 15:19 Testing Laboratory Results 02/10/21 05:36 02/10/21 05:36 PT 12.4 Seconds (9.0-12.0) H 02/07/21 19:28 INR 1.2 (0.9-1.1) H 02/07/21 19:28 APTT 25.1 Seconds (21.0-31.0) 02/07/21 19:28 Blood Type O Negative 02/07/21 17:25 Antibody Screen NEGATIVE 02/07/21 17:25 Electrocardiogram Date: 02/07/21 Normal sinus rhythm, rate 61 bpm When compared with ECG of 04-OCT-2019 19:00, Nonspecific T wave abnormality no longer evident in Lateral leads Confirmed by Ankit Turner ([id number]) on 02/08/2021 12:23:03 PM Chest X-Ray Date: 02/07/21 IMPRESSION: 1. No significant change compared to the prior study. No acute process. 2. Chronic left basilar scarlike densities persist. 3. Chronic superior subluxation/dislocation of the right humeral prosthesis in relation to the glenoid.
[2021-02-10] MEDS: ONDANSETRON INJ 2 MG/ML 2 ML VIAL IV PRN (18:41)
[2021-02-10] MEDS: SENNA 8.6 MG TAB PO SCH (20:56)
[2021-02-10] MEDS: MELATONIN 3 MG TAB PO SCH (21:51)
[2021-02-10] MEDS: FAMOTIDINE 20 MG TAB PO SCH (21:51)
[2021-02-10] MEDS: PRAVASTATIN SOD 20 MG TAB PO SCH (21:52)
[2021-02-10] MEDS ORDERED: LORazepam 0.25 MG/0.5 ML VIAL IV STA (22:09)
[2021-02-11] MEDS ORDERED: LORazepam 0.5 MG/1 ML VIAL IV STA (00:01)
[2021-02-11 05:49] LABS: Hematocrit (blood only) 30.9 % (37-47); Hemoglobin 10.3 g/dL (12.0-16.0); Mean Corpuscular Hemoglobin 29.3 pg (25-34); Mean Corpuscular Hgb Conc 33.3 g/dL (32-36); Mean Corpuscular Volume 87.8 fL (80-100); Mean Platelet Volume 10.3 fL (7.4-10.4); Platelet Count 189 K/uL (130-400); RDW Coefficient of Variation 16.3 % (11.5-14.5); RDW Standard Deviation 51.2 fL (36.4-46.3); Red Blood Count 3.52 M/uL (4.2-5.4); White Blood Count 4.57 K/uL (4.8-10.8)
[2021-02-11 06:16] LABS: Albumin Level 2.9 gm/dl (3.4-5.0); BUN Creatinine Ratio 14.2 (10-20); Calcium 8.4 mg/dl (8.5-10.1); Creatinine Clr Calc Pharmacy 31.8 ml/min; Est GFR (African American) 44.6 ml/min; Est GFR (Non-African American) 38.5 ml/min; Potassium 3.4 mmol/L (3.5-5.1)
[2021-02-11 06:19] LABS: Albumin Globulin Ratio 0.7 (0.9-2); Bilirubin,Total 1.3 mg/dl (0.2-1); Globulin 4.1 gm/dl (2.5-4.0)
[2021-02-11] MEDS ORDERED: ONDANSETRON INJ 2 MG/ML 2 ML VIAL IV PRN (07:37)
[2021-02-11] MEDS ORDERED: ePHEDrine sulfate 50 MG/ML AMP IV PRN (07:37)
[2021-02-11] MEDS ORDERED: ATROPINE SULFATE 0.1 MG/ML 10ML SYR IV PRN (07:37)
--- NOTE | 2021-02-11 07:58 | History & Physical Bridge Note ---
Date of Service February 11, 2021 History & Physical Bridge Note I have examined the patient, reviewed the History & Physical and in the interval since the performance of the History & Physical I have noted the following changes of clinical significance: no changes noted
[2021-02-11] MEDS ORDERED: fentaNYL citrate 100 MCG/2 ML VIAL ONE (08:30)
[2021-02-11] MEDS ORDERED: PROPOFOL IV EMULSION 10 MG/ML 20 ML VIAL IV ONE (08:33)
[2021-02-11] MEDS ORDERED: LIDOCAINE 2% 2 ML VIAL/AMP(20MG/ML) INFIL ONE (08:33)
[2021-02-11] MEDS ORDERED: ONDANSETRON INJ 2 MG/ML 2 ML VIAL ONE (08:33)
[2021-02-11] MEDS: PIPERACILLIN/TAZOBACTAM 3.375 GM in DEXTROSE 5% 100 ML IV SCH ×3 (08:39→23:47)
[2021-02-11] MEDS ORDERED: BUPIVACAINE 0.5 % 5 MG/1 ML MPF 30ML VIAL ONE (08:46)
[2021-02-11] MEDS ORDERED: EPINEPHrine INJ 1 MG/ML AMP ONE (08:46)
[2021-02-11] MEDS ORDERED: ROCURONIUM BROMIDE 10 MG/ML 5 ML VIAL IV ONE (09:01)
[2021-02-11] MEDS ORDERED: ePHEDrine sulfate 50 MG/ML SYR ONE (09:02)
[2021-02-11] MEDS ORDERED: GLYCOPYRROLATE 0.2 MG/ML VIAL ONE (09:22)
[2021-02-11] MEDS ORDERED: NEOSTIGMINE METHYLSULFATE 1 MG/ML 10ML VIAL ONE (09:22)
--- NOTE | 2021-02-11 09:34 | Operative Report ---
[facility] Post Operative Report Pre & Post Diagnosis Operation Date: 02/08/21 09:00 <No data on this case meets the specified criteria> Operation Date: 02/09/21 09:55 <No data on this case meets the specified criteria> Operation Date: 02/10/21 07:30 Pre-Op Diagnosis: Choledocholithiasis, common dile duct obtruction Post-Op Diagnosis: Choledocholithiasis, common bile duct obstruction Operation Date: 02/11/21 07:45 Pre-Op Diagnosis: Choledocholithiasis, Acute Cholecystitis Post-Op Diagnosis: Cholelithiasis; hiatal hernia I identified the patient and participated in the time-out.: Yes Procedure Operation Date: 02/08/21 09:00 <No data on this case meets the specified criteria> Operation Date: 02/09/21 09:55 <No data on this case meets the specified criteria> Operation Date: 02/10/21 07:30 Actual Procedures p Endoscopic retrograde cholangiopancreatography, Esophagogastroduodenoscopy - Sammy Arriola DO Operation Date: 02/11/21 07:45 Actual Procedures p Laparoscopic Cholecystectomy(Not Applicable) - Swapnil Gautam DO Surgeon Swapnil Gautam DO Toll Bridge Operator none Estimated Blood Loss 25 Findings Consistent with Post-Op Diagnosis Specimens gallbladder Description of Procedure After informed consent was obtained the patient was taken to the operating room and placed in the supine position. After successful intubation the abdomen was sterilely prepped and draped in usual fashion. A periumbilical incision was made with an 11 blade scalpel and carried down through the soft tissue using electrocautery. The anterior rectus fascia was opened using electrocautery and 2 #0 Vicryl stay sutures were placed. The peritoneum was elevated with hemostats and incised under direct vision using Metzenbaum scissors. A finger sweep was performed and a 12 mm Nguyễn trocar was placed. The abdomen was insufflated to 18 mmHg. The laparoscope was inserted and the abdomen was examined in 360. No gross abnormalities were identified. A subxiphoid 5 mm port and 2 right upper quadrant 5 mm ports were placed under direct vision. The patient was placed in a reverse Trendelenburg position and slightly airplaned to the left. The gallbladder was grasped and elevated superiorly and laterally. A [place] dissector was used to take down adhesions around the neck of the gallbladder. The cystic duct was identified and skeletonized. It was clipped twice proximally and once distally and transected using a laparoscopic scissor. In similar fashion the cystic artery was identified and skeletonized clipped and divided. There were several other small branches both posteriorly and anteriorly which were clipped and divided as well. The gallbladder was removed from the gallbladder fossa with electrocautery. It was placed into an Endo Catch bag. Thorough irrigation was performed. At the end of the procedure there was adequate hemostasis and no evidence of any bile leaks. A final look around the abdomen showed a moderate probably 5 cm hiatal hernia with gastric incarceration. There was no evidence of any gastric injury or obstruction. Otherwise there were no other abnormalities. The gallbladder and trochars were all removed and the abdomen was desufflated. The fascia of the camera port was closed using 0 Vicryl in a [id number] fashion. All the wounds were irrigated and closed using 4-0 Monocryl. Marcaine was injected around them for postoperative analgesia and skin glue used as a dressing. The patient was awakened, extubated and transferred to recovery in stable condition. My physician's curriculum assistant was present throughout the entire case... helped with prepping the patient. With exposure for trocar placement, as well as retracted the gallbladder throughout the case and also assisted with wound closure and dressing placement. I attest to the content of the Intraoperative Record and any orders documented therein. Any exceptions are noted below.
[2021-02-11] MEDS: fentaNYL citrate 100 MCG/2 ML VIAL IV PRN ×6 (09:58→10:25)
--- NOTE | 2021-02-11 10:05 | Anesthesiology Progress Note ---
Date of Service February 11, 2021 Anesthesia Post Procedure Vital Signs Vital Signs: Temp Pulse Pulse Pulse Resp BP Pulse Ox 02/11/21 09:55 61 21 139/65 99 02/11/21 09:45 70 21 161/66 H 99 02/11/21 09:38 98.4 F 70 16 169/69 H 100 02/11/21 07:04 97.9 F 49 L 18 151/81 H 99 02/11/21 06:18 77 02/11/21 03:48 98.6 F 49 L 20 130/69 97 02/10/21 23:27 98.2 F 45 L 18 127/58 L 99 02/10/21 23:25 48 L 02/10/21 19:40 98.2 F 43 L 18 151/67 H 100 02/10/21 16:02 45 L 02/10/21 15:19 97.5 F L 47 L 19 144/70 H 98 02/10/21 12:08 97.7 F 60 16 159/74 H 100 02/10/21 11:20 98.1 F 62 18 159/72 H 99 Transfer of Care Handoff Completed per policy Notes Mental Status: alert / awake / arousable and participated in evaluation Patient Amnestic to Procedure: Yes Nausea / Vomiting: adequately controlled Pain: adequately controlled Airway Patency, RR, SpO2: stable & adequate BP & HR: stable & adequate Hydration State: stable & adequate Anesthetic Complications: no major complications apparent and Pt Satisfied with anesthetic care
[2021-02-11] MEDS: POLYETHYLENE (MIRALAX) 17 GM PACK PO SCH ×2 (11:15→20:05)
[2021-02-11] MEDS: SACCHAROMYCES BOULARDII 250 MG CAP PO SCH (11:16)
[2021-02-11] MEDS: SERTRALINE HCL 100 MG TABLET PO SCH (11:16)
[2021-02-11] MEDS: MoRPHine SULFATE 4 MG/ML 1 ML CARP\\VIAL IV PRN (11:37)
[2021-02-11] MEDS: HEPARIN 100 UNIT/ML 5ML FLUSH FLUSH PRN ×2 (11:37→14:33)
[2021-02-11] MEDS ORDERED: NORMOSOL-R 1,000 ML IV ONE (12:55)
--- NOTE | 2021-02-11 13:26 | Hospitalist Progress Note ---
Date of Service February 11, 2021 Assessment & Plan (1) Right upper quadrant pain: Plan: Patient had Charcot's triad on admission with fever, elevated bilirubin, and RUQ pain, concerning for ascending cholangitis. CT a/p on 02/07 progressive bile duct dilation and gallbladder wall thickening with obstruction of the ampulla. - MRCP on 02/09 showed stones in the CBD. - Continue IV Zosyn -> Total of 10 days of abx. -> F/u with GI to remove stents in 6-8 weeks. - ERCP on 02/10. No complications. 2 stents placed. Seen after lap abhijit on 02/11. Significant pain and hypotension. BP as low as 77/55, though she is mentating appropriately. Given her recurrent NPO status, possibly due to hypovolemia after anesthesia. Will give 1L Normosol bolus. Use pain meds gently. (2) Constipation: Plan: - Continue MiraLAX & Senna. (3) Anemia: Plan: Baseline hgb appears to be 8 - 9 g/dL. - Transfused 1 unit PRBCs on 02/07. Tranfused 2 units PRBCs on 02/09. - Monitor for bleeding; no indication of this. She has long-standing MDS, so I think this is poor bone marrow response rather than acute bleeding. -> Hgb stable at 10.3 on 02/11. (4) Bipolar 2 disorder: Plan: Anxiety and bipolar. - Hold sedating meds at this time - Continue sertraline (5) CKD (chronic kidney disease) stage 3, GFR 30-59 ml/min: Plan: Baseline Cr ~1.5. - At baseline. (6) COPD (chronic obstructive pulmonary disease): Plan: On no maintenance inhalers for this. No acute exacerbation suspected. - Monitor (7) Diabetes mellitus: Plan: A1c was 5.6% in 10/2020. Not on home meds. - Monitor blood sugars -> AM blood sugars have been acceptable. (8) Myelodysplasia (myelodysplastic syndrome): Plan: Cause of anemia as above. (9) DVT prophylaxis: Plan: SCDs - Holding heparin for anemia and surgery today Admission and Anticipated Discharge Date Admission Date: February 07, 2021 Subjective Seen after surgery. Having significant pain in the abdominal area and low BP. Denies any lightheadedness, dizziness, nausea, vomiting. No fevers/chills. Physical Exam Constitutional: WD/WN, vitals as above Eyes: EOM intact bilaterally; no conjunctival abnormality ENMT: external ear and nose normal, oropharynx normal Neck: trachea midline, no thyromegaly normal visual inspection Respiratory: normal respiratory effort, lungs clear to auscultation no respiratory distress Cardiovascular: RRR, no murmur, no edema Gastrointestinal (Abdomen): Inspection/Auscultation: abdomen normal to inspection and + abdominal surgical incision (From lap abhijit; closed/glued.); abdomen not distended Percussion/Palpation: + abdomen tender, + guarding and abdomen soft; abdomen not rigid Musculoskeletal: no cyanosis or clubbing, extremities motor strength 5/5 Skin: no rashes, warm and dry Neurologic: moves all extremities and awake Psychiatric: Orientation: alert, oriented to person and cooperative Results & Data Results & Data ([facility]) Vital Signs (Past 12 Hours) Vital Signs Temp Pulse Pulse Pulse Resp BP Pulse Ox 02/11/21 12:26 36.9 C 62 19 82/57 L 97 02/11/21 12:23 36.4 C L 56 L 18 105/63 19 L 02/11/21 11:54 92/61 L 02/11/21 11:45 36.4 C L 64 16 86/54 L 94 02/11/21 10:57 36.3 C L 56 L 16 105/63 96 02/11/21 10:45 60 20 101/64 94 02/11/21 10:35 36.3 C L 59 L 19 104/66 99 02/11/21 10:25 64 16 104/63 99 02/11/21 10:15 56 L 20 118/70 100 02/11/21 10:05 55 L 14 143/72 H 100 02/11/21 09:55 61 21 139/65 99 02/11/21 09:45 70 21 161/66 H 99 02/11/21 09:38 36.9 C 70 16 169/69 H 100 02/11/21 07:04 36.6 C 49 L 18 151/81 H 99 02/11/21 06:18 77 02/11/21 03:48 37 C 49 L 20 130/69 97 PG Care Time/CCT Total # of Minutes Spent Total Time Spent with Patient: Total time spent is greater than 50% in coordination of care (as documented) at patient's floor/unit and/or counseling patient: Coding Level of Care Code 26879 Subseq Hosp Care Lvl 3 Diagnoses Right upper quadrant pain R10.11 Constipation K59.00 Anemia D64.9 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
[2021-02-11] MEDS: HYDROmorphone INJ 0.5 MG/0.5 ML SYR IV PRN (14:31)
[2021-02-11 14:33] LABS: Hemoglobin 9.7 g/dL (12.0-16.0)
[2021-02-11] MEDS: SENNA 8.6 MG TAB PO SCH (20:05)
[2021-02-11] MEDS: FAMOTIDINE 20 MG TAB PO SCH (20:29)
[2021-02-11] MEDS: PRAVASTATIN SOD 20 MG TAB PO SCH (20:30)
[2021-02-11] MEDS: MELATONIN 3 MG TAB PO SCH (20:30)
[2021-02-12] MEDS: MoRPHine SULFATE 2 MG/ML CARP IV PRN ×5 (01:58→19:48)
[2021-02-12 07:34] LABS: Hematocrit (blood only) 24.9 % (37-47); Hemoglobin 8.2 g/dL (12.0-16.0); Mean Corpuscular Hgb Conc 32.9 g/dL (32-36); Platelet Count 145 K/uL (130-400); RDW Coefficient of Variation 16.4 % (11.5-14.5); RDW Standard Deviation 51.5 fL (36.4-46.3); Red Blood Count 2.83 M/uL (4.2-5.4); White Blood Count 7.03 K/uL (4.8-10.8)
[2021-02-12] MEDS: HYDROmorphone INJ 0.5 MG/0.5 ML SYR IV PRN ×3 (07:40→17:29)
[2021-02-12] MEDS: HEPARIN 100 UNIT/ML 5ML FLUSH FLUSH PRN ×2 (07:43→12:36)
[2021-02-12] MEDS: PIPERACILLIN/TAZOBACTAM 3.375 GM in DEXTROSE 5% 100 ML IV SCH ×3 (07:51→22:57)
[2021-02-12 08:19] LABS: Albumin Globulin Ratio 0.6 (0.9-2); Albumin Level 2.3 gm/dl (3.4-5.0); BUN Creatinine Ratio 17.7 (10-20); Calcium 7.5 mg/dl (8.5-10.1); Creatinine Clr Calc Pharmacy 30.1 ml/min; Est GFR (African American) 41.7 ml/min; Globulin 3.9 gm/dl (2.5-4.0); Magnesium 1.9 mg/dl (1.8-2.4); Potassium 3.3 mmol/L (3.5-5.1); Total Protein 6.2 gm/dl (6.4-8.2)
[2021-02-12] MEDS: SERTRALINE HCL 100 MG TABLET PO SCH (08:39)
[2021-02-12] MEDS: POLYETHYLENE (MIRALAX) 17 GM PACK PO SCH ×2 (08:39→22:30)
[2021-02-12] MEDS: SACCHAROMYCES BOULARDII 250 MG CAP PO SCH (08:39)
--- NOTE | 2021-02-12 10:23 | Surgery Progress Note ---
Date of Service February 12, 2021 Assessment & Plan (1) Choledocholithiasis: (2) Acute cholecystitis: Plan: POD 1 lap abhijit BP running around 100/60 Hgb 8, was 10 preop but 7 on admission continue to increase diet, trend H&H as above. LFT's normal now. monitor H/H Admission and Anticipated Discharge Date Admission Date: February 07, 2021 Subjective not much appetite, pain at umbilicus Physical Exam Gastrointestinal (Abdomen): Inspection/Auscultation: + abdominal surgical incision (dry, no hematoma); abdomen not distended Percussion/Palpation: abdomen soft Results & Data ([facility]) Vital Signs (Past 12 Hours) Vital Signs Temp Pulse Pulse Resp BP Pulse Ox 02/12/21 08:04 36.6 C 79 18 97/62 L 96 02/12/21 06:17 70 02/12/21 03:45 37.1 C 78 18 98/60 L 98 02/11/21 23:50 36.8 C 80 18 101/65 98 02/11/21 23:02 76
[2021-02-12] MEDS: ONDANSETRON INJ 2 MG/ML 2 ML VIAL IV PRN (11:03)
[2021-02-12 19:12] LABS: Hematocrit (blood only) 23.5 % (37-47); Hemoglobin 7.8 g/dL (12.0-16.0)
[2021-02-12] MEDS: ACETAMINOPHEN 325 MG TAB PO PRN (19:48)
[2021-02-12] MEDS: SENNA 8.6 MG TAB PO SCH (22:30)
[2021-02-12] MEDS: FAMOTIDINE 20 MG TAB PO SCH (22:30)
[2021-02-12] MEDS: MELATONIN 3 MG TAB PO SCH (22:30)
--- NOTE | 2021-02-12 22:48 | Hospitalist Progress Note ---
Date of Service February 12, 2021 Assessment & Plan (1) Right upper quadrant pain: Plan: Patient had Charcot's triad on admission with fever, elevated bilirubin, and RUQ pain, concerning for ascending cholangitis. CT a/p on 02/07 progressive bile duct dilation and gallbladder wall thickening with obstruction of the ampulla. - MRCP on 02/09 showed stones in the CBD. - Continue IV Zosyn -> Total of 10 days of abx. -> F/u with GI to remove stents in 6-8 weeks. - ERCP on 02/10. No complications. 2 stents placed. Seen after lap abhijit on 02/11. Significant pain and hypotension. BP as low as 77/55, though she is mentating appropriately. Given her recurrent NPO status, possibly due to hypovolemia after anesthesia. Will give 1L Normosol bolus. Use pain meds gently. On 02/12, BP better controlled, now on clear liquid. monitor hemoglobin (2) Constipation: Plan: - Continue MiraLAX & Senna. (3) Anemia: Plan: Baseline hgb appears to be 8 - 9 g/dL. - Transfused 1 unit PRBCs on 02/07. Tranfused 2 units PRBCs on 02/09. - Monitor for bleeding; no indication of this. She has long-standing MDS, so I think this is poor bone marrow response rather than acute bleeding. -> Hgb stable at 10.3 on 02/11. (4) Bipolar 2 disorder: Plan: Anxiety and bipolar. - Hold sedating meds at this time - Continue sertraline (5) CKD (chronic kidney disease) stage 3, GFR 30-59 ml/min: Plan: Baseline Cr ~1.5. - At baseline. (6) COPD (chronic obstructive pulmonary disease): Plan: On no maintenance inhalers for this. No acute exacerbation suspected. - Monitor (7) Diabetes mellitus: Plan: A1c was 5.6% in 10/2020. Not on home meds. - Monitor blood sugars -> AM blood sugars have been acceptable. (8) Myelodysplasia (myelodysplastic syndrome): Plan: Cause of anemia as above. (9) DVT prophylaxis: Plan: SCDs - Holding heparin for anemia and surgery today Admission and Anticipated Discharge Date Admission Date: February 07, 2021 Subjective Patient reports no new symptoms. Review of Systems Review of Systems: All systems reviewed & are unremarkable except as noted in HPI & below Physical Exam Physical Exam: Constitutional: WD/WN, vitals as above Eyes: EOM intact bilaterally; no conjunctival abnormality ENMT: external ear and nose normal, oropharynx normal Neck: trachea midline, no thyromegaly normal visual inspection Respiratory: normal respiratory effort, lungs clear to auscultation no respiratory distress Cardiovascular: RRR, no murmur, no edema Gastrointestinal (Abdomen): Inspection/Auscultation: abdomen normal to inspection and + abdominal surgical incision (From lap abhijit; closed/glued.); abdomen not distended Percussion/Palpation: + abdomen tender, + guarding and abdomen soft; abdomen not rigid Musculoskeletal: no cyanosis or clubbing, extremities motor strength 5/5 Skin: no rashes, warm and dry Neurologic: moves all extremities and awake Psychiatric: Orientation: alert, oriented to person and cooperative Results & Data Results & Data ([facility]) Vital Signs (Past 12 Hours) Vital Signs Temp Pulse Pulse Resp BP Pulse Ox 02/12/21 19:42 37.8 C H 79 18 120/69 99 02/12/21 18:47 74 02/12/21 15:57 81 18 102/63 100 02/12/21 11:58 37.7 C H 73 19 93/58 L 99 PG Care Time/CCT Total # of Minutes Spent Total Time Spent with Patient: Total time spent is greater than 50% in coordination of care (as documented) at patient's floor/unit and/or counseling patient: Coding Level of Care Code 40683 Subseq Hosp Care Lvl 2 Diagnoses Right upper quadrant pain R10.11 Constipation K59.00 Anemia D64.9 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
[2021-02-12] MEDS ORDERED: ALBUT/IPRATROP 3MG/0.5MG NEB 3 ML VIAL NEB ONE (23:14)
[2021-02-12] MEDS ORDERED: ALBUT/IPRATROP 3MG/0.5MG NEB 3 ML VIAL NEB STA (23:25)
[2021-02-12] MEDS: PRAVASTATIN SOD 20 MG TAB PO SCH (23:38)
[2021-02-13] MEDS: MoRPHine SULFATE 2 MG/ML CARP IV PRN ×4 (00:11→14:59)
[2021-02-13] MEDS: HEPARIN 100 UNIT/ML 5ML FLUSH FLUSH PRN ×2 (02:19→20:21)
[2021-02-13] MEDS: HYDROmorphone INJ 0.5 MG/0.5 ML SYR IV PRN ×2 (05:14→09:33)
[2021-02-13 05:38] LABS: Hematocrit (blood only) 21.7 % (37-47); Hemoglobin 7.2 g/dL (12.0-16.0); Mean Corpuscular Hemoglobin 29.5 pg (25-34); Mean Corpuscular Hgb Conc 33.2 g/dL (32-36); Mean Corpuscular Volume 88.9 fL (80-100); Platelet Count 119 K/uL (130-400); RDW Coefficient of Variation 16.8 % (11.5-14.5); RDW Standard Deviation 52.8 fL (36.4-46.3); Red Blood Count 2.44 M/uL (4.2-5.4)
[2021-02-13 05:56] LABS: BUN Creatinine Ratio 17.3 (10-20); Calcium 8.1 mg/dl (8.5-10.1); Creatinine Clr Calc Pharmacy 30.1 ml/min; Est GFR (African American) 41.7 ml/min; Potassium 3.2 mmol/L (3.5-5.1)
[2021-02-13] MEDS: PIPERACILLIN/TAZOBACTAM 3.375 GM in DEXTROSE 5% 100 ML IV SCH ×3 (07:53→23:07)
--- NOTE | 2021-02-13 08:11 | Surgery Progress Note ---
Date of Service February 13, 2021 Assessment & Plan (1) Acute cholecystitis: Plan: POD#2 lap abhijit/POD#3 ERCP WBC 6, Hbg 7.2 (7.8) Continue to advance diet as tolerates Out of bed today as tolerates Will need f/u in clinic with Dr. Gautam within 2 weeks at time of dispo as above. doing ok from surgery standpoint. abd: soft. wounds look good increase activity. d/c planning Admission and Anticipated Discharge Date Admission Date: February 07, 2021 Subjective Patient doing fine. She has been on clears, no nausea/vomiting. She endorses some belly pain, controlled with pain meds. She has not been out of bed much. Physical Exam Physical Exam: awake Gastrointestinal (Abdomen): Inspection/Auscultation: + abdominal surgical incision (c/d/i) Percussion/Palpation: + abdomen tender (mild ttp monique incisionally) and abdomen soft Results & Data ([facility]) Vital Signs (Past 12 Hours) Vital Signs Temp Pulse Pulse Resp BP Pulse Ox 02/13/21 07:46 36.8 C 72 18 113/76 97 02/13/21 04:02 36.8 C 61 18 103/68 100 02/12/21 23:32 64 24 96 02/12/21 23:08 36.9 C 67 18 130/60 96 02/12/21 22:19 57 L PG Care Time/CCT Total # of Minutes Spent Total Time Spent with Patient: Total time spent is greater than 50% in coordination of care (as documented) at patient's floor/unit and/or counseling patient: Coding Level of Care Code None Diagnoses Acute cholecystitis K81.0
[2021-02-13] MEDS: SACCHAROMYCES BOULARDII 250 MG CAP PO SCH (09:27)
[2021-02-13] MEDS: SERTRALINE HCL 100 MG TABLET PO SCH (09:27)
[2021-02-13] MEDS: POLYETHYLENE (MIRALAX) 17 GM PACK PO SCH ×2 (09:32→20:21)
[2021-02-13] MEDS: oxyCODONE HCL IR 5 MG TAB (IMMEDIATE RELEASE) PO PRN ×2 (11:45→20:04)
[2021-02-13] MEDS ORDERED: ONDANSETRON INJ 2 MG/ML 2 ML VIAL IV ONE (19:12)
[2021-02-13] MEDS: MELATONIN 3 MG TAB PO SCH (20:04)
[2021-02-13] MEDS: SENNA 8.6 MG TAB PO SCH (20:05)
[2021-02-13] MEDS: PRAVASTATIN SOD 20 MG TAB PO SCH (20:05)
[2021-02-13] MEDS: FAMOTIDINE 20 MG TAB PO SCH (20:05)
--- NOTE | 2021-02-13 22:26 | Hospitalist Progress Note ---
Date of Service February 13, 2021 Assessment & Plan (1) Right upper quadrant pain: Plan: Patient had Charcot's triad on admission with fever, elevated bilirubin, and RUQ pain, concerning for ascending cholangitis. CT a/p on 02/07 progressive bile duct dilation and gallbladder wall thickening with obstruction of the ampulla. - MRCP on 02/09 showed stones in the CBD. - Continue IV Zosyn -> Total of 10 days of abx. -> F/u with GI to remove stents in 6-8 weeks. - ERCP on 02/10. No complications. 2 stents placed. Seen after lap abhijit on 02/11. Significant pain and hypotension. BP as low as 77/55, though she is mentating appropriately. Given her recurrent NPO status, possibly due to hypovolemia after anesthesia. Will give 1L Normosol bolus. Use pain meds gently. On 02/12, BP better controlled, now on clear liquid. monitor hemoglobin On 02/13 Pain has improved. If improves tomorrow, will dc (2) Constipation: Plan: - Continue MiraLAX & Senna. (3) Anemia: Plan: Baseline hgb appears to be 8 - 9 g/dL. - Transfused 1 unit PRBCs on 02/07. Tranfused 2 units PRBCs on 02/09. - Monitor for bleeding; no indication of this. She has long-standing MDS, so I think this is poor bone marrow response rather than acute bleeding. -> Hgb stable at 10.3 on 02/11. (4) Bipolar 2 disorder: Plan: Anxiety and bipolar. - Hold sedating meds at this time - Continue sertraline (5) CKD (chronic kidney disease) stage 3, GFR 30-59 ml/min: Plan: Baseline Cr ~1.5. - At baseline. (6) COPD (chronic obstructive pulmonary disease): Plan: On no maintenance inhalers for this. No acute exacerbation suspected. - Monitor (7) Diabetes mellitus: Plan: A1c was 5.6% in 10/2020. Not on home meds. - Monitor blood sugars -> AM blood sugars have been acceptable. (8) Myelodysplasia (myelodysplastic syndrome): Plan: Cause of anemia as above. (9) DVT prophylaxis: Plan: SCDs - Holding heparin for anemia and surgery today Admission and Anticipated Discharge Date Admission Date: February 07, 2021 Subjective Patient reports less pain today. Review of Systems Review of Systems: All systems reviewed & are unremarkable except as noted in HPI & below Physical Exam Physical Exam: Constitutional: WD/WN, vitals as above Eyes: EOM intact bilaterally; no conjunctival abnormality ENMT: external ear and nose normal, oropharynx normal Neck: trachea midline, no thyromegaly normal visual inspection Respiratory: normal respiratory effort, lungs clear to auscultation no respiratory distress Cardiovascular: RRR, no murmur, no edema Gastrointestinal (Abdomen): Inspection/Auscultation: abdomen normal to inspection and + abdominal surgical incision (From lap abhijit; closed/glued.); abdomen not distended Percussion/Palpation: + abdomen tender, and abdomen soft; abdomen not rigid Musculoskeletal: no cyanosis or clubbing, extremities motor strength 5/5 Skin: no rashes, warm and dry Neurologic: moves all extremities and awake Psychiatric: Orientation: alert, oriented to person and cooperative Results & Data Results & Data ([facility]) Vital Signs (Past 12 Hours) Vital Signs Temp Pulse Pulse Resp BP Pulse Ox 02/13/21 20:59 37.4 C 55 L 18 138/70 98 02/13/21 15:15 67 02/13/21 15:09 37.1 C 84 16 106/65 98 02/13/21 11:57 36.8 C 64 16 125/79 100 PG Care Time/CCT Total # of Minutes Spent Total Time Spent with Patient: Total time spent is greater than 50% in coordination of care (as documented) at patient's floor/unit and/or counseling patient: Coding Level of Care Code 45258 Subseq Hosp Care Lvl 2 Diagnoses Right upper quadrant pain R10.11 Constipation K59.00 Anemia D64.9 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
[2021-02-14] MEDS: MoRPHine SULFATE 4 MG/ML 1 ML CARP\\VIAL IV PRN (07:13)
[2021-02-14] MEDS: HEPARIN 100 UNIT/ML 5ML FLUSH FLUSH PRN (07:14)
[2021-02-14] MEDS: SERTRALINE HCL 100 MG TABLET PO SCH (08:20)
[2021-02-14] MEDS: SACCHAROMYCES BOULARDII 250 MG CAP PO SCH (08:20)
[2021-02-14] MEDS: PIPERACILLIN/TAZOBACTAM 3.375 GM in DEXTROSE 5% 100 ML IV SCH ×2 (08:20→15:50)
[2021-02-14] MEDS: oxyCODONE HCL IR 5 MG TAB (IMMEDIATE RELEASE) PO PRN (08:25)
[2021-02-14] MEDS: POLYETHYLENE (MIRALAX) 17 GM PACK PO SCH (08:26)
--- NOTE | 2021-02-14 10:13 | Surgery Progress Note ---
Date of Service February 14, 2021 Assessment & Plan (1) Acute cholecystitis: Plan: Doing as expected. Tolerating diet. Okay from our standpoint for discharge when okay with the primary service. We will follow up. Follow-up in the surgical office in 1 to 2 weeks. Admission and Anticipated Discharge Date Admission Date: February 07, 2021 Subjective Patient seen. Denies any new abdominal problems. She is tolerating a diet. Physical Exam Physical Exam: Alert. No acute distress Abdomen is soft. Expected incisional tenderness. No sign of infection. Results & Data ([facility]) Vital Signs (Past 12 Hours) Vital Signs Temp Pulse Pulse Resp BP Pulse Ox 02/14/21 07:31 58 L 02/14/21 07:11 36.8 C 58 L 18 140/84 98 02/14/21 02:41 36.5 C 54 L 18 126/66 96 02/13/21 23:10 36.7 C 57 L 16 133/79 98 02/13/21 22:33 56 L PG Care Time/CCT Total # of Minutes Spent Total Time Spent with Patient: Total time spent is greater than 50% in coordination of care (as documented) at patient's floor/unit and/or counseling patient: Coding Level of Care Code None Diagnoses Acute cholecystitis K81.0
[2021-02-14] MEDS: HYDROmorphone INJ 0.5 MG/0.5 ML SYR IV PRN (11:01)
[2021-02-14 13:07] LABS: Hematocrit (blood only) 22.4 % (37-47); Hemoglobin 7.4 g/dL (12.0-16.0); Mean Corpuscular Hemoglobin 29.5 pg (25-34); Mean Corpuscular Volume 89.2 fL (80-100); Mean Platelet Volume 10.6 fL (7.4-10.4); Platelet Count 148 K/uL (130-400); RDW Coefficient of Variation 16.4 % (11.5-14.5); Red Blood Count 2.51 M/uL (4.2-5.4); White Blood Count 4.83 K/uL (4.8-10.8)
[2021-02-14] MEDS ORDERED: IRON SUCROSE 200 MG in 0.9 % SODIUM CHLORIDE 100 ML IV ONE (13:50)
[2021-02-14] MEDS: MoRPHine SULFATE 2 MG/ML CARP IV PRN (15:31)
--- NOTE | 2021-02-18 20:58 | Discharge Summary ---
Date of Service February 14, 2021 Admission HPI Per Admitting Provider Maki Mirza is a 70 year old female from [facility] who presents to the ER from the [facility] due to hypotension and vomiting. She was at the [facility] earlier today for recurrent transfusion related myelodysplastic syndrome. She was found to have a systolic blood pressure in the 80s therefore was sent to the ER for evaluation. In the ER systolic BP 92/45. She also reports ongoing vomiting for the last 5 days with associated RUQ abdominal pain for the last 2 months. She reports it is both intermittent but also she has not been pain free for the last 2 months. However her history appears to be somewhat unreliable and changes multiple times on how I rephrase my questioning. She tells me both she wants medications to help with the pain and also she wants nothing done. She is unable to give me a severity of the pain. She denies any melena, diarrhea, constipation or bright red blood in stool. In the ER CT was concerning for moderate to severe intra and extrahepatic bile duct dilatation to the level of the ampulla which has progressed since prior scans with concern for cholecystitis. She was started on IV Zosyn and referred to medicine for admission and ongoing management of cholecystis, anemia and hypotension. Principal Diagnosis right upper quadrant Discharge Exam Constitutional: WD/WN, vitals as above Eyes: EOM intact bilaterally; no conjunctival abnormality ENMT: external ear and nose normal, oropharynx normal Neck: trachea midline, no thyromegaly normal visual inspection Respiratory: normal respiratory effort, lungs clear to auscultation no respiratory distress Cardiovascular: RRR, no murmur, no edema Gastrointestinal (Abdomen): Inspection/Auscultation: abdomen normal to inspection and + abdominal surgical incision (From lap abhijit; closed/glued.); abdomen not distended Musculoskeletal: no cyanosis or clubbing, extremities motor strength 5/5 Skin: no rashes, warm and dry Neurologic: moves all extremities and awake Psychiatric: Orientation: alert, oriented to person and cooperative Discharge Data Allergies Allergy/AdvReac Type Severity Reaction Status Date / Time cat dander Allergy Mild ON EMBASSY Verified 02/07/21 17:20 OF [facility] MED LIST codeine Allergy Unknown SEE COMMENT Verified 02/07/21 17:20 simvastatin AdvReac Intermediate ELEVATED Verified 02/07/21 17:20 HEPATIC ENZYMES Consultations 02/07/21 18:27 ED Decision to Admit Stat 02/08/21 06:57 Consult Gastroenterology Routine Consult General Surgery Routine Procedures Performed Operation Date: 02/08/21 09:00 <No data on this case meets the specified criteria> Operation Date: 02/09/21 09:55 <No data on this case meets the specified criteria> Operation Date: 02/10/21 07:30 Actual Procedures p Endoscopic retrograde cholangiopancreatography, - Sammy Arriola DO s Esophagogastroduodenoscopy - Sammy Arriola DO Operation Date: 02/11/21 07:45 Actual Procedures p Laparoscopic Cholecystectomy(Not Applicable) - Swapnil Gautam DO Ordered Studies 02/07/21 16:24 CT abd pelvis wo con Stat 02/09/21 08:19 MR MRCP Stat 02/10/21 07:00 FL ERCP biliary ductal Routine Hospital Course (1) Right upper quadrant pain: Patient had Charcot's triad on admission with fever, elevated bilirubin, and RUQ pain, concerning for ascending cholangitis. CT a/p on 02/07 progressive bile duct dilation and gallbladder wall thickening with obstruction of the ampulla. - MRCP on 02/09 showed stones in the CBD. - Continue IV Zosyn -> Total of 10 days of abx. -> F/u with GI to remove stents in 6-8 weeks. - ERCP on 02/10. No complications. 2 stents placed. Seen after lap abhijit on 02/11. Significant pain and hypotension. BP as low as 77/55, though she is mentating appropriately. Given her recurrent NPO status, possibly due to hypovolemia after anesthesia. Will give 1L Normosol bolus. Use pain meds gently. On 02/12, BP better controlled, now on clear liquid. monitor hemoglobin On 02/13 Pain has improved. If CONTINUE TO improve tomorrow, will dc On 02/14 Patient is agreeable to discharge. Pain has improved. Gen surgery is ok for discharge from surgical standpoint. (2) Constipation: - Continue MiraLAX & Senna. (3) Anemia: Baseline hgb appears to be 8 - 9 g/dL. - Transfused 1 unit PRBCs on 02/07. Tranfused 2 units PRBCs on 02/09. - Monitor for bleeding; no indication of this. She has long-standing MDS, so I think this is poor bone marrow response rather than acute bleeding. -> Hgb stable at 10.3 on 02/11. (4) Bipolar 2 disorder: Anxiety and bipolar. - Hold sedating meds at this time - Continue sertraline (5) CKD (chronic kidney disease) stage 3, GFR 30-59 ml/min: Baseline Cr ~1.5. - At baseline. (6) COPD (chronic obstructive pulmonary disease): On no maintenance inhalers for this. No acute exacerbation suspected. - Monitor (7) Diabetes mellitus: A1c was 5.6% in 10/2020. Not on home meds. - Monitor blood sugars -> AM blood sugars have been acceptable. (8) Myelodysplasia (myelodysplastic syndrome): Cause of anemia as above. (9) DVT prophylaxis: SCDs - Holding heparin for anemia and surgery today Total Time Total Time Spent Total Time Spent (In Minutes): 32 Discharge Plan Discharge Items Patient Disposition: Home - Self-Care Reason For Visit: CHOLEDOCHOLITHIASIS Discharge Diagnosis: laparoscopic cholecystectomy Activity: Per Instructions section Lifting: No more than 10 pounds Bathing Comment: may shower; no soaking in tubs/pools Exercise/Sports: Wait until after follow-up appointment Driving/Machine Use: no driving while taking narcotics for pain Non-emergency contact: Primary Care Provider Call non-emergency contact if: you have any medication questions, your symptoms worsen, your pain is not controlled, you have a fever, your temperature is above 101.5, your wound has increased redness, your wound has increased drainage and your wound pain has increased Follow-up/Referrals: Swapnil Gautam DO [Surgeon] - (Please call to schedule follow up in clinic within 2 weeks) Yesenia Pandey [Primary Care Provider] - Diet: Low Fat Addtl Attending Provider Instructions: -You had a MRCP on 02/09 showed stones in the CBD. - You were treated with IV antibiotics and will complete a total of 10 days of abx. - ERCP on 02/10. No complications. 2 stents placed. > Followup with GI to remove stents in 6-8 weeks. Pending Studies at Discharge: Yes Studies:: surgical pathology Stand-Alone Forms: My [facility] [employer], Smoking Cessation Medications and DC Order Prescriptions: New amoxicillin-pot clavulanate [Augmentin] 875-125 mg tablet 1 tab PO BID Qty: 8 RF: 0 Continued polyethylene glycol 3350 [Miralax] 17 gram Powder In Packet 17 g PO Q OTHER DAY Qty: 527 RF: 0 acetaminophen 325 mg capsule 650 mg PO Q6H PRN (Reason: PAIN/FEVER >101.) RF: 0 bisacodyl 10 mg suppository 10 mg AR DAILY PRN (Reason: NO BM IN 3 DAYS.) RF: 0 famotidine 20 mg tablet 20 mg PO HS RF: 0 morphine 15 mg tablet 15 mg PO Q8H Qty: 30 RF: 0 magnesium hydroxide [Milk of Magnesia] 400 mg/5 mL Suspension 30 ml PO DAILY PRN (Reason: NO BM IN 3 DAYS.) RF: 0 lorazepam 0.5 mg tablet See Rx Instructions .ROUTE .COMPLEX RF: 0 albuterol sulfate 0.63 mg/3 mL Solution For Nebulization 0.63 mg INHALATION Q4H PRN (Reason: CONGESTION/WHEEZING) RF: 0 sertraline 100 mg Tablet 100 mg PO DAILY RF: 0 hydroxyzine pamoate 50 mg Capsule 50 mg PO HS RF: 0 melatonin 3 mg Tablet 6 mg PO HS RF: 0 pravastatin 20 mg Tablet 20 mg PO HS RF: 0 Saccharomyces boulardii 250 mg Capsule 250 mg PO QAM RF: 0 Combivent Respimat 20-100 mcg/actuation Mist 1 puff INHALATION Q6H PRN (Reason: Shortness Of Breath Or Wheezing) RF: 0 Discharge Orders: Discharge Order (Routine); Ordered 02/14/21 Ordered By: Van Rosa Admission Data Admit Date/Time: 02/07/21 18:59 Attending Provider: Van Rosa Admit Provider: Sebastien Medina Primary Care Provider: Yesenia Pandey Other Providers: Nael Kelly ; Sebastien Medina ; Sammy Arriola Salvatore M. 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
== END 2021-02-14 19:31 | disposition home or self-care (01) | DRG 418 ==
LOC: ED 15:56 → SUATTDRO 18:59 → EDINP 18:59 → 2W 02-08 05:42